=== PATIENT | female | born 1960 | race Caucasian/White ===

== ENCOUNTER 2022-10-27 12:00 | Outpatient (OUT) | payer OTHER, SELFPAY ==
[2022-10-27 11:44] LABS: Microalbum Creatinine Ratio Ur 11.5 mg/g (0.0-29.9); Microalbumin Urine Random <1.3 mg/dL (<=30.0)
[2022-10-27 12:13] LABS: Alanine Aminotransferase 40 U/L (14-59); Albumin Globulin Ratio 1.2; Albumin Level 4.1 g/dL (3.4-5.0); Alkaline Phosphatase 44 U/L (46-116); Anion Gap 8.7; Aspartate Amino Transferase 25 U/L (15-37); BUN Creatinine Ratio 14.7; Bilirubin Total 0.4 mg/dL (0.2-1.0); Calcium 9.1 mg/dL (8.5-10.1); Carbon Dioxide 31.1 mmol/L (21.0-32.0); Chloride 105 mmol/L (98-107); Chol HDL Ratio 2.2; Cholesterol 195 mg/dL (<=200); Estimated GFR (African America >60 (>=60); Estimated GFR (Non-African Ame 55 (>=60); Globulin 3.3 g/dL; HDL Cholesterol 89 mg/dL (40-60); Potassium 3.8 mmol/L (3.5-5.1); Sodium 141 mmol/L (136-145); Thyroid Stimulating Hormone 2.019 uIU/mL (0.358-3.740); Total Protein 7.4 g/dL (6.4-8.2); Triglycerides 49 mg/dL (<=150); VLDL CHOLESTEROL 9.8 mg/dL
[2022-10-27 12:45] LABS: Glucose 39 mg/dL (74-106)
== END 2022-10-27 12:01 | disposition home or self-care (01) ==
LOC: LAB 10-29 08:40
PROVIDERS: PCP Family Medicine
DX: E10.9 Type 1 diabetes mellitus without complications (principal); E06.3 Autoimmune thyroiditis
CPT/HCPCS: 36415; 80053; 80061; 82043; 82570; 84439; 84443

== ENCOUNTER 2023-07-02 13:48 | Outpatient (OUT) | payer OTHER, SELFPAY ==
--- NOTE | 2023-07-02 | XR_ITS ---
The [address] [address] Patient Name: DENISE TRAMMELL MRN: [id number] date: 1960 Sex: F Assigned Patient Location: Current Patient Location: Accession/Order Number: [id number] Exam Date: 07/02/2023 13:50 Report Date: 07/02/2023 15:46 At the request of: KARLA HOWARD Procedure: XR foot LT min 3V PROCEDURE: XR foot LT min 3V COMPARISON: None. HISTORY: RIGHT FOOT PAIN FINDINGS: BONES:No acute fracture or dislocation. Minimal enthesopathic spurring Achilles insertion on the calcaneus SOFT TISSUES:Negative. No visible soft tissue swelling. EFFUSION:None visible. OTHER: Negative. XR/XR foot LT min 3V IMPRESSION: No significant abnormality Electronically authenticated by: CHARU BE Date: 07/02/2023 15:46
== END 2023-07-02 13:49 | disposition home or self-care (01) ==
LOC: EC 13:49
PROVIDERS: PCP Family Medicine; Visit Provider Physician Assistant
DX: M79.672 Pain in left foot (principal)
CPT/HCPCS: 73630

== ENCOUNTER 2023-07-26 07:38 | Outpatient (OUT) | payer OTHER, SELFPAY ==
--- OUTSIDE RECORDS SUMMARY | 2023-07-26 07:44 | XMS_ITS | CCD ---
Author Organization [facility] Care Team Providers Care Hand Ii Thermal Cutter Name Role Phone CHARU CASTELLANOS Unavailable Unavailable CHARU CASTELLANOS Unavailable Unavailable SELF, REFERRED Unavailable Unavailable SELF, REFERRED Unavailable Unavailable REBECCA GONZALEZ Primary Care Physician [facility] [place] Admitting Unavailable MISC, DR BARCLAY Attending Unavailable GONZALEZ, DR REBECCA Hadadd Primary Care Unavailable GONZALEZ, DR REBECCA Haddad Consulting Unavailable HIGHLANDER, ADRIANNA Mcallister Admitting Unavailable JOE, ADRIANNA Mcallister Attending Unavailable GONZALEZ, DR REBECCA Haddad Primary Care Unavailable AMEENA, DR JAYLIN Charles Consulting Unavailable HIGHLANDERADRIANNA Consulting Unavailable MISC, DR BARCLAY Admitting Unavailable MISC, DR BARCLAY Attending Unavailable GONZALEZ, DR REBECCA Haddad Primary Care Unavailable MISC, DR BARCLAY Consulting Unavailable GONZALEZ, DR REBECCA Haddad Consulting Unavailable Rebecca Gonzalez Unavailable Rosa Mcallister Unavailable Unavailable Primary Care Provider Unavailsalvador e Ron, Judit J Admitting Unavailable Ron, Judit J Attending Unavailable Ron, Judit J Referring Unavailable Ron, Judit J Admitting Unavailable Ron, Judit J Attending Unavailable Ron, Judit J Referring Unavailable Ron, Judit J Admitting Unavailable Rno, Judit J Attending Unavailable Rebecca Gonzalez MD Primary Care Provider Allergies Allergy Classification Reported Allergen(s) Allergy Type Date of Onset Reaction(s) Facility (7 sources) Penicillin; Translations: [penicillin] Drug Allergy 07-04-19 21 Eruption of skin (disorder) [facility] (5 sources) Penicillin G Drug Allergy rash [facility] Other (4 sources) Sulfamethoxazole / Trimethoprim Drug Allergy Unknown [facility] Other (4 sources) Penicillin G Benzathine & Proc Drug allergy Unknown [facility] Other (4 sources) patient allergy list reviewed by nurse or physicia Propensity to adverse reactions 11-13-19 Comment:Done [facility] Other (4 sources) Allergies Reconciled Propensity to adverse reactions 02-14-20 21 Unknown [facility] Other (4 sources) Substance with penicillin structure and antibacterial mechanism of action (substance) Drug allergy Unknown [facility] Other (5 sources) Penicillins Propensity to adverse reactions to drug 03-08-20 22 [facility] Medications Current Medications Medication Drug Class(es) Dates Sig (Normalized) Sig (Original) ascorbic acid 250 mg chewable tablet (5 sources) Vitamin C ascorbic acid, vitamin C, (ascorbic acid) 250 mg tablet,chewable Chew and swallow. 0 Active aspirin 81 mg oral tablet (15 sources) Platelet Aggregation Inhibitor, Nonsteroidal Anti-inflammatory Drug Start: 08-16-2010 take 1 tablet by mouth once daily aspirin 81 mg oral tablet 81 mg = 1 tab(s), Oral, Daily, tab(s), Refills(s) 0 Start Date: 08/16/10 Status: Ordered aspirin 81 mg ca psule 1 tablet 0 Active azithromycin 250 mg oral tablet (1 source) Macrolide Antimicrobial Start: 2023 Azithromycin 250 MG as directed Orally 2 tabs po today, then 1 tab daily x 4 more days for Jan, Active Calcium (5 sources) Phosphate Binder, Calcium Start: 08-16-2010 Calcium 600 D Tab Oral, Daily, Refill(s) 0 Start Date: 08/16/10 Status: Ordered calcium carbonate 1500 mg / cholecalciferol 0.01 mg oral tablet (5 sources) Vitamin D calcium carbonate-vitamin D3 (CALCIUM 600 + D,3,) 600 mg(1,500mg) -400 units per tablet 1 tablet 0 Active doxycycline monohydrate 100 mg oral capsule (1 source) Tetracycline-class Drug Start: 03-13-2023 take 1 capsule by mouth every twelve hours Doxycycline Monohydrate 100 MG 1 capsule Orally Twice a day for 10 days Feb, Active ethinyl estradiol 0.0025 mg / norethindrone acetate 0.5 mg oral tablet (5 sources) Estrogen Start: 08-16-2010 take 1 tablet by mouth once daily femhrt 0.5 mg/2.5 mcg oral tablet 1 tab(s), Oral, Daily, tab(s), Refill(s) 0 Start Date: 08/16/10 Status: Ordered fluticasone furoate 0.0275 mg/actuat metered dose nasal spray (5 sources) Corticosteroid Flonase Sensimis t 27.5 MCG/SPRAY 2 sprays (1 spray in each nostril) Nasally Once a day for 30 days Active Flonase Sensimis t 27.5 MCG/SPRAY 2 sprays (1 spray in each nostril) Nasally Once a day for 30 days Active insulin aspart, human 100 unt/ml injectable solution (6 sources) Insulin Analog Start: 08-15-2022 End: 07-09-2023 insulin aspart U-100 (NovoLOG U-100 Insulin aspart) 100 unit/mL injection Indications: Type 1 diabetes mellitus without complication ([facility]) INJECT 60 UNITS DAILY VIA INSULIN PUMP DIRECTED 60 mL 3 07/09/2023 Active Insulin Infusion Pump (5 sources) Insulin Infusion Pump Active Humalog (5 sources) Insulin Analog Start: 08-16-2010 Humalog SubCut aneous, mL, Refills(s) 0 Start Date: 08/16/10 Status: Ordered levothyroxine sodium 0.075 mg oral tablet (10 sources) l-Thyroxine Start: 02-25-2023 levothyroxine (SYNTHROID, LEVOTHROID) 75 MCG tablet TAKE 1 TABLET ONCE DAILY INTHE MORNING ON AN EMPTY STOMACH 90 tablet 3 02/25/2023 Active take 1 tablet by kalee th every twenty-four hours Levothyroxine Sodium 75 MCG 1 tablet onc e a day Active Multiple Vitamins Tab (5 sources) Start: 08-16-2010 take 1 tablet by mouth once daily Multiple Vitamins Tab 1 tab(s), Oral, Daily, tab(s), Refill(s) 0 Start Date: 08/16/10 Status: Ordered Multivitamin preparation (5 sources) Multivitamin Ora lly Active pedi multivit no.12 w-fluoride (MULTIVITAMINS-FLUOR SABRINA-FOLIC A ORAL) (5 sources) pedi multivit no .12 w-fluoride (MULTIVITAMINS-FLUO RIDE-FOLIC A ORAL) See Admin Instructions. 0 Active pravastatin sodium 40 mg oral tablet (16 sources) HMG-CoA Reductase Inhibitor Start: 05-11-2022 End: 04-29-2023 pravastatin (PRAVACHOL) 40 mg tablet TAKE 1 TABLET TWICE A DAY 180 tablet 3 04/29/2023 Active Start: 08-16-2010 take 1 tablet by kalee th once daily at bedtime pravastatin 40 mg oral tablet 40 mg = 1 tab(s), Oral, Once a day (at bedtime), tab(s), Refills(s) 0 Start Date: 08/16/10 Status: Ordered take 1 tablet by kalee th every twenty-four hours Pravastatin Sodium 80 MG 1 tablet Orally Once a day Active sertraline 100 mg oral capsule (10 sources) Serotonin Reuptake Inhibitor Start: 08-16-2010 Zoloft 100 mg oral capsule Daily, Refills(s) 0 Start Date: 08/16/10 Status: Ordered take 1 tablet by kalee th every twenty-four hours Sertraline HCl 50 MG 1 tablet Orally Onc e a day Active Vitamin D (5 sources) Start: 08-16-2010 take 1 mL by mouth o nce daily Vitamin D Oral, Daily, mL, Refills(s) 0 Start Date: 08/16/10 Status: Ordered Problems Active Problems Problem Classification Problem Date Documented Date Episodic/Chronic Acquired foot deformities (4 sources) Acquired deformity of right foot; Translations: [Other acquired deformities of right foot] Episodic Anxiety disorders (5 sources) Anxiety 10-08-2013 Chronic Conditions associated with dizziness or vertigo (4 sources) Benign paroxysmal positional vertigo; Translations: [Benign paroxysmal vertigo, bilateral] Episodic Diabetes mellitus with complications (4 sources) Hyperglycemia due to type 1 diabetes mellitus; Translations: [Type 1 diabetes mellitus with hyperglycemia] Chronic Diabetes mellitus without complication (14 sources) Type 1 diabetes mellitus; Translations: [Type 1 diabetes mellitus without complications] Onset: 06-12-2013 10-09-2013 Chronic Disorders of lipid metabolism (14 sources) Hypercholesterolemia ; Translations: [Familial hypercholesterolemia ] Onset: 06-12-2013 10-08-2013 Chronic Lymphadenitis (2 sources) Enlarged lymph nodes, unspecified Episodic Neoplasms of unspecified nature or uncertain behavior (4 sources) Neoplastic disease of uncertain behavior; Translations: [Neoplasm of unspecified behavior of bone, soft tissue, and skin] Episodic Other connective tissue disease (4 sources) Pain in right foot; Translations: [Pain in right foot] Episodic Other ear and sense organ disorders (2 sources) Sensorineural hearing loss, bilateral; Translations: [Sensorineural hearing loss, bilateral] 07-11-2023 Chronic Other ear and sense organ disorders (2 sources) Otalgia, right ear; Translations: [Otalgia, unspecified] 07-11-2023 Episodic Other ear and sense organ disorders (1 source) Ear sensations - finding; Translations: [Other specified disorders of right ear] 07-11-2023 Episodic Other non-traumatic joint disorders (8 sources) Arthralgia of the ankle and/or foot; Translations: [Pain in joint, ankle and foot] Onset: 10-28-2015 Episodic Other non-traumatic joint disorders (4 sources) Shoulder joint pain; Translations: [Pain in right shoulder] Episodic Other skin disorders (1 source) Neck swelling; Translations: [Localized swelling, mass and lump, neck] 07-11-2023 Episodic Other upper respiratory infections (4 sources) Chronic sinusitis; Translations: [Chronic sinusitis, unspecified] Chronic Residual codes; unclassified (4 sources) Requires influenza virus vaccination; Translations: [Need for prophylactic vaccination and inoculation, Influenza] Episodic Residual codes; unclassified (4 sources) Tobacco user; Translations: [Tobacco use] Episodic Spondylosis; intervertebral disc disorders; other back problems (4 sources) Cervical spondylosis without myelopathy; Translations: [Spondylosis without myelopathy or radiculopathy, cervical region] Chronic Spondylosis; intervertebral disc disorders; other back problems (8 sources) Cervical radiculopathy; Translations: [Radiculopathy, cervical region] Onset: 03-29-2014 Episodic Sprains and strains (4 sources) Strain of muscle(s) and tendon(s) of peroneal muscle group at lower leg level, right leg, subsequent encounter; Translations: [Strain of muscle(s) and tendon(s) of peroneal muscle group at lower leg level, right leg, subsequent encounter] Episodic Thyroid disorders (6 sources) Hypothyroidism, unspecified; Translations: [Carol Ann thyroiditis] Onset: 11-01-2021 Chronic Unclassified (2 sources) Unknown / UNK(Unknown) Onset: 01-12-2016 Past or Other Problems Problem Classification Problem Date Documented Date Episodic/Chronic Bacterial infection; unspecified site (4 sources) Bacterial infectious disease; Translations: [Bacterial infection, unspecified, in conditions classified elsewhere and of unspecified site] Onset: 06-11-2016 Episodic Other connective tissue disease (1 source) Pain in right foot; Translations: [PAIN IN RIGHT FOOT] Onset: 07-26-2021 Episodic Other ear and sense organ disorders (4 sources) Tinnitus; Translations: [Unspecified tinnitus] Onset: 11-12-2017 Episodic Other ear and sense organ disorders (4 sources) Infective otitis externa; Translations: [Other infective otitis externa, right ear] Onset: 04-09-2017 Episodic Other nervous system disorders (4 sources) Paresthesia; Translations: [Paresthesia of skin] Onset: 03-29-2014 Episodic Other non-traumatic joint disorders (4 sources) Pain in right ankle and joints of right foot; Translations: [PAIN IN RIGHT ANKLE] Onset: 07-20-2021 Episodic Other upper respiratory infections (12 sources) Acute pharyngitis; Translations: [Acute pharyngitis, unspecified] Onset: 06-12-2013 Episodic Otitis media and related conditions (7 sources) Unspecified nonsuppurative otitis media, right ear; Translations: [Acute secretory otitis media] Onset: 05-06-2017 Episodic Results Test Name Value Interpretation Reference Range Facility POCT Hemoglobin A1con 2023 ADA Target < 8 Yes [facility] HbA1c (Bld) [Mass fraction] 6.3 g/dL 4 - 7 g/dL [facility] Consent for Treatmenton Consent for Treatment [id number] .00TIFF Normal [facility] MA Mamm Diag w/CAD if perf a nd 3D LTon 04-30-2023 MA Mamm Diag w/CAD if perf and 3D LT Exam Date/Time: 04/30/2023 08:52 EST Reason for Exam: N64.9 Report IMPRESSION: BIRADS 3 PROBABLY BENIGN, SHORT INTERVAL FOLLOW-UP.3 MONTH RECALL. FOLLOW-UP ULTRASOUND OF THE LEFT BREAST IN 3 MONTHS IS RECOMMENDED FOR FURTHER EVALUATION. CLINICAL HISTORY: N64.9. COMPARISON: 04/11/2023. COMMENT: ML and spot compression CC and ML views and tomosynthesis views of the left breast were obtained. The left breast is heterogeneously dense, which may obscure small masses. On these additional views, there are some small areas of partially delineated nodularity scattered in dense breast tissue. There is a grouping of stable benign-appearing calcifications in the posterior medial left breast. No dominant breast mass nor neoplastic calcifications are noted. The left breast is comparable in appearance to prior exams. The examination was reviewed with Computer Aided Detection. An ultrasound was obtained at all clock face positions and in the central/ retroareolar region of the left breast. At 1:00, there is an approximately 5 mm cyst. At 3:00, there is an approximately 3.5 mm cyst. At 6:00, there is a cyst cluster measuring 5 x 3 x 4 mm. Also at 6:00, there is a 4 mm cyst. Posterior to the nipple, there is a focal area that measures 5 x 2 x 3 mm, that is mostly anechoic, but with small area of internal echogenicity. This could represent a complex cyst or a duct with internal debris. Breast Density: Yes Mammography is very important to your health. The current [employer] and National [employer] Network guidelines recommends annual mammography beginning at age 40. This facility utilizes a reminder system to ensure all patients receive reminder notifications at the appropriate time based on the recommendations of this exam. Board Certified Radiologists. Accredited by the ACR and FDA. Report Ordering Provider: Judit Velasquez FINAL REPORT Dictated: 04/30/2023 4:21 pm Brandon Medrano M.D. Signed (Electronic Signature): 04/30/2023 4:21 pm Signed by: Brandon Medarno M.D. Transcribed by: MAHIN Technologist: YISEL Assessment: BI-RADS Category 3-Probably benign - short interval follow-up Recommendation: Follow-up at short interval Normal [facility] Breast Unilateral Lt Comp [email or web address] 04-30-2023 US Breast Unilateral Lt Complete Exam Date/Time: 04/30/2023 09:27 EST Reason for Exam: N64.9 Report PLEASE REFER TO THE MAMMOGRAM REPORT. Ordering Provider: Judit Velasquez FINAL REPORT Dictated: 04/30/2023 4:21 pm Brandon Medrano M.D. Signed (Electronic Signature): 04/30/2023 4:21 pm Signed by: Brandon Medrano M.D. Transcribed by: MAHIN Technologist: CHILO [facility] Physician Orderon 04-24-2023 Physician Order [id number] .00TIFF Normal [facility] MA Mamm Screen w/CAD if perf and 3D Bilon 04-13-2023 MA Mamm Screen w/CAD if perf and 3D Yo Exam Date/Time: 04/11/2023 08:49 EST Reason for Exam: Z12.31 Report IMPRESSION: BIRADS 0 - INCOMPLETE, NEED ADDITIONAL IMAGING EVALUATION Follow-up: RECALL NOW Density: Heterogeneously dense. Vascular calcifications: Absent. EXAM: MA Mamm Screen w/CAD if perf and 3D Yo DATE: 04/11/2023 8:18 AM CLINICAL HISTORY: Z12.31. COMPARISONS: 04/10/2022, 03/17/2021, and 03/16/2019\X09\. TECHNIQUE: Routine full-field digital mammograms and 3D breast tomosynthesis of both breasts were obtained. FINDINGS: Approximately 5 to 6 mm mostly obscured asymmetric density inferior left breast at a middle depth. Focal compression and full-field ML 2D and 3D mammography (and possible ultrasound) of the left breast are suggested. No other significant changes are identified from the prior studies, given differences in technique and positioning. Dense Breast: Yes. CAD analysis was performed and used in the interpretation. Board Certified Radiologists. Accredited by the ACR and FDA. MAMMOGRAPHY IS VERY IMPORTANT TO YOUR HEALTH. THE CURRENT [employer] AND [employer] GUIDELINES RECOMMENDS ANNUAL MAMMOGRAPHY BEGINNING AT AGE 40. THIS FACILITY UTILIZES A REMINDER SYSTEM TO ENSURE ALL PATIENTS RECEIVE REMINDER NOTIFICATIONS AT THE APPROPRIATE TIME BASED ON THE RECOMMENDATIONS OF THIS EXAM. Report Ordering Provider: Judit Velasquez FINAL REPORT Dictated: 04/13/2023 11:47 am Jose Gutierrez MD Signed (Electronic Signature): 04/13/2023 11:47 am Signed by: Jose Gutierrez MD Transcribed by: MAHIN Technologist: [facility] Assessment: BI-RADS Category 0-Incomplete: Need additional imaging evaluation Recommendation: Additional projections Normal [facility] Consent for Treatmenton 12- Consent for Treatment [id number] .00TIFF Normal [facility] PAP [id number] 03-12-2023 Cytology report Cyto stain Doc (Cvx/Vag) Note Invalid Interpretation Code [facility] Comment on above: Result Comment: TEST S RESULT FLAG UNITS REF RANGE LAB Clinician Provided Cytology Information Source.............Endocervix No. of containers..01 ThinPrep Vial DIAGNOSIS: 01 NEGATIVE FOR INTRAEPITHELIAL LESION OR MALIGNANCY. Specimen adequacy: 01 Satisfactory for evaluation. Endocervical and/or squamous metaplastic cells (endocervical component) are present. Performed by: Ismael Callejas, Floor Associate (ASCP) . 01 Note: Note 01 The Pap smear is a screening test designed to aid in the detection of premalignant and malignant conditions of the uterine cervix. It is not a diagnostic procedure and should not be used as the sole means of detecting cervical cancer. Both false-positive and false-negative reports do occur. Test Methodology: Note 01 This liquid based ThinPrep(R) pap test was screened with the use of an image guided system. FLAG LEGEND: L-Low Normal,H-High Normal,LL-Alert Low,HH-Alert High <-Panic Low,>-Panic High,A-Abnormal,AA-Critical Abnormal Performed at: [address] [id number] Liat Dennis MD, Performed By: #### 3 [id number] #### [facility] [address] [place] [address] HPV 16+18+31+33+35+39+4 5+51+52+56+58+59+66 +68 DNA Probe+sig amp Ql (Cvx) Negative Invalid Interpretation Code Negative [facility] Comment on above: Result Comment: This nucleic acid amplification test detects fourteen high-risk HPV types (16,18,31,33,35,39,45,51,52,56,58,59,66,68) without differentiation. Performed at: [address] [id number] MD Sonny Josue Performed at: = [address] [id number] MD Sonny Josue Performed By: #### 3 [id number] #### [facility] [address] [place] [address] Physician Orderon 03-08-2023 Physician Order [id number] .00TIFF Normal [facility] PAP [id number] 03-06-2023 Collection Technique BRUSH-SPATULA Normal [facility] Comment on above: Performed By: #### 3 [id number] #### [facility] [address] [place] [address] Gynecological Body Site ENDOCERVIX Normal [facility] Comment on above: Performed By: #### 3 [id number] #### [facility] [address] [place] [address] Physician Orderon 03-06-2023 Physician Order [id number] .00TIFF Normal [facility] FREE T4on 03-02-2022 Free T4 [Mass/Vol] 0.94 ng/dL Normal 0.76-1.46 [facility] Comment on above: Performed By: #### F T4 #### [facility] [address] [address] [address] Sarah Hickman TSHon 03-02-2022 TSH 0.398 uIU/mL Normal 0.358-3.740 [facility] Comment on above: Performed By: #### T SH #### [facility] [address] [address] [address] Sarah Hickman FREE T4on 10-28-2021 Free T4 [Mass/Vol] 0.66 ng/dL Critically low 0.76-1.46 [facility] Comment on above: Performed By: #### F T4 #### [facility] [address] [place] [address] Dr. Sarah Hickman LIPID PROFILEon 10-28-2021 CHOL-HDL RATIO NORM SEE BELOW Normal [facility] Comment on above: Result Comment: 3.3 - 4.4 LOW RISK 4.4 - 7.1 AVERAGE RISK 7.1 - 11.0 MODERATE RISK >11.0 HIGH RISK Performed By: #### L IPID, CMP, TSH #### [facility] [address] [place] [address] Dr. Sarah Hickman Cholesterol [Mass/Vol] 197 mg/dL Normal <=[address] [facility] Comment on above: Performed By: #### L IPID, CMP, TSH #### [facility] [address] [place] [address] Dr. Saarh Hickman Cholesterol in HDL [Mass/Vol] 78 mg/dL Critically high 40-[address] [facility] Comment on above: Performed By: #### L IPID, CMP, TSH #### [facility] [address] [place] [address] Dr. Sarah Hickman Cholesterol in LDL [Mass/Vol] 108.4 mg/dL Normal [facility] Comment on above: Performed By: #### L IPID, CMP, TSH #### [facility] [address] [place] [address] Dr. Sarah Hickman Cholesterol.total/C holesterol in HDL [Mass ratio] 2.5 {ratio} Normal [facility] Comment on above: Performed By: #### L IPID, CMP, TSH #### [facility] [address] [address] [address] Sarah Hickman HDL NORMAL > or = 60 mg/dl - LO W CARDIOVASCULAR RISK <40 mg/dl - HIGH CARDIOVASCULAR RISK Normal [facility] Comment on above: Performed By: #### L IPID, CMP, TSH #### [facility] [address] [address] [address] Sarah Hickman LDL CALC NORMAL SEE BELOW Normal [facility] Comment on above: Result Comment: <100 mg/dl OPTIMAL 100 - 129 mg/dl NEAR OR ABOVE OPTIMAL 130 - 159 mg/dl BORDERLINE HIGH 160 - 189 mg/dl HIGH >190 mg/dl VERY HIGH Performed By: #### L IPID, CMP, TSH #### [facility] [address] [address] [address] Sarah Hickman Triglyceride [Mass/Vol] 53 mg/dL Normal <=[address] [facility] Comment on above: Performed By: #### L IPID, CMP, TSH #### [facility] [address] [address] [address] Sarah Hickman VLDL CALC 10.6 mg/dL Normal [facility] Comment on above: Performed By: #### L IPID, CMP, TSH #### [facility] [address] [address] [address] Sarah Hickman MICROALBUMIN, RAND URon 07-0 mALB 4.4 mg/L Normal <=30.[address] [facility] Comment on above: Performed By: #### M ALBR #### [facility] [address] [address] [address] Sarah Hickman PROF 14(COMP METB)on 022 Albumin [Mass/Vol] 3.9 g/dL Normal 3.4-5.0 [facility] Comment on above: Performed By: #### L IPID, CMP, TSH #### [facility] [address] [address] [address] Sarah Hickman Albumin/Globulin [Mass ratio] 1.1 {ratio} Normal [facility] Comment on above: Performed By: #### L IPID, CMP, TSH #### [facility] [address] [address] [address] Sarah Hickman ALP [Catalytic activity/Vol] 45 U/L Critically low 46-[address] [facility] Comment on above: Performed By: #### L IPID, CMP, TSH #### [facility] [address] [address] [address] Sarah Hickman ALT [Catalytic activity/Vol] 39 U/L Normal 14-[address] [facility] Comment on above: Performed By: #### L IPID, CMP, TSH #### [facility] [address] [address] [address] Sarah Hickman Anion gap [Moles/Vol] 10.6 mmol/L Normal [facility] Comment on above: Performed By: #### L IPID, CMP, TSH #### [facility] [address] [place] [address] Dr. Sarah Hickman AST [Catalytic activity/Vol] 26 U/L Normal 15-[address] [facility] Comment on above: Performed By: #### L IPID, CMP, TSH #### [facility] [address] [place] [address] Dr. Sarah Hickman Bilirubin [Mass/Vol] 0.5 mg/dL Normal 0.2-1.[address] [facility] Comment on above: Performed By: #### L IPID, CMP, TSH #### [facility] [address] [place] [address] Dr. Sarah Hickman Calcium [Mass/Vol] 8.9 mg/dL Normal 8.5-10.1 [facility] Comment on above: Performed By: #### L IPID, CMP, TSH #### [facility] [address] [place] [address] Dr. Sarah Hickman Chloride [Moles/Vol] 105 mmol/L Normal 98-[address] [facility] Comment on above: Performed By: #### L IPID, CMP, TSH #### [facility] [address] [address] [address] Sarah Hickman CO2 [Moles/Vol] 29.4 mmol/L Normal 21.0-32.0 [facility] Comment on above: Performed By: #### L IPID, CMP, TSH #### [facility] [address] [address] [address] Sarah Hickman Creatinine [Mass/Vol] 0.97 mg/dL Normal 0.55-1.[address] [facility] Comment on above: Performed By: #### L IPID, CMP, TSH #### [facility] [address] [address] [address] Sarah Hickman EGFR-AF PANAMANIAN >60 Normal >=60 [facility] Comment on above: Performed By: #### L IPID, CMP, TSH #### [facility] [address] [address] [address] Sarah Hickman EGFR-NON AF PANAMANIAN 58 mL/min/1.73m2 Critically low >=[address] [facility] Comment on above: Performed By: #### L IPID, CMP, TSH #### [facility] [address] [address] [address] Sarah Hickman Globulin (S) [Mass/Vol] 3.6 g/dL Normal [facility] Comment on above: Performed By: #### L IPID, CMP, TSH #### [facility] [address] [address] [address] Sarah Hickman Glucose [Mass/Vol] 140 mg/dL Critically high 74-106 [facility] Comment on above: Performed By: #### L IPID, CMP, TSH #### [facility] [address] [address] [address] Sarah Hickman Potassium [Moles/Vol] 4.0 mmol/L Normal 3.5-5.[address] [facility] Comment on above: Performed By: #### L IPID, CMP, TSH #### [facility] [address] [address] [address] Sarah Hickman Protein [Mass/Vol] 7.5 g/dL Normal 6.4-8.2 [facility] Comment on above: Performed By: #### L IPID, CMP, TSH #### [facility] [address] [address] [address] Sarah Hickman Sodium [Moles/Vol] 141 mmol/L Normal 136-145 [facility] Comment on above: Performed By: #### L IPID, CMP, TSH #### [facility] [address] [address] [address] Sarah Hickman Urea nitrogen [Mass/Vol] 15.0 mg/dL Normal 7.0-18.[address] [facility] Comment on above: Performed By: #### L IPID, CMP, TSH #### [facility] [address] [place] [address] Dr. Sarah Hickman Urea nitrogen/Creatinine [Mass ratio] 15.5 mg/mg Normal [facility] Comment on above: Performed By: #### L IPID, CMP, TSH #### [facility] [address] [place] [address] Dr. Sarah Hickman TSHon 10-28-2021 TSH 7.247 uIU/mL Critically high 0.358-3.740 [facility] Comment on above: Performed By: #### L IPID, CMP, TSH #### [facility] [address] [place] [address] Dr. Sarah Hickman NEW MICROALBUMINon 0 Creatinine (U) [Mass/Vol] 36.5 mg/dL Normal [facility] Comment on above: Order Comment: THE M ICROALBUMIN IS < 6.0 THEREFORE THE MICROALBUMIN/CREATININE RATIO IS UNDETECTABLE. Performed By: #### 8 00 #### [facility] Unless Otherwise Noted [address] [place] [address] / COLA #4724/TEOFILO # [id number] Microalbumin <6.0 Normal 0.0-30.0 [facility] Comment on above: Order Comment: THE M ICROALBUMIN IS < 6.0 THEREFORE THE MICROALBUMIN/CREATININE RATIO IS UNDETECTABLE. Performed By: #### 8 00 #### [facility] Unless Otherwise Noted [address] [facility] [address] [place] [address] / COLA #4724/CLIA # [id number] Urine A/C Ratio -99.0 mg/g Low 0.0-30.0 [facility] Comment on above: Order Comment: THE M ICROALBUMIN IS < 6.0 THEREFORE THE MICROALBUMIN/CREATININE RATIO IS UNDETECTABLE. Performed By: #### 8 00 #### [facility] Unless Otherwise Noted [address] [facility] [address] [place] [address] / COLA #4724/CLIA # [id number] Vital Signs Date Time Vital Sign Value Performing Clinician Facility 07-11-2023 14:52-0400 Body height 170.2 cm Stacy Brink MD Work Phone: [facility] 07-11-2023 14:52-0400 Body mass index (BMI) [Ratio] 23.27 kg/m2 Stacy Brink MD Work Phone: [facility] 07-11-2023 14:52-0400 Body temperature 97.7 [degF] Stacy Brink MD Work Phone: [facility] 07-11-2023 14:52-0400 Body weight 67.41 kg Stacy Brink MD Work Phone: [facility] 07-09-2023 12:02-0400 Body mass index (BMI) [Ratio] 23.1 kg/m2 Mayuri Salazar MD Work Phone: [facility] 07-09-2023 12:02-0400 Body weight 66.91 kg Mayuri Salazar MD Work Phone: [facility] 07-09-2023 12:02-0400 Diastolic blood pressure 77 mm[Hg] Mayuri Salazar MD Work Phone: [facility] 07-09-2023 12:02-0400 Heart rate 70 /min Mayuri Salazar MD Work Phone: [facility] 07-09-2023 12:02-0400 Systolic blood pressure 129 mm[Hg] Mayuri Salazar MD Work Phone: [facility] 04-09-2023 13:00-0500 Body height 170.18 cm Rebecca Gonzalez Other [facility] Other 04-09-2023 13:00-0500 Body mass index (BMI) [Ratio] 23.18 kg/m2 Rebecca Gonzalez Other [facility] Other 04-09-2023 13:00-0500 Body weight 67.13 kg Rebecca Gonzalez Other [facility] Other 04-09-2023 13:00-0500 Diastolic blood pressure 77 mm[Hg] Rebecca Gonzalez Other [facility] Other 04-09-2023 13:00-0500 Systolic blood pressure 136 mm[Hg] Rebecca Gonzalez Other [facility] Other 03-13-2023 13:00-0500 Body height 170.18 cm Rosa Mcallister Other [facility] Other 03-13-2023 13:00-0500 Body mass index (BMI) [Ratio] 23.05 kg/m2 Rosa Mcallister Other [facility] Other 03-13-2023 13:00-0500 Body temperature 97.4 [degF] Rosa Mcallister Other [facility] Other 03-13-2023 13:00-0500 Body weight 66.77 kg Rosa Ary Other [facility] Other 03-13-2023 13:00-0500 Diastolic blood pressure 72 mm[Hg] Rosa Ary Other [facility] Other 03-13-2023 13:00-0500 SaO2% (BldA) [Mass fraction] 97 % Rosa Ary Other [facility] Other 03-13-2023 13:00-0500 Systolic blood pressure 126 mm[Hg] Rosa Ary Other [facility] Other 2023 11:15-0400 Body height 170.18 cm Rebecca Gonzalez Other [facility] Other 2023 11:15-0400 Body mass index (BMI) [Ratio] 23.02 kg/m2 Rebecca Gonzalez Other [facility] Other 2023 11:15-0400 Body weight 66.68 kg Rebecca Gonzalez Other [facility] Other 2023 11:15-0400 Diastolic blood pressure 72 mm[Hg] Rebecca Gonzalez Other [facility] Other 2023 11:15-0400 Systolic blood pressure 151 mm[Hg] Rebecca Gonzalez Other [facility] Other Encounters Encounter Date Encounter Type Care Provider Facility Start: 07-23-2023 Telephone encounter Stacy Brink MD Work Phone: [facility] Start: 07-11-2023 End: 07-11-2023 Patient encounter procedure Stacy Brink MD Work Phone: [facility] Comment on above: Ear fullness, right (Primary Dx); Otalgia, right; Sensorineural hearing loss (SNHL) of both ears; Neck swelling Start: 07-11-2023 End: 07-11-2023 Clinical Support Criss Blackjeff [place] Work Phone: [facility] Comment on above: Sensorineural hearin g loss (SNHL) of both ears (Primary Dx); Ear pain, right Start: 07-09-2023 End: 07-09-2023 Office outpatient visit 25 minutes Mayuri Salazar MD Work Phone: [facility] Comment on above: Type 1 diabetes armando itus without complication ([facility]) (Primary Dx); Carol Ann's disease; Mixed hyperlipidemia Start: 05-01-2023 End: 05-01-2023 ambulatory Rebecca Gonzalez Other [facility] Other Start: 05-01-2023 Telephone encounter Rebecca Gonzalez [facility] Start: 04-30-2023 End: 05-01-2023 ambulatory Judit Fermin Pagee [place] Start: 04-30-2023 End: 04-30-2023 Patient encounter procedure Judit Fermin Pagee [facility] Start: 04-29-2023 Reinaldo rico MD Work Phone: [facility] Start: 04-26-2023 End: 04-26-2023 ambulatory Rebecca Gonzalez Other [facility] Other Start: 04-26-2023 Telephone encounter Rebecca Gonzalez [facility] Start: 04-11-2023 End: 04-12-2023 ambulatory Judit J Ron [place] Start: 04-11-2023 End: 04-11-2023 Patient encounter procedure Judit Fermin Ron [facility] Start: 04-09-2023 End: 04-09-2023 ambulatory Rebecca Gonzalez Other [facility] Other Start: 04-09-2023 Office outpatient vi sit 15 minutes Rebecca Gonzalez [facility] Start: 03-13-2023 End: 03-13-2023 ambulatory Rosa Mcallister Other [facility] Other Start: 03-13-2023 Office outpatient vi sit 15 minutes Rosa Mcallister [facility] Start: 03-06-2023 End: 03-07-2023 ambulatory Judit Velasquez [place] Start: 03-06-2023 End: 03-06-2023 Lab Drop off Judit J Ron [facility] Start: 2023 End: 2023 ambulatory Rebecca Maggie Other [facility] Other Start: 2023 Office outpatient vi sit 15 minutes Rebecca Maggie [facility] Start: 04-10-2022 End: 04-10-2022 Patient encounter procedure Judit J Ron [facility] Start: 03-02-2022 End: 03-03-[address] DOCTOR AGUDELO Facility:[facility] Start: 03-02-2022 End: 03-02-2022 Lab Drop off Judit Fermin Ron [facility] Start: 10-28-2021 End: 10-29-[address] DOCTOR AGUDELO Facility:[facility] Start: 07-20-2021 End: 04-01-2022 ambulatory ADRIANNA DIAZ Facility:[facility] Start: 01-12-2016 End: 01-13-2016 Ambulatory CHARU CASTELLANOS Facility:[facility] Procedures Date Procedure Procedure Detail Performing Clinician Start: 07-09-2023 Hemoglobin glycosyla pati a1c Mayuri Salazar MD Work Phone: Start: 07-27-2022 Diabetic retinal eye exam Mayuri Salazar MD Work Phone: breast biopsy 1 Judit Ron Comment on above: left bursa sac 2 Judit Ron Comment on above: right knee knee arthroscopy 3 Judit La mpe Comment on above: right Viral screening Rosa Alvarez theodore Other Plan of Treatment Date Care Activity Detail Author Start: 07-17-2024 Tobacco Screening Tobacco Screening [facility] Start: 07-10-2024 Adult BMI Screening Adult BMI Screen ing [facility] Start: 07-10-2024 Tobacco Screening Tobacco Screening [facility] Start: 07-08-2024 Adult BMI Screening Adult BMI Screen ing [facility] Start: 07-08-2024 Diabetic foot examination Diabetic Foot Exam [facility] Start: 07-08-2024 Tobacco Screening Tobacco Screening [facility] Start: 03-04-2024 Adult BMI Screening Adult BMI Screen ing [facility] Start: 03-04-2024 Diabetic foot examination Diabetic Foot Exam [facility] Start: 03-04-2024 Tobacco Screening Tobacco Screening [facility] Start: 12-22-2023 Influenza vaccination Influenza Vacc ine [facility] Start: 11-04-2023 End: 11-04-2023 Patient encounter procedure 11/04/2023 9:30 AM EDT Office Visit [facility] [address] [id number] Magui Warren, H[employer] DES[employer]ERK[employer] [address] [address] [facility] Start: 08-22-2023 End: 08-22-2023 Patient encounter procedure 08/22/2023 2:45 PM EDT Office Visit [facility] [address] [facility] [address] [place] [address] Stacy Brink MD [address] [address] [facility] Start: 07-28-2023 Glaucoma screening Diabetic Op hthalmology Exam [facility] Start: 07-11-2023 End: 07-11-2023 Clinical Support [facility] Start: 07-11-2023 End: 07-10-2024 MR Brain and Internal auditory canal WO and W contrast IV MR brain IAC with and without contrast Imaging Routine Otalgia, right Ear fullness, right Expected: 07/11/2023, Expires: 07/10/2024 [facility] Work Phone: Comment on above: Expected: 07/11/2023 , Expires: 07/10/2024 Start: 07-11-2023 End: 07-10-2024 US Head and neck soft tissue Ultrasound soft tissue head neck Imaging Routine Neck swelling Expected: 07/11/2023, Expires: 07/10/2024 [facility] Comment on above: Expected: 07/11/2023 , Expires: 07/10/2024 Start: 07-09-2023 End: 07-09-2023 Patient encounter procedure 07/09/2023 11:45 AM EDT Office Visit [facility] [address] [place] [phone] Mayuri Salazar MD [address] [place] [address] [facility] Start: 12-21-2022 COVID-19 Vaccine () COVID-19 Vaccine () [facility] Start: 01-27-2010 Administration of varicella zoster vaccine Zoster (Shingles) Vaccine (1 of 2) [facility] Start: 01-27-1981 Screening for malign ant neoplasm of cervix Pap Smear [facility] Start: 01-27-1979 DTaP,Tdap and Td Vaccines (1 - Tdap) DTaP,Tdap and Td Vaccines (1 - Tdap) [facility] Start: 1972 Depression Screening Depression Scre ening [facility] Start: 1960 Urine screening for protein Urine Microalbumin [facility] Immunizations Immunization Date Immunization Notes Care Provider Fa [facility] 01-18-2023 influenza virus vaccine, unspecified formulation Stacy Brink MD Work Phone: [facility] 02-04-2014 tetanus and diphtheria toxoids, adsorbed, preservative free, for adult use (5 Lf of tetanus toxoid and 2 Lf of diphtheria toxoid) Rosa Mcallister Other [facility] Other 02-11-2013 tetanus and diphtheria toxoids, adsorbed, preservative free, for adult use (5 Lf of tetanus toxoid and 2 Lf of diphtheria toxoid) Rosa Mcallister Other [facility] Other Payers Date Payer Category Payer Private Health Insurance [employer] A ETNA POS [id number] 2021-Present [phone] [address] [place] [address] [id number] 1960 Unknown [id number] 1960 Unknown [id number] 1960 Unknown [id number] 1960 Unknown [id number] 1960 Unknown [id number] 1960 Unknown [id number] 1959 Private Health Insurance [id number] Private Health Insurance [id number] Unknown [id number] Social History Date Type Detail Facility Tobacco smoking status [facility] Start: 06-02-2020 End: 03-04-2023 Sex Assigned At Female [facility] Start: 07-04-2022 Tobacco smoking stat [facility] Never smoked tobacco [facility] Start: 07-04-2022 Tobacco use and exposure Smoke less tobacco non-user [facility] Start: 03-04-2023 End: 07-18-2023 Alcohol intake Lifetime non-drinker (finding) [facility] Start: 06-02-2020 End: 03-04-2023 History of Social function [facility] Housing Instability Unknown [facility] Start: 1960 Sex Assigned At Not on file P [facility] Medical Equipment Procedure Code Equipment Code Equipment Origin al Text Equipment Identifier Dates 1 strip by other route as needed for high blood sugar. Checks 7 times/day. Glucometer communicates with her insulin pump. DX: E11.9 [id number] Start: 11-21-2022 Clinical Notes 07-20-2021 to 07-23-2023 Telephone Encounter - Rosa Harden - 07/23/2023 4:33 PM EDTTelephone Encounter - Yamilka Almonte CNA - 07/23/2023 4:33 PM EDTTelephone Encounter - Rosa Harden - 07/23/2023 4:33 PM EDT Note Date & Type Note Facility 07-23-2023 Miscellaneous Notes Formattin g of this note might be different from the original. Kalee with [facility] scheduling dept called. She needs office notes faxed to pre cert the MRI. Please fax to [phone]. Phone number [phone] if any questions. Pt also needs an order for Creatinine because the MRI is ordered with and w/o contrast Faxed office note to [place] [facility] documented in this encounter [facility] 07-23-2023 Telephone encount er Note Kalee with [facility] scheduling dept called. She needs office notes faxed to pre cert the MRI. Please fax to [phone]. Phone number [phone] if any questions. Pt also needs an order for Creatinine because the MRI is ordered with and w/o contrast [facility] 07-23-2023 Telephone encount er Note Faxed office note to [place] [facility] 07-11-2023 History of Presen t illness Narrative Images from the original note were not included. [facility] [address] [facility] [address] [facility] [phone] SUBJECTIVE: Patient ID: Marcia Mario is a 63 y.o. female presents today for Chief Complaint Patient presents with Otitis Media HPI: Marcia Mario is a 63 y.o. female seen at the request of Rebecca Gonzalez MD for evaluation of right otitis media. Patient experiences right otalgia and aural fullness continually. She notes that the right side of her neck also swells for a couple hours but does not have any associated pain. She has intermittent jaw pain. Patient uses Flonase intermittently for allergy symptoms like nasal congestion and sinus pressure. Audiogram performed today. HISTORY: Past Medical History: Diagnosis Date Allergic 1970 Penicillin - Rash Depression Diabetes mellitus ([facility]) 07/1980 Type 1 Disease of thyroid gland Hyperlipidemia Past Surgical History: Procedure Laterality Date BREAST BIOPSY EYE SURGERY KNEE ARTHROSCOPY LASIK Bilateral SHOULDER ARTHROSCOPY Family History Problem Relation Age of Onset Arthritis Mother Heart disease Mother Heart disease Father Social History Socioeconomic History Marital status: Spouse name: Not on file Number of children: Not on file Years of education: Not on file Highest education level: Not on file Occupational History Not on file Tobacco Use Smoking status: Never Smokeless tobacco: Never Vaping Use Vaping Use: Never used Substance and Sexual Activity Alcohol use: Never Drug use: Never Sexual activity: Defer Other Topics Concern Not on file Social History Narrative Not on file Social Determinants of Health Financial Resource Strain: Not on file Food Insecurity: No Food Insecurity (07/09/2023) Hunger Screening Food Insecurity - Worry: Never True Food Insecurity - Inability: Never True Transportation Needs: Not on file Physical Activity: Not on file Stress: Not on file Social Connections: Not on file Interpersonal Safety: Not on file Housing Instability: Not on file Allergies Allergen Reactions Penicillins Rash Current Outpatient Medications Medication Sig Dispense Refill ascorbic acid, vitamin C, (ascorbic acid) 250 mg tablet,chewable Chew and swallow. aspirin 81 mg capsule 1 tablet calcium carbonate-vitamin D3 (CALCIUM 600 + D,3,) 600 mg(1,500mg) -400 units per tablet 1 tablet CONTOUR NEXT TEST STRIPS strip 1 strip by other route as needed for high blood sugar. Checks 7 times/day. Glucometer communicates with her insulin pump. DX: E11.9 700 strip 3 insulin aspart U-100 (NovoLOG U-100 Insulin aspart) 100 unit/mL injection INJECT 60 UNITS DAILY VIA INSULIN PUMP DIRECTED 60 mL 3 levothyroxine (SYNTHROID, LEVOTHROID) 75 MCG tablet TAKE 1 TABLET ONCE DAILY INTHE MORNING ON AN EMPTY STOMACH 90 tablet 3 pedi multivit no.12 w-fluoride (CRBVLFTJRAIGM-EFSDMWAX-XJOAR A ORAL) See Admin Instructions. pravastatin (PRAVACHOL) 40 mg tablet TAKE 1 TABLET TWICE A DAY 180 tablet 3 No current facility-administered medications for this visit. REVIEW OF SYSTEMS: Review of Systems Constitutional: Negative for chills and fever. HENT: Positive for congestion, ear pain, hearing loss, sinus pressure and trouble swallowing. Negative for ear discharge, postnasal drip, rhinorrhea, sinus pain, sore throat and voice change. Eyes: Negative for pain and itching. Respiratory: Negative for cough and wheezing. Cardiovascular: Negative for chest pain and palpitations. Gastrointestinal: Negative for nausea and vomiting. Endocrine: Negative for cold intolerance and heat intolerance. Genitourinary: Negative for difficulty urinating and flank pain. Musculoskeletal: Negative for gait problem. Skin: Negative for color change. Allergic/Immunologic: Negative for environmental allergies and food allergies. Neurological: Negative for dizziness and headaches. Hematological: Does not bruise/bleed easily. Psychiatric/Behavioral: Negative for confusion. Data Reviewed: PHYSICAL EXAMINATION: Temp 36.5 C (97.7 F) Ht 170.2 cm (5' 7 ) Wt 67.4 kg (148 lb 9.6 oz) BMI 23.27 kg/m Constitutional: General Appearance: Healthy, alert, cooperative, and in no distress Ability to Communicate: Normal ability to communicate and Voice normal Head/Face: Inspection of Head/Face: Normocephalic without obvious abnormality, Atraumatic appearance, and Sinuses non-tender Facial Nerve: Facial nerve symmetrical and intact Salivary Glands: Parotid Gland: Normal, Submandibular Gland: Abnormal ptotic, right submandibular gland is larger than left submandibular gland, and Sublingual Gland: Normal Eyes: No gross abnormalities, EOMI, and No Nystagmus Ears: External Ear: Normal bilateral External Auditory Canal: Normal bilateral Tympanic Membranes: Normal bilateral Middle Ear: Normal bilateral Hearing: Normal bilateral Nose: External Nose: Normal Septum: Midline septum Mucosa/Turbinates: Normal inferior turbinate and Abnormal bilateral Mucosal edema very mild pale. Oral Cavity: Normal lips, Normal teeth, Normal gums, Normal floor of mouth, Normal oral mucosa, and Normal anterior tongue Oropharynx: Normal mucosa, Normal soft palate, Normal hard palate, Tonsil hypertrophy right: 1+, Tonsil hypertrophy left: 1+, Normal Vallecula, and mildly elongated uvula. Nasopharynx: Refer to procedure note Hypopharynx: Refer to procedure note Larynx: Refer to procedure note TMJ: No pain, crepitus, or trismus right and left Neck: Neck supple, No adenopathy, Thyroid normal in size without nodules or tenderness, No palpable neck masses, and Carotids normal Respiratory: No stridor, Normal respiratory effort and No use of accessory muscles Cardiovascular: Regular rate and Regular rhythm Neurologic: Patient is alert and oriented x3 with normal affect and grossly normal cranial nerves Procedure Note: Flexible Laryngoscopy Pre-operative Diagnosis: right otalgia Post-operative Diagnosis: same Surgeon: Stacy Brink MD Anesthesia: Oxymetazoline and 4% Lidocaine Endoscopy Type: Flexible Laryngoscopy Procedure Details: The patient was placed in the sitting position. After topical anesthesia and decongestant applied, a flexible laryngoscope was passed. The nasal cavities, nasopharynx, oropharynx, hypopharynx, and larynx (including the epiglottis, base of tongue, false cords, true cords, arytenoids, post-cricoid region, and the pyriform sinuses) were all examined. Vocal cords were examined during respiration and phonation. The structures examined during this procedure were normal unless specifically noted below. The following findings were noted: Findings: Mild dryness along nasal septum on the right. Normal middle turbinate and middle meatus, bilaterally. Minimal dryness on the left. ET orifices are normal, bilaterally. Remainder of nasopharynx is normal. Base of tongue and epiglottis are normal. Remainder of hypopharynx and larynx are normal. Condition: The procedure was successful Complications: None ASSESSMENT/PLAN: Marcia was seen today for otitis media. Diagnoses and all orders for this visit: Ear fullness, right - MR brain IAC with and without contrast; Future Otalgia, right - [facility] [place], [place] - MR brain IAC with and without contrast; Future Sensorineural hearing loss (SNHL) of both ears Neck swelling - Ultrasound soft tissue head neck; Future Today's examination findings were discussed with the patient/patient's parent or guardian. Recommendations for treatment were provided including the following: Audiogram was performed in office today. Findings were reviewed with the patient. Flexible laryngoscopy was performed in office today. Findings were reviewed with the patient. Due to normal physical examination, I recommend patient undergo MRI Brain/IAC to further evaluate the right aural fullness. Regarding right neck swelling, I ordered US neck to further investigate enlargement and swelling of submandibular gland. Follow up after imaging. The patient will contact my office if there are any additional questions or concerns: . Non-emergent messages received through [employer] may take up to 2 business days for a response. Scribe Statement: Scribed for and in the presence of Stacy Brink MD by Soraida Hernandez ([email or web address]). Soraida Hernandez 07/11/2023 3:09 PM Provider Statement: I Stacy Brink MD personally performed the services described in the documentation as described by the above named scribe in my presence. It is both accurate and complete at the time of final signature. Dr. Stacy Brink 07/11/2023 12:31 PM Counseling: The following elements of medical decision making were considered during this visit: Reviewed and summarized previous records. The patient was counseled regarding prognosis, risks and benefits of treatment options, impressions, importance of compliance with treatment and risk factor reductions. The patient verbalized understanding and agreement to the plan. Preparing to see the patient (e.g., review of tests) Obtaining and/or reviewing separately obtained history Performing a medically appropriate examination and/or evaluation Counseling and educating the patient/family/caregiver Documenting clinical information in the electronic or other health record Independently interpreting results (not separately reported) and communicating results to the patient/family/caregiver Electronically signed by Stacy Brink MD Please note that parts of this chart were generated using voice recognition [employer] dictation software. Although every effort was made to ensure the accuracy of this automated canned food reconditioning inspector, some errors in canned food reconditioning inspector may have occurred. documented in this encounter [facility] 07-11-2023 Instructions Soraida Hernandez - 07/11/2023 3:00 PM EDT Today's examination findings were discussed with the patient/patient's parent or guardian. Recommendations for treatment were provided including the following: Audiogram was performed in office today. Findings were reviewed with the patient. Flexible laryngoscopy was performed in office today. Findings were reviewed with the patient. Due to normal physical examination, I recommend patient undergo MRI Brain/IAC to further evaluate the right aural fullness. Regarding right neck swelling, I ordered US neck to further investigate enlargement and swelling of submandibular gland. Follow up after imaging. The patient will contact my office if there are any additional questions or concerns: . Non-emergent messages received through [employer] may take up to 2 business days for a response. documented in this encounter [facility] 07-11-2023 History of Presen t illness Narrative AUDIOLOGIC EVALUATION Reason for visit: CC: Patient reports right ear pain that has gotten worse over the last 6 months. IN the past the right ear pain was intermittent, however, it seems to be worse and more consistent over the last 6 months. She reports a left ear humming sound for many years. The left ear tinnitus is non-bothersome to her. She does not feel the ear pain has impacted her hearing in her right ear. She has no concerns for her hearing and feels she is hearing equally from her right and left ears. She denies fullness, otorrhea, and dizziness. She denies previous ear surgery, family history of hearing loss and history of noise exposure. HISTORY: Concerns with hearing: No Tinnitus: Left ear, long standing, non-bothersome Dizziness: No Noise Exposure: No Aural Fullness: No Otalgia: Right ear Otorrhea: No Other significant history: None RESULTS: Otoscopic Evaluation: Right Ear: Unremarkable Left Ear: Unremarkable Immittance Measures: Right Ear: Type A Left Ear: Type A Pure Tone Audiometry: Right Ear: Normal hearing 250-2000Hz sloping to modearte SNHL Left Ear: Normal hearing 250-2000Hz sloping to moderate SNHL Asymmetry noted: No Reliability: good Speech Audiometry: SRT/BURSAR in good agreement WRS: Right Ear: Excellent (100%) Left Ear: Excellent (100%) RECOMMENDATIONS: Follow up with Malena Talbert, [facility]A [employer] documented in this encounter [facility] 07-09-2023 History of Presen t illness Narrative REASON FOR VISIT: Marcia Mario returns today for follow-up of her diabetes. DIABETES HISTORY: Type of Diabetes: Type 1 Diabetes Mellitus Duration of Diabetes: since 1980 INTERVAL HISTORY: Last visit 03/04/23, HgA1c was 6.2%, today 6.3%. No significant hypoglycemia. Some changes in visual acuity-has eye exam next month. She has plantar fascitis in her left foot, she is doing some stretches. Has decreased her activity some. Weight is stable. No increased thirst/urination. No chest pain, no shortness of breath. Has hypothyroidism taking 75 mcg levothyroxine daily. She denies any symptoms related to her thyroid. Has osteopenia last BMD 06/27/21 in our office demonstrated osteopenia, taking calcium daily DIABETES COMPLICATIONS/SURVEILLANCE: Retinopathy: no Last eye exam: July 2022-Dr. Vazquez, no retinopathy Nephropathy: no Peripheral neuropathy: no History of amputations: no Autonomic neuropathy: no Macrovascular disease: CAD: no PVD: no Stroke: no Hypertension: no Dyslipidemia: yes Tobacco use: no ASA prophylaxis: yes Sleep apnea: no Immunizations current : yes Current Diabetic medications: [employer]tronic 630G, may consider changing products but not interested at this time, tried Enlite sensor and felt it inaccurate, she is not interested in sensor at this time Prior Diabetic medications: various insulins Diet: carb counting Insulin pump settings: per download Blood glucose summary: Per pump download shows average glucose is 141+/-55, 15% above target, 0% low. She is checking her blood sugars on average 7 times per day, avg fasting 101, pre lunch 121, pre supper 160, bedtime 118 Hypoglycemia: Awareness: good Frequency: infrequent Glucagon available: no Medic alert ID: no Past Medical History: Diagnosis Date Depression Disease of thyroid gland Hyperlipidemia Past Surgical History: Procedure Laterality Date KNEE ARTHROSCOPY LASIK Bilateral SHOULDER ARTHROSCOPY Current Outpatient Medications: ascorbic acid, vitamin C, (ascorbic acid) 250 mg tablet,chewable, Chew and swallow., Disp: , Rfl: aspirin 81 mg capsule, 1 tablet, Disp: , Rfl: calcium carbonate-vitamin D3 (CALCIUM 600 + D,3,) 600 mg(1,500mg) -400 units per tablet, 1 tablet, Disp: , Rfl: CONTOUR NEXT TEST STRIPS strip, 1 strip by other route as needed for high blood sugar. Checks 7 times/day. Glucometer communicates with her insulin pump. DX: E11.9, Disp: 700 strip, Rfl: 3 levothyroxine (SYNTHROID, LEVOTHROID) 75 MCG tablet, TAKE 1 TABLET ONCE DAILY INTHE MORNING ON AN EMPTY STOMACH, Disp: 90 tablet, Rfl: 3 pedi multivit no.12 w-fluoride (SUIMOGXFOYSGU-ILESIJEL-PHPTM A ORAL), See Admin Instructions., Disp: , Rfl: pravastatin (PRAVACHOL) 40 mg tablet, TAKE 1 TABLET TWICE A DAY, Disp: 180 tablet, Rfl: 3 insulin aspart U-100 (NovoLOG U-100 Insulin aspart) 100 unit/mL injection, INJECT 60 UNITS DAILY VIA INSULIN PUMP DIRECTED, Disp: 60 mL, Rfl: 3 Allergies, social history and family history were reviewed and updated in [facility]. REVIEW OF SYSTEMS: 12 systems were reviewed and were negative except for what has been mentioned above PHYSICAL EXAM: Wt Readings from Last 3 Encounters: 07/09/23 66.9 kg (147 lb 8 oz) 03/04/23 66.4 kg (146 lb 4.8 oz) 11/12/22 65.8 kg (145 lb) Body mass index is 23.1 kg/m . Vitals: 07/09/23 1202 BP: 129/77 Pulse: 70 Weight: 66.9 kg (147 lb 8 oz) General appearance: Well appearing female in no apparent distress. HEENT: EOMI, oropharynx clear, mucous membranes moist. Neck: No carotid bruits, thyroid not palpable. No palpable cervical lymph nodes. Heart: RRR, no murmurs, rubs or gallops. Lungs: Clear to auscultation. Extremities: Distal pulses 2+. No lower extremity edema. No foot deformities. Skin: No skin lesions. No nail lesions. No lipohypertrophy at insulin injection sites. Neuro: A & O x 3. Sensation is intact bilaterally to 10 gram monofilament testing. Psych: Mood and affect are appropriate. Diabetic foot exam: Visual exam was normal without lesions. Left: Pulses Dorsalis Pedis: present Vibratory sensation normal Filament test present Right: Pulses Dorsalis Pedis: present Vibratory sensation normal Filament test present LABS: CBC: No results found for: WBC , RBCCOUNT , HGB , HCT , MCV , MCH , MCHC , RDW , PLT , MPV CMP: Lab Results Component Value Date GLU 115 (A) 07/04/2022 LIPID: Reviewed labs from October 2022, lipids, thyroid at goal, PHYLLIS normal, in media ASSESSMENT: Marcia Mario has well controlled Type 1 Diabetes Mellitus without complications. Blood sugars are in good controlled, no changes to her pump settings today. Plan:1. Type 1 diabetes mellitus without complication ([facility]) - POCT Hemoglobin A1c - insulin aspart U-100 (NovoLOG U-100 Insulin aspart) 100 unit/mL injection; INJECT 60 UNITS DAILY VIA INSULIN PUMP DIRECTED Dispense: 60 mL; Refill: 3 2. Carol Ann's disease 3. Mixed hyperlipidemia Return to clinic: 3-4 months documented in this encounter [facility] 04-09-2023 Evaluation note Encounter Date Diagnosis Assessment Notes Mar, Right otitis media with effusion (ICD-10 - H65.91) Continue flonase. Will reach out to [facility] - Dr. Brink or Dr. Doll for an appt. Mar, Enlarged lymph node (ICD-10 - R59.9) Present decreased in size, per Marcia. States same area increases and resolves in size through the years. [facility] Other 11-22-2023 Evaluation note* Encounter Date Diagnosis Assessment Notes Treatment Notes Treatment Clinical Notes Feb, Right otitis media with effusion (ICD-10 - H65.91) Take ATB as directed with food. Complete full course of ATB, even if asymptomatic. OTC decongestants, throat lozenges/sprays, antipyretics prn. Push rest/fluids. Reinforced good hand hygiene for infection control. Notify office should symptoms not improve or persist. Immediate eval in ER if warning s/s. ALso noted that will refer to ENT due to continued pain and duration of symptoms without relief from treatment. Pt agrees with plan of care and verbalizes understanding of teaching points and instructions. Feb, Enlarged lymph node (ICD-10 - R59.9) Lymph nodes help our bodies fight germs and infections. Many things can cause lymph nodes to swell, including infections. In most cases, swollen lymph nodes are not serious. Increase fluid intake and monitor for other signs of infection including increased swelling, pain, redness, red streaking or a fever. It may take a few weeks for the swelling to go down. If the swelling is not resolved follow up with PCP is recommended. [facility] Other 11-15-2023 Evaluation + Plan note Diagnostic Tests Pending * PAP [id number]/06/23 [facility]10-09-2023 Evaluation note* Encounter Date Diagnosis Assessment Notes Treatment Notes Treatment Clinical Notes Jan, Right otitis media with effusion (ICD-10 - H65.91) Take ATB as directed with food. Complete full course of ATB, even if asymptomatic. OTC decongestants, throat lozenges/sprays, antipyretics prn. Push rest/fluids. Reinforced good hand hygiene for infection control. Notify office should symptoms not improve or persist. Immediate eval in ER if warning s/s. Pt agrees with plan of care and verbalizes understanding of teaching points and instructions. [facility] Other [id number] Evaluation + Plan note Diagnostic Tests Pending * PAP [id number]/02/22 [facility]03-31-2022 NotePROCEDURE: XR ANKLE RT MIN 3 VIEWS, XR FOOT RT MIN 3 VIEWS HISTORY: Pain of right ankle joint ; chronic right heel pain COMPARISON: XR foot right 02/01/2021 FINDINGS: BONES:No fracture, acute abnormality, or significant arthropathy. SOFT TISSUES:No visible soft tissue swelling. EFFUSION:None visible. OTHER: Negative. IMPRESSION: 1. Normal examination of the right ankle and foot. Electronically authenticated by: JAYLIN LINDQUIST Date: 2021-07-20 16:18[facility]03-31-2022 NotePROCEDURE: XR ANKLE RT MIN 3 VIEWS, XR FOOT RT MIN 3 VIEWS HISTORY: Pain of right ankle joint ; chronic right heel pain COMPARISON: XR foot right 02/01/2021 FINDINGS: BONES:No fracture, acute abnormality, or significant arthropathy. SOFT TISSUES:No visible soft tissue swelling. EFFUSION:None visible. OTHER: Negative. IMPRESSION: 1. Normal examination of the right ankle and foot. Electronically authenticated by: JAYLIN LINDQUSIT Date: 2021-07-20 16:18[facility]No InformationNortCon[facility] Other Evaluation note* Diagnosis Type 1 diabetes mellitus without complication ([facility] Primary Type I (juvenile type) diabetes mellitus without mention of complication, not stated as uncontrolled Carol Ann's disease Chronic lymphocytic thyroiditis Mixed hyperlipidemia [facility] Diagnosis Sensorineural hearing loss (SNHL) of both ears- Primary Ear pain, right [facility]* Diagnosis Ear fullness, right- Primary Otalgia, right Sensorineural hearing loss (SNHL) of both ears Neck swelling Swelling, mass, or lump in head and neck [facility] Narrative - Reported* Type Description Date Medical History Type 1 diabetes armando itus with other circulatory complications Medical History Hyperlipidemia Surgical History arthroscopic knee surgery 2001 Surgical History shoulder release 2014 Hospitalization History see above surgical histo ry Hospitalization History diabeties [facility] Other Hospital course Narrative No data available for this section [facility] No data available for this section [facility] HospitalInstructionsNot on filedocumented in this encounter [facility]ructionsNot on filedocumented in this [facility] filedocumented in this encounter [facility] SystemProgress note No data available for this section [facility] Summary Purpose Family History No Family History Records FoundNo Family History Records FoundNo Family History Records Found No data available for this section No data available for this section No data available for this section No Family History Records Found Advance Directives No Advanced Directives Records FoundNo Advanced Directives Records FoundNo Advanced Directives Records FoundNo Advanced Directives Records Found Reason for Referral Specialty Diagnoses / Procedures Referred By Contac t Referred To Contact Radiology Diagnoses Otalgia, right Ear fullness, right Procedures MR brain IAC with and without contrast Stacy Brink MD [address] [place] [address] Referral ID Status Reason Start Date Expiration Date V isits Requested Visits Authorized [id number] Pending Review 07/11/2023 07/10/[address] Brink or [address] Zavala er w [facility] - 3 months of R middle ear effusion Diagnosis 1 Right otitis media w ith effusion (H65.91) Referral Organization [facility] too Referring Provider First Name Rebecca Referring Provider Last Name Maggie Referring Provider Specialty Family Medi cine Referred Organization [facility] Referred Address [address] ,[place] Referred Provider Specialty Ear, Nose an d Throat Referral Priority Routine Reason *FU 03/22 evaluate Diagnosis 1 Right otitis media w ith effusion (H65.91) Referral Organization [facility] too Referring Provider First Name Rosa Referring Provider Last Name Ary Referring Provider Specialty Nurse Pract itionecassy Referred Organization [facility] Referred Provider Ekta Cash Referred Address ,[place],[address] Referred Provider Specialty Ear, Nose an d Throat Referral Priority Routine General Notes Delma Clark 05:53:09 PM >received today, notes locked, ins attached, referral faxed Additional Source Comments INFORMATION SOURCE (unrecogn ized section and content) DATE CREATED AUTHOR 10/16/2017 [facility] DATE CREATED AUTHOR AUTHOR'S ORGANIZ ATION 03/03/2020 [facility] DATE CREATED AUTHOR AUTHOR'S ORGANIZ ATION 03/07/2022 [facility] DATE CREATED AUTHOR AUTHOR'S ORGANIZ ATION 05/01/2023 [facility] Patient Care team informatio n (unrecognized section and content) Hand Ii Thermal Cutter Relationship Specialty Start Date End Date Rebecca Gonzalez MD [address] [place] [id number] PCP - General 07/10/23 Hand Ii Thermal Cutter Relationship Specialty [place] [address] [place] [id number] PCP - General 07/10/23 Hand Ii Thermal Cutter Relationship Specialty [place] [address] [place] [id number] PCP - General 07/10/23 REASON FOR VISIT (unrecogniz ed section and content) Reason Comments Med Refill Reason Comments Diabetes Mellitus Reason Comments Ear Problem Reason Comments Otitis Media Specialty Diagnoses / Procedures Referred By Judy t Referred To Contact Otolaryngology Diagnoses Right otitis media with effusion Rebecca Gonzalez MD [address] [place] [address] [facility] [address] [facility] [place] [address] Referral ID Status Reason Start Date Expiration Date Visits Requested Visits Authorized [id number] Pending Review Specialty Services Required 05/06/2023 05/05/2024 1 FOR RECORDS PERTAINING TO PATIENTS WHO ARE OR HAVE BEEN ENROLLED IN A CHEMICAL DEPENDENCY/SUBSTANCEABUSE PROGRAM, SOME INFORMATION MAY BE OMITTED. This clinical summary was aggregated from multiple sources. Caution should be exercised in using it in the provision of clinical care. This summary normalizes information from multiple sources, and as a consequence, information in this document may materially change the coding, format and clinical context of patient data. In addition, data may be omitted in some cases. CLINICAL DECISIONS SHOULD BE BASED ON THE PRIMARY CLINICAL RECORDS. [facility] [employer] provides no warranty or guarantee of the accuracy or completeness of information in this document.
[2023-07-26 09:08] LABS: Estimated GFR (African America >60 (>=60); Estimated GFR (Non-African Ame 57 (>=60)
== END 2023-07-26 07:39 | disposition home or self-care (01) ==
PROVIDERS: PCP Family Medicine
DX: H92.01 Otalgia, right ear (principal); H93.8X1 Other specified disorders of right ear
CPT/HCPCS: 36415; 82565

== ENCOUNTER 2023-07-26 07:51 | Outpatient (OUT) | payer OTHER, SELFPAY ==
--- OUTSIDE RECORDS SUMMARY | 2023-07-26 07:54 | XMS_ITS | CCD ---
Author Organization [facility] Care Team Providers Care Scientific Editor Name Role Phone CHARU CASTELLANOS Unavailable Unavailable CHARU CASTELLANOS Unavailable Unavailable SELF, REFERRED Unavailable Unavailable SELF, REFERRED Unavailable Unavailable REBECCA GONZALEZ Primary Care Physician [facility], DR BARCLAY Admitting Unavailable MISC, DR BARCLAY Attending Unavailable GONZALEZ, DR REBECCA Haddad Primary Care Unavailable GONZALEZ, DR REBECCA Haddad [...] GONZALEZ, DR REBECCA Haddad Consulting Unavailable Rebecca Gonazlez Unavailable Rosa Mcallister Unavailable Unavailable Primary Care Provider Unavailsalvador e Ron, Judit J Admitting Unavailable Ron, Judit J Attending Unavailable Ron, Judit J Referring Unavailable Ron, Judit J Admitting Unavailable Ron, Judit J Attending Unavailable Ron, Judit J Referring Unavailable Ron, Judit J Admitting Unavailable Ron, Judit J Attending Unavailable Rebecca Gonzalez MD Primary Care Provider [phone] Allergies Allergy Classification Reported Allergen(s) Allergy Type Date of Onset Reaction(s) Facility (7 sources) Penicillin; Translations: [penicillin] Drug Allergy 07-04-19 21 Eruption of skin (disorder) [facility] (5 sources) Penicillin G Drug Allergy rash [facility] Other (4 sources) Sulfamethoxazole / Trimethoprim Drug Allergy Unknown [facility] Other (4 sources) Penicillin G Benzathine & Proc Drug allergy Unknown [facility] Other (4 sources) patient allergy list reviewed by nurse or physicia Propensity to adverse reactions 11-13-19 Comment:Done [facility] Other (4 sources) Allergies Reconciled Propensity to adverse reactions 02-14-20 21 Unknown [facility] Other (4 sources) Substance with penicillin structure and antibacterial mechanism of action (substance) Drug allergy Unknown [facility] Other (5 sources) Penicillins Propensity to adverse reactions to drug 03-08-20 22 [facility] Medications Current Medications Medication Drug Class(es) Dates [...] Indications: Type 1 diabetes mellitus without complication ([facility]) INJECT 60 UNITS DAILY VIA INSULIN PUMP [...] A1con 2023 ADA Target < 8 Yes [facility] HbA1c (Bld) [Mass fraction] 6.3 g/dL 4 - 7 g/dL [facility] Consent for Treatmenton Consent for Treatment [id number] .00TIFF Normal [facility] [place] Mamm Diag w/CAD if perf a [...] very important to your health. The current [employer] and National Comprehensive Cancer [...] Brandon Medrano M.D. Transcribed by: MAHIN Technologist: YISEL Assessment: BI-RADS Category 3-Probably benign - short interval follow-up Recommendation: Follow-up at short interval Normal [facility] Breast Unilateral Lt Comp [email or web address] 04-30-2023 US Breast Unilateral Lt Complete Exam Date/Time: 04/30/2023 09:27 EST Reason for Exam: [id number] Report PLEASE REFER TO THE MAMMOGRAM REPORT. Ordering Provider: Judit Velasquez FINAL REPORT Dictated: 04/30/2023 4:21 pm Brandon Medrano M.D. Signed (Electronic Signature): 04/30/2023 4:21 pm Signed by: Brandon Medrano M.D. Transcribed by: MAHIN Technologist: CHILO Irene [facility] Physician Orderon 04-24-2023 Physician Order [id number] .00TIFF Normal [facility] [place] Mamm Screen w/CAD if perf and [...] VERY IMPORTANT TO YOUR HEALTH. THE CURRENT [place] [employer] [...] Jose Gutierrez MD Transcribed by: MAHIN Technologist: [facility] Assessment: BI-RADS Category 0-Incomplete: Need additional imaging evaluation Recommendation: Additional projections Normal [facility] Consent for Treatmenton 12- Consent for Treatment [id number] .00TIFF Normal [facility] PAP [id number] 03-12-2023 Cytology report Cyto stain Doc (Cvx/Vag) Note Invalid Interpretation Code [facility] Comment on above: Result Comment: TEST S RESULT FLAG UNITS REF RANGE LAB Clinician Provided Cytology Information Source.............Endocervix No. of containers..01 ThinPrep Vial DIAGNOSIS: 01 NEGATIVE FOR INTRAEPITHELIAL LESION OR MALIGNANCY. Specimen adequacy: 01 Satisfactory for evaluation. Endocervical and/or squamous metaplastic cells (endocervical component) are present. Performed by: Ismael Callejas, Cartridge Gauger (ASCP) . 01 Note: Note 01 The [...] <-Panic Low,>-Panic High,A-Abnormal,AA-Critical Abnormal Performed at: [address] [id number] Liat Dennis MD, Performed By: #### 3 [id number] #### [facility] [address] [place] [address] HPV 16+18+31+33+35+39+4 5+51+52+56+58+59+66 +68 DNA Probe+sig amp Ql (Cvx) Negative Invalid Interpretation Code Negative [facility] Comment on above: Result Comment: This nucleic acid amplification test detects fourteen high-risk HPV types (16,18,31,33,35,39,45,51,52,56,58,59,66,68) without differentiation. Performed at: [address] [id number] MD Sonny Josue Performed at: = [address] [id number] MD Sonny Josue Performed By: #### 3 [id number] #### [facility] [address] [place] [address] Physician Orderon 03-08-2023 Physician Order [id number] .00TIFF Normal [facility] PAP [id number] 03-06-2023 Collection Technique BRUSH-SPATULA Normal [facility] Comment on above: Performed By: #### 3 [id number] #### [facility] [address] [place] [address] Gynecological Body Site ENDOCERVIX Normal [facility] Comment on above: Performed By: #### 3 [id number] #### [facility] [address] [place] [address] Physician Orderon 03-06-2023 Physician Order [id number] .00TIFF Normal [facility] FREE T4on 03-02-2022 Free T4 [Mass/Vol] 0.94 ng/dL Normal 0.76-1.46 [facility] Comment on above: Performed By: #### F T4 #### [facility] [address] [address] [address] Sarah Hickman TSHon 03-02-2022 TSH 0.398 uIU/mL Normal 0.358-3.740 [facility] Comment on above: Performed By: #### T SH #### [facility] [address] [address] [address] Sarah Hickman FREE T4on 10-28-2021 Free T4 [Mass/Vol] 0.66 ng/dL Critically low 0.76-1.46 [facility] Comment on above: Performed By: #### F T4 #### [facility] [address] [place] [address] Dr. Sarah Hickman LIPID PROFILEon 10-28-2021 CHOL-HDL RATIO NORM SEE BELOW Normal [facility] Comment on above: Result Comment: 3.3 - 4.4 LOW RISK 4.4 - 7.1 AVERAGE RISK 7.1 - 11.0 MODERATE RISK >11.0 HIGH RISK Performed By: #### L IPID, CMP, TSH #### [facility] [address] [place] [address] Dr. Sarah Hickman Cholesterol [Mass/Vol] 197 mg/dL Normal <=200 [facility] Comment on above: Performed By: #### L IPID, CMP, TSH #### [facility] [address] [place] [address] Dr. Sarah Hickman Cholesterol in HDL [Mass/Vol] 78 mg/dL Critically high 40-60 [facility] Comment on above: Performed By: #### L IPID, CMP, TSH #### [facility] [address] [place] [address] Dr. Sarah Hickman Cholesterol in LDL [Mass/Vol] 108.4 mg/dL Normal [facility] Comment on above: Performed By: #### L IPID, CMP, TSH #### [facility] [address] [place] [address] Dr. Sarah Hickman Cholesterol.total/C holesterol in HDL [Mass ratio] 2.5 {ratio} Normal [facility] Comment on above: Performed By: #### L IPID, CMP, TSH #### [facility] [address] [address] [address] Sarah Hickman HDL NORMAL > or = 60 mg/dl - LO W CARDIOVASCULAR RISK <40 mg/dl - HIGH CARDIOVASCULAR RISK Normal [facility] Comment on above: Performed By: #### L IPID, CMP, TSH #### [facility] [address] [address] [address] Sarah Hickman LDL CALC NORMAL SEE BELOW Normal [facility] Comment on above: Result Comment: <100 mg/dl OPTIMAL 100 - 129 mg/dl NEAR OR ABOVE OPTIMAL 130 - 159 mg/dl BORDERLINE HIGH 160 - 189 mg/dl HIGH >190 mg/dl VERY HIGH Performed By: #### L IPID, CMP, TSH #### [facility] [address] [address] [address] Sarah Hickman Triglyceride [Mass/Vol] 53 mg/dL Normal <=150 [facility] Comment on above: Performed By: #### L IPID, CMP, TSH #### [facility] [address] [address] [address] Sarah Hickman VLDL CALC 10.6 mg/dL Normal [facility] Comment on above: Performed By: #### L IPID, CMP, TSH #### [facility] [address] [address] [address] Sarah Hickman MICROALBUMIN, RAND URon 07-0 mALB 4.4 mg/L Normal <=30.0 [facility] Comment on above: Performed By: #### M ALBR #### [facility] [address] [address] [address] aSrah Hickman PROF 14(COMP METB)on 022 Albumin [Mass/Vol] 3.9 g/dL Normal 3.4-5.0 [facility] Comment on above: Performed By: #### L IPID, CMP, TSH #### [facility] [address] [address] [address] Sarah Hickman Albumin/Globulin [Mass ratio] 1.1 {ratio} Normal [facility] Comment on above: Performed By: #### L IPID, CMP, TSH #### [facility] [address] [address] [address] Sarah Hickman ALP [Catalytic activity/Vol] 45 U/L Critically low 46-116 [facility] Comment on above: Performed By: #### L IPID, CMP, TSH #### [facility] [address] [address] [address] Sarah Hickman ALT [Catalytic activity/Vol] 39 U/L Normal 14-59 [facility] Comment on above: Performed By: #### L IPID, CMP, TSH #### [facility] [address] [address] [address] Sarah Hickman Anion gap [Moles/Vol] 10.6 mmol/L Normal [facility] Comment on above: Performed By: #### L IPID, CMP, TSH #### [facility] [address] [place] [address] Dr. Sarah Hickman AST [Catalytic activity/Vol] 26 U/L Normal 15-37 [facility] Comment on above: Performed By: #### L IPID, CMP, TSH #### [facility] [address] [place] [address] Dr. Sarah Hickman Bilirubin [Mass/Vol] 0.5 mg/dL Normal 0.2-1.0 [facility] Comment on above: Performed By: #### L IPID, CMP, TSH #### [facility] [address] [place] [address] Dr. Sarah Hickman Calcium [Mass/Vol] 8.9 mg/dL Normal 8.5-10.1 [facility] Comment on above: Performed By: #### L IPID, CMP, TSH #### [facility] [address] [place] [address] Dr. Sarah Hickman Chloride [Moles/Vol] 105 mmol/L Normal 98-107 [facility] Comment on above: Performed By: #### L IPID, CMP, TSH #### [facility] [address] [address] [address] Sarah Hickman CO2 [Moles/Vol] 29.4 mmol/L Normal 21.0-32.0 [facility] Comment on above: Performed By: #### L IPID, CMP, TSH #### [facility] [address] [address] [address] Sarah Hickman Creatinine [Mass/Vol] 0.97 mg/dL Normal 0.55-1.02 [facility] Comment on above: Performed By: #### L IPID, CMP, TSH #### [facility] [address] [address] [address] Sarah Hickman EGFR-AF JAP[place]ESE >60 Normal >=60 [facility] Comment on above: Performed By: #### L IPID, CMP, TSH #### [facility] [address] [address] [address] Sarah Hickman EGFR-NON AF [place]AP[place]ESE 58 mL/min/1.73m2 Critically low >=60 [facility] Comment on above: Performed By: #### L IPID, CMP, TSH #### [facility] [address] [address] [address] Sarah Hickman Globulin (S) [Mass/Vol] 3.6 g/dL Normal [facility] Comment on above: Performed By: #### L IPID, CMP, TSH #### [facility] [address] [address] [address] Sarah Hickman Glucose [Mass/Vol] 140 mg/dL Critically high 74-106 T [facility] Comment on above: Performed By: #### L IPID, CMP, TSH #### [facility] [address] [address] [address] Sarah Hickman Potassium [Moles/Vol] 4.0 mmol/L Normal 3.5-5.1 [facility] Comment on above: Performed By: #### L IPID, CMP, TSH #### [facility] [address] [address] [address] Sarah Hickman Protein [Mass/Vol] 7.5 g/dL Normal 6.4-8.2 [facility] Comment on above: Performed By: #### L IPID, CMP, TSH #### [facility] [address] [address] [address] Sarah Hickman Sodium [Moles/Vol] 141 mmol/L Normal 136-145 [facility] Comment on above: Performed By: #### L IPID, CMP, TSH #### [facility] [address] [address] [address] Sarah Hickman Urea nitrogen [Mass/Vol] 15.0 mg/dL Normal 7.0-18.0 [facility] Comment on above: Performed By: #### L IPID, CMP, TSH #### [facility] [address] [place] [address] Dr. Sarah Hickman Urea nitrogen/Creatinine [Mass ratio] 15.5 mg/mg Normal [facility] Comment on above: Performed By: #### L IPID, CMP, TSH #### [facility] [address] [place] [address] Dr. Sarah Hickman TSHon 10-28-2021 TSH 7.247 uIU/mL Critically high 0.358-3.740 [facility] Comment on above: Performed By: #### L IPID, CMP, TSH #### [facility] [address] [place] [address] Dr. Sarah Hickman NEW MICROALBUMINon 0 Creatinine (U) [Mass/Vol] 36.5 mg/dL Normal [facility] Comment on above: Order Comment: THE M ICROALBUMIN IS < 6.0 THEREFORE THE MICROALBUMIN/CREATININE RATIO IS UNDETECTABLE. Performed By: #### 8 00 #### [facility] Unless Otherwise Noted [address] [place] [address] / COLA #4724/TEOFILO # [id number] Microalbumin <6.0 Normal 0.0-30.0 [facility] Comment on above: Order Comment: THE M ICROALBUMIN IS < 6.0 THEREFORE THE MICROALBUMIN/CREATININE RATIO IS UNDETECTABLE. Performed By: #### 8 00 #### [facility] Unless Otherwise Noted [address] [facility] [address] [place] [address] / COLA #4724/CLIA # [id number] Urine A/C Ratio -99.0 mg/g Low 0.0-30.0 [facility] Comment on above: Order Comment: THE M ICROALBUMIN IS < 6.0 THEREFORE THE MICROALBUMIN/CREATININE RATIO IS UNDETECTABLE. Performed By: #### 8 00 #### [facility] Unless Otherwise Noted [address] [facility] [address] [place] [address] / COLA #4724/CLIA # [id number] Vital Signs Date Time Vital Sign Value Performing Clinician Facility 07-11-2023 14:52-0400 Body height 170.2 cm Stacy Brink MD Work Phone: [facility] 07-11-2023 14:52-0400 Body mass index (BMI) [Ratio] 23.27 kg/m2 Stacy Brink MD Work Phone: [facility] 07-11-2023 14:52-0400 Body temperature 97.7 [degF] Stacy Brink MD Work Phone: [facility] 07-11-2023 14:52-0400 Body weight 67.41 kg Stacy Brink MD Work Phone: [facility] 07-09-2023 12:02-0400 Body mass index (BMI) [Ratio] 23.1 kg/m2 Mayuri Salazar MD Work Phone: [facility] 07-09-2023 12:02-0400 Body weight 66.91 kg Mayuri Salazar MD Work Phone: [facility] 07-09-2023 12:02-0400 Diastolic blood pressure 77 mm[Hg] Mayuri Salazar MD Work Phone: [facility] 07-09-2023 12:02-0400 Heart rate 70 /min Mayuri Salazar MD Work Phone: [facility] 07-09-2023 12:02-0400 Systolic blood pressure 129 mm[Hg] Mayuri Salazar MD Work Phone: [facility] 04-09-2023 13:00-0500 Body height 170.18 cm Rebecca Gonzalez Other [facility] Other 04-09-2023 13:00-0500 Body mass index (BMI) [Ratio] 23.18 kg/m2 Rebecca Gonzalez Other [facility] Other 04-09-2023 13:00-0500 Body weight 67.13 kg Rebecca Gonzalez Other [facility] Other 04-09-2023 13:00-0500 Diastolic blood pressure 77 mm[Hg] Rebecca Gonzalez Other [facility] Other 04-09-2023 13:00-0500 Systolic blood pressure 136 mm[Hg] Rebecca Gonzalez Other [facility] Other 03-13-2023 13:00-0500 Body height 170.18 cm Rosa Mcallister Other [facility] Other 03-13-2023 13:00-0500 Body mass index (BMI) [Ratio] 23.05 kg/m2 Rosa Mcallister Other [facility] Other 03-13-2023 13:00-0500 Body temperature 97.4 [degF] Rosa Mcallister Other [facility] Other 03-13-2023 13:00-0500 Body weight 66.77 kg Rosa Ary Other [facility] Other 03-13-2023 13:00-0500 Diastolic blood pressure 72 mm[Hg] Rosa Ary Other [facility] Other 03-13-2023 13:00-0500 SaO2% (BldA) [Mass fraction] 97 % Rosa Ary Other [facility] Other 03-13-2023 13:00-0500 Systolic blood pressure 126 mm[Hg] Rosa Ary Other [facility] Other 2023 11:15-0400 Body height 170.18 cm Rebecca Gonzalez Other [facility] Other 2023 11:15-0400 Body mass index (BMI) [Ratio] 23.02 kg/m2 Rebecca Gonzalez Other [facility] Other 2023 11:15-0400 Body weight 66.68 kg Rebecca Gonzalez Other [facility] Other 2023 11:15-0400 Diastolic blood pressure 72 mm[Hg] Rebecca Gonzalez Other [facility] Other 2023 11:15-0400 Systolic blood pressure 151 mm[Hg] Rebecca Gonzalez Other [facility] Other Encounters Encounter Date Encounter Type Care Provider Facility Start: 07-23-2023 Telephone encounter Stacy Brink MD Work Phone: [facility] Start: 07-11-2023 End: 07-11-2023 Patient encounter procedure Stacy Brink MD Work Phone: [facility] Comment on above: Ear fullness, right (Primary Dx); Otalgia, right; Sensorineural hearing loss (SNHL) of both ears; Neck swelling Start: 07-11-2023 End: 07-11-2023 Clinical Support Criss Blackjeff [place] Work Phone: [facility] Comment on above: Sensorineural hearin g loss (SNHL) of both ears (Primary Dx); Ear pain, right Start: 07-09-2023 End: 07-09-2023 Office outpatient visit 25 minutes Mayuri Salazar MD Work Phone: [facility] Comment on above: Type 1 diabetes armando itus without complication ([facility]) (Primary Dx); Carol Ann's disease; Mixed hyperlipidemia Start: 05-01-2023 End: 05-01-2023 ambulatory Rebecca Gonzalez Other [facility] Other Start: 05-01-2023 Telephone encounter Rebecca Gonzalez [facility] Start: 04-30-2023 End: 05-01-2023 ambulatory Judit Fermin Pagee Facility:[facility] Start: 04-30-2023 End: 04-30-2023 Patient encounter procedure Judit Fermin Pagee [facility] Start: 04-29-2023 Reinaldo rico MD Work Phone: [facility] Start: 04-26-2023 End: 04-26-2023 ambulatory Rebecca Gonzalez Other [facility] Other Start: 04-26-2023 Telephone encounter Rebecca Gonzalez [facility] Start: 04-11-2023 End: 04-12-2023 ambulatory Judit J Ron Facility:[facility] Start: 04-11-2023 End: 04-11-2023 Patient encounter procedure Judit Fermin Ron [facility] Start: 04-09-2023 End: 04-09-2023 ambulatory Rebecca Gonzalez Other [facility] Other Start: 04-09-2023 Office outpatient vi sit 15 minutes Rebecca Gonzalez [facility] Start: 03-13-2023 End: 03-13-2023 ambulatory Rosa Mcallister Other [facility] Other Start: 03-13-2023 Office outpatient vi sit 15 minutes Rosa Mcallister [facility] Start: 03-06-2023 End: 03-07-2023 ambulatory Judit Velasquez Facility:[facility] Start: 03-06-2023 End: 03-06-2023 Lab Drop off Judit J Ron [facility] Start: 2023 End: 2023 ambulatory Rebecca Maggie Other [facility] Other Start: 2023 Office outpatient vi sit 15 minutes Rebecca Maggie [facility] Start: 04-10-2022 End: 04-10-2022 Patient encounter procedure Judit J Ron [facility] Start: 03-02-2022 End: 03-03-[address] DOCTOR AGUDELO Facility:[facility] Start: 03-02-2022 End: 03-02-2022 Lab Drop off Judit Fermin Ron [facility] Start: 10-28-2021 End: 10-29-[address] DOCTOR AGUDELO Facility:[facility] Start: 07-20-2021 End: 04-01-2022 ambulatory ADRIANNA DIAZ Facility:[facility] Start: 01-12-2016 End: 01-13-2016 Ambulatory CHARU CASTELLANOS Facility:[facility] Procedures Date Procedure Procedure Detail Performing [...] Author Start: 07-17-2024 Tobacco Screening Tobacco Screening [facility] Start: 07-10-2024 Adult BMI Screening Adult BMI Screen ing [facility] Start: 07-10-2024 Tobacco Screening Tobacco Screening [facility] Start: 07-08-2024 Adult BMI Screening Adult BMI Screen ing [facility] Start: 07-08-2024 Diabetic foot examination Diabetic Foot Exam [facility] Start: 07-08-2024 Tobacco Screening Tobacco Screening [facility] Start: 03-04-2024 Adult BMI Screening Adult BMI Screen ing [facility] Start: 03-04-2024 Diabetic foot examination Diabetic Foot Exam [facility] Start: 03-04-2024 Tobacco Screening Tobacco Screening [facility] Start: 12-22-2023 Influenza vaccination Influenza Vacc ine [facility] Start: 11-04-2023 End: 11-04-2023 Patient encounter procedure 11/04/2023 9:30 AM EDT Office Visit [facility] [address] [phone] Magui Warren, SIGNAL MANAGER-MEDICAL AND HEALTH SERVICES MANAGER [address] [address] [facility] Start: 08-22-2023 End: 08-22-2023 Patient encounter procedure 08/22/2023 2:45 PM EDT Office Visit [facility] [address] [place] [address] Stacy Brink MD [address] [address] [facility] Start: 07-28-2023 Glaucoma screening Diabetic Op hthalmology Exam [facility] Start: 07-11-2023 End: 07-11-2023 Clinical Support [...] Routine Neck swelling Expected: 07/11/2023, Expires: 07/10/2024 [facility] Comment on above: Expected: 07/11/2023 , Expires: 07/10/2024 Start: 07-09-2023 End: 07-09-2023 Patient encounter procedure 07/09/2023 11:45 AM EDT Office Visit [facility] [address] [place] [phone] Mayuri Salazar MD [address] [place] [address] [facility] Start: 12-21-2022 COVID-19 Vaccine () COVID-19 Vaccine () [facility] Start: 01-27-2010 Administration of varicella zoster vaccine Zoster (Shingles) Vaccine (1 of 2) [facility] Start: 01-27-1981 Screening for malign ant neoplasm of cervix Pap Smear [facility] Start: 01-27-1979 DTaP,Tdap and Td Vaccines (1 - Tdap) DTaP,Tdap and Td Vaccines (1 - Tdap) [facility] Start: 1972 Depression Screening Depression Scre ening [facility] Start: 1960 Urine screening for protein Urine Microalbumin [facility] Immunizations Immunization Date Immunization Notes Care Provider Fa [facility] 01-18-2023 influenza virus vaccine, unspecified formulation Stacy Brink MD Work Phone: [facility] [facility] 02[facility]2014 tetanus and diphtheria toxoids, adsorbed, preservative free, for adult use (5 Lf of tetanus toxoid and 2 Lf of diphtheria toxoid) Rosa Mcallister Other [employer] Other 02-11-2013 tetanus and diphtheria toxoids, adsorbed, preservative free, for adult use (5 Lf of tetanus toxoid and 2 Lf of diphtheria toxoid) Rosa Mcallister Other [employer] Other Payers Date Payer Category Payer Private Health Insurance [employer]ET[employer] A ETNA POS [id number] 2021-Present [phone] [address] [place] [address] [id number] 1960 Unknown [id number] 1960 Unknown [id number] 593 1960 Unknown [id number]. 593 1960 Unknown [id number]. 727 1960 Unknown [id number] [id number]. 727 1960 Unknown [id number]. 727 1959 Private Health Insurance [id number] Private Health Insurance [id number] Unknown [id number] Social History Date Type Detail Facility Tobacco smoking status [facility] Start: 06-02-2020 End: 03-04-2023 Sex Assigned At Female [facility] Start: 07-04-2022 Tobacco smoking stat [facility] Never smoked tobacco [facility] Start: 07-04-2022 Tobacco use and exposure Smoke less tobacco non-user [facility] Start: 03-04-2023 End: 07-18-2023 Alcohol intake Lifetime non-drinker (finding) [facility] Start: 06-02-2020 End: 03-04-2023 History of Social function [facility] Housing Instability Unknown [facility] Start: 1960 Sex Assigned At Not on file [facility] Medical Equipment Procedure Code Equipment Code Equipment Origin al Text Equipment Identifier Dates 1 strip by other route as needed for high blood sugar. Checks 7 times/day. Glucometer communicates with her insulin pump. DX: E11.9 [id number] Start: 11-21-2022 Clinical Notes 07-20-2021 to 07-23-2023 Telephone Encounter - Rosa Harden - 07/23/2023 4:33 PM EDTTelephone Encounter - Yamilka Almonte CNA - 07/23/2023 4:33 PM EDTTelephone Encounter - Rosa Harden - 07/23/2023 4:33 PM EDT Note Date & Type Note Facility 07-23-2023 Miscellaneous Notes Formattin g of this note might be different from the original. Kalee with [facility] scheduling dept called. She needs office notes faxed to pre cert the MRI. Please fax to [phone]. Phone number [phone] if any questions. Pt also needs an order for Creatinine because the MRI is ordered with and w/o contrast Faxed office note to [facility] documented in this encounter [facility] 07-23-2023 Telephone encount er Note Kalee with [facility] scheduling dept called. She needs office notes faxed to pre cert the MRI. Please fax to [phone]. Phone number [phone] if any questions. Pt also needs an order for Creatinine because the MRI is ordered with and w/o contrast [facility] 07-23-2023 Telephone encount er Note Faxed office note to [facility] 07-11-2023 History of Presen t illness Narrative Images from the original note were not included. [facility] [address] [facility] [address] SUBJECTIVE: Patient ID: Marcia Mario is a [...] 1970 Penicillin - Rash Depression Diabetes mellitus ([facility]) 07/1980 Type 1 Disease of thyroid gland [...] 90 tablet 3 pedi multivit no.12 w-fluoride (TMJAJBHADNCHL-GPYUPLXP-GMGYH A ORAL) See Admin Instructions. pravastatin (PRAVACHOL) [...] [facility] [place], [place] - MR brain IAC with and [...] or concerns: . Non-emergent messages received through [employer] (P) may take up to 2 business days [...] this chart were generated using voice recognition [employer] dictation software. Although every effort was made to ensure the accuracy of this automated research and development tester, some errors in research and development tester may have occurred. documented in this encounter [employer] 07-11-2023 Instructions Soraida Hernandez - 07/11/2023 3:00 [...] or concerns: . Non-emergent messages received through [employer] (P) may take up to 2 business days for a response. 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 Type 1 diabetes mellitus without complication ([facility]) - POCT Hemoglobin A1c - insulin aspart U-100 (NovoLOG U-100 Insulin aspart) 100 unit/mL injection; INJECT 60 UNITS DAILY VIA INSULIN PUMP DIRECTED Dispense: 60 mL; Refill: 3 2. Carol Ann's disease 3. Mixed hyperlipidemia Return to clinic: 3-4 months documented in this encounter [facility] 04-09-2023 Evaluation note Encounter Date Diagnosis Assessment Notes Mar, Right otitis media with effusion (ICD-10 - H65.91) Continue flonase. Will reach out to [facility] - Dr. Brink or Dr. Doll for an appt. Mar, Enlarged lymph node (ICD-10 - R59.9) Present decreased in size, per Marcia. States same area increases and resolves in size through the years. [employer] Other 11-22-2023 Evaluation note* Encounter Date Diagnosis [...] resolved follow up with PCP is recommended. [facility] [employer] Other 11-15-2023 Evaluation + Plan note Diagnostic Tests Pending * PAP [id number]/06/23 [facility]10-09-2023 Evaluation note* Encounter Date Diagnosis Assessment Notes [...] verbalizes understanding of teaching points and instructions. [facility] [employer] Other [id number] Evaluation + Plan note Diagnostic Tests Pending * PAP [id number]/02/22 [facility]03-31-2022 NotePROCEDURE: XR ANKLE RT MIN 3 VIEWS, [...] Electronically authenticated by: JAYLIN LINDQUIST Date: 2021-07-20 16:18[facility]03-31-2022 NotePROCEDURE: XR ANKLE RT MIN 3 [...] Electronically authenticated by: JAYLIN LINDQUIST Date: 2021-07-20 16:18[facility] InformationNortC[facility] [employer] Other Evaluation note* Diagnosis Type 1 diabetes mellitus without complication ([facility] Primary Type I (juvenile type) diabetes mellitus without mention of complication, not stated as uncontrolled Carol Ann's disease Chronic lymphocytic thyroiditis Mixed hyperlipidemia documented in this encounter [facility] System[facility] note* Diagnosis Sensorineural hearing loss (SNHL) of both ears- Primary Ear pain, right documented in this encounter [facility] System[facility] note* Diagnosis Ear fullness, right- Primary Otalgia, right Sensorineural hearing loss (SNHL) of both ears Neck swelling Swelling, mass, or lump in head and neck documented in this encounter [facility] SystemHistory general Narrative - Reported* Type Description Date Medical History Type 1 diabetes armando itus with other circulatory complications Medical History Hyperlipidemia Surgical History arthroscopic knee surgery 2001 Surgical History shoulder release 2014 Hospitalization History see above surgical histo ry Hospitalization History diabeties [facility] [employer] Other Hospital course Narrative No data available for this section [facility] No data available for this section [facility]ructions[facility] on filedocumented in this encounter [facility] System[facility]ructionsNot on filedocumented in this encounter [facility]ructionsNot on filedocumented in this encounter [facility] SystemProgress note No data available for this section [facility] Summary Purpose Family History No Family History [...] and without contrast Stacy Brink MD [address] [place] [address] Referral ID Status Reason Start Date Expiration Date V isits Requested Visits Authorized [id number] Pending Review 07/11/2023 07/10/[address] Brink or [address] Zavala er w [facility] - 3 months of R middle ear effusion Diagnosis 1 Right otitis media w ith effusion (H65.91) Referral Organization [facility] too Referring Provider First Name Rebecca Referring Provider Last Name Maggie Referring Provider Specialty Family Medi cine Referred Organization [facility] Referred Address [address] ,[place], [place] Referred Provider Specialty Ear, Nose an d Throat Referral Priority Routine Reason *FU 03/22 evaluate Diagnosis 1 Right otitis media w ith effusion (H65.91) Referral Organization [facility] [email or web address] [facility] too Referring Provider First Name Rosa Referring Provider Last Name Ary Referring Provider Specialty Nurse Pract [facility] Referred Organization [facility] Referred Provider Ekta Cash Referred Address ,[place],[address] Referred Provider Specialty Ear, Nose an d Throat Referral Priority Routine General Notes Delma Clark 05:53:09 PM >received today, notes locked, ins attached, referral faxed Additional Source Comments INFORMATION SOURCE (unrecogn ized section and content) DATE CREATED AUTHOR 10/16/2017 [facility] DATE CREATED AUTHOR AUTHOR'S ORGANIZ ATION 03/03/2020 [facility] DATE CREATED AUTHOR AUTHOR'S ORGANIZ ATION 03/07/2022 [facility] DATE CREATED AUTHOR AUTHOR'S ORGANIZ ATION 05/01/2023 [facility] Patient Care team informatio n (unrecognized section and content) Scientific Editor Relationship Specialty Start Date End Date Rebecca Gonzalez MD [address] [place] [id number] PCP - General 07/10/23 Scientific Editor Relationship Specialty [place] [address] [place] [id number] PCP - General 07/10/23 Scientific Editor Relationship Specialty [place] [address] [place] [id number] PCP - General 07/10/23 REASON FOR VISIT (unrecogniz ed section and content) Reason Comments Med Refill Reason Comments Diabetes Mellitus Reason Comments Ear Problem Reason Comments Otitis Media Specialty Diagnoses / Procedures Referred By Judy t Referred To Contact Otolaryngology Diagnoses Right otitis media with effusion Rebecca Gonzalez MD [address] [place] [address] [facility] [address] [facility] [place] [address] Referral ID Status Reason Start Date Expiration Date Visits Requested Visits Authorized [id number] Pending Review Specialty Services Required 05/06/2023 05/05/2024 [...] BE BASED ON THE PRIMARY CLINICAL RECORDS. [facility] [employer] provides no warranty or guarantee of the accuracy or completeness of information in this document.
--- NOTE | 2023-07-26 08:04 | MR_ITS ---
[address] [address] Patient Name: DENISE TRAMMELL MRN: [id number] date: 1960 Sex: F Assigned Patient Location: MRI Current Patient Location: [facility] Accession/Order Number: [id number] Exam Date: 07/26/2023 08:10 Report Date: 07/26/2023 12:48 At the request of: NON-STAFF PHYSICIAN Procedure: MR head/brain wo/w con MR head/brain wo/w con HISTORY: Otalgia, right H92.01 COMPARISON: None. TECHNIQUE: Multi-planar, multi-sequence brain MRI was performed without IV contrast. FINDINGS: Brain volume: Normal. Sagittal midline structures: Normal. Ventricles: Normal. Acute ischemic changes: None. Hemorrhage: None. Masses/edema: None. Layne-white: Negative. White matter: Small to moderate number of nonspecific subcortical and particular T2/flair hyperintensities.. Vessels: Normal. Extra-axial: None. Calvarium/scalp: Negative. Skull base: Negative. Visualized sinuses/orbits: Negative. Visualized upper neck: Negative. The right external auditory canal and periauricular area appear normal MR/MR head/brain wo/w con IMPRESSION: 1. Small to moderate number of nonspecific T2/FLAIR hyperintensities, likely related to microangiopathy. 2. Normal-appearing right middle ear cavity, mastoid and external ear Electronically authenticated by: TERA CALHOUN Date: 07/26/2023 12:48
== END 2023-07-26 07:52 | disposition home or self-care (01) ==
LOC: MRI 07:51
PROVIDERS: PCP Family Medicine
DX: R22.1 Localized swelling, mass and lump, neck (principal); H92.01 Otalgia, right ear; H93.8X1 Other specified disorders of right ear
CPT/HCPCS: 36415; 70553; 76536; 82565; A9575

== ENCOUNTER 2023-07-26 07:54 | Outpatient (OUT) | payer OTHER, SELFPAY ==
--- OUTSIDE RECORDS SUMMARY | 2023-07-26 07:59 | XMS_ITS | CCD ---
Author Organization [facility] Care Team Providers Care Vp Business Development Name Role Phone CHARU CASTELLANOS Unavailable Unavailable CHARU CASTELLANOS Unavailable Unavailable SELF, REFERRED Unavailable Unavailable SELF, REFERRED Unavailable Unavailable REBECCA GONZALEZ Primary Care Physician [facility], DR BARCLAY Admitting Unavailable MISC, DR BARCLAY [...] Unavailable Rebecca Gonzalez Unavailable Rosa Mcallister Unavailable [phone] Unavailable Primary Care Provider Unavailsalvador e Ron, [...] Allergy 07-04-19 21 Eruption of skin (disorder) [facility] (5 sources) Penicillin G Drug Allergy rash [facility] (4 sources) Sulfamethoxazole / Trimethoprim Drug Allergy Unknown [facility] Other (4 sources) Penicillin G Benzathine & Proc Drug allergy Unknown [facility] Other (4 sources) patient allergy list reviewed by nurse or physicia Propensity to adverse reactions 11-13-19 Comment:Done [facility] Other (4 sources) Allergies Reconciled Propensity to adverse reactions 02-14-20 21 Unknown [facility] Other (4 sources) Substance with penicillin structure and antibacterial mechanism of action (substance) Drug allergy Unknown [facility] Other (5 sources) Penicillins Propensity to adverse reactions to drug 03-08-20 22 [facility] Medications Current Medications Medication Drug Class(es) Dates [...] Indications: Type 1 diabetes mellitus without complication ([facility]) INJECT 60 UNITS DAILY VIA INSULIN PUMP [...] A1con 2023 ADA Target < 8 Yes [facility] HbA1c (Bld) [Mass fraction] 6.3 g/dL 4 - 7 g/dL [facility] Consent for Treatmenton Consent for Treatment [id number] .00TIFF Normal [facility] [place] Mamm Diag w/CAD if perf a [...] very important to your health. The current [employer] and National Comprehensive Cancer [...] follow-up Recommendation: Follow-up at short interval Normal [facility] Breast Unilateral Lt Comp [email or web address] 04-30-2023 US Breast Unilateral Lt Complete Exam Date/Time: 04/30/2023 09:27 EST Reason for Exam: N64.9 Report PLEASE REFER TO THE MAMMOGRAM REPORT. Ordering Provider: Judit Velasquez FINAL REPORT Dictated: 04/30/2023 4:21 pm Brandon Medrano M.D. Signed (Electronic Signature): 04/30/2023 4:21 pm Signed by: Brandon Medrano M.D. Transcribed by: MAHIN Technologist: CHILO Irene [facility] Physician Orderon 04-24-2023 Physician Order [id number] .00TIFF Normal [facility] [place] Mamm Screen w/CAD if perf and [...] VERY IMPORTANT TO YOUR HEALTH. THE CURRENT [place] [employer] [...] Jose Gutierrez MD Transcribed by: MAHIN Technologist: [facility] Assessment: BI-RADS Category 0-Incomplete: Need additional imaging evaluation Recommendation: Additional projections Normal [facility] Consent for Treatmenton 12- Consent for Treatment [id number] .00TIFF Normal [facility] PAP [id number] 03-12-2023 Cytology report Cyto stain Doc (Cvx/Vag) Note Invalid Interpretation Code [facility] Comment on above: Result Comment: TEST S RESULT FLAG UNITS REF RANGE LAB Clinician Provided Cytology Information Source.............Endocervix No. of containers..01 ThinPrep Vial DIAGNOSIS: 01 NEGATIVE FOR INTRAEPITHELIAL LESION OR MALIGNANCY. Specimen adequacy: 01 Satisfactory for evaluation. Endocervical and/or squamous metaplastic cells (endocervical component) are present. Performed by: Ismael Callejas, Floor Layer Tile (ASCP) . 01 Note: Note 01 The [...] Low,>-Panic High,A-Abnormal,AA-Critical Abnormal Performed at: [address] [phone] Liat Dennis MD, Performed By: #### 3 [id number] #### [facility] [address] [place] [address] HPV 16+18+31+33+35+39+4 5+51+52+56+58+59+66 +68 DNA Probe+sig amp Ql (Cvx) Negative Invalid Interpretation Code Negative [facility] Comment on above: Result Comment: This nucleic acid amplification test detects fourteen high-risk HPV types (16,18,31,33,35,39,45,51,52,56,58,59,66,68) without differentiation. Performed at: [address] [id number] MD Sonny Josue Performed at: = [address] [id number] MD Sonny Josue Performed By: #### 3 [id number] #### [facility] [address] [place] [address] Physician Orderon 03-08-2023 Physician Order [id number] .00TIFF Normal [facility] PAP [id number] 03-06-2023 Collection Technique BRUSH-SPATULA Normal [facility] Comment on above: Performed By: #### 3 [id number] #### [facility] [address] [place] [address] Gynecological Body Site ENDOCERVIX Normal [facility] Comment on above: Performed By: #### 3 [id number] #### [facility] [address] [place] [address] Physician Orderon 03-06-2023 Physician Order [id number] .00TIFF Normal [facility] FREE T4on 03-02-2022 Free T4 [Mass/Vol] 0.94 ng/dL Normal 0.76-1.46 [facility] Comment on above: Performed By: #### F T4 #### [facility] [address] [address] [address] Sarah Hickman TSHon 03-02-2022 TSH 0.398 uIU/mL Normal 0.358-3.740 [facility] Comment on above: Performed By: #### T SH #### [facility] [address] [address] [address] Sarah Hickman FREE T4on 10-28-2021 Free T4 [Mass/Vol] 0.66 ng/dL Critically low 0.76-1.46 [facility] Comment on above: Performed By: #### F T4 #### [facility] [address] [place] [address] Dr. Sarah Hickman LIPID PROFILEon 10-28-2021 CHOL-HDL RATIO NORM SEE BELOW Normal [facility] Comment on above: Result Comment: 3.3 - 4.4 LOW RISK 4.4 - 7.1 AVERAGE RISK 7.1 - 11.0 MODERATE RISK >11.0 HIGH RISK Performed By: #### L IPID, CMP, TSH #### [facility] [address] [place] [address] Dr. Sarah Hickman Cholesterol [Mass/Vol] 197 mg/dL Normal <=200 [facility] Comment on above: Performed By: #### L IPID, CMP, TSH #### [facility] [address] [place] [address] Dr. Sarah Hickman Cholesterol in HDL [Mass/Vol] 78 mg/dL Critically high 40-60 [facility] Comment on above: Performed By: #### L IPID, CMP, TSH #### [facility] [address] [place] [address] Dr. Sarah Hickman Cholesterol in LDL [Mass/Vol] 108.4 mg/dL Normal [facility] Comment on above: Performed By: #### L IPID, CMP, TSH #### [facility] [address] [place] [address] Dr. Sarah Hickman Cholesterol.total/C holesterol in HDL [Mass ratio] 2.5 {ratio} Normal [facility] Comment on above: Performed By: #### L IPID, CMP, TSH #### [facility] [address] [address] [address] Sarah Hickman HDL NORMAL > or = 60 mg/dl - LO W CARDIOVASCULAR RISK <40 mg/dl - HIGH CARDIOVASCULAR RISK Normal [facility] Comment on above: Performed By: #### L IPID, CMP, TSH #### [facility] [address] [address] [address] Sarah Hickman LDL CALC NORMAL SEE BELOW Normal [facility] Comment on above: Result Comment: <100 mg/dl OPTIMAL 100 - 129 mg/dl NEAR OR ABOVE OPTIMAL 130 - 159 mg/dl BORDERLINE HIGH 160 - 189 mg/dl HIGH >190 mg/dl VERY HIGH Performed By: #### L IPID, CMP, TSH #### [facility] [address] [address] [address] Sarah Hickman Triglyceride [Mass/Vol] 53 mg/dL Normal <=150 [facility] Comment on above: Performed By: #### L IPID, CMP, TSH #### [facility] [address] [address] [address] Sarah Hickman VLDL CALC 10.6 mg/dL Normal [facility] Comment on above: Performed By: #### L IPID, CMP, TSH #### [facility] [address] [address] [address] Sarah Hickman MICROALBUMIN, RAND URon 07-0 mALB 4.4 mg/L Normal <=30.0 [facility] Comment on above: Performed By: #### M ALBR #### [facility] [address] [address] [address] Sarah Hickman PROF 14(COMP METB)on 022 Albumin [Mass/Vol] 3.9 g/dL Normal 3.4-5.0 [facility] Comment on above: Performed By: #### L IPID, CMP, TSH #### [facility] [address] [address] [address] Sarah Hickman Albumin/Globulin [Mass ratio] 1.1 {ratio} Normal [facility] Comment on above: Performed By: #### L IPID, CMP, TSH #### [facility] [address] [address] [address] Sarah Hickman ALP [Catalytic activity/Vol] 45 U/L Critically low 46-116 [facility] Comment on above: Performed By: #### L IPID, CMP, TSH #### [facility] [address] [address] [address] Sarah Hickman ALT [Catalytic activity/Vol] 39 U/L Normal 14-59 [facility] Comment on above: Performed By: #### L IPID, CMP, TSH #### [facility] [address] [address] [address] Sarah Hickman Anion gap [Moles/Vol] 10.6 mmol/L Normal [facility] Comment on above: Performed By: #### L IPID, CMP, TSH #### [facility] [address] [place] [address] Dr. Sarah Hickman AST [Catalytic activity/Vol] 26 U/L Normal 15-37 [facility] Comment on above: Performed By: #### L IPID, CMP, TSH #### [facility] [address] [place] [address] Dr. Sarah Hickman Bilirubin [Mass/Vol] 0.5 mg/dL Normal 0.2-1.0 [facility] Comment on above: Performed By: #### L IPID, CMP, TSH #### [facility] [address] [place] [address] Dr. Sarah Hickman Calcium [Mass/Vol] 8.9 mg/dL Normal 8.5-10.1 [facility] Comment on above: Performed By: #### L IPID, CMP, TSH #### [facility] [address] [place] [address] Dr. Sarah Hickman Chloride [Moles/Vol] 105 mmol/L Normal 98-107 [facility] Comment on above: Performed By: #### L IPID, CMP, TSH #### [facility] [address] [address] [address] Sarah Hickman CO2 [Moles/Vol] 29.4 mmol/L Normal 21.0-32.0 [facility] Comment on above: Performed By: #### L IPID, CMP, TSH #### [facility] [address] [address] [address] Sarah Hickman Creatinine [Mass/Vol] 0.97 mg/dL Normal 0.55-1.02 [facility] Comment on above: Performed By: #### L IPID, CMP, TSH #### [facility] [address] [address] [address] Sarah Hickman EGFR-AF [place] >60 Normal >=60 [facility] Comment on above: Performed By: #### L IPID, CMP, TSH #### [facility] [address] [address] [address] Sarah Hickman EGFR-NON AF [place] 58 mL/min/1.73m2 Critically low >=60 [facility] Comment on above: Performed By: #### L IPID, CMP, TSH #### [facility] [address] [address] [address] Sarah Hickman Globulin (S) [Mass/Vol] 3.6 g/dL Normal [facility] Comment on above: Performed By: #### L IPID, CMP, TSH #### [facility] [address] [address] [address] Sarah Hickman Glucose [Mass/Vol] 140 mg/dL Critically high 74-106 [facility] Comment on above: Performed By: #### L IPID, CMP, TSH #### [facility] [address] [address] [address] Sarah Hickman Potassium [Moles/Vol] 4.0 mmol/L Normal 3.5-5.1 [facility] Comment on above: Performed By: #### L IPID, CMP, TSH #### [facility] [address] [address] [address] Sarah Hickman Protein [Mass/Vol] 7.5 g/dL Normal 6.4-8.2 [facility] Comment on above: Performed By: #### L IPID, CMP, TSH #### [facility] [address] [address] [address] Sarah Hickman Sodium [Moles/Vol] 141 mmol/L Normal 136-145 [facility] Comment on above: Performed By: #### L IPID, CMP, TSH #### [facility] [address] [address] [address] Sarah Hickman Urea nitrogen [Mass/Vol] 15.0 mg/dL Normal 7.0-18.0 [facility] Comment on above: Performed By: #### L IPID, CMP, TSH #### [facility] [address] [place] [address] Dr. Sarah Hickman Urea nitrogen/Creatinine [Mass ratio] 15.5 mg/mg Normal [facility] Comment on above: Performed By: #### L IPID, CMP, TSH #### [facility] [address] [place] [address] Dr. Sarah Hickman TSHon 10-28-2021 TSH 7.247 uIU/mL Critically high 0.358-3.740 [facility] Comment on above: Performed By: #### L IPID, CMP, TSH #### [facility] [address] [place] [address] Dr. Sarah Hickman NEW MICROALBUMINon 0 Creatinine (U) [Mass/Vol] 36.5 mg/dL Normal [facility] Comment on above: Order Comment: THE M ICROALBUMIN IS < 6.0 THEREFORE THE MICROALBUMIN/CREATININE RATIO IS UNDETECTABLE. Performed By: #### 8 00 #### [facility] Unless Otherwise Noted [address] [place] [address] / COLA #[id number]/TEOFILO # [id number] Microalbumin <6.0 Normal 0.0-30.0 [facility] Comment on above: Order Comment: THE M ICROALBUMIN IS < 6.0 THEREFORE THE MICROALBUMIN/CREATININE RATIO IS UNDETECTABLE. Performed By: #### 8 00 #### [facility] Unless Otherwise Noted [address] [facility] [address] [place] [address] / COLA #4724/CLIA # [id number] Urine A/C Ratio -99.0 mg/g Low 0.0-30.0 [facility] Comment on above: Order Comment: THE M ICROALBUMIN IS < 6.0 THEREFORE THE MICROALBUMIN/CREATININE RATIO IS UNDETECTABLE. Performed By: #### 8 00 #### [facility] Unless Otherwise Noted [address] [facility] [address] [place] [address] / COLA #4724/CLIA # [id number] Vital Signs Date Time Vital Sign Value Performing Clinician Facility 07-11-2023 14:52-0400 Body height 170.2 cm Stacy Brink MD Work Phone: [facility] 07-11-2023 14:52-0400 Body mass index (BMI) [Ratio] 23.27 kg/m2 Stacy Brink MD Work Phone: [facility] 07-11-2023 14:52-0400 Body temperature 97.7 [degF] Stacy Brink MD Work Phone: [facility] 07-11-2023 14:52-0400 Body weight 67.41 kg Stacy Brink MD Work Phone: [facility] 07-09-2023 12:02-0400 Body mass index (BMI) [Ratio] 23.1 kg/m2 Mayuri Salazar MD Work Phone: [facility] 07-09-2023 12:02-0400 Body weight 66.91 kg Mayuri Salazar MD Work Phone: [facility] 07-09-2023 12:02-0400 Diastolic blood pressure 77 mm[Hg] Mayuri Salazar MD Work Phone: [facility] 07-09-2023 12:02-0400 Heart rate 70 /min Mayuri Salazar MD Work Phone: [facility] 07-09-2023 12:02-0400 Systolic blood pressure 129 mm[Hg] Mayuri Salazar MD Work Phone: [facility] 04-09-2023 13:00-0500 Body height 170.18 cm Rebecca Gonzalez Other [facility] Other 04-09-2023 13:00-0500 Body mass index (BMI) [Ratio] 23.18 kg/m2 Rebecca Gonzalez Other [facility] Other 04-09-2023 13:00-0500 Body weight 67.13 kg Rebecca Gonzalez Other [facility] Other 04-09-2023 13:00-0500 Diastolic blood pressure 77 mm[Hg] Rebecca Gonzalez Other [facility] Other 04-09-2023 13:00-0500 Systolic blood pressure 136 mm[Hg] Rebecca Gonzalez Other [facility] Other 03-13-2023 13:00-0500 Body height 170.18 cm Rosa Mcallister Other [facility] Other 03-13-2023 13:00-0500 Body mass index (BMI) [Ratio] 23.05 kg/m2 Rosa Mcallister Other [facility] Other 03-13-2023 13:00-0500 Body temperature 97.4 [degF] Rosa Mcallister Other [facility] Other 03-13-2023 13:00-0500 Body weight 66.77 kg Rosa Ary Other [facility] Other 03-13-2023 13:00-0500 Diastolic blood pressure 72 mm[Hg] Rosa Ary Other [facility] Other 03-13-2023 13:00-0500 SaO2% (BldA) [Mass fraction] 97 % Rosa Ary Other [facility] Other 03-13-2023 13:00-0500 Systolic blood pressure 126 mm[Hg] Rosa Ary Other [facility] Other 2023 11:15-0400 Body height 170.18 cm Rebecca Gonzalez Other [facility] Other 2023 11:15-0400 Body mass index (BMI) [Ratio] 23.02 kg/m2 Rebecca Gonzalez Other [facility] Other 2023 11:15-0400 Body weight 66.68 kg Rebecca Gonzalez Other [facility] Other 2023 11:15-0400 Diastolic blood pressure 72 mm[Hg] Rebecca Gonzalez Other [facility] Other 2023 11:15-0400 Systolic blood pressure 151 mm[Hg] Rebecca Gonzalez Other [facility] Other Encounters Encounter Date Encounter Type Care Provider Facility Start: 07-23-2023 Telephone encounter Stacy Brink MD Work Phone: [facility] Start: 07-11-2023 End: 07-11-2023 Patient encounter procedure Stacy Brink MD Work Phone: [facility] Comment on above: Ear fullness, right (Primary Dx); Otalgia, right; Sensorineural hearing loss (SNHL) of both ears; Neck swelling Start: 07-11-2023 End: 07-11-2023 Clinical Support Criss Blackjeff [place] Work Phone: [facility] Comment on above: Sensorineural hearin g loss (SNHL) of both ears (Primary Dx); Ear pain, right Start: 07-09-2023 End: 07-09-2023 Office outpatient visit 25 minutes Mayuri Salazar MD Work Phone: [facility] Comment on above: Type 1 diabetes armando itus without complication ([facility]) (Primary Dx); Carol Ann's disease; Mixed hyperlipidemia Start: 05-01-2023 End: 05-01-2023 ambulatory Rebecca Gonzalez Other [facility] Other Start: 05-01-2023 Telephone encounter Rebecca Gonzalez [facility] Start: 04-30-2023 End: 05-01-2023 ambulatory Judit Fermin Pagee Facility:[facility] Start: 04-30-2023 End: 04-30-2023 Patient encounter procedure Judit Fermin Pagee [facility] Start: 04-29-2023 Reinaldo rico MD Work Phone: [facility] Start: 04-26-2023 End: 04-26-2023 ambulatory Rebecca Gonzalez Other [facility] Other Start: 04-26-2023 Telephone encounter Rebecca Gonzalez [facility] Start: 04-11-2023 End: 04-12-2023 ambulatory Judit J Ron Facility:[facility] Start: 04-11-2023 End: 04-11-2023 Patient encounter procedure Judit Fermin Ron [facility] Start: 04-09-2023 End: 04-09-2023 ambulatory Rebecca Gonzalez Other [facility] Other Start: 04-09-2023 Office outpatient vi sit 15 minutes Rebecca Gonzalez [facility] Start: 03-13-2023 End: 03-13-2023 ambulatory Rosa Mcallister Other [facility] Other Start: 03-13-2023 Office outpatient vi sit 15 minutes Rosa Mcallister [facility] Start: 03-06-2023 End: 03-07-2023 ambulatory Judit Velasquez Facility:[facility] Start: 03-06-2023 End: 03-06-2023 Lab Drop off Judit J Ron [facility] Start: 2023 End: 2023 ambulatory Rebecca Maggie Other [facility] Other Start: 2023 Office outpatient vi sit 15 minutes Rebecca Maggie [facility] Start: 04-10-2022 End: 04-10-2022 Patient encounter procedure Judit J Ron [facility] Start: 03-02-2022 End: 03-03-[address] DOCTOR AGUDELO Facility:[facility] Start: 03-02-2022 End: 03-02-2022 Lab Drop off Judit Fermin Ron [facility] Start: 10-28-2021 End: 10-29-[address] DOCTOR AGUDELO Facility:[facility] Start: 07-20-2021 End: 04-01-2022 ambulatory ADRIANNA DIAZ Facility:[facility] Start: 01-12-2016 End: 01-13-2016 Ambulatory CHARU CASTELLANOS Facility:[facility] Procedures Date Procedure Procedure Detail Performing Clinician [...] Author Start: 07-17-2024 Tobacco Screening Tobacco Screening [facility] Start: 07-10-2024 Adult BMI Screening Adult BMI Screen ing [facility] Start: 07-10-2024 Tobacco Screening Tobacco Screening [facility] Start: 07-08-2024 Adult BMI Screening Adult BMI Screen ing [facility] Start: 07-08-2024 Diabetic foot examination Diabetic Foot Exam [facility] Start: 07-08-2024 Tobacco Screening Tobacco Screening [facility] Start: 03-04-2024 Adult BMI Screening Adult BMI Screen ing [facility] Start: 03-04-2024 Diabetic foot examination Diabetic Foot Exam [facility] Start: 03-04-2024 Tobacco Screening Tobacco Screening [facility] Start: 12-22-2023 Influenza vaccination Influenza Vacc ine [facility] Start: 11-04-2023 End: 11-04-2023 Patient encounter procedure 11/04/2023 9:30 AM EDT Office Visit [facility] [address] [id number] Magui Warren, ASSET ADMINISTRATOR-CAR DUMPER OPERATOR HELPER [address] [address] [facility] Start: 08-22-2023 End: 08-22-2023 Patient encounter procedure 08/22/2023 2:45 PM EDT Office Visit [facility] [address] [place] [address] Stacy Brink MD [address] [address] [facility] Start: 07-28-2023 Glaucoma screening Diabetic Op hthalmology Exam [facility] Start: 07-11-2023 End: 07-11-2023 Clinical Support [facility] [...] Routine Neck swelling Expected: 07/11/2023, Expires: 07/10/2024 [facility] Comment on above: Expected: 07/11/2023 , Expires: 07/10/2024 Start: 07-09-2023 End: 07-09-2023 Patient encounter procedure 07/09/2023 11:45 AM EDT Office Visit [facility] [address] [place] [phone] Mayuri Salazar MD [address] [place] [address] [facility] Start: 12-21-2022 COVID-19 Vaccine () COVID-19 Vaccine () [facility] Start: 01-27-2010 Administration of varicella zoster vaccine Zoster (Shingles) Vaccine (1 of 2) [facility] Start: 01-27-1981 Screening for malign ant neoplasm of cervix Pap Smear [facility] Start: 01-27-1979 DTaP,Tdap and Td Vaccines (1 - Tdap) DTaP,Tdap and Td Vaccines (1 - Tdap) [facility] Start: 1972 Depression Screening Depression Scre ening [facility] Start: 1960 Urine screening for protein Urine Microalbumin [facility] Immunizations Immunization Date Immunization Notes Care Provider [facility] 01-18-2023 influenza virus vaccine, unspecified formulation Stacy Brink MD Work Phone: [facility] 02-04-2014 tetanus and diphtheria toxoids, adsorbed, preservative free, for adult use (5 Lf of tetanus toxoid and 2 Lf of diphtheria toxoid) Rosa Mcallister Other [facility] Other 02-11-2013 tetanus and diphtheria toxoids, adsorbed, preservative free, for adult use (5 Lf of tetanus toxoid and 2 Lf of diphtheria toxoid) Rosa Mcallister Other [facility] Other Payers Date Payer Category Payer Private Health Insurance [employer] A ETNA POS [id number] 2021-Present [phone] [address] [place] [address] [id number] 1960 Unknown [id number] 1960 Unknown [id number] 1960 Unknown [id number] 1960 Unknown [id number] 1960 Unknown [id number] 1960 Unknown [id number] 1959 Private Health Insurance [id number] Private Health Insurance [id number] Unknown [id number] Social History Date Type Detail Facility Tobacco smoking status [facility] Start: 06-02-2020 End: 03-04-2023 Sex Assigned At Female [facility] Start: 07-04-2022 Tobacco smoking stat [facility] Never smoked tobacco [facility] Start: 07-04-2022 Tobacco use and exposure Smoke less tobacco non-user [facility] Start: 03-04-2023 End: 07-18-2023 Alcohol intake Lifetime non-drinker (finding) [facility] Start: 06-02-2020 End: 03-04-2023 History of Social function [facility] Housing Instability Unknown [facility] Start: 1960 Sex Assigned At Not on file [facility] Medical Equipment Procedure Code Equipment Code Equipment Origin al Text Equipment Identifier Dates 1 strip by other route as needed for high blood sugar. Checks 7 times/day. Glucometer communicates with her insulin pump. DX: E11.9 [id number] Start: 11-21-2022 Clinical Notes 07-20-2021 to 07-23-2023 Telephone Encounter - Rosa Harden - 07/23/2023 4:33 PM EDTTelephone Encounter - Yamilka Almonte CNA - 07/23/2023 4:33 PM EDTTelephone Encounter - Rosa Harden - 07/23/2023 4:33 PM EDT Note Date & Type Note Facility 07-23-2023 Miscellaneous Notes Formattin g of this note might be different from the original. Kalee with [facility] scheduling dept called. She needs office notes faxed to pre cert the MRI. Please fax to [phone]. Phone number [phone] if any questions. Pt also needs an order for Creatinine because the MRI is ordered with and w/o contrast Faxed office note to [facility] documented in this encounter [facility] 07-23-2023 Telephone encount er Note Kalee with [facility] scheduling dept called. She needs office notes faxed to pre cert the MRI. Please fax to [phone]. Phone number [phone] if any questions. Pt also needs an order for Creatinine because the MRI is ordered with and w/o contrast [facility] 07-23-2023 Telephone encount er Note Faxed office note to [facility] 07-11-2023 History of Presen t illness Narrative Images from the original note were not included. [facility] [address] [place] [address] [facility] [facility] [id number] SUBJECTIVE: Patient ID: Marcia Mario is a [...] 1970 Penicillin - Rash Depression Diabetes mellitus ([facility]) 07/1980 Type 1 Disease of thyroid gland [...] 90 tablet 3 pedi multivit no.12 w-fluoride (EZULZHHPRPXFE-[id number]-YZYLS A ORAL) See Admin Instructions. pravastatin (PRAVACHOL) [...] [facility] - [place], [place] - MR brain IAC with and [...] or concerns: . Non-emergent messages received through [employer] may take up to 2 business days [...] this chart were generated using voice recognition M*CAPNIA dictation software. Although every effort was made to ensure the accuracy of this automated marketing database coordinator, some errors in marketing database coordinator may have occurred. documented in this encounter [employer] 07-11-2023 Instructions Soraida Hernandez - 07/11/2023 3:00 [...] or concerns: . Non-emergent messages received through [employer] may take up to 2 business days for a response. documented in this encounter [facility] 07-11-2023 History of Presen t illness Narrative [...] Asymmetry noted: No Reliability: good Speech Audiometry: SRT/CEMETERY WARDEN in good agreement WRS: Right Ear: Excellent (100%) Left Ear: Excellent (100%) RECOMMENDATIONS: Follow up with Malena Talbert, [facility] Content Engineer documented in this encounter [facility] 07-09-2023 History of Presen t illness Narrative [...] Immunizations current : yes Current Diabetic medications: [employer] 630G, may consider changing products but not [...] tablet, Rfl: 3 pedi multivit no.12 w-fluoride (JABNJBQIKWNMJ-CVFGVFKA-FGQWU A ORAL), See Admin Instructions., Disp: , [...] Plan:1. Type 1 diabetes mellitus without complication ([facility]) - POCT Hemoglobin A1c - insulin aspart U-100 (NovoLOG U-100 Insulin aspart) 100 unit/mL injection; INJECT 60 UNITS DAILY VIA INSULIN PUMP DIRECTED Dispense: 60 mL; Refill: 3 2. Carol Ann's disease 3. Mixed hyperlipidemia Return to clinic: 3-4 months documented in this encounter [employer] 04-09-2023 Evaluation note Encounter Date Diagnosis Assessment Notes Mar, Right otitis media with effusion (ICD-10 - H65.91) Continue flonase. Will reach out to [employer] - Dr. Brink or Dr. Doll for an appt. Mar, Enlarged lymph node (ICD-10 - R59.9) Present decreased in size, per Marcia. States same area increases and resolves in size through the years. [employer] Other 11-22-2023 Evaluation note* Encounter Date Diagnosis [...] resolved follow up with PCP is recommended. [facility] [employer] Other 11-15-2023 Evaluation + Plan note Diagnostic Tests Pending * PAP [id number]/06/23 [facility]10-09-2023 Evaluation note* Encounter Date Diagnosis Assessment [...] verbalizes understanding of teaching points and instructions. [facility] [employer] Other [phone] Evaluation + Plan note Diagnostic Tests Pending * PAP [id number]/02/22 [facility]03-31-2022 NotePROCEDURE: XR ANKLE RT MIN 3 [...] Electronically authenticated by: JAYLIN LINDQUIST Date: 2021-07-20 16:18[facility]03-31-2022 NotePROCEDURE: XR ANKLE RT MIN 3 VIEWS, [...] authenticated by: JAYLIN LINDQUIST Date: 2021-07-20 16:18[facility] noteNo InformationNortSt. [facility] [employer] Other Evaluation note* Diagnosis Type 1 diabetes mellitus without complication ([facility])- Primary Type I (juvenile type) diabetes mellitus without mention of complication, not stated as uncontrolled Carol Ann's disease Chronic lymphocytic thyroiditis Mixed hyperlipidemia [facility] Diagnosis Sensorineural hearing loss (SNHL) of both ears- Primary Ear pain, right [facility] Diagnosis Ear fullness, right- Primary Otalgia, right Sensorineural hearing loss (SNHL) of both ears Neck swelling Swelling, mass, or lump in head and neck documented [facility] this [facility] Narrative - Reported* Type Description Date Medical History Type 1 diabetes armando itus with other circulatory complications Medical History Hyperlipidemia Surgical History arthroscopic knee surgery 2001 Surgical History shoulder release 2014 Hospitalization History see above surgical histo ry Hospitalization History diabeties [facility] [employer] Other Hospital course Narrative No data available for this section [facility] No data available for this section [facility]ructionsNot on filedocumented in this encounter [facility] System[facility]ructionsNot on filedocumented in this encounter [facility]ructionsNot on filedocumented in this encounter [facility] No data available for this section [facility] Summary Purpose Family History No Family [...] and without contrast Stacy Brink MD [address] [place] [address] Referral ID Status Reason Start Date Expiration Date V isits Requested Visits Authorized [id number] Pending Review 07/11/2023 07/10/[address] Brink or [address] Zavala er w [facility] - 3 months of R middle ear effusion Diagnosis 1 Right otitis media w ith effusion (H65.91) Referral Organization [facility] too Referring Provider First Name Rebecca Referring Provider Last Name Maggie Referring Provider Specialty Family Medi cine Referred Organization [facility] Referred Address [address] ,[place], [place],[address] Referred Provider Specialty Ear, Nose an d Throat Referral Priority Routine Reason *FU 03/22 evaluate Diagnosis 1 Right otitis media w ith effusion (H65.91) Referral Organization [facility] [employer] [facility] too Referring Provider First Name Rosa Referring Provider Last Name Ary Referring Provider Specialty Nurse Pract [facility] Referred Organization [facility] Referred Provider Ekta Cash Referred Address ,[place],[address] Referred Provider Specialty Ear, Nose an d Throat Referral Priority Routine General Notes Delma Clark 05:53:09 PM >received today, notes locked, ins attached, referral faxed Additional Source Comments INFORMATION SOURCE (unrecogn ized section and content) DATE CREATED AUTHOR 10/16/2017 [facility] DATE CREATED AUTHOR AUTHOR'S ORGANIZ ATION 03/03/2020 [facility] DATE CREATED AUTHOR AUTHOR'S ORGANIZ ATION 03/07/2022 [facility] DATE CREATED AUTHOR AUTHOR'S ORGANIZ ATION 05/01/2023 [facility] Patient Care team informatio n (unrecognized section and content) [employer] Relationship Specialty Start Date End Date Rebecca Gonzalez MD [address] [place] [id number] PCP - General 07/10/23 [employer] Relationship Specialty [place] [address] [place] [address] PCP - General 07/10/23 [employer] Relationship Specialty [place] [address] [place] [address] PCP - General 07/10/23 REASON FOR VISIT (unrecogniz ed section and content) Reason Comments Med Refill Reason Comments Diabetes Mellitus Reason Comments Ear Problem Reason Comments Otitis Media Specialty Diagnoses / Procedures Referred By Judy t Referred To Contact Otolaryngology Diagnoses Right otitis media with effusion Rebecca Gonzalez MD [address] [place] [address] [facility] [employer] [address] [facility] [place] [address] Referral ID Status Reason Start Date Expiration Date Visits Requested Visits Authorized [id number] Pending Review Specialty Services Required 05/06/2023 05/05/2024 [...] BE BASED ON THE PRIMARY CLINICAL RECORDS. [facility] [employer] provides no warranty or guarantee of the accuracy or completeness of information in this document.
--- NOTE | 2023-07-26 08:01 | US_ITS ---
The [address] [address] Patient Name: DENISE TRAMMELL MRN: [id number] date: 1960 Sex: F Assigned Patient Location: [facility] Current Patient Location: Accession/Order Number: [id number] Exam Date: 07/26/2023 10:04 Report Date: 07/27/2023 05:25 At the request of: NON-STAFF PHYSICIAN Procedure: US soft tissue head and neck EXAM: US soft tissue head and neck HISTORY: neck swelling R22.1 ; right neck reoccurring lump over past several months COMPARISON: None. TECHNIQUE: Percutaneous ultrasound evaluation FINDINGS: Adjacent to the right submandibular gland is a 2.6 x 1.6 x 0.7 cm hypoechoic lymph node with small fatty hilum and mild internal blood flow. US/US soft tissue head and neck IMPRESSION: 1. Slightly prominent lymph node felt to correspond to patient's palpable lump. While not overtly suspicious, clinical follow-up is recommended and repeat imaging if symptoms persist. Electronically authenticated by: JAYLIN LINDQUIST Date: 07/27/2023 05:25
== END 2023-07-26 07:55 | disposition home or self-care (01) ==
LOC: RAD 07:56
PROVIDERS: PCP Family Medicine
DX: R22.1 Localized swelling, mass and lump, neck (principal)
CPT/HCPCS: 76536

== ENCOUNTER 2023-08-17 08:26 | Outpatient (OUT) | payer OTHER, SELFPAY ==
--- NOTE | 2023-08-17 | CT_ITS ---
The [address] [address] Patient Name: DENISE TRAMMELL MRN: [id number] date: 1960 Sex: F Assigned Patient Location: CT Current Patient Location: CT Accession/Order Number: [id number] Exam Date: 08/17/2023 08:30 Report Date: 08/17/2023 14:26 At the request of: NON-STAFF PHYSICIAN Procedure: CT soft tissue neck w con CT soft tissue neck w con, 08/17/2023 8:30 AM EDT INDICATION: Neck mass R22.1 COMPARISON: Prior ultrasound dated 07/26/2023 TECHNIQUE: CT imaging of the neck were acquired with contrast. Supplemental 2D reformatted images were generated and reviewed as needed. Dose reduction techniques were achieved by using automated exposure control and/or adjustment of mA and/or kV according to patient size and/or use of iterative reconstruction technique. FINDINGS: No abnormality of the base of skull is noted. The nasopharynx, oropharynx, hypopharynx and oral cavity are unremarkable. The parotids, submandibular glands are unremarkable. The larynx is unremarkable. No abnormality of paraglottic fat is noted. There is no lymph node enlargement by size criteria. No retropharyngeal lymph node is noted. Mildly prominent right level 2A lymph node. The thyroid gland is homogeneous. The visualized portions of lungs are unremarkable. There is no suspicious osteolytic or osteoblastic lesion. There are multilevel degenerative changes of cervical spine. CT/CT soft tissue neck w con IMPRESSION: No suspicious lymphadenopathy or mass in the current study. Electronically authenticated by: MORAIMA COOMBS Date: 08/17/2023 14:26
--- OUTSIDE RECORDS SUMMARY | 2023-08-17 08:28 | XMS_ITS | CCD ---
Author Organization [facility] Care Team Providers Care Environmental Compliance Engineer Name Role Phone CHARU CASTELLANOS Unavailable Unavailable CHARU CASTELLANOS Unavailable Unavailable SELF, REFERRED Unavailable Unavailable SELF, REFERRED Unavailable Unavailable REBECCA GONZALEZ Primary Care Physician MIS, DR BARCLAY Admitting Unavailable MISC, DR BARCLAY Attending Unavailable LISA, DR REBECCA Haddad Primary Care Unavailable LISA, DR REBECCA Haddad Consulting Unavailable ADRIANNA DIAZ Admitting Unavailable DARIANNA DIAZ Attending Unavailable LISA, DR REBECCA Haddad Primary Care Unavailable ZIEBEDWIN, DR JAYLIN Charles Consulting Unavailable ADRIANNA DIAZ Consulting Unavailable MISC, DR BARCLAY Admitting Unavailable MISC, DR BARCLAY Attending Unavailable LISA, DR REBECCA Haddad Primary Care Unavailable MISC, DR BARCLAY Consulting Unavailable LISA, DR REBECCA Haddad Consulting Unavailable Rebecca Gonzalez Unavailable Rosa Mcallister Unavailable [phone] Unavailable Primary Care Provider UnavailRebecca Han MD Primary Care Provider Ron, Judit J Attending Unavailable Ron, Judit J Admitting Unavailable Ron, Judit J Referring Unavailable Ron, Judit J Attending Unavailable Ron, Judit J Admitting Unavailable Ron, Judit J Referring Unavailable Ron, Judit J Admitting Unavailable Ron, Judit J Attending Unavailable Ron, Judit J Attending Unavailable Ron, Judit J Admitting Unavailable Ron, Judit J Referring Unavailable Allergies Allergy Classification Reported Allergen(s) Allergy Type Date of Onset Reaction(s) Facility (8 sources) Penicillin; Translations: [penicillin] Drug Allergy 03-14-20 21 Eruption of skin (disorder) [facility] (5 sources) Penicillin G Drug Allergy rash [facility] (4 sources) Sulfamethoxazole / Trimethoprim Drug Allergy Unknown [facility] (4 sources) Penicillin G Benzathine & Proc Drug allergy Unknown [facility] (4 sources) patient allergy list reviewed by nurse or physicia Propensity to adverse reactions 11-13-19 18 Comment:Done [facility] Other (4 sources) Allergies Reconciled Propensity to adverse reactions 02-14-20 Unknown [facility] (4 sources) Substance with penicillin structure and antibacterial mechanism of action (substance) Drug allergy Unknown [facility] (7 sources) Penicillins Propensity to adverse reactions to drug 03-08-20 [facility] Medications Current Medications Medication Drug Class(es) Dates Sig (Normalized) Sig (Original) ascorbic acid 250 mg chewable tablet (7 sources) Vitamin C ascorbic acid, vitamin C, (ascorbic acid) 250 mg tablet,chewable Chew and swallow. 0 Active aspirin 81 mg oral tablet (18 sources) Platelet Aggregation Inhibitor, Nonsteroidal Anti-inflammatory Drug [...] 4 more days for Jan, Active Calcium (6 sources) Phosphate Binder, Calcium Start: 08-16-2010 Calcium 600 D Tab Oral, Daily, Refill(s) 0 Start Date: 08/16/10 Status: Ordered calcium carbonate 1500 mg / cholecalciferol 0.01 mg oral tablet (7 sources) Vitamin D calcium carbonate-vitamin D3 (CALCIUM [...] / norethindrone acetate 0.5 mg oral tablet (6 sources) Estrogen Start: 08-16-2010 take 1 tablet [...] insulin aspart, human 100 unt/ml injectable solution (9 sources) Insulin Analog Start: 07-29-2023 insulin aspart U-100 (NovoLOG U-100 Insulin aspart) 100 unit/mL injection Indications: Type 1 diabetes mellitus without complication ([facility]) INJECT 60 UNITS DAILY VIA INSULIN PUMP DIRECTED 60 mL 3 07/29/2023 Active Start: 08-15-2022 End: 07-29-2023 insulin aspart U-100 (NovoLO G U-100 Insulin aspart) 100 unit/mL injection Indications: Type 1 diabetes mellitus without complication ([facility]) INJECT 60 UNITS DAILY VIA INSULIN PUMP DIRECTED 60 mL 3 07/09/2023 07/29/2023 Discontinued Insulin Infusion Pump (5 sources) Insulin Infusion Pump Active Humalog (6 sources) Insulin Analog Start: 08-16-2010 Humalog SubCutaneous, mL, Refills(s) 0 Start Date: 08/16/10 Status: Ordered levothyroxine sodium 0.075 mg oral tablet (12 sources) l-Thyroxine Start: 02-25-2023 levothyroxine (SYNTHROID, LEVOTHROID) 75 MCG tablet TAKE 1 TABLET ONCE DAILY INTHE MORNING ON AN EMPTY STOMACH 90 tablet 3 02/25/2023 Active take 1 tablet by kalee th every twenty-four hours Levothyroxine Sodium 75 MCG 1 tablet onc e a day Active Multiple Vitamins Tab (6 sources) Start: 08-16-2010 take 1 tablet by mouth once daily Multiple Vitamins Tab 1 tab(s), Oral, Daily, tab(s), Refill(s) 0 Start Date: 08/16/10 Status: Ordered Multivitamin preparation (5 sources) Multivitamin Ora lly Active pedi multivit no.12 w-fluoride (MULTIVITAMINS-FLUOR SABRINA-FOLIC A ORAL) (7 sources) pedi multivit no .12 w-fluoride (MULTIVITAMINS-FLUO RIDE-FOLIC A ORAL) See Admin Instructions. 0 Active pravastatin sodium 40 mg oral tablet (19 sources) HMG-CoA Reductase Inhibitor Start: 05-11-2022 End: [...] day Active sertraline 100 mg oral capsule (11 sources) Serotonin Reuptake Inhibitor Start: 08-16-2010 Zoloft 100 mg oral capsule Daily, Refills(s) 0 Start Date: 08/16/10 Status: Ordered take 1 tablet by kalee th every twenty-four hours Sertraline HCl 50 MG 1 tablet Orally Onc e a day Active Vitamin D (6 sources) Start: 08-16-2010 take 1 mL by mouth o nce daily Vitamin D Oral, Daily, mL, Refills(s) 0 Start Date: 08/16/10 Status: Ordered Problems Active Problems Problem Classification Problem Date Documented Date Episodic/Chronic Acquired foot deformities (4 sources) Acquired deformity of right foot; Translations: [Other acquired deformities of right foot] Episodic Anxiety disorders (6 sources) Anxiety 10-08-2013 Chronic Conditions associated with dizziness or vertigo (4 sources) Benign paroxysmal positional vertigo; Translations: [Benign paroxysmal vertigo, bilateral] Episodic Diabetes mellitus with complications (4 sources) Hyperglycemia due to type 1 diabetes mellitus; Translations: [Type 1 diabetes mellitus with hyperglycemia] Chronic Diabetes mellitus without complication (16 sources) Type 1 diabetes mellitus; Translations: [Type 1 diabetes mellitus without complications] Onset: 06-12-2013 10-09-2013 Chronic Disorders of lipid metabolism (15 sources) Hypercholesterolemia ; Translations: [Familial hypercholesterolemia ] [...] ear and sense organ disorders (2 sources) Ear sensations - finding; Translations: [Other specified [...] Test Name Value Interpretation Reference Range Facility Physician Orderon 08-02-2023 Physician Order [id number] .00TIFF [facility] Consent for Treatmenton 07-21 Consent for Treatment [id number] .00TIFF [facility] US Breast Unilateral Lt Comp leteon 08-01-2023 US Breast Unilateral Lt Complete Exam Date/Time: 08/01/2023 09:21 EDT Reason for Exam: N64.9 Report IMPRESSION: BI-RADS 3: PROBABLY BENIGN. LEFT BREAST ULTRASOUND EXAM IN APPROXIMATELY 6 MONTHS IS SUGGESTED. CLINICAL HISTORY: N64.9. COMPARISON: 04/30/2023. COMMENT: An ultrasound was obtained at all clock face positions and in the central/ retroareolar region of the left breast. At 1:00 there is a cyst cluster, 5 mm diameter. At 3:00, there is a 3 mm cyst. At 6:00, there are cysts/cyst clusters that measure 4 mm, 4 mm, and 5 mm. Posterior to the nipple, there is a 5 mm cyst cluster. The ultrasound of the left breast is otherwise unremarkable. No solid breast mass is noted. Ordering Provider: Judit Velasquez FINAL REPORT Dictated: 08/01/2023 4:22 pm Brandon Medrano M.D. Signed (Electronic Signature): 08/01/2023 4:22 pm Signed by: Brandon Medrano M.D. Transcribed by: MAHIN Technologist: [facility] POCT Hemoglobin A1con 2023 ADA Target < 8 Yes [facility] HbA1c (Bld) [Mass fraction] 6.3 g/dL 4 - 7 g/dL [facility] Physician Orderon 05-03-2023 Physician Order [id number]. 00TIFF [facility] Consent for Treatmenton Consent for Treatment [id number] .00TIFF [facility] MA Mamm Diag w/CAD if [...] very important to your health. The current [employer] and [employer] [...] follow-up Recommendation: Follow-up at short interval Normal [facility] US Breast Unilateral Lt Comp suhaseolimpia 04-30-2023 US Breast Unilateral Lt Complete Exam Date/Time: 04/30/2023 09:27 EST Reason for Exam: N64.9 Report PLEASE REFER TO THE MAMMOGRAM REPORT. Ordering Provider: Judit Velasquez FINAL REPORT Dictated: 04/30/2023 4:21 pm Brandon Medrano M.D. Signed (Electronic Signature): 04/30/2023 4:21 pm Signed by: Brandon Medrano M.D. Transcribed by: MAHIN Technologist: CHILO [facility] Physician Orderon 04-24-2023 Physician Order [id number] .00TIFF [facility] MA Mamm Screen w/CAD if [...] VERY IMPORTANT TO YOUR HEALTH. THE CURRENT [employer] [...] Jose Gutierrez MD Transcribed by: MAHIN Technologist: YISEL Assessment: BI-RADS Category 0-Incomplete: Need additional imaging evaluation Recommendation: Additional projections Normal [facility] Consent for Treatmenton 03-23 Consent for Treatment [id number] .00TIFF Normal [facility] PAP [id number] 03-12-2023 Cytology report Cyto stain Doc (Cvx/Vag) Note Invalid Interpretation Code [facility] Comment on above: Result Comment: TEST S RESULT FLAG UNITS REF RANGE LAB Clinician Provided Cytology Information Source.............Endocervix No. of containers..01 ThinPrep Vial DIAGNOSIS: 01 NEGATIVE FOR INTRAEPITHELIAL LESION OR MALIGNANCY. Specimen adequacy: 01 Satisfactory for evaluation. Endocervical and/or squamous metaplastic cells (endocervical component) are present. Performed by: Ismael Callejas, Frame Nailer ([facility]) . 01 Note: Note 01 The Pap [...] <-Panic Low,>-Panic High,A-Abnormal,AA-Critical Abnormal Performed at: [address] [id number] Liat Dennis MD, Performed By: #### 3 [id number] ####[address] [place] [address] HPV 16+18+31+33+35+39+4 5+51+52+56+58+59+66 +68 DNA Probe+sig amp Ql (Cvx) Negative Invalid Interpretation Code Negative [facility] Comment on above: Result Comment: This nucleic acid amplification test detects fourteen high-risk HPV types (16,18,31,33,35,39,45,51,52,56,58,59,66,68) without differentiation. Performed at: [facility] [id number] MD Sonny Josue Performed at: =G [facility] [id number] MD Sonny Josue Performed By: #### 3 [id number] ####[address] [place] [address] Physician Orderon 03-08-2023 Physician Order [id number] .00TIFF Normal [facility] PAP [id number] 03-06-2023 Collection Technique BRUSH-SPATULA Normal [facility] Comment on above: Performed By: #### 3 [id number] ####[address] [place] [address] Gynecological Body Site ENDOCERVIX Normal [facility] Comment on above: Performed By: #### 3 [id number] ####[address] [place] [address] Physician Orderon 03-06-2023 Physician Order [id number] .00TIFF Normal [facility] FREE T4on 03-02-2022 Free T4 [Mass/Vol] 0.94 ng/dL Normal 0.76-1.46 [facility] Comment on above: Performed By: #### F T4 #### [facility] [address] [place] [address] Dr. Sarah Hickman TSHon 03-02-2022 TSH 0.398 uIU/mL Normal 0.358-3.740 [facility] Comment on above: Performed By: #### T SH #### [facility] [address] [place] [address] Dr. Sarah Hickman FREE T4on 10-28-2021 Free T4 [Mass/Vol] 0.66 ng/dL Critically low 0.76-1.46 [facility] Comment on above: Performed By: #### F T4 #### [facility] [address] [place] [address] Dr. Sarah Hickman LIPID PROFILEon 10-28-2021 CHOL-HDL RATIO NORM SEE BELOW Normal [facility] Comment on above: Result Comment: 3.3 - 4.4 LOW RISK 4.4 - 7.1 AVERAGE RISK 7.1 - 11.0 MODERATE RISK >11.0 HIGH RISK Performed By: #### L IPID, CMP, TSH #### [facility] [address] [place] [address] Dr. Sarah Hickman Cholesterol [Mass/Vol] 197 mg/dL Normal <=200 [facility] Comment on above: Performed By: #### L IPID, CMP, TSH #### [facility] [address] [place] [address] Dr. Sarah Hickman Cholesterol in HDL [Mass/Vol] 78 mg/dL Critically high 40-60 [facility] Comment on above: Performed By: #### L IPID, CMP, TSH #### [facility] [address] [place] [address] Dr. Sarah Hickman Cholesterol in LDL [Mass/Vol] 108.4 mg/dL Normal [facility] Comment on above: Performed By: #### L IPID, CMP, TSH #### [facility] [address] [address] [address] Sarah Hickman Cholesterol.total/C holesterol in HDL [Mass ratio] 2.5 {ratio} Normal [facility] Comment on above: Performed By: #### L IPID, CMP, TSH #### [facility] [address] [address] [address] Sarah Hickman HDL NORMAL > or = 60 mg/dl - LO W CARDIOVASCULAR RISK <40 mg/dl - HIGH CARDIOVASCULAR RISK Normal [facility] Comment on above: Performed By: #### L IPID, CMP, TSH #### [facility] [address] [address] [address] Sarah Hickman LDL CALC NORMAL SEE BELOW Normal [facility] Comment on above: Result Comment: <100 mg/dl OPTIMAL 100 - 129 mg/dl NEAR OR ABOVE OPTIMAL 130 - 159 mg/dl BORDERLINE HIGH 160 - 189 mg/dl HIGH >190 mg/dl VERY HIGH Performed By: #### L IPID, CMP, TSH #### [facility] [address] [place] [address] Dr. Sarah Hickman Triglyceride [Mass/Vol] 53 mg/dL Normal <=150 [facility] Comment on above: Performed By: #### L IPID, CMP, TSH #### [facility] [address] [address] [address] Sarah Hickman VLDL CALC 10.6 mg/dL Normal [facility] Comment on above: Performed By: #### L IPID, CMP, TSH #### [facility] [address] [address] [address] Sarah Hickman MICROALBUMIN, RAND URon 07-0 mALB 4.4 mg/L Normal <=30.0 [facility] Comment on above: Performed By: #### M ALBR #### [facility] [address] [place] [address] Dr. Sarah Hickman PROF 14(COMP METB)on 022 Albumin [Mass/Vol] 3.9 g/dL Normal 3.4-5.0 [facility] Comment on above: Performed By: #### L IPID, CMP, TSH #### [facility] [address] [address] [address] Sarah Hickman Albumin/Globulin [Mass ratio] 1.1 {ratio} Normal [facility] Comment on above: Performed By: #### L IPID, CMP, TSH #### [facility] [address] [address] [address] Sarah Hickman ALP [Catalytic activity/Vol] 45 U/L Critically low 46-116 [facility] Comment on above: Performed By: #### L IPID, CMP, TSH #### [facility] [address] [address] [address] Sarah Hickman ALT [Catalytic activity/Vol] 39 U/L Normal 14-59 [facility] Comment on above: Performed By: #### L IPID, CMP, TSH #### [facility] [address] [address] [address] Sarah Hickman Anion gap [Moles/Vol] 10.6 mmol/L Normal [facility] Comment on above: Performed By: #### L IPID, CMP, TSH #### [facility] [address] [address] [address] Sarah Hickman AST [Catalytic activity/Vol] 26 U/L Normal 15-37 [facility] Comment on above: Performed By: #### L IPID, CMP, TSH #### [facility] [address] [address] [address] Sarah Hickman Bilirubin [Mass/Vol] 0.5 mg/dL Normal 0.2-1.0 [facility] Comment on above: Performed By: #### L IPID, CMP, TSH #### [facility] [address] [address] [address] Sarah Hickman Calcium [Mass/Vol] 8.9 mg/dL Normal 8.5-10.1 [facility] Comment on above: Performed By: #### L IPID, CMP, TSH #### [facility] [address] [address] [address] Sarah Hickman Chloride [Moles/Vol] 105 mmol/L Normal 98-107 [facility] Comment on above: Performed By: #### L IPID, CMP, TSH #### [facility] [address] [place] [address] Dr. Sarah Hickman CO2 [Moles/Vol] 29.4 mmol/L Normal 21.0-32.0 [facility] Comment on above: Performed By: #### L IPID, CMP, TSH #### [facility] [address] [place] [address] Dr. Sarah Hickman Creatinine [Mass/Vol] 0.97 mg/dL Normal 0.55-1.02 [facility] Comment on above: Performed By: #### L IPID, CMP, TSH #### [facility] [address] [place] [address] Dr. Sarah Hickman EGFR-AF GHANAIAN >60 Normal >=60 [facility] Comment on above: Performed By: #### L IPID, CMP, TSH #### [facility] [address] [place] [address] Dr. Sarah Hickman EGFR-NON AF GHANAIAN 58 mL/min/1.73m2 Critically low >=60 [facility] Comment on above: Performed By: #### L IPID, CMP, TSH #### [facility] [address] [place] [address] Dr. Sarah Hickman Globulin (S) [Mass/Vol] 3.6 g/dL Normal [facility] Comment on above: Performed By: #### L IPID, CMP, TSH #### [facility] [address] [place] [address] Dr. Sarah Hickman Glucose [Mass/Vol] 140 mg/dL Critically high 74-[address] [facility] Comment on above: Performed By: #### L IPID, CMP, TSH #### [facility] [address] [place] [address] Dr. Sarah Hickman Potassium [Moles/Vol] 4.0 mmol/L Normal 3.5-5.1 [facility] Comment on above: Performed By: #### L IPID, CMP, TSH #### [facility] [address] [address] [address] Sarah Hickman Protein [Mass/Vol] 7.5 g/dL Normal 6.4-8.2 [facility] Comment on above: Performed By: #### L IPID, CMP, TSH #### [facility] [address] [place] [address] Dr. Sarah Hickman Sodium [Moles/Vol] 141 mmol/L Normal 136-145 [facility] Comment on above: Performed By: #### L IPID, CMP, TSH #### [facility] [address] [place] [address] Dr. Sarah Hickman Urea nitrogen [Mass/Vol] 15.0 mg/dL Normal 7.0-18.0 [facility] Comment on above: Performed By: #### L IPID, CMP, TSH #### [facility] [address] [place] [address] Dr. Sarah Hickman Urea nitrogen/Creatinine [Mass ratio] 15.5 mg/mg Normal [facility] Comment on above: Performed By: #### L IPID, CMP, TSH #### [facility] [address] [place] [address] Dr. Sarah Hickman TSHon 10-28-2021 TSH 7.247 uIU/mL Critically high 0.358-3.740 [facility] Comment on above: Performed By: #### L IPID, CMP, TSH #### [facility] [address] [place] [address] Dr. Sarah Hickman NEW MICROALBUMINon 0 Creatinine (U) [Mass/Vol] 36.5 mg/dL Normal [facility] Comment on above: Order Comment: THE M ICROALBUMIN IS < 6.0 THEREFORE THE MICROALBUMIN/CREATININE RATIO IS UNDETECTABLE. Performed By: #### 8 00 #### [facility] Unless Otherwise Noted [address] [place] [address] / [facility] #[id number]/TEOFILO # [id number] Microalbumin <6.0 Normal 0.0-30.0 [facility] Comment on above: Order Comment: THE M ICROALBUMIN IS < 6.0 THEREFORE THE MICROALBUMIN/CREATININE RATIO IS UNDETECTABLE. Performed By: #### 8 00 #### [facility] Unless Otherwise Noted [address] [place], [place] [id number] / [facility] #4724/CLIA # [id number] Urine A/C Ratio -99.0 mg/g Low 0.0-30.0 [facility] Comment on above: Order Comment: THE M ICROALBUMIN IS < 6.0 THEREFORE THE MICROALBUMIN/CREATININE RATIO IS UNDETECTABLE. Performed By: #### 8 00 #### [facility] and [facility] Unless Otherwise Noted [address] [place] [address] / [facility]4724/CLIA # [id number] Vital Signs Date Time Vital Sign Value Performing Clinician Facility 07-11-2023 14:52-0400 Body height 170.2 cm Stacy Brink MD Work Phone: [facility] 07-11-2023 14:52-0400 Body mass index (BMI) [Ratio] 23.27 kg/m2 Stacy Brink MD Work Phone: [facility] 07-11-2023 14:52-0400 Body temperature 97.7 [degF] Stacy Brink MD Work Phone: [facility] 07-11-2023 14:52-0400 Body weight 67.41 kg Stacy Brink MD Work Phone: [facility] 07-09-2023 12:02-0400 Body mass index (BMI) [Ratio] 23.1 kg/m2 Mayuri Salazar MD Work Phone: [facility] 07-09-2023 12:02-0400 Body weight 66.91 kg Mayuri Salazar MD Work Phone: [facility] 07-09-2023 12:02-0400 Diastolic blood pressure 77 mm[Hg] [email or web address] 07-09-2023 12:02-0400 Heart rate 70 /min [email or web address] 07-09-2023 12:02-0400 Systolic blood pressure 129 mm[Hg] May[email or web address] 04-09-2023 13:00-0500 Body height 170.18 cm Rebecca Gonzalez Other [facility] Other 04-09-2023 13:00-0500 Body mass index (BMI) [Ratio] 23.18 kg/m2 Rebecca Gonzalez Other [facility] Other 04-09-2023 13:00-0500 Body weight 67.13 kg Rebecca Gonzalez Other [facility] Other 04-09-2023 13:00-0500 Diastolic blood pressure 77 mm[Hg] Rebecca Gonzalez Other [facility] Other 04-09-2023 13:00-0500 Systolic blood pressure 136 mm[Hg] Rebecca Gonzalez Other [facility] Other 03-13-2023 13:00-0500 Body height 170.18 cm Rosa Mcallister Other [facility] Other 03-13-2023 13:00-0500 Body mass index (BMI) [Ratio] 23.05 kg/m2 Rosa Mcallister Other [facility] Other 03-13-2023 13:00-0500 Body temperature 97.4 [degF] Rosa Mcallister Other [facility] Other 03-13-2023 13:00-0500 Body weight 66.77 kg Rosa Ary Other [facility] Other 03-13-2023 13:00-0500 Diastolic blood pressure 72 mm[Hg] Rosa Mcallister Other [facility] Other 03-13-2023 13:00-0500 SaO2% (BldA) [Mass fraction] 97 % Rosa Ary Other [facility] Other 03-13-2023 13:00-0500 Systolic blood pressure 126 mm[Hg] Rosa Ary Other [facility] Other 2023 11:15-0400 Body height 170.18 cm Rebecca Gonzalez Other [facility] Other 2023 11:15-0400 Body mass index (BMI) [Ratio] 23.02 kg/m2 Rebecca Gonzalez Other [facility] Other 2023 11:15-0400 Body weight 66.68 kg Rebecca Gonzalez Other [facility] Other 2023 11:15-0400 Diastolic blood pressure 72 mm[Hg] Rebecca Gonzalez Other [facility] Other 2023 11:15-0400 Systolic blood pressure 151 mm[Hg] Rebecca Gonzalez Other [facility] Other Encounters Encounter Date Encounter Type Care Provider Facility Start: 08-01-2023 End: 08-02-2023 ambulatory Judit Pagee Facility:[facility] Start: 08-01-2023 End: 08-01-2023 Patient encounter procedure Judit Velasquez [facility] Start: 07-28-2023 Reinaldo rico MD Work Phone: [facility] [place] [facility] Comment on above: Type 1 diabetes armando itus without complication ([facility]) Start: 07-26-2023 Orders Only Ainsley medina 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 Work Phone: [facility] Comment on above: Ear fullness, right (Primary Dx) Start: 07-23-2023 Telephone encounter Stacy Brink MD Work Phone: [facility] Start: 07-11-2023 End: 07-11-2023 Patient encounter procedure Stacy Brink MD Work Phone: [facility] Comment on above: Ear fullness, right (Primary Dx); Otalgia, right; Sensorineural hearing loss (SNHL) of both ears; Neck swelling Start: 07-11-2023 End: 07-11-2023 Clinical Support Criss ORLANDO [facility] Comment on above: Sensorineural hearin g loss (SNHL) of both ears (Primary Dx); Ear pain, right Start: 07-09-2023 End: 07-09-2023 Office outpatient visit 25 minutes Mayuri Salazar MD Work Phone: [facility] Comment on above: Type 1 diabetes armando itus without complication ([facility]) (Primary Dx); Carol Ann's disease; Mixed hyperlipidemia Start: 05-01-2023 End: 05-01-2023 ambulatory Rebecca Gonzalez Other [facility] Other Start: 05-01-2023 Telephone encounter Rebecca Gonzalez [facility] Start: 04-30-2023 End: 05-01-2023 ambulatory Judit J Ron Facility:[facility] Start: 04-30-2023 End: 04-30-2023 Patient encounter procedure Judit J Ron [facility] Start: 04-29-2023 Reinaldo rico MD Work Phone: [facility] Start: 04-26-2023 End: 04-26-2023 ambulatory Rebecca Gonzalez Other [facility] Other Start: 04-26-2023 Telephone encounter Rebecca Gonzalez [facility] Start: 04-11-2023 End: 04-12-2023 ambulatory Judit J Ron Facility:[facility] Start: 04-11-2023 End: 04-11-2023 Patient encounter procedure Judit Fermin Ron [facility] Start: 04-09-2023 End: 04-09-2023 ambulatory Rebecca Gonzalez Other [facility] Other Start: 04-09-2023 Office outpatient vi sit 15 minutes Rebecca Gonzalez [facility] Start: 03-13-2023 End: 03-13-2023 ambulatory Rosa Mcallister Other [facility] Other Start: 03-13-2023 Office outpatient vi sit 15 minutes Rosa Mcallister [facility] Start: 03-06-2023 End: 03-07-2023 ambulatory Judit J Ron Facility:[facility] Start: 03-06-2023 End: 03-06-2023 Lab Drop off Judit J Ron [facility] Start: 2023 End: 2023 ambulatory Rebecca Gonzalez Other [facility] Other Start: 2023 Office outpatient vi sit 15 minutes Rebecca Gonzalez [facility] Start: 04-10-2022 End: 04-10-2022 Patient encounter procedure Judit Velasquez [facility] Start: 03-02-2022 End: 03-03-[address] DOCTOR AGUDELO Facility:[facility] Start: 03-02-2022 End: 03-02-2022 Lab Drop off Judit Velasquez [facility] Start: 10-28-2021 End: 10-29-[address] DOCTOR AGUDELO Facility:[facility] Start: 07-20-2021 End: 07-21-2021 ambulatory ADRIANNA DIAZ Facility:[facility] Start: 01-12-2016 End: 01-13-2016 Ambulatory CHARU CASTELLANOS Facility:[facility] Procedures Date Procedure Procedure Detail Performing Clinician Start: 07-09-2023 Hemoglobin glycosyla pati a1c Mayuri Salazar MD Work Phone: Start: 07-27-2022 Diabetic retinal eye exam Mayuri Salazar MD Work Phone: breast biopsy 1 Judit Ron Comment on above: left bursa sac 2 Judit Ron Comment on above: right knee knee arthroscopy 3 Judit La mpe Comment on above: right Viral screening Rosa theodore Other Plan of Treatment Date Care Activity Detail Author Start: 07-17-2024 Tobacco Screening Tobacco Screening [facility] Start: 07-10-2024 Adult BMI Screening Adult BMI Screen ing [facility] Start: 07-10-2024 Tobacco Screening Tobacco Screening [facility] Start: 07-08-2024 Adult BMI Screening Adult BMI Screen ing [facility] Start: 07-08-2024 Diabetic foot examination Diabetic Foot Exam [facility] Start: 07-08-2024 Tobacco Screening Tobacco Screening [facility] Start: 03-04-2024 Adult BMI Screening Adult BMI Screen ing [facility] Start: 03-04-2024 Diabetic foot examination Diabetic Foot Exam [facility] Start: 03-04-2024 Tobacco Screening Tobacco Screening [facility] Start: 12-22-2023 Influenza vaccination Influenza Vacc ine [facility] Start: 11-04-2023 End: 11-04-2023 Patient encounter procedure 11/04/2023 9:30 AM EDT Office Visit [facility] [address] [phone] Magui Warren, 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-HYDRAULIC 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 BLASTING [address] [address] [facility] Start: 08-22-2023 End: 08-22-2023 Patient encounter procedure 08/22/2023 2:45 PM EDT Office Visit [facility] [address] [facility] [address] [place] [address] Stacy Brink MD [address] [address] [facility] Start: 07-28-2023 Glaucoma screening Diabetic Op hthalmology Exam [facility] Start: 07-11-2023 End: 07-11-2023 Clinical Support [facility] [...] Routine Neck swelling Expected: 07/11/2023, Expires: 07/10/2024 [facility] Comment on above: Expected: 07/11/2023 , Expires: 07/10/2024 Start: 07-09-2023 End: 07-09-2023 Patient encounter procedure 07/09/2023 11:45 AM EDT [facility] [address] [place] [address] [place] [phone] Mayuri Salazar MD [address] [facility] [address] [place] [address] [facility] Start: 12-21-2022 COVID-19 Vaccine ( season) COVID-19 Vaccine ( season) [facility] Start: 01-27-2010 Administration of varicella zoster vaccine Zoster (Shingles) Vaccine (1 of 2) [facility] Start: 01-27-1981 Screening for malign ant neoplasm of cervix Pap Smear [facility] Start: 01-27-1979 DTaP,Tdap and Td Vaccines (1 - Tdap) DTaP,Tdap and Td Vaccines (1 - Tdap) [facility] Start: 1972 Depression Screening Depression Scre ening [facility] Start: 1960 Urine screening for protein Urine Microalbumin [facility] End: 07-25-2024 Creatinine includes GFR, serum Creatinine includes GFR, serum Lab Routine Ear fullness, right 1 Occurrences starting 07/26/2023 until 07/25/2024 [facility] Work Phone: Comment on above: 1 Occurrences starti ng 07/26/2023 until 07/25/2024 Immunizations Immunization Date Immunization Notes Care Provider Fa cility 01-18-2023 influenza virus vaccine, unspecified formulation Stacy Brink MD Work Phone: [facility] 02-04-2014 tetanus and diphtheria toxoids, adsorbed, preservative free, for adult use (5 Lf of tetanus toxoid and 2 Lf of diphtheria toxoid) Rosa Ary Other [facility] Other 02-11-2013 tetanus and diphtheria toxoids, adsorbed, preservative free, for adult use (5 Lf of tetanus toxoid and 2 Lf of diphtheria toxoid) Rosa Ary Other [facility] Other Payers Date Payer Category Payer Private Health Insurance [employer] POS [id number] 2021-Present [phone] [address] [place] [address] [id number] 1960 Unknown [id number] 1960 Unknown [id number] 1960 Unknown [id number] 1960 Unknown [id number] 727 1960 Unknown [id number] 727 1960 Unknown [id number] 727 1960 Unknown [id number] 727 1959 Private Health Insurance [id number] Private Health Insurance [id number] Unknown [id number] Social History Date Type Detail Facility Tobacco smoking status [facility] Start: 06-02-2020 End: 03-04-2023 Sex Assigned At Female Alek Hawley [facility] Start: 07-04-2022 Tobacco smoking stat us PRIS Never smoked tobacco [facility] Start: 07-04-2022 Tobacco use and exposure Smoke less tobacco non-user [facility] Start: 03-04-2023 End: 07-18-2023 Alcohol intake Lifetime non-drinker (finding) [facility] Start: 06-02-2020 End: 03-04-2023 History of Social function [facility] Housing Instability Unknown [facility] Start: 1960 Sex Assigned At Not on file P [facility] Medical Equipment Procedure Code Equipment Code Equipment Origin al Text Equipment Identifier Dates 1 strip by other route as needed for high blood sugar. Checks 7 times/day. Glucometer communicates with her insulin pump. DX: E11.9 [id number] Start: 11-21-2022 Clinical Notes 07-20-2021 to 07-26-2023 MECCA Weller - 07/26/2023 8:54 AM EDTTelephone Encounter - Rosa Harden - 07/23/2023 4:33 PM EDTTelephone Encounter - Yamilka Almonte CNA - 07/23/2023 4:33 PM EDTPatient Instructions Note Date & Type Note Facility 07-26-2023 History of Presen t illness Narrative Labs ordered. MECCA Weller 07/26/23 0855 documented in this encounter [facility] 07-23-2023 Miscellaneous Notes Formattin g of this note might be different from the original. Kalee with [facility] scheduling dept called. She needs office notes faxed to pre cert the MRI. Please fax to [phone]. Phone number [phone] if any questions. Pt also needs an order for Creatinine because the MRI is ordered with and w/o contrast Faxed office note to [facility] documented in this encounter [facility] 07-23-2023 Telephone encount er Note Kalee with [facility] scheduling dept called. She needs office notes faxed to pre cert the MRI. Please fax to [phone]. Phone number [phone] if any questions. Pt also needs an order for Creatinine because the MRI is ordered with and w/o contrast [facility] 07-23-2023 Telephone encount er Note Faxed office note to [facility] 07-11-2023 History of Presen t illness Narrative Images from the original note were not included. [facility] [address] [facility] [address] [place] [facility] [phone] SUBJECTIVE: Patient ID: Marcia Trammell is a 63 y.o. female presents today for Chief Complaint Patient presents with Otitis Media HPI: Marcia Trammell is a 63 y.o. female seen at [...] Diabetes mellitus ([facility]) 07/1980 Type 1 Disease of thyroid [...] 90 tablet 3 pedi multivit no.12 w-fluoride ([id number] A ORAL) See Admin Instructions. pravastatin (PRAVACHOL) [...] [facility] - [place], [place] - MR brain IAC with and [...] or concerns: . Non-emergent messages received through [employer] may take up to 2 business days for a response. Scribe Statement: Scribed for and in the presence of Stacy Brink MD by Soraida Hernandez (scribe). Soraida Hernandez 07/11/2023 3:09 PM Provider Statement: [...] this chart were generated using voice recognition [employer] dictation software. Although every effort was made to ensure the accuracy of this automated manager lan, some errors in manager lan may have occurred. documented in this encounter [facility] 07-11-2023 Instructions Soraida Hernandez - 07/11/2023 3:00 [...] or concerns: . Non-emergent messages received through [employer] may take up to 2 business days for a response. 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 [...] Immunizations current : yes Current Diabetic medications: Medtronic 630G, may consider changing products but not [...] tablet, Rfl: 3 pedi multivit no.12 w-fluoride ([id number] A ORAL), See Admin Instructions., Disp: , [...] goal, PHYLLIS normal, in media ASSESSMENT: Marcia Trammell has well controlled Type 1 Diabetes Mellitus without complications. Blood sugars are in good controlled, no changes to her pump settings today. Plan:1. Type 1 diabetes mellitus without complication ([facility]) - POCT Hemoglobin A1c - insulin aspart U-100 (NovoLOG U-100 Insulin aspart) 100 unit/mL injection; INJECT 60 UNITS DAILY VIA INSULIN PUMP DIRECTED Dispense: 60 mL; Refill: 3 2. Carol Ann's disease 3. Mixed hyperlipidemia Return to clinic: 3-4 months documented in this encounter [facility] 04-09-2023 Evaluation note Encounter Date Diagnosis Assessment Notes Mar, Right otitis media with effusion (ICD-10 - H65.91) Continue flonase. Will reach out to [facility] - Dr. Brink or Dr. Doll for an appt. Mar, Enlarged lymph node (ICD-10 - R59.9) Present decreased in size, per Marcia. States same area increases and resolves in size through the years. [facility] Other 11-22-2023 Evaluation note* Encounter Date Diagnosis [...] resolved follow up with PCP is recommended. [facility] Other 11-15-2023 Evaluation + Plan note Diagnostic Tests Pending * PAP [id number] 03/06/23 [facility]10-09-2023 Evaluation note* Encounter Date Diagnosis Assessment [...] verbalizes understanding of teaching points and instructions. [facility] Other [id number] Evaluation + Plan note Diagnostic Tests Pending * PAP [id number]/02/22 [facility]03-31-2022 NotePROCEDURE: XR ANKLE RT MIN 3 [...] Electronically authenticated by: JAYLIN LINDQUIST Date: 2021-07-20 16:18[facility]03-31-2022 NotePROCEDURE: XR ANKLE RT MIN 3 [...] Electronically authenticated by: JAYLIN LINDQUIST Date: 2021-07-20 16:18[facility] noteNo InformationNortSelect [facility] Other Evaluation note* Diagnosis Type 1 diabetes mellitus without complication ([facility] Primary Type I (juvenile type) diabetes mellitus without mention of complication, not stated as uncontrolled Carol Ann's disease Chronic lymphocytic thyroiditis Mixed hyperlipidemia [facility] Diagnosis Sensorineural hearing loss (SNHL) of both ears- Primary Ear pain, right [facility]* Diagnosis Ear fullness, right- Primary Otalgia, right Sensorineural hearing loss (SNHL) of both ears Neck swelling Swelling, mass, or lump in head and neck documented [facility]* Diagnosis Ear fullness, right- Primary [facility]* Diagnosis Type 1 diabetes mellitus without complication ([facility]) Type I (juvenile type) diabetes mellitus without mention of complication, not stated as uncontrolled [facility] Narrative - Reported* Type Description Date Medical History Type 1 diabetes armando itus with other circulatory complications Medical History Hyperlipidemia Surgical History arthroscopic knee surgery 2001 Surgical History shoulder release 2014 Hospitalization History see above surgical histo ry Hospitalization History diabeties [facility] Other Hospital course Narrative No data available for this section [facility] No data available for this section [facility]ructionsNot on filedocumented in this encounter [facility] SystemInstructionsNot on filedocumented in this encounter [facility] filedocumented in this encounter [facility] No data available for this section [facility] Summary Purpose Family History No Family [...] and without contrast Stacy Brink MD [address] [address] Referral ID Status Reason Start Date Expiration Date V isits Requested Visits Authorized [id number] Pending Review 07/11/2023 07/10/[address] Brink or [address] Zavala er w [facility] - 3 months of R middle ear effusion Diagnosis 1 Right otitis media w ith effusion (H65.91) Referral Organization [facility] too Referring Provider First Name Rebecca Referring Provider Last Name Lisa Referring Provider Specialty Family Medi cine Referred Organization [facility] Referred Address [address],[address] Referred Provider Specialty Ear, Nose an d Throat Referral Priority Routine Reason *FU 03/22 evaluate Diagnosis 1 Right otitis media w ith effusion (H65.91) Referral Organization [facility] [employer] [facility] too Referring Provider First Name Rosa Referring Provider Last Name Ary Referring Provider Specialty Nurse Pract itioner Referred Organization [facility] Referred Provider Ekta Cash Referred Address ,[place], [place],[address] Referred Provider Specialty Ear, Nose an d Throat Referral Priority Routine General Notes Delma Clark 05:53:09 PM >received today, notes locked, ins attached, referral faxed Additional Source Comments INFORMATION SOURCE (unrecogn ized section and content) DATE CREATED AUTHOR 10/16/2017 [facility] DATE CREATED AUTHOR AUTHOR'S ORGANIZ ATION 03/03/[facility] DATE CREATED AUTHOR AUTHOR'S ORGANIZ ATION 03/07/2022 [facility] DATE CREATED AUTHOR AUTHOR'S ORGANIZ ATION 08/03/2023 [facility] Patient Care team informatio n (unrecognized section and content) Environmental Compliance Engineer Relationship Specialty [place] [address] [place], [place] [phone] PCP - General 07/10/23 Environmental Compliance Engineer Relationship Specialty [place] [address] [place] [id number] PCP - General 07/10/23 Environmental Compliance Engineer Relationship Specialty Start Date End Date Rebecca Gonzalez MD [address] [place] [address] PCP - General 07/10/23 Environmental Compliance Engineer Relationship Specialty Start Date End Date Rebecca Gonzalez MD [address] [place] [address] PCP - General 07/10/23 Environmental Compliance Engineer Relationship Specialty Start Date End Date Rebecca Gonzalez MD [address] [place] [address] PCP - General 07/10/23 REASON FOR VISIT (unrecogniz ed section and content) Reason Comments Med Refill Reason Comments Diabetes Mellitus Reason Comments Ear Problem Reason Comments Otitis Media Specialty Diagnoses / Procedures Referred By Contperla t Referred To Contact Otolaryngology Diagnoses Right otitis media with effusion Rebecca Gonzalez MD [address] [place] [id number] [facility] [address] [place] [address], [address] [place] [id number] Referral ID Status Reason Start Date Expiration Date Visits Requested Visits Authorized [id number] Pending Review Specialty Services Required 05/06/2023 05/05/2024 1 1 FOR RECORDS PERTAINING TO PATIENTS WHO [...] BE BASED ON THE PRIMARY CLINICAL RECORDS. [facility] [employer] [facility]. provides no warranty or guarantee of the accuracy or completeness of information in this document.
== END 2023-08-17 08:27 | disposition home or self-care (01) ==
LOC: CT 08:26
PROVIDERS: PCP Family Medicine
DX: R22.1 Localized swelling, mass and lump, neck (principal)
CPT/HCPCS: 70491; Q9967

== ENCOUNTER 2024-03-16 15:02 | Outpatient (OUT) | payer OTHER, SELFPAY ==
--- OUTSIDE RECORDS SUMMARY | 2024-03-16 15:12 | XMS_ITS | CCD ---
Author Organization [facility] CliniSyvt Care Team Providers Care Lounge Car Attendant Name Role Phone CHAUR CASTELLANOS Unavailable Unavailable CHARU CASTELLANOS Unavailable Unavailable SELF, REFERRED Unavailable Unavailable SELF, REFERRED Unavailable Unavailable ANTONIO GONZALEZ Primary Care Physician MIS, DR BARCLAY Admitting Unavailable MISC, DR BARCLAY Attending Unavailable LISA, DR ANTONIO Haddad Primary Care Unavailable GONZALEZ, DR ANTONIO Haddad Consulting Unavailable RAVENANDERADRIANNA Admitting Unavailable JOE, ADRIANNA Mcallister Attending Unavailable GONZALEZ, DR ANTONIO Haddad Primary Care Unavailable ZIEBER, DR JAYLIN Charles Consulting Unavailable ADRIANNA DIAZ Consulting Unavailable MISC, DR BARCLAY Admitting Unavailable MISC, DR BARCLAY Attending Unavailable GONZALEZ, DR ANTONIO Haddad Primary Care Unavailable MISC, DR BARCLAY Consulting Unavailable GONZALEZ, DR ANTONIO Haddad Consulting Unavailable Antonio Gonzalze Unavailable Rosa Mcallister Unavailable Unavailable Primary Care Provider UnavailAntonio Han MD Primary Care Provider [phone] Ron, Judit J Admitting Unavailable Ron, Judit J Attending Unavailable Ron, Judit J Referring Unavailable Ron, Judit J Referring Unavailable Ron, Judit J Admitting Unavailable Ron, Judit J Attending Unavailable Ron, Judit J Referring Unavailable Ron, Judit J Admitting Unavailable Ron, Judit J Attending Unavailable ZSARNAY, ROGELIO A Admitting Unavailable ZSARNAY, ROGELIO A Attending Unavailable ZSARNAY, ROGELIO A Referring Unavailable Ron, Judit J Admitting Unavailable Ron, Judit J Attending Unavailable Ron, Judit J Admitting Unavailable Ron, Judit J Attending Unavailable Ron, Judit J Referring Unavailable Allergies Allergy Classification Reported Allergen(s) Allergy Type Date of Onset Reaction(s) Facility (10 sources) Penicillin; Translations: [penicillin] Drug Allergy 07-04-19 21 Eruption of skin (disorder) [facility] (7 sources) Penicillin G Drug Allergy 04-09-20 [facility] (4 sources) Sulfamethoxazole / Trimethoprim Drug Allergy Unknown [facility] (4 sources) Penicillin G Benzathine & Proc Drug allergy Unknown [facility] Other (4 sources) patient allergy list reviewed by nurse or physicia Propensity to adverse reactions 11-13-19 Comment:Done [facility] Other (4 sources) Allergies Reconciled Propensity to adverse reactions 02-14-20 Unknown [facility] Other (4 sources) Substance with penicillin structure and antibacterial mechanism of action (substance) Drug allergy Unknown [facility] Other (17 sources) Penicillins Propensity to adverse reactions to drug 03-08-20 [facility] orderTalk [facility] (2 sources) Sulfamethoxazole Drug Allergy 02-11-20 [facility] Medications Current Medications Medication Drug Class(es) Dates Sig (Normalized) Sig (Original) acetaminophen 325 mg oral tablet (5 sources) Start: 02-11-2024 Acetaminophen 325 mg tablet Active 325 MG PO as needed February 10, 2024 11:00pm Start: 02-07-2024 End: 02-17-2024 take 2 tablets by mouth every six hours as needed for pain acetaminophen (TYLENOL) 325 mg tablet Take 2 tablets (650 mg total) by mouth every 6 (six) hours as needed for pain for up to 10 days. 30 tablet 02/07/2024 02/17/2024 Active ascorbic acid 250 mg chewable tablet (17 sources) Vitamin C ascorbic acid, v itamin C, (ascorbic acid) 250 mg tablet,chewable Chew 1 tablet and swallow in the morning. Active aspirin 81 mg oral tablet (20 sources) Platelet Aggregation Inhibitor, Nonsteroidal Anti-inflammatory Drug Start: 1 take 1 tablet by mouth once daily aspirin 81 mg oral tablet 81 mg = 1 tab(s), Oral, Daily, tab(s), Refills(s) 0 Start Date: 08/16/10 Status: Ordered aspirin 81 mg ca psule 1 tablet Active aspirin 81 mg ca psule 1 tablet 0 Active azithromycin 250 mg oral tablet (2 sources) Macrolide Antimicrobial Start: 03-03-2024 Azithromycin 250 mg tablet Active 0 PO daily 09 24March 03, 2024 12:00am Take 2 on day 1 and then take 1 for the next 4 days (days 2-5) Start: 2023 Azithromycin 2 50 MG as directed Orally 2 tabs po today, then 1 tab daily x 4 more days for Jan, Active Calcium (8 sources) Phosphate Binder, Calcium Start: 08-16-2010 Calcium 600 D Tab Oral, Daily, Refill(s) 0 Start Date: 08/16/10 Status: Ordered calcium carbonate 1500 mg / cholecalciferol 0.01 mg oral tablet (17 sources) Vitamin D take 2 tablets by mouth once in the morning calcium carbonate-vitami n D3 (CALCIUM 600 + D,3,) 600 mg(1,500mg) -400 units per tablet Take 2 tablets by mouth in the morning. Active calcium carbonat e-vitamin D3 (CALCIUM 600 + D,3,) 600 mg(1,500mg) -400 units per tablet 1 tablet Active doxycycline monohydrate 100 mg oral capsule (1 source) Tetracycline-class Drug Start: 03-13-2023 take 1 capsule by mouth every twelve hours Doxycycline Monohydrate 100 MG 1 capsule Orally Twice a day for 10 days Feb, Active ethinyl estradiol 0.0025 mg / norethindrone acetate 0.5 mg oral tablet (8 sources) Estrogen Start: 08-16-2010 take 1 tablet by mouth once daily femhrt 0.5 mg/2.5 mcg oral tablet 1 tab(s), Oral, Daily, tab(s), Refill(s) 0 Start Date: 08/16/10 Status: Ordered fluticasone propionate 0.05 mg/actuat metered dose nasal spray (7 sources) Corticosteroid Start: 02-11-2024 take 1 spray(s) nasal route twice daily Fluticasone Propionate (Flonase Allergy Relief) 50 mcg/actuation spray,suspension Active 1 SPRAY INTRANASAL Twice daily February 10, 2024 11:00pm administer into each nostril Flonase Sensimis t 27.5 MCG/SPRAY 2 sprays (1 spray in each nostril) Nasally Once a day for 30 days Active Flonase Sensimis t 27.5 MCG/SPRAY 2 sprays (1 spray in each nostril) Nasally Once a day for 30 days Active ibuprofen 600 mg oral tablet (6 sources) Nonsteroidal Anti-inflammatory Drug Start: 02-07-2024 take 1 tablet by mouth every six hours as needed for pain ibuprofen (MOTRIN) 600 mg tablet Take 1 tablet (600 mg total) by mouth every 6 (six) hours as needed for pain. 30 tablet 02/07/2024 Active insulin aspart, human 100 unt/ml injectable solution (20 sources) Insulin Analog Start: 02-11-2024 Insulin Aspart U-100 (Novolog U-100 Insulin Aspart) 100 unit/mL solution Active SUBCUT February 10, 2024 11:00pm Start: 08-15-2022 End: 07-29-2023 insulin aspart U-100 (NovoLO G U-100 Insulin aspart) 100 unit/mL injection Indications: Type 1 diabetes mellitus without complication ([facility]) INJECT 60 UNITS DAILY VIA INSULIN PUMP DIRECTED 60 mL 3 07/29/2023 Active Insulin Infusion Pump (5 sources) Insulin Infusion Pump Active Humalog (8 sources) Insulin Analog Start: 08-16-2010 Humalog SubCutaneous, mL, Refills(s) 0 Start Date: 08/16/10 Status: Ordered levothyroxine sodium 0.075 mg oral tablet (20 sources) l-Thyroxine Start: 02-25-2023 End: 02-20-2024 levothyroxine (SYNTHROID, LEVOTHROID) 75 MCG tablet TAKE 1 TABLET ONCE DAILY INTHE MORNING ON AN EMPTY STOMACH 90 tablet 3 02/20/2024 Active take 1 tablet by kalee th every twenty-four hours Levothyroxine Sodium 75 MCG 1 tablet onc e a day Active meclizine hydrochloride 25 mg oral tablet (2 sources) Antiemetic Start: 02-11-2024 take 1 tablet by mouth three times daily as needed for dizziness Meclizine 25 mg tablet Active 25 MG PO Three times daily as needed for dizziness 18 02February 10, 2024 11:00pm Multiple Vitamins Tab (8 sources) Start: 08-16-2010 take 1 tablet by mouth once daily Multiple Vitamins Tab 1 tab(s), Oral, Daily, tab(s), Refill(s) 0 Start Date: 08/16/10 Status: Ordered Multivitamin preparation (5 sources) Multivitamin Ora lly Active pedi multivit no.12 w-fluoride (MULTIVITAMINS-FLUORI DE-FOLIC A ORAL) (17 sources) pedi multivit no .12 w-fluoride (MULTIVITAMINS-FLUO RIDE-FOLIC A ORAL) See Admin Instructions. Active pedi multivit no .12 w-fluoride (HAQNAAZYFWJNI-WMNTRFNU-CBAXQ A ORAL) See Admin Instructions. 0 Active pravastatin sodium 40 mg oral tablet (20 sources) HMG-CoA Reductase Inhibitor Start: 02-11-2024 take 1 tablet by mouth once daily Pravastatin 40 mg tablet Active 40 MG PO Daily February 10, 2024 11:00pm Start: 05-11-2022 End: 04-29-2023 pravastatin (PRAVACHOL) 40 m g tablet TAKE 1 TABLET TWICE A DAY [...] tablet Orally Once a day Active sertraline 50 mg oral tablet (20 sources) Serotonin Reuptake Inhibitor Start: 02-11-2024 take 1 tablet by mouth once daily Sertraline 50 mg tablet Active 50 MG PO Daily February 10, 2024 11:00pm Start: 08-16-2010 Zoloft 100 mg oral capsule Daily, Refills(s) 0 Start Date: 08/16/10 Status: Ordered Vitamin D (8 sources) Start: 08-16-2010 take 1 mL by mouth o nce daily Vitamin D Oral, Daily, mL, Refills(s) 0 Start Date: 08/16/10 Status: Ordered Problems Active Problems Problem Classification Problem Date Documented Date Episodic/Chronic Acquired foot deformities (4 sources) Acquired deformity of right foot; Translations: [Other acquired deformities of right foot] Episodic Anxiety disorders (8 sources) Anxiety 10-08-2013 Chronic Chronic obstructive pulmonary disease and bronchiectasis (2 sources) Bronchitis; Translations: [Bronchitis, not specified as acute or chronic] 03-03-2024 Episodic Conditions associated with dizziness or vertigo (8 sources) Benign paroxysmal positional vertigo; Translations: [Benign paroxysmal vertigo, bilateral] 02-11-2024 Episodic Diabetes mellitus with complications (4 sources) Hyperglycemia due to type 1 diabetes mellitus; Translations: [Type 1 diabetes mellitus with hyperglycemia] Chronic Diabetes mellitus without complication (20 sources) Type 1 diabetes mellitus; Translations: [Type 1 diabetes mellitus without complications] Onset: 07-21-1980 10-09-2013 Chronic Disorders of lipid metabolism (20 sources) Hypercholesterolemia; Translations: [Familial hypercholesterolemia] Onset: 06-12-2013 10-08-2013 Chronic Lymphadenitis (12 sources) Enlarged lymph nodes, unspecified; Translations: [Cervical lymphadenopathy] Onset: 12-27-2023 Episodic Neoplasms of unspecified nature or uncertain [...] Episodic Other ear and sense organ disorders (3 sources) Ear sensations - finding; Translations: [Other specified disorders of right ear] 07-11-2023 Episodic Other non-traumatic joint disorders (8 sources) Arthralgia of the ankle and/or foot; Translations: [Pain in joint, ankle and foot] Onset: 10-28-2015 Episodic Other non-traumatic joint disorders (4 sources) Shoulder joint pain; Translations: [Pain in right shoulder] Episodic Other skin disorders (11 sources) Neck swelling; Translations: [Localized swelling, mass and lump, neck] Onset: 12-27-2023 07-11-2023 Episodic Other skin disorders (11 sources) Mass of neck; Translations: [Localized swelling, mass and lump, neck] Onset: 12-27-2023 12-27-2023 Episodic Other upper respiratory infections (4 sources) Chronic sinusitis; Translations: [Chronic sinusitis, unspecified] Chronic Otitis media and related conditions (11 sources) Unspecified nonsuppurative otitis media, right ear; Translations: [Acute secretory otitis media] Onset: 05-06-2017 Episodic Residual codes; unclassified (4 sources) Requires influenza [...] right leg, subsequent encounter] Episodic Thyroid disorders (15 sources) Hypothyroidism, unspecified; Translations: [[place] Ann thyroiditis] Onset: 11-01-2021 Chronic Unclassified (2 sources) Unknown / UNK(Unknown) Onset: 01-12-2016 Past or Other Problems Problem Classification Problem Date Documented Da te Episodic/Chronic Bacterial infection; unspecified site (4 sources) [...] Translations: [Acute pharyngitis, unspecified] Onset: 06-12-2013 Episodic Results Test Name Value Interpretation Reference Range Facility Influenza virus B Ag [Presen ce] in Upper respiratory specimen by Rapid immunoassayon 03-03-2024 FLUBV Ag IA.rapid Ql (Nph) Influenza virus B Ag [Presence] in Upper respiratory specimen by Rapid immunoassay [facility] No Panel Informationon 03-03 Influenza Type A (Rapid) Negative [facility] POC SARS CoV-[address] [facility] ECG 12 leadon 01-31-2024 TRACEMASTERVUE [facility] Basic Metabolic Panelon 01-20 Anion gap [Moles/Vol] 4 mmol/L Low 5 - 15 mmol/L [facility] Calcium [Mass/Vol] 9.5 mg/dL 8.5 - 10. 5 mg/dL [facility] Chloride [Moles/Vol] 102 mmol/L 98 - 109 mmol/L [facility] CO2 [Moles/Vol] 32 mmol/L 22 - 32 mmol/L [facility] Creatinine [Mass/Vol] 0.90 mg/dL 0.40 - 1.00 mg/dL [facility] Comment on above: METHOD TRACEABLE TO [facility] STANDARD eGFR (CKD-EPI)non-race dependent 71 - PINF [facility] Comment on above: Reported eGFR is based on the CKD-EPI 2020 equation that does not use a race coefficient. Glucose [Mass/Vol] 119 mg/dL High 65 - 99 mg/dL [facility] Interpretation and review of laboratory results Abnormal [facility] Potassium [Moles/Vol] 4.2 mmol/L 3.5 - 5.0 mmol/L [facility] Sodium [Moles/Vol] 138 mmol/L 134 - 146 mmol/L [facility] Urea nitrogen [Mass/Vol] 19 mg/dL 5 - 27 mg/dL [facility] Hemoglobin A1con 01-30-2024 Average glucose Estimated from glycated hemoglobin (Bld) [Mass/Vol] 137 mg/dL [facility] HbA1c (Bld) [Mass fraction] 6.4 % High 4.4 - 5.6 % [facility] Comment on above: NOTE ADA Guidelines Result HgbA1c Normal : less than 5.7 % Prediabetes : 5.7 % to 6.4 % Diabetes : > 6.4 % Use with caution in patients with abnormal hemoglobin variants as the half-life of red blood cells and in vivo glycation rates are affected. Interpretation and review of laboratory results Abnormal [facility] Hemoglobin and hematocrit, [facility] 01-30-2024 Hematocrit (Bld) [Volume fraction] 43.9 % 35 - 47 % [facility] Hemoglobin (Bld) [Mass/Vol] 14.7 g/dL 11.7 - 15.5 g/dL [facility] BD Bone Density DEXAon 01-26 BD Bone Density DEXA Exam Date/Time: 01/23/2024 09:36 EDT Reason for Exam: M85.80 Report IMPRESSION: OSTEOPENIA. The 10 year probability (FRAX) of a major osteoporotic fracture based on the femoral neck bone marrow density is: 8.3%, and hip fracture 0.9%. The NOF/ISD guideline recommend FRAX for postmenopausal patients (not on treatment) if the lowest T-score for Spine(L1-L4), Femur Neck or Femur Total indicates low bone density (T score -1.0 to -2.5, osteopenia). EXAM: BD Bone Density DEXA CLINICAL HISTORY: M85.80. COMPARISON: None available. COMMENTS: The lumbar spine and both hips were scanned. The mean bone mineral density from L1 to L4 is 1.281 g/cm2 and this value is 0.8 standard of deviation above the standard reference value for a young adult. Bone mineral density of the left femoral neck is 0.871 g/cm2 and this value is -1.2 standard of deviation below the standard reference value. Bone mineral density of the right femoral neck is 0.834 g/cm2 and this value is -1.5 standard of deviation below the standard reference value. The lowest value(s) meet WHO criteria for osteopenia. RECOMMENDATIONS: 1. All patients should optimize her calcium and vitamin D intake. 2. Consider FDA-approved medical therapies in postmenopausal women and minimal age 50 years and older, based on the following: - hip or vertebral (clinical or morphometric) fracture. - T-score less than or equal to -2.5 at the femoral neck or spine after the appropriate evaluation to exclude secondary causes. - Low bone density (T score between -1.0 and -2.5 at the femoral neck or spine) and a 10 year probability of hip fracture greater than or equal to 3% or a 10-year probability of a major osteoporosis-related fracture greater than or equal to 20% based on FRAX calculation. - Clinician judgment and/or patient preferences may indicate treatment for people with 10 year fracture probability above or below these levels. Report - Further guidance on treatment can be found at the National Osteoporosis Foundation's website: bonesource.org 3. Patients with diagnosis of osteoporosis or high risk for fracture should have regular bone mineral density tests. For patients eligible for Medicare, routine testing is allowed once every 2 years. Testing frequency can be increased to 1 year for patient's history of rapidly progressing disease, those who are receiving or discontinuing medical therapy to restore bone mass or have additional risk factors. Ordering Provider: , FINAL REPORT Dictated: 01/27/2024 2:44 pm Willy Curtis MD. Signed (Electronic Signature): 01/27/2024 2:44 pm Signed by: Willy Curtis MD Transcribed by: MAHIN Technologist: ARY Gaston [facility] US Breast Unilateral Lt Coretta boone 01-23-2024 US Breast Unilateral Lt Complete Exam Date/Time: 01/21/2024 08:34 EDT Reason for Exam: N64.9 Report IMPRESSION: BIRADS 2 BENIGN FINDINGS, NORMAL INTERVAL FOLLOW-UP EXAM: US Breast Unilateral Lt Complete DATE: 01/21/2024 8:05 AM CLINICAL HISTORY: N64.9. COMPARISON: 08/01/2023 and 04/30/2023. TECHNIQUE: Ultrasound was performed at all clock face positions and in the central/retroareolar region of the left breast. FINDINGS: Small cysts and cyst clusters have not significantly changed from 08/01/2023; as previously described in detail. There are no other significant changes identified elsewhere within the left breast. Ordering Provider: Judit Velasquez FINAL REPORT Dictated: 01/23/2024 12:59 pm Jose Gutierrez MD Signed (Electronic Signature): 01/23/2024 12:59 pm Signed by: Jose Gutierrez MD Transcribed by: MAHIN Technologist: CHILO Assessment: BI-RADS Category 2-Benign finding Recommendation: Normal interval follow-up Normal [facility] Physician Orderon 08-02-2023 Physician Order [id number] #1.00TIFF Normal [facility] Consent for Treatmenton 07-21 Consent for Treatment [id number] #1.00TIFF Normal [facility] US Breast Unilateral Lt Comp leteon 08-01-2023 [...] breast mass is noted. Ordering Provider: Judit Velasuqez FINAL REPORT Dictated: 08/01/2023 4:22 pm Brandon Medrano M.D. Signed (Electronic Signature): 08/01/2023 4:22 pm Signed by: Brandon Medrano M.D. Transcribed by: MAHIN Technologist: CHILO [facility] POCT Hemoglobin A1con 2023 ADA Target < 8 Yes [facility] HbA1c (Bld) [Mass fraction] 6.3 g/dL 4 - 7 g/dL [facility] Physician Orderon 05-03-2023 Physician Order [id number]# 1.00TIFF Normal [facility] Consent for Treatmenton Consent for Treatment [id number] #1.00TIFF Normal [facility] MA Mamm Diag w/CAD if perf [...] very important to your health. The current [employer] and National Comprehensive Cancer [...] interval follow-up Recommendation: Follow-up at short interval [facility] US Breast Unilateral Lt Comp leteon 04-30-2023 US Breast Unilateral Lt Complete Exam Date/Time: 04/30/2023 09:27 EST Reason for Exam: N64.9 Report PLEASE REFER TO THE MAMMOGRAM REPORT. Ordering Provider: Judit Velasquez FINAL REPORT Dictated: 04/30/2023 4:21 pm Brandon Medrano M.D. Signed (Electronic Signature): 04/30/2023 4:21 pm Signed by: Brandon Medrano M.D. Transcribed by: MAHIN Technologist: [facility] Physician Orderon 04-24-2023 Physician Order [id number] #1.00TIFF [facility] MA Mamm Screen w/CAD if perf [...] VERY IMPORTANT TO YOUR HEALTH. THE CURRENT [employer] [...] Jose Gutierrez MD Transcribed by: MAHIN Technologist: [facility] Assessment: BI-RADS Category 0-Incomplete: Need additional imaging evaluation Recommendation: Additional projections Normal [facility] Consent for Treatmenton 03-23 Consent for Treatment [id number] #1.00TIFF Normal [facility] PAP [id number] 03-12-2023 Cytology report Cyto stain Doc (Cvx/Vag) Note Invalid Interpretation Code [facility] Comment on above: Result Comment: TEST S RESULT FLAG UNITS REF RANGE LAB Clinician Provided Cytology Information Source.............Endocervix No. of containers..01 ThinPrep Vial DIAGNOSIS: 01 NEGATIVE FOR INTRAEPITHELIAL LESION OR MALIGNANCY. Specimen adequacy: 01 Satisfactory for evaluation. Endocervical and/or squamous metaplastic cells (endocervical component) are present. Performed by: Ismael Callejas Vehicle Dismantler ([facility] . 01 Note: Note 01 The Pap [...] <-Panic Low,>-Panic High,A-Abnormal,AA-Critical Abnormal Performed at: [address] [id number] Liat Dennis MD, Performed By: #### 3 [id number] ####[address] [place] [address] HPV 16+18+31+33+35+39+ 45+51+52+56+58+59+ 66+68 DNA Probe+sig amp Ql (Cvx) Negative Invalid Interpretation Code Negative [facility] Comment on above: Result Comment: This nucleic acid amplification test detects fourteen high-risk HPV types (16,18,31,33,35,39,45,51,52,56,58,59,66,68) without differentiation. Performed at: [address] [id number] MD Sonny Josue Performed at: =[address] [id number] MD Sonny Josue Performed By: #### 3 [id number] ####[address] [place] [address] Physician Orderon 03-08-2023 Physician Order [id number] #1.00TIFF Normal [facility] PAP [id number] 03-06-2023 Collection Technique BRUSH-SPATULA Normal [facility] Comment on above: Performed By: #### 3 [id number] ####[facility] [address] [place] [address] Gynecological Body Site ENDOCERVIX Normal [facility] Comment on above: Performed By: #### 3 [id number] ####[facility] [address] [place] [address] Physician Orderon 03-06-2023 Physician Order [id number] #1.00TIFF Normal [facility] FREE T4on 03-02-2022 Free T4 [Mass/Vol] 0.94 ng/dL Normal 0.76-1.46 [facility] Comment on above: Performed By: #### F T4 #### [facility] [address] [place] [address] Dr. Sarah Hickman TSHon 03-02-2022 TSH 0.398 uIU/mL Normal 0.358-3.740 [facility] Comment on above: Performed By: #### T SH #### [facility] [address] [place] [address] Dr. Sarah Hickman FREE T4on 10-28-2021 Free T4 [Mass/Vol] 0.66 ng/dL Critically low 0.76-1.46 [facility] Comment on above: Performed By: #### F T4 #### [facility] [address] [place] [address] Dr. Sarah Hickman LIPID PROFILEon 10-28-2021 CHOL-HDL RATIO NORM SEE BELOW Normal [facility] Comment on above: Result Comment: 3.3 - 4.4 LOW RISK 4.4 - 7.1 AVERAGE RISK 7.1 - 11.0 MODERATE RISK >11.0 HIGH RISK Performed By: #### L IPID, CMP, TSH #### [facility] [address] [place] [address] Dr. Sarah Hickman Cholesterol [Mass/Vol] 197 mg/dL Normal <=200 [facility] Comment on above: Performed By: #### L IPID, CMP, TSH #### [facility] [address] [address] [address] Sarah Hickman Cholesterol in HDL [Mass/Vol] 78 mg/dL Critically high 40-60 [facility] Comment on above: Performed By: #### L IPID, CMP, TSH #### [facility] [address] [address] [address] Sarah Hickman Cholesterol in LDL [Mass/Vol] 108.4 mg/dL Normal [facility] Comment on above: Performed By: #### L IPID, CMP, TSH #### [facility] [address] [address] [address] Sarah Hickman Cholesterol.total/ Cholesterol in HDL [Mass ratio] 2.5 {ratio} Normal [facility] Comment on above: Performed By: #### L IPID, CMP, TSH #### [facility] [address] [address] [address] Sarah [place]man HDL NORMAL > or = 60 mg/dl - LOW CARDIOVASCULAR RISK <40 mg/dl - HIGH CARDIOVASCULAR RISK Normal [facility] Comment on above: Performed By: #### L IPID, CMP, TSH #### [facility] [address] [address] [address] Sarah Hickman LDL CALC NORMAL SEE BELOW Normal [facility] Comment on above: Result Comment: <100 mg/dl OPTIMAL 100 - 129 mg/dl NEAR OR ABOVE OPTIMAL 130 - 159 mg/dl BORDERLINE HIGH 160 - 189 mg/dl HIGH >190 mg/dl VERY HIGH Performed By: #### L IPID, CMP, TSH #### [facility] [address] [address] [address] Sarah Hickman Triglyceride [Mass/Vol] 53 mg/dL Normal <=150 [facility] Comment on above: Performed By: #### L IPID, CMP, TSH #### [facility] [address] [address] [address] Sarah Hickman VLDL CALC 10.6 mg/dL Normal [facility] Comment on above: Performed By: #### L IPID, CMP, TSH #### [facility] [address] [address] [address] Sarah Hickman MICROALBUMIN, RAND URon 07-0 mALB 4.4 mg/L Normal <=30.0 [facility] Comment on above: Performed By: #### M ALBR #### [facility] [address] [address] [address] Sarah Hickman PROF 14(COMP METB)on 022 Albumin [Mass/Vol] 3.9 g/dL Normal 3.4-5.0 [facility] Comment on above: Performed By: #### L IPID, CMP, TSH #### [facility] [address] [address] [address] Sarah Hickman Albumin/Globulin [Mass ratio] 1.1 {ratio} Normal [facility] Comment on above: Performed By: #### L IPID, CMP, TSH #### [facility] [address] [address] [address] Sarah Hickman ALP [Catalytic activity/Vol] 45 U/L Critically low 46-116 [facility] Comment on above: Performed By: #### L IPID, CMP, TSH #### [facility] [address] [address] [address] Sarah Hickman ALT [Catalytic activity/Vol] 39 U/L Normal 14-59 [facility] Comment on above: Performed By: #### L IPID, CMP, TSH #### [facility] [address] [address] [address] Sarah Hickman Anion gap [Moles/Vol] 10.6 mmol/L Normal [facility] Comment on above: Performed By: #### L IPID, CMP, TSH #### [facility] [address] [address] [address] Sarah Hickman AST [Catalytic activity/Vol] 26 U/L Normal 15-37 [facility] Comment on above: Performed By: #### L IPID, CMP, TSH #### [facility] [address] [address] [address] Sarah Hickman Bilirubin [Mass/Vol] 0.5 mg/dL Normal 0.2-1.0 [facility] Comment on above: Performed By: #### L IPID, CMP, TSH #### [facility] [address] [place] [address] Dr. Sarah Hickman Calcium [Mass/Vol] 8.9 mg/dL Normal 8.5-10.1 [facility] Comment on above: Performed By: #### L IPID, CMP, TSH #### [facility] [address] [place] [address] Dr. Sarah Hickman Chloride [Moles/Vol] 105 mmol/L Normal 98-107 [facility] Comment on above: Performed By: #### L IPID, CMP, TSH #### [facility] [address] [place] [address] Dr. Sarah Hickman CO2 [Moles/Vol] 29.4 mmol/L Normal 21.0-32.0 [facility] Comment on above: Performed By: #### L IPID, CMP, TSH #### [facility] [address] [place] [address] Dr. Sarah Hickman Creatinine [Mass/Vol] 0.97 mg/dL Normal 0.55-1.02 [facility] Comment on above: Performed By: #### L IPID, CMP, TSH #### [facility] [address] [place] [address] Dr. Sarah Hickman EGFR-AF SAMOAN >60 Normal >=60 [facility] Comment on above: Performed By: #### L IPID, CMP, TSH #### [facility] [address] [place] [address] Dr. Sarah Hickman EGFR-NON AF SAMOAN 58 mL/min/1.73m2 Critically low >=60 [facility] Comment on above: Performed By: #### L IPID, CMP, TSH #### [facility] [address] [place] [address] Dr. Sarah Hickman Globulin (S) [Mass/Vol] 3.6 g/dL Normal [facility] Comment on above: Performed By: #### L IPID, CMP, TSH #### [facility] [address] [place], [place] [id number] Dr. Sarah Hickman Glucose [Mass/Vol] 140 mg/dL Critically high 74-[address] [facility] Comment on above: Performed By: #### L IPID, CMP, TSH #### [facility] [address] [place] [address] Dr. Sarah Hickman Potassium [Moles/Vol] 4.0 mmol/L Normal 3.5-5.1 [facility] Comment on above: Performed By: #### L IPID, CMP, TSH #### [facility] [address] [place] [address] Dr. Sarah Hickman Protein [Mass/Vol] 7.5 g/dL Normal 6.4-8.2 [facility] Comment on above: Performed By: #### L IPID, CMP, TSH #### [facility] [address] [place] [address] Dr. Sarah Hickman Sodium [Moles/Vol] 141 mmol/L Normal 136-145 [facility] Comment on above: Performed By: #### L IPID, CMP, TSH #### [facility] [address] [place] [address] Dr. Sarah Hickman Urea nitrogen [Mass/Vol] 15.0 mg/dL Normal 7.0-18.0 [facility] Comment on above: Performed By: #### L IPID, CMP, TSH #### [facility] [address] [place] [address] Dr. Sarah Hickman Urea nitrogen/Creatinin e [Mass ratio] 15.5 mg/mg Normal [facility] Comment on above: Performed By: #### L IPID, CMP, TSH #### [facility] [address] [place] [address] Dr. Sarah Hickman TSHon 10-28-2021 TSH 7.247 uIU/mL Critically high 0.358-3.740 [facility] Comment on above: Performed By: #### L IPID, CMP, TSH #### [facility] [address] [place] [address] Dr. Sarah Hickman NEW MICROALBUMINon 0 Creatinine (U) [Mass/Vol] 36.5 mg/dL Normal [facility] Comment on above: Order Comment: THE M ICROALBUMIN IS < 6.0 THEREFORE THE MICROALBUMIN/CREATININE RATIO IS UNDETECTABLE. Performed By: #### 8 00 #### [facility] Unless Otherwise Noted [address] [address] / COL[facility] #4724/CLIA # [id number] Microalbumin <6.0 Normal 0.0-30.0 [facility]ocrine [facility] Comment on above: Order Comment: THE M ICROALBUMIN IS < 6.0 THEREFORE THE MICROALBUMIN/CREATININE RATIO IS UNDETECTABLE. Performed By: #### 8 00 #### [facility] Unless Otherwise Noted [address] [address] / [facility] #4724/CLIA # [id number] Urine A/C Ratio -99.0 mg/g Low 0.0-30.0 [facility] Comment on above: Order Comment: THE M ICROALBUMIN IS < 6.0 THEREFORE THE MICROALBUMIN/CREATININE RATIO IS UNDETECTABLE. Performed By: #### 8 00 #### [facility] Unless Otherwise Noted [address] [place] [address] / [facility] #4724/CLIA # [id number] Vital Signs Date Time Vital Sign Value Performing Clinician Facility 03-03-2024 09:330500 Body height 170.18 cm [facility] 03-03-2024 09:[id number] Body mass index (BMI) [Ratio] 22.7 kg/m2 [facility] 03-03-2024 09:33-0500 Body temperature 98.4 [degF] [facility] 03-03-2024 09:[id number] Body weight 65.94 kg [facility] 03-03-2024 09:33-0500 Diastolic blood pressure 76 mm[Hg] [facility] 03-03-2024 09:33-0500 Heart rate 86 /min [facility] 03-03-2024 09:33-0500 SaO2% (BldA) [Mass fraction] 94 % [facility] 03-03-2024 09:33-0500 Systolic blood pressure 128 mm[Hg] [facility] 02-17-2024 13:05-0400 Body height 170.2 cm Tunii Work Phone: [facility] 02-17-2024 13:05-0400 Body mass index (BMI) [Ratio] 22.71 kg/m2 [facility] Work Phone: [facility] 02-17-2024 13:05-0400 Body weight 65.77 kg [facility] 02-11-2024 11:45-0400 Body height 170.18 cm [facility] 02-11-2024 11:45-0400 Body mass index (BMI) [Ratio] 23 kg/m2 [facility] 02-11-2024 11:45-0400 Body temperature 98.2 [degF] [facility] 02-11-2024 11:45-0400 Body weight 66.67 kg [facility] 02-11-2024 11:45-0400 Diastolic blood pressure 78 mm[Hg] [facility] 02-11-2024 11:45-0400 Heart rate 72 /min [facility] 02-11-2024 11:45-0400 SaO2% (BldA) [Mass fraction] 97 % [facility] 02-11-2024 11:45-0400 Systolic blood pressure 142 mm[Hg] [facility] 01-30-2024 13:11-0400 Diastolic blood pressure 69 mm[Hg] [facility] 01-30-2024 13:11-0400 Systolic blood pressure 126 mm[Hg] [facility] 01-30-2024 12:46-0400 Body temperature 98.01 [degF] [facility] 01-30-2024 12:46-0400 Heart rate 69 /min [facility] 01-30-2024 12:46-0400 Respiratory rate 18 /min [facility] 01-30-2024 12:46-0400 SaO2% (BldA) [Mass fraction] 94 % [facility] 01-30-2024 12:39-0400 Body height 170.2 cm [facility] 01-30-2024 12:39-0400 Body mass index (BMI) [Ratio] 23.07 kg/m2 [facility] 01-30-2024 12:39-0400 Body weight 66.8 kg [facility] 07-11-2023 14:52-0400 Body height 170.2 cm Stacy Brink MD Work Phone: [facility] 07-11-2023 14:52-0400 Body mass index (BMI) [Ratio] 23.27 kg/m2 Stacy Brink MD Work Phone: [facility] 07-11-2023 14:52-0400 Body temperature 97.7 [degF] Stacy Brink MD Work Phone: [facility] 07-11-2023 14:52-0400 Body weight 67.41 kg Stacy Brink MD Work Phone: [facility] 07-09-2023 12:02-0400 Body mass index (BMI) [Ratio] 23.1 kg/m2 Mayuri Salazar MD Work Phone: [facility] 07-09-2023 12:02-0400 Body weight 66.91 kg Mayuri Salazar MD Work Phone: [facility] 07-09-2023 12:02-0400 Diastolic blood pressure 77 mm[Hg] Mayuri Salazar MD Work Phone: [facility] 07-09-2023 12:02-0400 Heart rate 70 /min Mayuri Salazar MD [facility] 07-09-2023 12:02-0400 Systolic blood pressure 129 mm[Hg] Mayuri Salazar MD [facility] 04-09-2023 13:00-0500 Body height 170.18 cm Antonio Gonzalez Other [facility] Other 04-09-2023 13:00-0500 Body mass index (BMI) [Ratio] 23.18 kg/m2 Antonio Gonzalez Other [facility] Other 04-09-2023 13:00-0500 Body weight 67.13 kg Antonio Gonzalez Other [facility] Other 04-09-2023 13:00-0500 Diastolic blood pressure 77 mm[Hg] Antonio Gonzalez Other [facility] Other 04-09-2023 13:00-0500 Systolic blood pressure 136 mm[Hg] Antonio Gonzalez Other [facility] Other 03-13-2023 13:00-0500 Body height 170.18 cm Rosa Mcallister Other [facility] Other 03-13-2023 13:00-0500 Body mass index (BMI) [Ratio] 23.05 kg/m2 Rosa Mcallister Other [facility] Other 03-13-2023 13:00-0500 Body temperature 97.4 [degF] Rosa Mcallister Other [facility] Other 03-13-2023 13:00-0500 Body weight 66.77 kg Rosa Mcallister Other [facility] Other 03-13-2023 13:00-0500 Diastolic blood pressure 72 mm[Hg] Rosa Ary Other [facility] Other 03-13-2023 13:00-0500 SaO2% (BldA) [Mass fraction] 97 % Rosa Mcallister Other [facility] Other 03-13-2023 13:00-0500 Systolic blood pressure 126 mm[Hg] Rosa Ary Other [facility] Other 2023 11:15-0400 Body height 170.18 cm Antonio Gonzalez Other [facility] Other 2023 11:15-0400 Body mass index (BMI) [Ratio] 23.02 kg/m2 Antonio Gonzalez Other [facility] Other 2023 11:15-0400 Body weight 66.68 kg Antonio Gonzalez Other [facility] Other 2023 11:15-0400 Diastolic blood pressure 72 mm[Hg] Antonio Gonzalez Other [facility] Other 2023 11:15-0400 Systolic blood pressure 151 mm[Hg] Antonio Gonzalez Other [facility] Other Encounters Encounter Date Encounter Type Care Provider Facility Start: 03-10-2024 End: 03-10-2024 Reinaldo Rebolledo [employer]-HEAT TREATING FURNACE TENDER Work Phone: [facility] Comment on above: Type 1 diabetes armando itus without complication ([facility]) Start: 03-03-2024 End: 03-03-2024 ambulatory [facility] Work Phone: Start: 03-03-2024 End: 03-03-2024 Patient encounter procedure [facility] Work Phone: Start: 02-28-2024 End: 02-28-2024 Refill Krista Byrd LPN [facility] Start: 02-20-2024 End: 02-20-2024 Refill Mayuri Salazar MD Work Phone: [facility] Start: 02-17-2024 End: 02-17-2024 Patient encounter procedure Ainsley Gilmore [employer]-HEAT TREATING FURNACE TENDER Work Phone: [facility] Comment on above: Neck mass (Primary D x); Ear fullness, right Start: 02-14-2024 End: 02-14-2024 Telephone encounter Rogelio Rebolledo [employer]-HEAT TREATING FURNACE TENDER Work Phone: [facility] Start: 02-11-2024 End: 02-11-2024 ambulatory [facility] Work Phone: Start: 02-11-2024 End: 02-11-2024 Patient encounter procedure [facility] Work Phone: Start: 02-10-2024 Non-patient / Non-visit [facility] Work Phone: Start: 02-10-2024 Non-patient / Non-visit [facility] Work Phone: Start: 02-10-2024 Non-patient / Non-visit [facility] Work Phone: Start: 02-04-2024 End: 02-04-2024 Refill Mayuri Salazar MD Work Phone: [facility] Comment on above: Type 1 diabetes armando itus without complication ([facility]) (Primary Dx) Start: 01-31-2024 End: 01-31-2024 Telephone encounter Mayuri Salazar MD Work Phone: [facility] Start: 01-30-2024 End: 01-30-2024 Patient encounter procedure [facility] Comment on above: Preop testing (Prima ry Dx); Type 1 diabetes mellitus without complication ([facility]) Start: 01-30-2024 End: 01-30-2024 Patient encounter status [facility] Start: 01-29-2024 End: 01-29-2024 Telephone encounter Zen Hatfield [facility] Start: 01-23-2024 End: 01-23-2024 ambulatory ROGELIO REBOLLEDO Facility:[facility] Start: 01-21-2024 End: 01-21-2024 ambulatory Judit J Ron Facility:[facility] Start: 01-21-2024 End: 01-23-2024 Patient encounter procedure Judit J Ron [facility] Start: 08-01-2023 End: 08-01-2023 ambulatory Judit J Ron Facility:[facility] Start: 08-01-2023 End: 08-01-2023 Patient encounter procedure Judit J Ron [facility] Start: 07-28-2023 Refill Mayuri rico MD Work Phone: [facility] Comment on above: Type 1 diabetes armando itus without complication ([facility]) Start: 07-26-2023 Orders Only Ainsley medina [employer]-HEAT TREATING FURNACE TENDER Work Phone: [facility] Comment on above: Ear fullness, right (Primary Dx) Start: 07-23-2023 Telephone encounter Stacy Brink MD Work Phone: [facility] Start: 07-11-2023 End: 07-11-2023 Patient encounter procedure Stacy Brink MD Work Phone: [facility] Comment on above: Ear fullness, right (Primary Dx); Otalgia, right; Sensorineural hearing loss (SNHL) of both ears; Neck swelling Start: 07-11-2023 End: 07-11-2023 Clinical Support Criss Francisco OR[place]O Work Phone: [facility] Comment on above: Sensorineural hearin g loss (SNHL) of both ears (Primary Dx); Ear pain, right Start: 07-09-2023 End: 07-09-2023 Office outpatient visit 25 minutes Mayuri Salazar MD Work Phone: [facility] Comment on above: Type 1 diabetes armando itus without complication ([facility]) (Primary Dx); Carol Ann's disease; Mixed hyperlipidemia Start: 05-01-2023 End: 05-01-2023 ambulatory Antonio Gonzalez Other [facility] Other Start: 05-01-2023 Telephone encounter Antonio Gonzalez [facility] Start: 04-30-2023 End: 04-30-2023 ambulatory Judit Velasquez Facility:[facility] Start: 04-30-2023 End: 04-30-2023 Patient encounter procedure Judit Velasquez [facility] Start: 04-29-2023 Reinaldo rico MD Work Phone: [facility] Start: 04-26-2023 End: 04-26-2023 ambulatory Antonio Gonzalez Other [facility] Other Start: 04-26-2023 Telephone encounter Antonio Gonzalez [facility] Start: 04-11-2023 End: 04-11-2023 ambulatory Judit J Ron Facility:[facility] Start: 04-11-2023 End: 04-11-2023 Patient encounter procedure Judit J Ron [facility] Start: 04-09-2023 End: 04-09-2023 ambulatory Antonio Gonzalez Other [facility] Other Start: 04-09-2023 Office outpatient vi sit 15 minutes Antonio Gonzalez [facility] Start: 03-13-2023 End: 03-13-2023 ambulatory Rosa Mcallister Other [facility] [employer] Other Start: 03-13-2023 Office outpatient vi sit 15 minutes Rosa Mcallister [facility] Start: 03-06-2023 End: 03-06-2023 ambulatory Judit J Ron Facility:[facility] Start: 03-06-2023 End: 03-06-2023 Lab Drop off Judit J Ron [facility] Start: 2023 End: 2023 ambulatory Antonio Lisa Other [facility] Other Start: 2023 Office outpatient vi sit 15 minutes Atnonio Gonzalez [facility] Start: 04-10-2022 End: 04-10-2022 Patient encounter procedure Judit J Ron [facility] Start: 03-02-2022 End: 03-03-[address] DOCTOR AGUDELO Facility: Start: 03-02-2022 End: 03-02-2022 Lab Drop off Judit J Ron [facility] Start: 10-28-2021 End: 10-29-[address] DOCTOR AGUDELO Facility:[facility] Start: 07-20-2021 End: 07-21-2021 ambulatory ADRIANNA DIAZ Facility:[facility] Start: 01-12-2016 End: 01-13-2016 Ambulatory CHARU CASTELLANOS Facility:[facility] Procedures Date Procedure Procedure Detail Performing Clinician Start: 01-30-2024 Basic metabolic pane l calcium total Jose Matos MD Work Phone: Start: 01-30-2024 Ecg routine ecg w/le ast 12 lds trcg only w/o i&r Jose Maots MD Work Phone: Start: 07-09-2023 Hemoglobin glycosyla pati a1c Mayuri [...] Treatment Date Care Activity Detail Author Start: 02-16-2025 Adult BMI Screening Adult BMI Screen ing [facility] Start: 02-16-2025 Tobacco Screening Tobacco Screening [facility] Start: 02-06-2025 Adult BMI Screening Adult BMI Screen ing [facility] Start: 02-06-2025 Tobacco Screening Tobacco Screening [facility] Start: 01-29-2025 Adult BMI Screening Adult BMI Screen ing [facility] Start: 01-29-2025 Tobacco Screening Tobacco Screening [facility] Start: 12-30-2024 Tobacco Screening Tobacco Screening [facility] Start: 12-25-2024 Adult BMI Screening Adult BMI Screen ing [facility] Start: 11-03-2024 Diabetic foot examination Diabetic Foot Exam [facility] Start: 07-17-2024 Tobacco Screening Tobacco Screening [facility] Start: 07-10-2024 Adult BMI Screening Adult BMI Screen ing [facility] Start: 07-10-2024 Tobacco Screening Tobacco Screening [facility] Start: 07-08-2024 Adult BMI Screening Adult BMI Screen ing [facility] Start: 07-08-2024 Diabetic foot examination Diabetic Foot Exam [facility] Start: 07-08-2024 Tobacco Screening Tobacco Screening [facility] Start: 05-21-2024 End: 05-21-2024 Patient encounter procedure 05/21/2024 10:45 AM EST Office Visit [facility] [address] [place] [address] Stacy Brink MD [address] [facility] [address] [place] [address] [facility] Start: 03-26-2024 End: 03-26-2024 Patient encounter procedure 03/26/2024 2:45 PM EST Office Visit [facility] [address] [place] [address] Mayuri Salazar MD [address] [place] [address] [facility] Start: 03-04-2024 Adult BMI Screening Adult BMI Screen ing [facility] Start: 03-04-2024 Diabetic foot examination Diabetic Foot Exam [facility] Start: 03-04-2024 Tobacco Screening Tobacco Screening [facility] Start: 02-18-2024 End: 02-18-2024 Patient encounter procedure 02/18/2024 2:15 PM EDT Office Visit [facility] [address] [place] [id number] Dimitry Boyle PA-C [address] [place] [address] [facility] Start: 02-17-2024 End: 02-17-2024 Patient encounter procedure 02/17/2024 1:15 PM EDT Office Visit [facility] [address] [place] [id number] Ainsley Gilmore APRN-HEAT TREATING FURNACE TENDER [address] [facility] [place] [address] [facility] Start: 02-07-2024 End: 02-07-2024 Admission to same day surgery center 02/07/2024 10:45 AM EDT - 02/07/2024 12:45 PM EDT Surgery [facility] [address] [place] [id number] Stacy Brink MD [address] [facility] [address] [place] [address] EXCISION LYMPH NODE HEAD NECK [47875 (CPT )] [facility] Comment on above: EXCISION LYMPH NODE HEAD NECK [13721 (CPT )] Start: 02-07-2024 End: 02-07-2024 Bx/exc lymph node open superficial EXCISION LYMPH NODE HEAD NECK Neck swelling Lymphadenopathy, cervical Neck mass 02/07/2024 10:45 AM EDT [facility] Start: 02-07-2024 Subsequent hospital visit by physician 02/07/2024 10:45 AM EDT Hospital Encounter [facility] [address] [place] [phone] Stacy Brink MD [address] [facility] [address] [place] [address] [facility] Start: 02-07-2024 End: 02-07-2024 Admission to same day surgery center 02/07/2024 9:15 AM EDT - 02/07/2024 11:15 AM EDT Surgery [facility] [address] [place] [address] [place] [address] [place] [address] [place] [id number] EXCISION LYMPH NODE HEAD NECK [44249 (CPT )] [facility] Comment on above: EXCISION LYMPH NODE HEAD NECK [77144 (CPT )] Start: 02-07-2024 End: 02-07-2024 Bx/exc lymph node open superficial EXCISION LYMPH NODE HEAD NECK Neck swelling Lymphadenopathy, cervical Neck mass 02/07/2024 9:15 AM EDT [facility] Start: 02-07-2024 Subsequent hospital visit by physician 02/07/2024 9:15 AM EDT Hospital Encounter [facility] [address] [place] [address] Stacy Brink MD [address] [place] [address] [facility] [facility] Start: 02-05-2024 DTaP,Tdap and Td Vaccines (3 - Td or Tdap) DTaP,Tdap and Td Vaccines (3 - Td or Tdap) [facility] Start: 01-30-2024 End: 01-30-2024 Patient encounter procedure 01/30/2024 12:15 PM EDT Procedure visit [facility] On [address] [phone] [facility] Start: 12-22-2023 COVID-19 Vaccine ( season) COVID-19 Vaccine ( season) [facility] Start: 12-22-2023 Influenza vaccination Influenza Vacc ine [facility] Start: 11-04-2023 End: 11-04-2023 Patient encounter procedure 11/04/2023 9:30 AM EDT Office Visit [facility] [address] [phone] Rogelio Rebolledo, [employer]ISH [employer]ER-HEAT TREATING FURNACE TENDER [address] [address] [facility] Start: 08-22-2023 End: 08-22-2023 Patient encounter procedure 08/22/2023 2:45 PM EDT Office Visit [facility] [address] [facility] [address] [place] [address] Stacy Brink MD [address] [place] [id number] [facility] Start: 07-28-2023 Glaucoma screening Diabetic Op hthalmology Exam [facility] Start: 07-11-2023 End: 07-11-2023 Clinical Support [facility] Start: 07-11-2023 End: 07-10-2024 MR Brain and Internal auditory canal WO and W contrast IV MR brain IAC with and without contrast Imaging Routine Otalgia, right Ear fullness, right Expected: 07/11/2023, Expires: 07/10/2024 [facility] Phone: Comment on above: Expected: 07/11/2023 , Expires: 07/10/2024 Start: 07-11-2023 End: 07-10-2024 US Head and neck soft tissue Ultrasound soft tissue head neck Imaging Routine Neck swelling Expected: 07/11/2023, Expires: 07/10/2024 [facility] Comment on above: Expected: 07/11/2023 , Expires: 07/10/2024 Start: 07-09-2023 End: 07-09-2023 Patient encounter procedure 07/09/2023 11:45 AM EDT Office Visit [facility] [address] [phone] Mayuri Salazar MD [address] [place] [place] [phone] [facility] Start: 12-21-2022 COVID-19 Vaccine ( season) COVID-19 Vaccine ( season) [facility] Start: 01-27-2010 Administration of varicella zoster vaccine Zoster (Shingles) Vaccine (1 of 2) [facility] Start: 01-27-1981 Screening for malign ant neoplasm of cervix Pap Smear [facility] Start: 01-27-1979 DTaP,Tdap and Td Vaccines (1 - Tdap) DTaP,Tdap and Td Vaccines (1 - Tdap) [facility] Start: 1972 Depression Screening Depression Scre ening [facility] Start: 1960 Statin Use: Diabetic Statin Use: Valorie betic [facility] Start: 1960 Urine screening for protein Urine Microalbumin [facility] End: 07-25-2024 Creatinine includes GFR, serum Creatinine includes GFR, serum Lab Routine Ear fullness, right 1 Occurrences starting 07/26/2023 until 07/25/2024 [facility] Work Phone: Comment on above: 1 Occurrences starti ng 07/26/2023 until 07/25/2024 Immunizations Immunization Date Immunization Notes Care Provider Fa [facility] 01-18-2023 influenza virus vaccine, unspecified formulation Stacy Brink MD Work Phone: [facility] 02-04-2014 tetanus and diphther ia toxoids, adsorbed, preservative free, for adult use (5 Lf of tetanus toxoid and 2 Lf of diphtheria toxoid) Rosa Mcallister Other [facility] 02-11-2013 tetanus and diphther ia toxoids, adsorbed, preservative free, for adult use (5 Lf of tetanus toxoid and 2 Lf of diphtheria toxoid) Rosa Mcallister Other [facility] Payers Date Payer Category Payer Commercial Managed C are - POS [employer] [id number] 2021 Private Health Insurance [employer]ET[employer] Christianne ETNA POS [id number] 2021-Present [phone] [id number] [place] [id number] [id number] 1960 Unknown [id number] 1960 Unknown [id number] 1960 Unknown [id number] 1960 Unknown [id number] 1960 Unknown [id number] 1960 Unknown [id number] 1960 Unknown [id number] 1960 Unknown [id number] 1960 Unknown [id number] 1959 Private Health Insurance [id number] Private Health Insurance [id number] Private Health Insurance [employer] [id number] Unknown [id number] Social History Date Type Detail Facility Tobacco smoking status [facility] Start: 06-02-2020 End: 03-04-2023 Sex Assigned At Female [facility] Start: 07-04-2022 End: 03-03-2024 Tobacco smoking status [facility] Never smoked tobacco [facility] Start: 07-04-2022 Tobacco use and exposure Smoke less tobacco non-user [facility] Start: 03-04-2023 End: 02-17-2024 Alcohol intake Lifetime non-drinker (finding) [facility] Start: 06-02-2020 End: 03-04-2023 History of Social function [facility] Housing Instability Unknown [facility] Start: 1960 Sex Assigned At Not on file P [facility] Start: 1960 Sex Assigned At Female [facility] Start: 09-21-2019 End: 03-03-2024 Sex Female (finding) [facility] Medical Equipment Procedure Code Equipment Code Equipment Origin al Text Equipment Identifier Dates 1 strip by other route as needed for high blood sugar. Checks 7 times/day. Glucometer communicates with her insulin pump. DX: E11.9 [id number] Start: 11-21-2022 Checks 7 times/d ay. Glucometer communicates with her insulin pump. DX: E11.9 [id number] Start: 11-04-2023 End: 01-30-2024 Check glucose 7 times daily-compatible strips for Medtronic 780G pump [id number] Start: 02-04-2024 End: 02-14-2024 Check glucose 7 times daily-compatible strips for Medtronic 780G pump [id number] Start: 02-14-2024 End: 03-10-2024 Check glucose 7 times daily-compatible strips for Medtronic 780G pump [id number] Start: 03-10-2024 Clinical Notes 07-20-2021 to 03-10-2024 Telephone Encounter - Zita Billings - 03/10/2024 4:29 PM ESTTelephone Encounter - Zita Billings - 03/10/2024 4:29 PM ESTTelephone Encounter - Krista Byrd LPN - 02/28/2024 3:22 PM EST Note Date & Type Note Facility 03-10-2024 Miscellaneous Notes Ok to sign and resend with updated qty documented in this encounter [facility] 03-10-2024 Telephone encounter Note Ok to sign and resend with updated qty [facility] 02-28-2024 Miscellaneous Notes error documented in this encounter [facility] 02-28-2024 Telephone encounter Note error [facility] 02-17-2024 History of Presen t illness Narrative Images from the original note were not included. [facility] [address] [place] [facility] [phone] SUBJECTIVE: Patient ID (1960): Marcia Mario is a 64 y.o. female presents today for Chief Complaint Patient presents with Post-op Right neck lymph nose excision HPI: Marcia is seen postoperatively from excision of right neck mass on 02/07/[address] Brink. Marcia states she has been doing well since surgery. She has complaints of intermittent right ear fullness and has noted her incisional line feels more hard. She states pain is roughly 2 to 3/10 and well-controlled with Tylenol or Motrin. She denies shortness of breath or difficulty breathing. She denies dysphagia. Pathology is pending. She denies any other ENT concerns. She is here for evaluation. HISTORY: Past Medical History: Diagnosis Date Dental disorder chipped lower left molar Depression Diabetes mellitus type 1 ([facility]) 07/1980 Hyperlipidemia Hypothyroid Neck swelling 01/2024 enlarged lymph node on right Visual impairment Glasses Past Surgical History: Procedure Laterality Date BREAST BIOPSY Bilateral CAPSULAR RELEASE SHOULDER Left EXCISION OF RIGHT NECK MASS Right 02/07/2024 Performed by Stacy Brink MD at [facility] KNEE ARTHROSCOPY Right LASIK Bilateral TOOTH EXTRACTION 12/19/2023 Family History Problem Relation Age of Onset Arthritis Mother Heart disease Mother Heart disease Father Anesthesia problems Neg Hx Social History Socioeconomic History Marital status: Spouse name: Not on file Number of children: Not on file Years of education: Not on file Highest education level: Not on file Occupational History Not on file Tobacco Use Smoking status: Never Smokeless tobacco: Never Vaping Use Vaping status: Never Used Substance and Sexual Activity Alcohol use: Never Drug use: Never Sexual activity: Defer Other Topics Concern Not on file Social History Narrative Not on file Social Drivers of Health Financial Resource Strain: Not on file Food Insecurity: No Food Insecurity (01/30/2024) Hunger Screening Food Insecurity - Worry: Never True Food Insecurity - Inability: Never True Transportation Needs: Not on file Physical Activity: Not on file Stress: Not on file Social Connections: Not on file Interpersonal Safety: Not on file Housing Instability: Not on file Allergies Allergen Reactions Penicillins Rash Current Outpatient Medications Medication Sig Dispense Refill acetaminophen (TYLENOL) 325 mg tablet Take 2 tablets (650 mg total) by mouth every 6 (six) hours as needed for pain for up to 10 days. 30 tablet 0 ascorbic acid, vitamin C, (ascorbic acid) 250 mg tablet,chewable Chew 1 tablet and swallow in the morning. aspirin 81 mg capsule Take 1 tablet by mouth Daily at 0630 Indications: treatment to prevent a heart attack. blood sugar diagnostic (ACCU-CHEK GUIDE TEST STRIPS) strip Check glucose 7 times daily-compatible strips for [employer] 780G pump 700 strip 3 calcium carbonate-vitamin D3 (CALCIUM 600 + D,3,) 600 mg(1,500mg) -400 units per tablet Take 2 tablets by mouth in the morning. ibuprofen (MOTRIN) 600 mg tablet Take 1 tablet (600 mg total) by mouth every 6 (six) hours as needed for pain. 30 tablet 0 insulin aspart U-100 (NovoLOG U-100 Insulin aspart) 100 unit/mL injection INJECT 60 UNITS DAILY VIA INSULIN PUMP DIRECTED 60 mL 3 levothyroxine (SYNTHROID, LEVOTHROID) 75 MCG tablet TAKE 1 TABLET ONCE DAILY INTHE MORNING ON AN EMPTY STOMACH 90 tablet 3 pedi multivit no.12 w-fluoride ([id number]-JEGEP A ORAL) See Admin Instructions. pravastatin (PRAVACHOL) 40 mg tablet TAKE 1 TABLET TWICE A DAY (Patient taking differently: Take 2 tablets (80 mg total) by mouth in the morning.) 180 tablet 3 sertraline (ZOLOFT) 50 mg tablet Take 1 tablet (50 mg total) by mouth in the morning. No current facility-administered medications for this visit. REVIEW OF SYSTEMS: Review of Systems Constitutional: Negative for chills and fever. HENT: Negative for congestion, ear discharge, ear pain (Right) and sore throat. Eyes: Negative for redness. Respiratory: Negative for shortness of breath. Cardiovascular: Negative for chest pain. Gastrointestinal: Negative for nausea and vomiting. Skin: Negative for rash. Neurological: Negative for dizziness and headaches. Psychiatric/Behavioral: Negative for confusion. Data Reviewed: PHYSICAL EXAMINATION: Ht 170.2 cm (5' 7 ) Wt 65.8 kg (145 lb) BMI 22.71 kg/m Constitutional: Healthy, alert, cooperative, and in no distress and normal ablility to communicate . Voice normal quality. Head/Face: Normocephalic, without obvious abnormality, salivary glands normal, atraumatic, sinuses nontender, and facial nerve intact Eyes: No gross abnormalities., EOMI, no nystagmus, and no lid ptosis Ear: RIGHT: hearing normal, external ear normal, canal normal, and TM normal without fluid or infection LEFT: hearing normal and external ear normal Nose: External nose appears normal Neck: right neck incision clean, dry and intact. Steri strips were removed without difficulty. Incision well approximated. Mild amount of induration noted above incisional line. See photo below. Heart: Regular rate Respiration: No stridor, Normal respiratory effort. Neurologic: Grossly normal Alert Affect normal ASSESSMENT/PLAN: Marcia was seen today for post-op. Diagnoses and all orders for this visit: Neck mass Comments: s/p excision of right neck mass on 02/07/[address] Brink Ear fullness, right Plan: Incision healing well on exam. Mild amount of induration noted above incisional line. Two to three weeks post op, you can begin gentle scar massage 3 or 4 times per day to help loosen scar bands. Use sunscreen over the next 6-12 months while in the sunlight. Scar while it is healing has a higher chance of forming keloids. Mederm[employer] makes a product with sunscreen that seems to work well. Pathology pending. We will call with results. Follow up with Dr. Brink in 3 months. Call sooner as needed. Counseling: The following elements of medical decision making were considered during this visit: Independently reviewed of images or pathology results and Reviewed and summarized previous records. The patient was counseled regarding prognosis, risks and benefits of treatment options, impressions, importance of compliance with treatment and risk factor reductions. The patient verbalized understanding and agreement to the plan. Please note that parts of this chart were generated using voice recognition [employer] dictation software. Although every effort was made to ensure the accuracy of this automated display fabrication supervisor, some errors in display fabrication supervisor may have occurred. MECCA Miller 02/17/24 1326 documented in this encounter [facility] 02-14-2024 Miscellaneous Notes Needs renewal on test strips, sent today back to [facility] documented in this encounter [facility] 02-14-2024 Telephone encounter Note Needs renewal on test strips, sent today back to [facility] 02-14-2024 Miscellaneous Notes Called pt with dexascan reports, mailed copy to pt documented in this encounter [facility] 02-14-2024 Telephone encounter Note Called pt with dexascan reports, mailed copy to pt [facility] Work Phone: 02-11-2024 Evaluation note Diagnosis Onset Date Resolution Dizziness acute February 11, 2024 11:38am Eustachian tube dysfunction acute February 10 11:38am Bronchitis acute March 03, 2024 9:30am [facility] Work Phone: [phone] Miscellaneous Notes* Telephone Encounter - Zita Billings - 02/04/2024 11:22 AM EDT Ok to sign and send [facility] Telephone encounter Note* Telephone Encounter - Zita Billings - 02/04/2024 11:22 AM EDT Ok to sign and send [facility]10-11-2024 Miscellaneous Notes* Telephone Encounter - Kimo Salcedo - 01/31/2024 12:07 PM EDT LM that they received surgical clearance for patient but could not read what was written regarding pump. It says temp basal of something. Asking clarification. Looking at it, it might say temp basal of 70%, Is this correct * Telephone Encounter - Mayuri Salazar MD - 01/31/2024 12:07 PM EDT Yes, use 70% temporary basal. Thanks * Telephone Encounter - Kimo Salcedo - 01/31/2024 12:07 PM EDT Detailed message left to inform their office [facility] Telephone encounter Note* Telephone Encounter - Kimo Salcedo - 01/31/2024 12:07 PM EDT LM that they received surgical clearance for patient but could not read what was written regarding pump. It says temp basal of something. Asking clarification. Looking at it, it might say temp basal of 70%, Is this correct [facility]10-11-2024 Telephone encounter Note* Telephone Encounter - Mayuri Salazar MD - 01/31/2024 12:07 PM EDT Yes, use 70% temporary basal. 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 PRE-ADMISSION TESTING HISTORY AND PHYSICAL EXAM DATE: 01/31/24 PCP: ANTONIO GONZALEZ MD CHIEF COMPLAINT: neck swelling HISTORY OF PRESENT ILLNESS: Marcia Mario, a 64 y.o. White or female, presents to [facility] for a pre- surgical H&P. Thepatient has been diagnosed with right neck swelling. She states it has been present for years. She states it changes sizes. She denies associated pain and dysphagia. She states her right ear aches when the area of her neck swells up. CT on 08/17/23 showed: Anesthesia problems: pt denies. Latex allergy: pt denies. Bleeding/ clotting disorders: pt denies. Recent hospitalizations: pt denies. PAST MEDICAL HISTORY: Past Medical History: Diagnosis Date Dental disorder chipped lower left molar Depression Diabetes mellitus type 1 ([facility]) 07/1980 Hyperlipidemia Hypothyroid Neck swelling 01/2024 enlarged lymph node on right Visual impairment Glasses PAST SURGICAL HISTORY: Past Surgical History: Procedure Laterality Date BREAST BIOPSY Bilateral CAPSULAR RELEASE SHOULDER Left KNEE ARTHROSCOPY Right LASIK Bilateral TOOTH EXTRACTION 12/19/2023 FAMILY HISTORY: Family History Problem Relation Age of Onset Anesthesia problems Neg Hx SOCIAL HISTORY: The patient reports no history of alcohol use. She reports that she has never smoked. She has never used smokeless tobacco. She reports no history of drug use. ALLERGIES: Allergies Allergen Reactions Penicillins Rash MEDICATIONS: Current Outpatient Medications: ascorbic acid, vitamin C, (ascorbic acid) 250 mg tablet,chewable, Chew 1 tablet and swallow in the morning., Disp: , Rfl: aspirin 81 mg capsule, Take 1 tablet by mouth Daily at 0630 Indications: treatment to prevent a heart attack., Disp: , Rfl: calcium carbonate-vitamin D3 (CALCIUM 600 + D,3,) 600 mg(1,500mg) -400 units per tablet, Take 2 tablets by mouth in the morning., Disp: , Rfl: insulin aspart U-100 (NovoLOG U-100 Insulin aspart) 100 unit/mL injection, INJECT 60 UNITS DAILY VIA INSULIN PUMP DIRECTED, Disp: 60 mL, Rfl: 3 levothyroxine (SYNTHROID, LEVOTHROID) 75 MCG tablet, TAKE 1 TABLET ONCE DAILY INTHE MORNING ON AN EMPTY STOMACH, Disp: 90 tablet, Rfl: 3 pedi multivit no.12 w-fluoride ([id number]-VYGSO A ORAL), See Admin Instructions., Disp: , Rfl: pravastatin (PRAVACHOL) 40 mg tablet, TAKE 1 TABLET TWICE A DAY (Patient taking differently: Take 2tablets (80 mg total) by mouth in the morning.), Disp: 180 tablet, Rfl: 3 sertraline (ZOLOFT) 50 mg tablet, Take 1 tablet (50 mg total) by mouth in the morning., Disp: , Rfl: REVIEW OF SYSTEMS: Review of Systems Constitutional: Negative for fever. HENT: Positive for dental problem (chipped molar - left lower). Negative for ear pain, rhinorrhea and sore throat. Eyes: Negative for redness. Respiratory: Negative for cough and shortness of breath. Cardiovascular: Negative for chest pain and leg swelling. Gastrointestinal: Negative for nausea, vomiting and diarrhea. Genitourinary: Negative for dysuria and hematuria. Skin: Negative for rash and wound. Neurological: Negative for seizures and syncope. Psychiatric/Behavioral: The patient is not nervous/anxious. VITAL SIGNS: BP 126/69 Pulse 69 Temp 36.7 C (98 F) (Temporal) Resp 18 Ht 170.2 cm (5' 7 ) Wt 66.8 kg (147 lb 4.3 oz) SpO2 94% BMI 23.07 kg/m PHYSICAL EXAM: Physical Exam Constitutional: General: She is not in acute distress. Appearance: She is not toxic-appearing or diaphoretic. HENT: Head: Atraumatic. Left Ear: Tympanic membrane is not erythematous. Ears: Comments: Cerumen blocking view of right TM Nose: No rhinorrhea. Mouth/Throat: Mouth: Mucous membranes are moist. Pharynx: No posterior oropharyngeal erythema. Tonsils: 2+ on the right. 2+ on the left. Eyes: Conjunctiva/sclera: Conjunctivae normal. Pupils: Pupils are equal, round, and reactive to light. Cardiovascular: Rate and Rhythm: Normal rate and regular rhythm. Heart sounds: No murmur heard. Pulmonary: Effort: Pulmonary effort is normal. No respiratory distress. Breath sounds: No wheezing, rhonchi or rales. Abdominal: General: Bowel sounds are normal. Tenderness: There is no guarding. Skin: General: Skin is warm and dry. Neurological: Mental Status: She is alert and oriented to person, place, and time. Psychiatric: Mood and Affect: Mood normal. Behavior: Behavior normal. Behavior is cooperative. RECENT LABS: Lab Results Component Value Date HGB 14.7 01/30/2024 HCT 43.9 01/30/2024 SODIUM 138 01/30/2024 K 4.2 01/30/2024 CL 102 01/30/2024 CO2 32 01/30/2024 CALCIUM 9.5 01/30/2024 GLU 119 (H) 01/30/2024 HGBA1C 6.4 (H) 01/30/2024 CREATININE 0.90 01/30/2024 BUN 19 01/30/2024 EGFR 71 01/30/2024 ASSESSMENT / DIAGNOSIS: Linked DX: Neck swelling [R22.1] PLAN: Marcia Mario is scheduled for Case Date: 02/07/2024 Linked Surgeon: Casey Brink MD Linked Procedure: Excision Lymph Node Head Neck - Right. MECCA Loera 01/30/24 1319 MECCA Loera 01/31/24 1416 [facility]-10[facility] History and physical note* MECCA Loera - 01/30/2024 12:15 PM EDT Images from the original note were not included. PRE-ADMISSION TESTING HISTORY AND PHYSICAL EXAM DATE: 01/31/24 PCP: ANTONIO GONZALEZ MD CHIEF COMPLAINT: neck swelling HISTORY OF PRESENT ILLNESS: Marcia Mario, a 64 y.o. White or female, presents to [facility] for a pre- surgical H&P. Thepatient has been diagnosed with right neck swelling. She states it has been present for years. She states it changes sizes. She denies associated pain and dysphagia. She states her right ear aches when the area of her neck swells up. CT on 08/17/23 showed: Anesthesia problems: pt denies. Latex allergy: pt denies. Bleeding/ clotting disorders: pt denies. Recent hospitalizations: pt denies. PAST MEDICAL HISTORY: Past Medical History: Diagnosis Date Dental disorder chipped lower left molar Depression Diabetes mellitus type 1 ([facility]) 07/1980 Hyperlipidemia Hypothyroid Neck swelling 01/2024 enlarged lymph node on right Visual impairment Glasses PAST SURGICAL HISTORY: Past Surgical History: Procedure Laterality Date BREAST BIOPSY Bilateral CAPSULAR RELEASE SHOULDER Left KNEE ARTHROSCOPY Right LASIK Bilateral TOOTH EXTRACTION 12/19/2023 FAMILY HISTORY: Family History Problem Relation Age of Onset Anesthesia problems Neg Hx SOCIAL HISTORY: The patient reports no history of alcohol use. She reports that she has never smoked. She has never used smokeless tobacco. She reports no history of drug use. ALLERGIES: Allergies Allergen Reactions Penicillins Rash MEDICATIONS: Current Outpatient Medications: ascorbic acid, vitamin C, (ascorbic acid) 250 mg tablet,chewable, Chew 1 tablet and swallow in the morning., Disp: , Rfl: aspirin 81 mg capsule, Take 1 tablet by mouth Daily at 0630 Indications: treatment to prevent a heart attack., Disp: , Rfl: calcium carbonate-vitamin D3 (CALCIUM 600 + D,3,) 600 mg(1,500mg) -400 units per tablet, Take 2 tablets by mouth in the morning., Disp: , Rfl: insulin aspart U-100 (NovoLOG U-100 Insulin aspart) 100 unit/mL injection, INJECT 60 UNITS DAILY VIA INSULIN PUMP DIRECTED, Disp: 60 mL, Rfl: 3 levothyroxine (SYNTHROID, LEVOTHROID) 75 MCG tablet, TAKE 1 TABLET ONCE DAILY INTHE MORNING ON AN EMPTY STOMACH, Disp: 90 tablet, Rfl: 3 pedi multivit no.12 w-fluoride ([id number]-[id number]-QNFUY A ORAL), See Admin Instructions., Disp: , Rfl: pravastatin (PRAVACHOL) 40 mg tablet, TAKE 1 TABLET TWICE A DAY (Patient taking differently: Take 2tablets (80 mg total) by mouth in the morning.), Disp: 180 tablet, Rfl: 3 sertraline (ZOLOFT) 50 mg tablet, Take 1 tablet (50 mg total) by mouth in the morning., Disp: , Rfl: REVIEW OF SYSTEMS: Review of Systems Constitutional: Negative for fever. HENT: Positive for dental problem (chipped molar - left lower). Negative for ear pain, rhinorrhea and sore throat. Eyes: Negative for redness. Respiratory: Negative for cough and shortness of breath. Cardiovascular: Negative for chest pain and leg swelling. Gastrointestinal: Negative for nausea, vomiting and diarrhea. Genitourinary: Negative for dysuria and hematuria. Skin: Negative for rash and wound. Neurological: Negative for seizures and syncope. Psychiatric/Behavioral: The patient is not nervous/anxious. VITAL SIGNS: BP 126/69 Pulse 69 Temp 36.7 C (98 F) (Temporal) Resp 18 Ht 170.2 cm (5' 7 ) Wt 66.8 kg (147 lb 4.3 oz) SpO2 94% BMI 23.07 kg/m PHYSICAL EXAM: Physical Exam Constitutional: General: She is not in acute distress. Appearance: She is not toxic-appearing or diaphoretic. HENT: Head: Atraumatic. Left Ear: Tympanic membrane is not erythematous. Ears: Comments: Cerumen blocking view of right TM Nose: No rhinorrhea. Mouth/Throat: Mouth: Mucous membranes are moist. Pharynx: No posterior oropharyngeal erythema. Tonsils: 2+ on the right. 2+ on the left. Eyes: Conjunctiva/sclera: Conjunctivae normal. Pupils: Pupils are equal, round, and reactive to light. Cardiovascular: Rate and Rhythm: Normal rate and regular rhythm. Heart sounds: No murmur heard. Pulmonary: Effort: Pulmonary effort is normal. No respiratory distress. Breath sounds: No wheezing, rhonchi or rales. Abdominal: General: Bowel sounds are normal. Tenderness: There is no guarding. Skin: General: Skin is warm and dry. Neurological: Mental Status: She is alert and oriented to person, place, and time. Psychiatric: Mood and Affect: Mood normal. Behavior: Behavior normal. Behavior is cooperative. RECENT LABS: Lab Results Component Value Date HGB 14.7 01/30/2024 HCT 43.9 01/30/2024 SODIUM 138 01/30/2024 K 4.2 01/30/2024 CL 102 01/30/2024 CO2 32 01/30/2024 CALCIUM 9.5 01/30/2024 GLU 119 (H) 01/30/2024 HGBA1C 6.4 (H) 01/30/2024 CREATININE 0.90 01/30/2024 BUN 19 01/30/2024 EGFR 71 01/30/2024 ASSESSMENT / DIAGNOSIS: Linked DX: Neck swelling [R22.1] PLAN: Marcia Mario is scheduled for Case Date: 02/07/2024 Linked Surgeon: Casey Brink MD Linked Procedure: Excision Lymph Node Head Neck - Right. MECCA Loera 01/30/24 1319 MECCA Loera 01/31/24 1416 documented in this encounterMay[facility] Hospital[facility]any[facility]10-[facility] Instructions* Patient Instructions* Rossy Pool RN - 01/30/2024 12:15 PM EDT Your surgery/procedure is scheduled at [facility] on 02-07-2024. Arrival Time: You will be contacted with an arrival time. [facility] Address: [address] [place] [address], [address] Park in the Emergency Center Parking lot. Report to the hotel front desk agent in the Emergency/Surgery Registration lobby of the hospital. Notify your SURGEON if you develop any illness such as a cold, cough, fever, sore throat, vomiting or are hospitalized between now and your surgery. Please call Pre-Admission Clinic at [phone] if you have any questions prior to surgery. For questions the morning of surgery, call the Pre-op Department at [phone]. Medication Instructions (Do not stop your medications without consulting the prescribing physician). Take the following medications the morning of surgery with a sip of water: Levothyroxine, Pravastatin and Zoloft Diabetic or Weight loss medications: Per Dr. Darby's office Take inhalers as prescribed the morning of surgery. Due to the risk associated with these medications. If these medications are not held per instruction below, your surgery is at an increased risk for cancellation SGLT2 Medications- Hold 3 days prior to surgery: Jardiance, Empagliflozin, Farxiga, Dapagliflozin, Invokana, Canagliflozin GLP-1 Medications (Injection or Pill)- If taken daily hold day of surgery. If taken weekly, hold 1 week prior to surgery: Adlyxin, Byetta, Bydureon, Ozempic, Rybelsus,Trulicity, Victoza, Wegovy, Lixisenatide, Exenatide, Semaglutide, Dulaglutide, Liraglutide GIP/GLP-1(Injection or Pill)- If taken daily hold day of surgery. If taken weekly, hold 1 week prior to surgery: Mounjaro . Blood thinners: Please contact your prescribing physician regarding a stop/hold date for these medications. Medications such as Coumadin, Heparin, Aspirin, Plavix, Eliquis, Pradaxa Diabetics: If you take insulin, contact your prescribing doctor for instructions on how to manage this the night before and the morning of surgery. Non-steriodal Anti-Inflammatory Drugs (NSAIDS)- Hold 3 days prior to surgery unless otherwise directed by your surgeon. Vitamins/Herbal Products: You may continue to take your prescribed vitamins such as potassium, iron, vitamin B, vitamin C, or multivitamin unless specifically instructed by your surgeon to hold. STOPtaking all herbal products/teas one week prior to your surgery. Marijuana: Stop marijuana 72 hours prior to surgery, stop CBD oil 48 hours prior to surgery. If you have been given bowel prep instructions by your surgeon, please call the surgeon's office with any questions about these instructions. What do I do the day of Surgery? Age 2 through adult - Stop all solids by midnight, You may have clear liquids up to 2 hours before surgery, unless otherwise instructed by your surgeon Clear liquids are: water, sports drinks such as Gatorade or G2, or apple juice. You may NOT have: tube feedings, dairy products, alcoholic beverages, orange juice, or any liquids with solids or pulp in it If applicable, shower again with CHG soap the morning of your surgery. If you received a green plastic bracelet, bring it with you the day of surgery and your nurse will put it on you. What do I need to do to prepare for surgery? If you will be going home the same day as your surgery, arrange for an adult over [address] Riding in a bus or taxi by yourself is not permitted. You should not smoke or drink alcohol 24 hours before your surgery. Smoking increases the risk of breathing problems after surgery. Alcohol thins the blood and may cause bleeding problems during surgery If you have been assigned TOM Education by your surgeon's office, please complete this education prior to your surgery. For questions regarding TOM education, reach out to your surgeons office. If you have been given a prescription for occupational, physical or speech therapy, please set up these appointments before your procedure. If you would like to schedule therapy at a [facility] facility, please call [phone] ([phone]). Do not use lotions, creams, powders, perfume, make up, cologne or after-shaves day of surgery. Remove ALL jewelry including wedding rings, body piercings, hair extensions that contain metal, nail argentine, make-up, and contact lens. You may brush your teeth the morning of surgery, but do not swallow the water. Wear your dentures and partial plates to the hospital (no adhesive). Shower the night the before. If applicable, use the CHG (chlorhexidine gluconate) soap or wipes. Please be advised, [facility] has transitioned to a cashless payment system. What should I bring to the hospital? If you received a green plastic bracelet, bring it with you the day of surgery and your nurse will put it on you. Eyeglass or contact lens case If you will be spending the night, please bring personal care items and leave them in the car untilyou are taken to your room after surgery. Leave ALL valuables at home. If any of these instructions conflict with those you recieved from the surgeon, please seek clarification from your surgeon's office. DEEP BREATHING EXERCISES This exercise helps promote good air exchange and helps to prevent pneumonia after surgery. Breathe in slowly and deeply through the nose. Hold your breath for a few seconds and then exhale slowly through the mouth. Repeat this three times and then cough. Coughing helps to clear your lungs. If you have had a surgery with an incision into your abdomen or chest, press gently against your incision with a pillow or a folded blanket when you cough. Please be aware - it may not be jenkins to cough following some types of surgeries involving the eyes,ears, sinuses and throat. Always follow your doctor's instructions. LEG EXERCISES These exercises help promote good circulation and help to prevent blood clots after surgery. Point your toes to the ceiling and then point them to the wall. Do this slowly about 15-20 times. You may also move your feet in circles. Do the exercise that is most comfortable for you. If you have had surgery involving your shoulder or arm, we recommend you move your fingers. PRACTICING We ask that you begin practicing these exercises before your surgery. After surgery try to do both exercises at least every 2 hours during the day and early evening. SURGICAL SITE INFECTION AND PREVENTION What is a Surgical Site Infection? Infection can happen to the area of the body where surgery is done. This is called a surgical site infection (SSI). A SSI does not happen very often. Can SSIs be treated? Antibiotics are used to treat SSI. Some patients may need another surgery to treat the infection. The doctor will discuss treatment options with you. What are some of the things that hospitals are doing to prevent SSIs? Soap and water or alcohol hand rub are used before and after caring for each patient.Special soap is used to clean surgery workers hands and arms just before the surgery. Masks, gowns, gloves and hair covers are worn during the surgery to keep the area clean. Hair in the surgery area may be removed with clippers (not razors). A special soap that kills germs is used to clean the skin at the surgery site. Antibiotics may be given before the surgery starts. What can you do to prevent SSIs? Before surgery: You may be asked to shower or bathe with a special soap that kills germs the night before and the day of surgery. Use the soap as you were told. If you smoke, stop or cut down. Ask your doctor about ways to quit. Do not shave near where you will have surgery. Shaving can irritate the skin and make it easier to get and infection. After surgery: Be sure that the doctors and nurses clean their hands before and after touching you. Be sure your family and friends clean their hands before and after visiting you. Do not be afraid to remind them. * Care for your wound at home as told by your doctor or nurse * Call your doctor right away if you have fever, redness, increased pain, or drainage at the surgery site. Further questions? Contact the doctor, nurse or the Infection Prevention and Control department if you have any questions. PATIENT RIGHTS AND RESPONSIBILITIES As a patient at [facility], you have the right to: Receive medical care and be informed of who is taking care of you Be treated with dignity and respect Have a family member/dermatology sales representative of choice and your physician notified of your admission Receive information and actively participate in decisions about your care and treatment Refuse care, treatment and services Decide who may provide your support and speak for you Access congregational and spiritual services Participate in ethical issues and questions about your care Receive private and confidential care Have appropriate assessment and management of your pain Know guest visitation restrictions or limitations Have an advance directive Access protective services Consent or refuse to participate in research studies or production or recordings, films or other images Have resolution of your complaints Receive information of hospital charges and payment methods Patient/patient dermatology sales representative responsibilities are to: Provide information about health status to facilitate care, treatment and services Follow the treatment, plan, keep appointments and speak up when you do not understand the plan Respect the rights of other patients and healthcare personnel Follow organizational rules and regulations that support quality care and a safe environment Fulfill financial obligations as promptly as possible documented in this encounterK[facility]10-09-[facility]24 Miscellaneous Notes* Telephone Encounter - Zen Hatfield - 01/29/2024 9:39 AM EDT PATIENT NOTIFIED WITH SURGERY TIME OF 10:45 . TOLD TO ARRIVE 2 HOURS PRIOR. documented in this encounterKettering [facility]10-09-2024 Telephone encounter Note* Telephone Encounter - Zen Hatfield - 01/29/2024 9:39 AM EDT PATIENT NOTIFIED WITH SURGERY TIME OF 10:45 . TOLD TO ARRIVE 2 HOURS PRIOR. [facility]04-05-2024 History of Present illness Narrative* MECCA Miller - 07/26/2023 8:54 AM EDT Labs ordered. MECCA Miller 07/26/23 0855 documented in this [facility]04-02-2024 Miscellaneous Notes* Telephone Encounter - Rosa Harden - 07/23/2023 4:33 PM EDT Kalee with [facility] scheduling dept called. She needs office notes faxed to pre cert the MRI. Please fax to [phone]. Phone number [phone] if any questions. Pt also needs an order forCreatinine because the MRI is ordered with and w/o contrast * Telephone Encounter - Yamilka Almonte CNA - 07/23/2023 4:33 PM EDT Faxed office note to [facility] documented in this encounterKet[facility]04-02-2024 Telephone encounter Note* Telephone Encounter - Rosa Harden - 07/23/2023 4:33 PM EDT Kalee with [facility] scheduling dept called. She needs office notes faxed to pre cert the MRI. Please fax to [phone]. Phone number [phone] if any questions. Pt also needs an order forCreatinine because the MRI is ordered with and w/o contrast [facility]04-02-2024 Telephone encounter Note* Telephone Encounter - Yamilka Almonte CNA - 07/23/2023 4:33 PM EDT Faxed office note to [facility]03-21-2024 History of Present illness Narrative* Stacy Brink MD - 07/11/2023 3:00 PM EDT Images from the original note were not included. [facility] [address] [place] [address] [place] [id number] SUBJECTIVE: Patient ID: Marcia Mario is a 63 y.o. female presents today for Chief Complaint Patient presents with Otitis Media HPI: Marcia Mario is a 63 y.o. female seen at the request of Antonio Gonzalez MD for evaluation of right otitis media. Patient experiences right otalgia and aural fullness continually. She notes thatthe right side of her neck also swells for a couple hours but does not have any associated pain. She has intermittent jaw pain. Patient uses Flonase intermittently for allergy symptoms like nasal congestion and sinus pressure. Audiogram performed today. HISTORY: Past Medical History: Diagnosis Date Allergic 1970 Penicillin - Rash Depression Diabetes mellitus ([facility]) 07/1980 Type 1 Disease [...] 100 unit/mL injection INJECT 60 UNITS DAILY VIAINSULIN PUMP DIRECTED 60 mL 3 levothyroxine (SYNTHROID, LEVOTHROID) 75 MCG tablet TAKE 1 TABLET ONCE DAILY INTHE MORNING ON AN EMPTY STOMACH 90 tablet 3 pedi multivit no.12 w-fluoride ([id number]-VCDML A ORAL) See Admin Instructions. pravastatin (PRAVACHOL) [...] Normal floor of mouth, Normal oral mucosa, andNormal anterior tongue Oropharynx: Normal mucosa, Normal soft palate, Normal hard palate, Tonsil hypertrophy right: 1+, Tonsil hypertrophy left: 1+, Normal Vallecula, and mildly elongated uvula. Nasopharynx: Refer to procedure note Hypopharynx: Refer to procedure note Larynx: Refer to procedure note TMJ: No pain, crepitus, or trismus right and left Neck: Neck supple, No adenopathy, Thyroid normal in size without nodules or tenderness, No palpableneck masses, and Carotids normal Respiratory: No stridor, [...] [facility] [place], [place] - MR brain IAC with and [...] neck to further investigate enlargement and swelling ofsubmandibular gland. Follow up after imaging. The patient will contact my office if there are any additional questions or concerns: . Non-emergent messages received through [employer] may take up to 2 business days for a response. Scribe Statement: Scribed for and in the presence of Stacy Brink MD by Soraida Hernandez ([email or web address]). Soraida Hernandez 07/11/2023 3:09 PM Provider Statement: [...] compliance with treatment and risk factor reductions. Thepatient verbalized understanding and agreement to the plan. [...] this chart were generated using voice recognition [employer] dictation software. Although every effort was made to ensure the accuracy of this automated display fabrication supervisor, some errors in display fabrication supervisor may have occurred. documented in this encounterKettering [facility]03-21-2024 Instructions* Patient Instructions* Soraida Hernandez - 07/11/2023 3:00 PM EDT [...] neck to further investigate enlargement and swelling ofsubmandibular gland. Follow up after imaging. The patient will contact my office if there are any additional questions or concerns: . Non-emergent messages received through [employer] may take up to 2 business days for a response. documented in this encounterKettering [facility]03-21-2024 History of Present illness Narrative* JOHANNY Hobbs - 07/11/2023 2:00 PM EDT AUDIOLOGIC EVALUATION Reason for visit: CC: Patient reports right ear pain that has gotten worse over the last 6 months. IN the past the right ear pain was intermittent, however, it seems to be worse and more consistent over the last 6 months. She reports a left ear humming sound for many years. The left ear tinnitus is non-bothersome toher. She does not feel the ear pain has impacted her hearing in her right ear. She has no concerns for her hearing and feels she is hearing equally from her right and left ears. She denies fullness, otorrhea, and dizziness. She denies previous ear surgery, family history of hearing loss and historyof noise exposure. HISTORY: Concerns with hearing: No [...] Asymmetry noted: No Reliability: good Speech Audiometry: SRT/CORPORATE EVENT PLANNER in good agreement WRS: Right Ear: Excellent (100%) Left Ear: Excellent (100%) RECOMMENDATIONS: Follow up with Malena Talbert, [facility] Rod Bending Machine Operator documented in this encounterKettering Health [facility]03-19-2024 History of Present illness Narrative* Mayuri Salazar MD - 07/09/2023 11:45 AM EDT REASON FOR VISIT: Marcia Mario returns today [...] tablet, Rfl: 3 pedi multivit no.12 w-fluoride (MLQHUIMWGGPGF-ZRQYYUTO-OLDOU A ORAL), See Admin Instructions., Disp: , [...] Plan:1. Type 1 diabetes mellitus without complication ([facility]) - POCT Hemoglobin A1c - insulin aspart U-100 (NovoLOG U-100 Insulin aspart) 100 unit/mL injection; INJECT 60 UNITS DAILY VIA INSULIN PUMP DIRECTED Dispense: 60 mL; Refill: 3 2. Carol Ann's disease 3. Mixed hyperlipidemia Return to clinic: 3-4 months documented in this encounterAdams County HospitalCaptalis [facility] [id number] Evaluation note* Encounter Date Diagnosis Assessment Notes Treatment Notes Treatment Clinical Notes Mar, Right otitis media with effusion (ICD-10 - H65.91) Continue flonase. [facility]ink or Dr. Doll for an appt. Mar, Enlarged lymph node (ICD-10 - R59.9) Present decreased in size, per Marcia. States same area increases and resolves in size through the years. [facility] Other 11-22-2023 Evaluation note* Encounter Date Diagnosis [...] resolved follow up with PCP is recommended. [facility] Other 11-15-2023 Evaluation + Plan note Diagnostic Tests Pending * PAP [id number]/06/23 [facility]10-09-2023 Evaluation note* Encounter Date Diagnosis Assessment Notes [...] verbalizes understanding of teaching points and instructions. [facility] Other 11-11-2022 Evaluation + Plan note Diagnostic Tests Pending * PAP [id number]/02/22 [facility]03-31-2022 NotePROCEDURE: XR ANKLE RT MIN 3 VIEWS, [...] Electronically authenticated by: JAYLIN LINDQUIST Date: 2021-07-20 16:18[facility]03-31-2022 NotePROCEDURE: XR ANKLE RT MIN 3 [...] Electronically authenticated by: JAYLIN LINDQUIST Date: 2021-07-20 16:18[facility] + Plan note Future Appointments Appointment Date:01/23/2024 09:30:00 AM Scheduled Provider: Location:FT.BD Appointment Type:BD Bone Density (FT) Future Scheduled Tests Radiology* BD Bone Density DEXA 01/23/24 [facility] Evaluation noteNo [employer] Other Evaluation note* Diagnosis Type 1 diabetes mellitus without complication (CMS-HCC)- Primary Type I (juvenile type) diabetes mellitus without mention of complication, not stated as uncontrolled Carol Ann's disease Chronic lymphocytic thyroiditis Mixed hyperlipidemia [facility] Diagnosis Sensorineural hearing loss (SNHL) of both ears- Primary Ear pain, right [facility]* Diagnosis Ear fullness, right- Primary Otalgia, right Sensorineural hearing loss (SNHL) of both ears Neck swelling Swelling, mass, or lump in head and neck [facility]* Diagnosis Ear fullness, right- Primary [facility] [place] [facility]* Diagnosis Type 1 diabetes mellitus without complication (CMS-HCC) Type I (juvenile type) diabetes mellitus without mention of complication, not stated as uncontrolled [facility] [place] [facility]* Diagnosis Neck swelling Swelling, mass, or lump in head and neck Lymphadenopathy, cervical Neck mass Swelling, mass, or lump in head and neck Preop testing- Primary Unspecified pre-operative examination Type 1 diabetes mellitus without complication (CMS-HCC) Type I (juvenile type) diabetes mellitus without mention of complication, not stated as uncontrolled Neck swelling Swelling, mass, or lump in head and neck Lymphadenopathy, cervical Neck mass Swelling, mass, or lump in head and neck [facility]* Diagnosis Neck swelling Swelling, mass, or lump in head and neck Lymphadenopathy, cervical Neck mass Swelling, mass, or lump in head and neck Type 1 diabetes mellitus without complication (CMS-HCC)- Primary Type I (juvenile type) diabetes mellitus without mention of complication, not stated as uncontrolled Neck swelling Swelling, mass, or lump in head and neck Lymphadenopathy, cervical Neck mass Swelling, mass, or lump in head and neck [facility]* Diagnosis Onset Date Resolution Status Dizziness acute Eustachian tube dysfunction [facility] Work Phone: Evaluation note* Diagnosis Type 1 diabetes mellitus without complication (CMS-HCC) Type I (juvenile type) diabetes mellitus without mention of complication, not stated as uncontrolled [facility]* Diagnosis Neck mass- Primary Swelling, mass, or lump in head and neck Ear fullness, right [facility]* Diagnosis Type 1 diabetes mellitus without complication (CMS-HCC) Type I (juvenile type) diabetes mellitus without mention of complication, not stated as uncontrolled documented [facility] - Reported* Type Description Date Medical History Type 1 diabetes armando itus with other circulatory complications Medical History Hyperlipidemia Surgical History arthroscopic knee surgery 2001 Surgical History shoulder release 2014 Hospitalization History see above surgical histo ry Hospitalization History diabeties [facility] Other Hospital course Narrative No data available for this section [facility] No data available for this section [facility] filedocumented in this encounter [facility] filed[facility] filedocumented in this [facility] filedocumented in this encounter [facility] filedocumented in this encounter [facility] filedocumented in this encounter [facility] filedocumented in this encounter [facility] filedocumented in this encounter [facility] filedocumented in this encounter [facility] No data available for this section [facility] Summary Purpose Family History Relationship Condition Age at Onset Recorded Date/T rita father Unknown mother Heart disease Unknown Diabetes mellitus Unknown Advance Directives Advance Directive Response Recorded Date/ Time Advance Directives No February 11, 2024 11:35am Advance Directive Response Recorded Date/ Time Advance Directives No February 11, 2024 10:35am Reason for Referral Specialty Diagnoses / Procedures Referred By Contac t Referred To Contact Diagnoses Preop testing Procedures ECG 12 lead Jose Matos MD [address] [facility] [place] [address] Referral ID Status Reason Start Date Expiration Date V isits Requested Visits Authorized [id number] Pending Review 01/30/2024 01/29/2025 1 1 Specialty Diagnoses / Procedures Referred By Contac t Referred To Contact Radiology Diagnoses Otalgia, right Ear fullness, right Procedures MR brain IAC with and without contrast Stacy Brink MD [address] [facility] [address] [place] [address] Referral ID Status Reason Start Date Expiration Date V isits Requested Visits Authorized [id number] Pending Review 07/11/2023 07/10/[address] Brink or Dr[address] Zavala er w [facility] - 3 months of R middle ear effusion Diagnosis 1 Right otitis media w ith effusion (H65.91) Referral Organization [facility] too Referring Provider First Name Antonio Referring Provider Last Name Lisa Referring Provider Specialty Family [facility] Referred Organization [facility] Referred Address [address] [facility], [place],[address] Referred Provider Specialty Ear, Nose an d Throat Referral Priority Routine Reason *FU 03/22 evaluate Diagnosis 1 Right otitis media w ith effusion (H65.91) Referral Organization [facility] too Referring Provider First Name Rosa Referring Provider Last Name Ary Referring Provider Specialty Nurse Pract itioner Referred Organization [facility] Referred Provider Ekta Cash Referred Address ,[place], [place],[address] Referred Provider Specialty Ear, Nose an d Throat Referral Priority Routine General Notes Delma Clark 05:53:09 PM >received today, notes locked, ins attached, referral faxed Chief Complaint and Reason for Visit Chief Complaint Amb Documentation Amb Documentation Amb Documentation Dizziness, ear pain/fullness Reason for Visit Dizziness Eustachian tube dysfunction Chief Complaint Admit Date Amb Documentation February 10, 2024 1 1:46am Amb Documentation February 10, 2024 1 :11pm Amb Documentation February 10, 2024 2 :51pm Dizziness, ear pain/fullness January 11:38am chest congestion, bodyaches February 9:30am Reason for Visit Admit Date Dizziness February 11, 2024 1 1:38am Eustachian tube dysfunction January 11:38am Bronchitis March 03, 2024 9:30am Additional Source Comments INFORMATION SOURCE (unrecogn ized section and content) DATE CREATED AUTHOR 10/16/2017 [facility] DATE CREATED AUTHOR AUTHOR'S ORGANIZ ATION 03/03/2020 [facility] DATE CREATED AUTHOR AUTHOR'S ORGANIZ ATION 03/07/2022 [facility] DATE CREATED AUTHOR AUTHOR'S ORGANIZ ATION 02/01/2024 [facility] Patient Care team informatio n (unrecognized section and content) Lounge Car Attendant Relationship Specialty [place] [address] [place] [address] [id number] PCP - General 07/10/23 Lounge Car Attendant Relationship Specialty [place] [address] [place] [address] [id number] PCP - General 07/10/23 Lounge Car Attendant Relationship Specialty [place] [address] [place] [address] [id number] PCP - General 07/10/23 Lounge Car Attendant Relationship Specialty Start Date End Date Antonio Gonzalez MD [address] [place] [address] PCP - General 07/10/23 Lounge Car Attendant Relationship Specialty Start Date End Date Antonio Gonzalez MD [address] [place] [address] PCP - General 07/10/23 Lounge Car Attendant Relationship Specialty Start Date End Date Antonio Gonzalez MD [address] [place] [address] PCP - General 07/10/23 Lounge Car Attendant Relationship Specialty Start Date End Date Antonio Gonzalez MD [address] [place] [address] PCP - General 07/10/23 Lounge Car Attendant Relationship Specialty Start Date End Date Antonio Gonzalez MD [address] [place] [address] PCP - General 07/10/23 Lounge Car Attendant Relationship Specialty [place] [address] [place] [id number] PCP - General 07/10/23 Team Status: Active Member Role Status Dates Antonio Gonzalez MD Primary Care Provider Active Team Status: Active Member Role Status Dates Antonio Gonzalez MD Primary Care Provider Active Start: February 10, 2024 Rylie Garcia CMA Attending Provider Active Start: February 10, 2024 Team Status: Inactive Member Role Status Dates Antonio Gonzalez MD Primary Care Provider Active Start: February 11, 2024 End: February 11, 2024 Rosa Mcallister APRN REMOTE SENSING ENGINEER-C Attending Provider Active Start: February 11, 2024 End: February 11, 2024 Lounge Car Attendant Relationship Specialty Start Date End Date Antonio Gonzalez MD [address] [place] [address] PCP - General 07/10/23 Lounge Car Attendant Relationship Specialty Start Date End Date Antonio Gonzalez MD [address] [place] [address] PCP - General 07/10/23 Lounge Car Attendant Relationship Specialty Start Date End Date Antonio Gonzalez MD [address] [place] [address] PCP - General 07/10/23 Team Status: Inactive Member Role Status Dates Antonio Gonzalez MD Primary Care Provider Active Start: March 03, 2024 End: March 03, 2024 Rosa Mcallister APRN REMOTE SENSING ENGINEER-C Attending Provider Active Start: February End: March 03, 2024 REASON FOR VISIT (unrecogniz ed section and content) Reason Comments Med Refill Reason Comments Diabetes Mellitus Reason Comments Ear Problem Reason Comments Otitis Media Specialty Diagnoses / Procedures Referred By Contperla t Referred To Contact Otolaryngology Diagnoses Right otitis media with effusion Antonio Gonzalez MD [address] [place] [address] [facility] [address] [place] [address], [address] [phone] Referral ID Status Reason Start Date Expiration Date Visits Requested Visits Authorized [id number] Pending Review Specialty Services Required 05/06/2023 05/05/2024 1 1 Reason Onset Date Comments Med Refill 02/04/2024 Reason Comments Post-op Right neck lymph nos e excision Reason Onset Date Comments Med Refill 02/28/2024 Reason Onset Date Comments Med Refill 03/10/2024 Goals (unrecognized section and content) Goals may be documented in a n alternate section FOR RECORDS PERTAINING TO PATIENTS WHO ARE [...] BE BASED ON THE PRIMARY CLINICAL RECORDS. [facility] [employer] [facility]. provides no warranty or guarantee of the accuracy or completeness of information in this document.
[2024-03-16 15:42] LABS: Free T4 0.77 ng/dL (0.76-1.46)
[2024-03-16 15:45] LABS: Alanine Aminotransferase 56 U/L (14-59); Albumin Globulin Ratio 1.1; Albumin Level 3.9 g/dL (3.4-5.0); Alkaline Phosphatase 77 U/L (46-116); Anion Gap 12.6; Aspartate Amino Transferase 31 U/L (15-37); BUN Creatinine Ratio 16.2; Bilirubin Total 0.5 mg/dL (0.2-1.0); Calcium 9.4 mg/dL (8.5-10.1); Carbon Dioxide 29.3 mmol/L (21.0-32.0); Chloride 103 mmol/L (98-107); Chol HDL Ratio 2.4; Cholesterol 204 mg/dL (<=200); Estimated GFR (African America >60 (>=60 mL/min/1.73m^2); Estimated GFR (Non-African Ame 56 (>=60 mL/min/1.73m^2); Globulin 3.6 g/dL; Glucose 88 mg/dL (74-106); HDL Cholesterol 85 mg/dL (40-60); Potassium 3.9 mmol/L (3.5-5.1); Sodium 141 mmol/L (136-145); Thyroid Stimulating Hormone 2.557 uIU/mL (0.358-3.740); Total Protein 7.5 g/dL (6.4-8.2); Triglycerides 42 mg/dL (<=150); VLDL CHOLESTEROL 8.4 mg/dL
[2024-03-17 07:59] LABS: Creatinine Urine Random 20.75 mg/dL (20.00-300.00)
[2024-03-17 08:01] LABS: Microalbumin Urine Random <1.3 mg/dL (<=30.0)
== END 2024-03-16 15:03 | disposition home or self-care (01) ==
LOC: LAB 15:02
PROVIDERS: PCP Family Medicine; Visit Provider Internal Medicine
DX: E03.8 Other specified hypothyroidism (principal); E10.9 Type 1 diabetes mellitus without complications; E06.3 Autoimmune thyroiditis
CPT/HCPCS: 36415; 80053; 80061; 82043; 82570; 84439; 84443

== ENCOUNTER 2024-07-09 07:47 | Outpatient (OUT) | payer BC, SELFPAY ==
--- OUTSIDE RECORDS SUMMARY | 2024-07-09 08:02 | XMS_ITS | CCD ---
Author Organization [facility] Care Team Providers Care Histology Teacher Name Role Phone CHARU CASTELLANOS Unavailable Unavailable CHARU CASTELLANOS Unavailable Unavailable SELF, REFERRED Unavailable Unavailable SELF, REFERRED Unavailable Unavailable ANTONIO GONZALEZ Primary Care Physician [phone] [facility], DR BARCLAY Admitting Unavailable MISC, DR BARCLAY Attending Unavailable LISA, DR ANTONIO Haddad Primary Care Unavailable GONZALEZ, DR ANTONIO Haddad Consulting Unavailable ADRIANNA DIAZ Admitting Unavailable JOE, ADRIANNA Mcallister Attending Unavailable GONZALEZ, DR ANTONIO Haddad Primary Care Unavailable ZIEBER, DR JAYLIN Charles Consulting Unavailable ADRIANNA DIAZ Consulting Unavailable MISC, DR BARCLAY Admitting Unavailable MISC, DR BARCLAY Attending Unavailable GONZALEZ, DR ANTONIO Haddad Primary Care Unavailable MISC, DR BARCLAY Consulting Unavailable GONZALEZ, DR ANTONIO Haddad Consulting Unavailable Antonio Gonzalez Unavailable Rosa Mcallister Unavailable [phone] Antonio Gonzalez MD Primary Care Provider Ron, Judit J Admitting Unavailable Ron, Judit J Attending Unavailable Ron, Judit J Referring Unavailable Ron, Judit J Admitting Unavailable Ron, Judit J Attending Unavailable Ron, Judit J Referring Unavailable ZSARNAY, ROGELIO A Admitting Unavailable ZSARNAY, ROGELIO A Attending Unavailable ZSARNAY, ROGELIO A Referring Unavailable Ron, Judit J Admitting Unavailable Ron, Judit J Attending Unavailable Ron, Judit J Referring Unavailable Unavailable Primary Care Provider Unavailabl e Allergies Allergy Classification Reported Allergen(s) Allergy Type Date of Onset Reaction(s) Facility (11 sources) Penicillin; Translations: [penicillin] Drug Allergy 07-04-19 21 Eruption of skin (disorder) [facility] (7 sources) Penicillin G Drug Allergy 04-09-20 23 [facility] (4 sources) Sulfamethoxazole / Trimethoprim Drug Allergy Unknown [facility] Other (4 sources) Penicillin G Benzathine & Proc Drug allergy Unknown [facility] Other (4 sources) patient allergy list reviewed by nurse or physicia Propensity to adverse reactions 11-13-19 Comment:Done [facility] Other (4 sources) Allergies Reconciled Propensity to adverse reactions 02-14-20 Unknown [facility] Other (4 sources) Substance with penicillin structure and antibacterial mechanism of action (substance) Drug allergy Unknown [facility] Other (2 sources) Sulfamethoxazole Drug Allergy 02-11-20 [facility] (20 sources) Penicillins Propensity to adverse reactions to drug 03-08-20 [facility] Medications Current Medications Medication Drug Class(es) [...] Active ascorbic acid 250 mg chewable tablet (20 sources) Vitamin C ascorbic acid, v itamin [...] 250 mg tablet Active 0 PO daily 6 5 November 12th, 2024 12:00am Take 2 on day 1 and then take 1 for the next 4 days (days 2-5) Start: 2023 Azithromycin 2 50 MG as directed Orally 2 tabs po today, then 1 tab daily x 4 more days for Jan, Active Calcium (9 sources) Phosphate Binder, Calcium Start: 08-16-2010 Calcium 600 D Tab Oral, Daily, Refill(s) 0 Start Date: 08/16/10 Status: Ordered calcium carbonate 1500 mg / cholecalciferol 0.01 mg oral tablet (20 sources) Vitamin D take 2 tablets by [...] / norethindrone acetate 0.5 mg oral tablet (9 sources) Estrogen Start: 08-16-2010 take 1 tablet [...] days Active ibuprofen 600 mg oral tablet (14 sources) Nonsteroidal Anti-inflammatory Drug Start: 02-07-2024 take [...] Indications: Type 1 diabetes mellitus without complication ([facility]) INJECT 60 UNITS DAILY VIA INSULIN PUMP DIRECTED 60 mL 3 07/29/2023 Active Insulin Infusion Pump (5 sources) Insulin Infusion Pump Active Humalog (9 sources) Insulin Analog Start: 1 Humalog SubCutaneous, mL, Refills(s) 0 Start Date: 08/16/10 Status: Ordered levothyroxine sodium 0.075 mg oral tablet (20 sources) l-Thyroxine Start: 3 End: 5 take 1 tablet by mouth in the morning levothyroxine (SYNTHROID, LEVOTHROID) 75 MCG tablet Take 1 tablet (75 mcg total) by mouth in the morning. 90 tablet 3 05/18/2024 Active take 1 tablet by kalee th every twenty-four hours Levothyroxine Sodium 75 MCG 1 tablet onc e a day Active meclizine hydrochloride 25 mg oral tablet (2 sources) Antiemetic Start: 02-11-2024 take 1 tablet by mouth three times daily as needed for dizziness Meclizine 25 mg tablet Active 25 MG PO Three times daily as needed for dizziness 30 February 10, 2024 11:00pm Multiple Vitamins Tab (9 sources) Start: 08-16-2010 take 1 tablet by mouth once daily Multiple Vitamins Tab 1 tab(s), Oral, Daily, tab(s), Refill(s) 0 Start Date: 08/16/10 Status: Ordered Multivitamin preparation (5 sources) Multivitamin Ora lly Active pedi multivit no.12 w-fluoride (MULTIVITAMINS-FLUORI DE-FOLIC A ORAL) (20 sources) pedi multivit no .12 w-fluoride (MULTIVITAMINS-FLUO RIDE-FOLIC A ORAL) See Admin Instructions. Active pedi multivit no .12 w-fluoride (CZBZZSCMVUTPI-VKRPWLJC-TFQBG A ORAL) See Admin Instructions. 0 Active pravastatin sodium 80 mg oral tablet (20 sources) HMG-CoA Reductase Inhibitor Start: 06-09-2024 take 1 tablet by mouth in the morning pravastatin (PRAVACHOL) 80 mg tablet Take 1 tablet (80 mg total) by mouth in the morning. STOP 40 mg script. 90 tablet 3 06/09/2024 Active Start: 04-16-2024 End: 05-18-2024 take 2 tablets by mouth in the morning pravastatin (PRAVACHOL) 40 mg tablet Take 2 tablets (80 mg total) by mouth in the morning. 180 tablet 3 05/18/2024 Active Start: 05-11-2022 End: 04-16-2024 pravastatin (PRAVACHOL) 40 m g tablet TAKE 1 TABLET TWICE A DAY 180 tablet 3 04/29/2023 Active Start: 08-16-2010 take 1 tablet by kalee th once daily Pravastatin 40 mg tablet Active 40 MG PO Daily February 10, 2024 11:00pm take 1 tablet by kalee th every [...] Start Date: 08/16/10 Status: Ordered Vitamin D (9 sources) Start: 08-16-2010 take 1 mL by mouth o nce daily Vitamin D Oral, Daily, mL, Refills(s) 0 Start Date: 08/16/10 Status: Ordered Problems Active Problems Problem Classification Problem Date Documented Date Episodic/Chronic Acquired foot deformities (4 sources) Acquired deformity of right foot; Translations: [Other acquired deformities of right foot] Episodic Acute and chronic tonsillitis (2 sources) Hypertrophy of tonsils; Translations: [Hypertrophy of tonsils] 05-21-2024 Chronic Anxiety disorders (9 sources) Anxiety 10-08-2013 Chronic Chronic obstructive pulmonary [...] Translations: [Familial hypercholesterolemia] Onset: 06-12-2013 10-08-2013 Chronic Neoplasms of unspecified nature or uncertain behavior (4 sources) Neoplastic disease of uncertain behavior; Translations: [Neoplasm of unspecified behavior of bone, soft tissue, and skin] Episodic Other connective tissue disease (4 sources) Pain in right foot; Translations: [Pain in right foot] Episodic Other ear and sense organ disorders (3 sources) Sensorineural hearing loss, bilateral; Translations: [Sensorineural hearing loss, bilateral] 08-22-2023 Chronic Other ear and sense organ disorders (5 sources) Ear sensations - finding; Translations: [Other specified disorders of right ear] 05-21-2024 Episodic Other non-traumatic joint disorders (8 sources) Arthralgia of the ankle and/or foot; Translations: [Pain in joint, ankle and foot] Onset: 10-28-2015 Episodic Other non-traumatic joint disorders (4 sources) Shoulder joint pain; Translations: [Pain in right shoulder] Episodic Other upper respiratory disease (1 source) Nasal mucosa dry; Translations: [Other specified disorders of nose and nasal sinuses] 05-21-2024 Episodic Other upper respiratory infections (4 sources) [...] right leg, subsequent encounter] Episodic Thyroid disorders (20 sources) Hypothyroidism, unspecified; Translations: [Hypothyroidism] Onset: 11-01-2021 Chronic Unclassified (2 sources) Unknown / UNK(Unknown) Onset: 01-12-2016 Past or Other Problems Problem Classification Problem Date Documented Da te Episodic/Chronic Bacterial infection; unspecified site (4 sources) Bacterial infectious disease; Translations: [Bacterial infection, unspecified, in conditions classified elsewhere and of unspecified site] Onset: 06-11-2016 Episodic Lymphadenitis (20 sources) Enlarged lymph nodes, unspecified; Translations: [Cervical lymphadenopathy] Onset: 12-27-2023 Episodic Other bone disease and musculoskeletal deformities (1 source) Osteopenia; Translations: [Other specified disorders of bone density and structure, unspecified site] 11-04-2023 Episodic Other connective tissue disease (1 source) Pain in right foot; Translations: [PAIN IN RIGHT FOOT] Onset: 07-26-2021 Episodic Other ear and sense organ disorders (4 sources) Tinnitus; Translations: [Unspecified tinnitus] Onset: 11-12-2017 Episodic Other ear and sense organ disorders (4 sources) Infective otitis externa; Translations: [Other infective otitis externa, right ear] Onset: 04-09-2017 Episodic Other ear and sense organ disorders (3 sources) Otalgia, right ear; Translations: [Otalgia, unspecified] 08-22-2023 Episodic Other nervous system disorders (4 sources) Paresthesia; Translations: [Paresthesia of skin] Onset: 03-29-2014 Episodic Other non-traumatic joint disorders (4 sources) Pain in right ankle and joints of right foot; Translations: [PAIN IN RIGHT ANKLE] Onset: 07-20-2021 Episodic Other skin disorders (20 sources) Neck swelling; Translations: [Localized swelling, mass and lump, neck] Onset: 12-27-2023 12-27-2023 Episodic Other skin disorders (20 sources) Mass of neck; Translations: [Localized swelling, mass and lump, neck] Onset: 12-27-2023 01-31-2024 Episodic Other upper respiratory infections (12 sources) Acute pharyngitis; Translations: [Acute pharyngitis, unspecified] Onset: 06-12-2013 Episodic Results Test Name Value Interpretation Reference Range Facility [facility] Mamm Screen w/CAD if perf and 3D Bilon 04-20-2024 [place] Mamm Screen w/CAD if perf and 3D Yo Exam Date/Time: 04/17/2024 14:48 EST Reason for Exam: Z12.31 Report IMPRESSION: BIRADS 2 BENIGN FINDINGS, NORMAL INTERVAL FOLLOW-UP.12 MONTH RECALL. CLINICAL HISTORY: Z12.31. COMPARISON: 04/11/2023 and 04/30/2023. COMMENT: Routine views and tomosynthesis views of both breasts were obtained. The breasts are heterogeneously dense, which may obscure small masses. There is a grouping of benign-appearing calcifications in the left breast. There are limited vascular calcifications in the right breast. No dominant breast mass nor neoplastic calcifications are noted. There has been no significant change when compared to the prior exam. The examination was reviewed with Computer Aided Detection. Breast Density: Yes Mammography is very important to your health. The current [employer] and National [employer] guidelines recommends annual mammography beginning at age 40. This facility utilizes a reminder system to ensure all patients receive reminder notifications at the appropriate time based on the recommendations of this exam. Board Certified Radiologists. Accredited by the ACR and FDA. Ordering Provider: Judit Velasquez FINAL REPORT Dictated: 04/20/2024 4:44 pm Brandon Medrano M.D. Signed (Electronic Signature): 04/20/2024 4:44 pm Signed by: Brandon Medrano M.D. Transcribed by: MAHIN Technologist: [facility] Assessment: BI-RADS Category 2-Benign finding Recommendation: Normal interval follow-up Normal [facility] POCT Hemoglobin A1con 2023 HbA1c (Bld) [Mass fraction] 6.3 % 4 - 7 % [facility] Influenza virus B Ag [Presen ce] in Upper respiratory specimen by Rapid immunoassayon 03-03-2024 FLUBV Ag IA.rapid Ql (Nph) Influenza virus B Ag [Presence] in Upper respiratory specimen by Rapid immunoassay [facility] No Panel Informationon 03-03 Influenza Type A (Rapid) Negative [facility] POC SARS CoV-2 Antigen Negative [facility] ECG 12 leadon 01-31-2024 TRACEMASTERVUE [facility] Basic Metabolic Panelon 01-20 Anion gap [Moles/Vol] 4 mmol/L Low 5 - 15 mmol/L [facility] Calcium [Mass/Vol] 9.5 mg/dL 8.5 - 10. 5 mg/dL [facility] Chloride [Moles/Vol] 102 mmol/L 98 - 109 mmol/L [facility] CO2 [Moles/Vol] 32 mmol/L 22 - 32 mmol/L [facility] Creatinine [Mass/Vol] 0.90 mg/dL 0.40 - 1.00 mg/dL [facility] Comment on above: METHOD TRACEABLE TO [facility] STANDARD eGFR (CKD-EPI)non-race dependent 71 - PINF [facility] Comment on above: Reported eGFR is based on the CKD-EPI 2020 equation that does not use a race coefficient. Glucose [Mass/Vol] 119 mg/dL High 65 - 99 mg/dL [facility] Interpretation and review of laboratory results Abnormal [facility] Potassium [Moles/Vol] 4.2 mmol/L 3.5 - 5.0 mmol/L [facility] Sodium [Moles/Vol] 138 mmol/L 134 - 146 mmol/L [facility] Urea nitrogen [Mass/Vol] 19 mg/dL 5 - 27 mg/dL [facility] Hemoglobin A1con 01-30-2024 Average glucose Estimated from glycated hemoglobin (Bld) [Mass/Vol] 137 mg/dL [facility] HbA1c (Bld) [Mass fraction] 6.4 % High 4.4 - 5.6 % [facility] Comment on above: NOTE ADA Guidelines Result HgbA1c Normal : less than 5.7 % Prediabetes : 5.7 % to 6.4 % Diabetes : > 6.4 % Use with caution in patients with abnormal hemoglobin variants as the half-life of red blood cells and in vivo glycation rates are affected. Interpretation and review of laboratory results Abnormal [facility] Hemoglobin and hematocrit, b [facility] 01-30-2024 Hematocrit (Bld) [Volume fraction] 43.9 % 35 - 47 % [facility] Hemoglobin (Bld) [Mass/Vol] 14.7 g/dL 11.7 - 15.5 g/dL [facility] BD Bone Density DEXAon 01-26 BD [...] or a 10-year probability of a major osteoporosis-relate d fracture greater than or equal to 20% [...] MD Transcribed by: MAHIN Technologist: ARY Gaston [facility] US Breast Unilateral Lt Coretta shook 01-23-2024 US Breast Unilateral Lt Complete Exam Date/Time: 01/21/2024 08:34 EDT Reason for Exam: N64.9 Report IMPRESSION: BIRADS 2 BENIGN FINDINGS, NORMAL INTERVAL FOLLOW-UP EXAM: US Breast Unilateral Lt Complete DATE: 01/21/2024 8:05 AM CLINICAL HISTORY: N64.9. COMPARISON: 08/01/2023 and 04/30/2023. TECHNIQUE: Ultrasound was performed at all clock face positions and in the central/retroareola r region of the left breast. FINDINGS: Small [...] 2-Benign finding Recommendation: Normal interval follow-up Normal [facility] POCT Hemoglobin A1con 2023 HbA1c (Bld) [Mass fraction] 6.0 g/dL 4 - 7 g/dL [facility] Neck W contrast IVOrdered By: Yamilka Almonte on 09-05-2023 Radiology Study observation (narrative) [facility] CT Neck W contrast IVOrdered By: Yamilka Almonte on 08-17-2023 [facility] Physician Orderon 08-02-2023 Physician Order [id number] 1F#1.00TIFF Normal [facility] Consent for Treatmenton 07-21 Consent for Treatment [id number] 23#1.00TIFF Normal [facility] US Breast Unilateral Lt Comp leteon [...] M.D. Transcribed by: MAHIN Technologist: CHILO Irene [facility] POCT Hemoglobin A1con 2023 ADA Target < 8 Yes [facility] HbA1c (Bld) [Mass fraction] 6.3 g/dL 4 - 7 g/dL [facility] FREE T4on 03-02-2022 Free T4 [Mass/Vol] 0.94 ng/dL Normal 0.76-1.46 [facility] Comment on above: Performed By: #### F T4 #### [facility] [address] [place] [address] Dr. Sarah Hickman TSHon 03-02-2022 TSH 0.398 uIU/mL Normal 0.358-3.740 [facility] Comment on above: Performed By: #### T SH #### [facility] [address] [place] [address] Dr. Sarah Hickman FREE T4on 10-28-2021 Free T4 [Mass/Vol] 0.66 ng/dL Critically low 0.76-1.46 [facility] Comment on above: Performed By: #### F T4 #### [facility] [address] [place] [address] Dr. Sarah Hickman LIPID PROFILEon 10-28-2021 CHOL-HDL RATIO NORM SEE BELOW Normal [facility] Comment on above: Result Comment: 3.3 - 4.4 LOW RISK 4.4 - 7.1 AVERAGE RISK 7.1 - 11.0 MODERATE RISK >11.0 HIGH RISK Performed By: #### L IPID, CMP, TSH #### [facility] [address] [place] [address] Dr. Sarah Hickman Cholesterol [Mass/Vol] 197 mg/dL Normal <=200 [facility] Comment on above: Performed By: #### L IPID, CMP, TSH #### [facility] [address] [place] [address] Dr. Sarah Hickman Cholesterol in HDL [Mass/Vol] 78 mg/dL Critically high 40-60 [facility] Comment on above: Performed By: #### L IPID, CMP, TSH #### [facility] [address] [address] [address] Sarah Hickman Cholesterol in LDL [Mass/Vol] 108.4 mg/dL Normal [facility] Comment on above: Performed By: #### L IPID, CMP, TSH #### [facility] [address] [address] [address] Sarah Hickman Cholesterol.total/C holesterol in HDL [Mass ratio] 2.5 {ratio} Normal [facility] Comment on above: Performed By: #### L IPID, CMP, TSH #### [facility] [address] [address] [address] Sarah Hickman HDL NORMAL > or = 60 mg/dl - LOW CARDIOVASCULAR RISK <40 mg/dl - HIGH CARDIOVASCULAR RISK Normal [facility] Comment on above: Performed By: #### L IPID, CMP, TSH #### [facility] [address] [address] [address] Sarah Hickman LDL CALC NORMAL SEE BELOW Normal [facility] Comment on above: Result Comment: <100 mg/dl OPTIMAL 100 - 129 mg/dl NEAR OR ABOVE OPTIMAL 130 - 159 mg/dl BORDERLINE HIGH 160 - 189 mg/dl HIGH >190 mg/dl VERY HIGH Performed By: #### L IPID, CMP, TSH #### [facility] [address] [address] [address] Sarah Hickman Triglyceride [Mass/Vol] 53 mg/dL Normal <=150 [facility] Comment on above: Performed By: #### L IPID, CMP, TSH #### [facility] [address] [address] [address] Sarah Hickman VLDL CALC 10.6 mg/dL Normal [facility] Comment on above: Performed By: #### L IPID, CMP, TSH #### [facility] [address] [address] [address] Sarah Hickman MICROALBUMIN, RAND URon 07-0 mALB 4.4 mg/L Normal <=30.0 [facility] Comment on above: Performed By: #### M ALBR #### [facility] [address] [address] [address] Sarah Hickman PROF 14(COMP METB)on 022 Albumin [Mass/Vol] 3.9 g/dL Normal 3.4-5.0 [facility] Comment on above: Performed By: #### L IPID, CMP, TSH #### [facility] [address] [address] [address] Sarah Hickman Albumin/Globulin [Mass ratio] 1.1 {ratio} Normal [facility] Comment on above: Performed By: #### L IPID, CMP, TSH #### [facility] [address] [place] [address] Dr. Sarah Hickman ALP [Catalytic activity/Vol] 45 U/L Critically low 46-116 [facility] Comment on above: Performed By: #### L IPID, CMP, TSH #### [facility] [address] [address] [address] Sarah Hickman ALT [Catalytic activity/Vol] 39 U/L Normal 14-59 [facility] Comment on above: Performed By: #### L IPID, CMP, TSH #### [facility] [address] [place] [address] Dr. Sarah Hickman Anion gap [Moles/Vol] 10.6 mmol/L Normal [facility] Comment on above: Performed By: #### L IPID, CMP, TSH #### [facility] [address] [address] [address] Sarah Hickman AST [Catalytic activity/Vol] 26 U/L Normal 15-37 [facility] Comment on above: Performed By: #### L IPID, CMP, TSH #### [facility] [address] [place] [address] Dr. Sarah Hickman Bilirubin [Mass/Vol] 0.5 mg/dL Normal 0.2-1.0 [facility] Comment on above: Performed By: #### L IPID, CMP, TSH #### [facility] [address] [place] [address] Dr. Sarah Hickman Calcium [Mass/Vol] 8.9 mg/dL Normal 8.5-10.1 [facility] Comment on above: Performed By: #### L IPID, CMP, TSH #### [facility] [address] [address] [address] Sarah Hickman Chloride [Moles/Vol] 105 mmol/L Normal 98-107 [facility] Comment on above: Performed By: #### L IPID, CMP, TSH #### [facility] [address] [address] [address] Sarah Hickman CO2 [Moles/Vol] 29.4 mmol/L Normal 21.0-32.0 [facility] Comment on above: Performed By: #### L IPID, CMP, TSH #### [facility] [address] [address] [address] Sarah Hickman Creatinine [Mass/Vol] 0.97 mg/dL Normal 0.55-1.02 [facility] Comment on above: Performed By: #### L IPID, CMP, TSH #### [facility] [address] [address] [address] Sarah Hickman EGFR-AF KOSOVAN >60 Normal >=60 [facility] Comment on above: Performed By: #### L IPID, CMP, TSH #### [facility] [address] [place] [address] Dr. Sarah Hickman EGFR-NON AF KOSOVAN 58 mL/min/1.73m2 Critically low >=60 [facility] Comment on above: Performed By: #### L IPID, CMP, TSH #### [facility] [address] [address] [address] Sarah Hickman Globulin (S) [Mass/Vol] 3.6 g/dL Normal [facility] Comment on above: Performed By: #### L IPID, CMP, TSH #### [facility] [address] [address] [address] Sarah Hickman Glucose [Mass/Vol] 140 mg/dL Critically high 74-106 [facility] Comment on above: Performed By: #### L IPID, CMP, TSH #### [facility] [address] [place] [address] Dr. Sarah Hickman Potassium [Moles/Vol] 4.0 mmol/L Normal 3.5-5.1 [facility] Comment on above: Performed By: #### L IPID, CMP, TSH #### [facility] [address] [place] [address] Dr. Sarah Hickman Protein [Mass/Vol] 7.5 g/dL Normal 6.4-8.2 [facility] Comment on above: Performed By: #### L IPID, CMP, TSH #### [facility] [address] [place] [address] Dr. Sarah Hickman Sodium [Moles/Vol] 141 mmol/L Normal 136-145 [facility] Comment on above: Performed By: #### L IPID, CMP, TSH #### [facility] [address] [place] [address] Dr. Sarah Hickman Urea nitrogen [Mass/Vol] 15.0 mg/dL Normal 7.0-18.0 [facility] Comment on above: Performed By: #### L IPID, CMP, TSH #### [facility] [address] [place] [address] Dr. Sarah Hickman Urea nitrogen/Creatinine [Mass ratio] 15.5 mg/mg Normal [facility] Comment on above: Performed By: #### L IPID, CMP, TSH #### [facility] [address] [place] [address] Dr. Sarah Hickman TSHon 10-28-2021 TSH 7.247 uIU/mL Critically high 0.358-3.740 [facility] Comment on above: Performed By: #### L IPID, CMP, TSH #### [facility] [address] [place] [address] Dr. Sarah Hickman NEW MICROALBUMINon 0 Creatinine (U) [Mass/Vol] 36.5 mg/dL [facility] Comment on above: Order Comment: THE M ICROALBUMIN IS < 6.0 THEREFORE THE MICROALBUMIN/CREATININE RATIO IS UNDETECTABLE. Performed By: #### 8 00 #### [facility] [place] Unless Otherwise Noted [address] [facility] [address] [place] [address] / COLA #[id number]/CLIA # [id number] Microalbumin <6.0 Normal 0.0-30.0 Endocrine [facility] Comment on above: Order Comment: THE M ICROALBUMIN IS < 6.0 THEREFORE THE MICROALBUMIN/CREATININE RATIO IS UNDETECTABLE. Performed By: #### 8 00 #### [facility] Unless Otherwise Noted [address] [address] / COLA #[id number]/CLIA # [id number] Urine A/C Ratio -99.0 mg/g Low 0.0-30.0 [facility] Comment on above: Order Comment: THE M ICROALBUMIN IS < 6.0 THEREFORE THE MICROALBUMIN/CREATININE RATIO IS UNDETECTABLE. Performed By: #### 8 00 #### [facility] [place] Unless Otherwise Noted [address] [place] [id number] / COLA #[id number]/CLIA # [id number] Vital Signs Date Time Vital Sign Value Performing Clinician Facility 05-21-2024 10:58-0500 Body height 170.2 cm Stacy Brink MD Work Phone: [facility] 05-21-2024 10:58-0500 Body mass index (BMI) [Ratio] 23.21 kg/m2 Stacy Brink MD Work Phone: [facility] 05-21-2024 10:58-0500 Body temperature 97.3 [degF] Stacy Brink MD Work Phone: [facility] 05-21-2024 10:58-0500 Body weight 67.22 kg Stacy Brink MD Work Phone: [facility] 03-26-2024 14:47-0500 Body mass index (BMI) [Ratio] 22.85 kg/m2 Mayuri Salazar MD Work Phone: [facility] 03-26-2024 14:47-0500 Body weight 66.18 kg Mayuri Salazar MD Work Phone: [facility] 03-26-2024 14:47-0500 Diastolic blood pressure 68 mm[Hg] Mayuri Salazar MD Work Phone: [facility] 03-26-2024 14:47-0500 Heart rate 77 /min Mayuri Salazar MD Work Phone: [facility] 03-26-2024 14:47-0500 Systolic blood pressure 130 mm[Hg] Mayuri Salazar MD Work Phone: [facility] 03-03-2024 09:33-0500 Body height 170.18 cm [facility] 03-03-2024 09:33-0500 Body mass index (BMI) [Ratio] 22.7 kg/m2 [facility] 03-03-2024 09:33-0500 Body temperature 98.4 [degF] [facility] 03-03-2024 09:33-0500 Body weight 65.94 kg [facility] 03-03-2024 09:33-0500 Diastolic blood pressure 76 mm[Hg] [facility] 03-03-2024 09:33-0500 Heart rate 86 /min [facility] 03-03-2024 09:33-0500 SaO2% (BldA) [Mass fraction] 94 % [facility] 03-03-2024 09:33-0500 Systolic blood pressure 128 mm[Hg] [facility] 02-17-2024 13:05-0400 Body height 170.2 cm Ainsley Gilmore APRN-BUSINESS SYSTEMS ANALYST Work Phone: [facility] 02-17-2024 13:05-0400 Body mass index (BMI) [Ratio] 22.71 kg/m2 Ainsley Gilmore APRN-BUSINESS SYSTEMS ANALYST Work Phone: [facility] 02-17-2024 13:05-0400 Body weight 65.77 kg Ainsley Gilmore SAFETY ENGINEER PRESSURE VESSELS-BUSINESS SYSTEMS ANALYST Work Phone: [facility] 02-11-2024 11:45-0400 Body height 170.18 cm [facility] 02-11-2024 11:45-0400 Body mass index (BMI) [Ratio] 23 kg/m2 [facility] 02-11-2024 11:45-0400 Body temperature 98.2 [degF] [facility] 02-11-2024 11:45-0400 Body weight 66.67 kg [facility] 02-11-2024 11:45-0400 Diastolic blood pressure 78 mm[Hg] [facility] 02-11-2024 11:45-0400 Heart rate 72 /min [facility] 02-11-2024 11:45-0400 SaO2% (BldA) [Mass fraction] 97 % [facility] 02-11-2024 11:45-0400 Systolic blood pressure 142 mm[Hg] [facility] 01-30-2024 13:11-0400 Diastolic blood pressure 69 mm[Hg] [facility] 01-30-2024 13:11-0400 Systolic blood pressure 126 mm[Hg] [facility] 01-30-2024 12:46-0400 Body temperature 98.01 [degF] [facility] 01-30-2024 12:46-0400 Heart rate 69 /min [facility] 01-30-2024 12:46-0400 Respiratory rate 18 /min [facility] 01-30-2024 12:46-0400 SaO2% (BldA) [Mass fraction] 94 % [facility] 01-30-2024 12:39-0400 Body height 170.2 cm [facility] 01-30-2024 12:39-0400 Body mass index (BMI) [Ratio] 23.07 kg/m2 [facility] 01-30-2024 12:39-0400 Body weight 66.8 kg [facility] 12-26-2023 11:45-0400 Body height 170.2 cm Stacy Brink MD Work Phone: [facility] 12-26-2023 11:45-0400 Body mass index (BMI) [Ratio] 23.18 kg/m2 Stacy Brink MD Work Phone: [facility] 12-26-2023 11:45-0400 Body temperature 98.2 [degF] Stacy Brink MD Work Phone: [facility] 12-26-2023 11:45-0400 Body weight 67.13 kg Stacy Brink MD Work Phone: [facility] 11-04-2023 09:32-0400 Body mass index (BMI) [Ratio] 23.16 kg/m2 Rogelio Brunnernay SAFETY ENGINEER PRESSURE VESSELS-BUSINESS SYSTEMS ANALYST Work Phone: [facility] 11-04-2023 09:32-0400 Body weight 67.09 kg Rogelio Joyarnay SAFETY ENGINEER PRESSURE VESSELS-BUSINESS SYSTEMS ANALYST Work Phone: [facility] 11-04-2023 09:32-0400 Diastolic blood pressure 77 mm[Hg] Rogelio Brunnernay SAFETY ENGINEER PRESSURE VESSELS-BUSINESS SYSTEMS ANALYST Work Phone: [facility] 11-04-2023 09:32-0400 Heart rate 71 /min Rogelio Joyarnay SAFETY ENGINEER PRESSURE VESSELS-BUSINESS SYSTEMS ANALYST Work Phone: [facility] 11-04-2023 09:32-0400 Systolic blood pressure 133 mm[Hg] Rogelio Brunnernay SAFETY ENGINEER PRESSURE VESSELS-BUSINESS SYSTEMS ANALYST Work Phone: [facility] 08-22-2023 14:56-0400 Body height 170.2 cm Stacy Brink MD Work Phone: [facility] 08-22-2023 14:56-0400 Body mass index (BMI) [Ratio] 23.34 kg/m2 Stacy Brink MD Work Phone: [facility] 08-22-2023 14:56-0400 Body temperature 97.7 [degF] Stacy Brink MD Work Phone: [facility] 08-22-2023 14:56-0400 Body weight 67.59 kg Stacy Brink MD Work Phone: [facility] 07-11-2023 14:52-0400 Body height 170.2 cm Stacy Brink MD Work Phone: [facility] 07-11-2023 14:52-0400 Body mass index (BMI) [Ratio] 23.27 kg/m2 Stacy Brink MD Work Phone: [facility] 07-11-2023 14:52-0400 Body temperature 97.7 [degF] Stacy Brink MD Work Phone: [facility] 07-11-2023 14:52-0400 Body weight 67.41 kg Stacy Brink MD Work Phone: [facility] 07-09-2023 12:02-0400 Body mass index (BMI) [Ratio] 23.1 kg/m2 Mayuri Salazar MD Work Phone: [facility] 07-09-2023 12:02-0400 Body weight 66.91 kg Mayuri Salazar MD Work Phone: [facility] 07-09-2023 12:02-0400 Diastolic blood pressure 77 mm[Hg] Mayuri Salazar MD Work Phone: [facility] 07-09-2023 12:02-0400 Heart rate 70 /min Mayuri Salazar MD Work Phone: [facility] 07-09-2023 12:02-0400 Systolic blood pressure 129 mm[Hg] Mayuri Salazar MD Work Phone: [facility] 04-09-2023 13:00-0500 Body height 170.18 cm Antonio Gonzalez Other [employer] Other 04-09-2023 13:00-0500 Body mass index (BMI) [Ratio] 23.18 kg/m2 Antonio Gonzalez Other [employer] Other 04-09-2023 13:00-0500 Body weight 67.13 kg Antonio Gonzalez Other [employer] Other 04-09-2023 13:00-0500 Diastolic blood pressure 77 mm[Hg] Antonio Gonzalez Other [employer] Other 04-09-2023 13:00-0500 Systolic blood pressure 136 mm[Hg] Antonio Gonzalez Other [employer] Other 03-13-2023 13:00-0500 Body height 170.18 cm Rosa Mcallister Other [employer] Other 03-13-2023 13:00-0500 Body mass index (BMI) [Ratio] 23.05 kg/m2 Rosa Mcallister Other [facility] Other 03-13-2023 13:00-0500 Body temperature 97.4 [degF] Rosa Mcallister Other [facility] Other 03-13-2023 13:00-0500 Body weight 66.77 kg Rosa Mcallister Other [employer] Other 03-13-2023 13:00-0500 Diastolic blood pressure 72 mm[Hg] Rosa Mcallister Other [facility] Other 03-13-2023 13:00-0500 SaO2% (BldA) [Mass fraction] 97 % Rosa Mcallister Other [facility] Other 03-13-2023 13:00-0500 Systolic blood pressure 126 mm[Hg] Rosa Mcallister Other [employer] Other 2023 11:15-0400 Body height 170.18 cm Antonio Gonzalez Other [employer] Other 2023 11:15-0400 Body mass index (BMI) [Ratio] 23.02 kg/m2 Antonio Gonzalez Other [facility] Other 2023 11:15-0400 Body weight 66.68 kg Antonio Gonzalez Other [employer] Other 2023 11:15-0400 Diastolic blood pressure 72 mm[Hg] Antonio Gonzalez Other [employer] Other 2023 11:15-0400 Systolic blood pressure 151 mm[Hg] Antonio Gonzalez Other [employer] Other Encounters Encounter Date Encounter Type Care Provider Facility Start: 06-09-2024 End: 06-09-2024 Reinaldo Salazar MD Work Phone: [facility] Department of [facility] Start: 06-08-2024 End: 06-09-2024 Telephone encounter Krista Byrd LPN [facility] Start: 05-21-2024 End: 05-21-2024 Office outpatient visit 10 minutes Stacy Brink MD Work Phone: [facility] Comment on above: Neck mass (Primary D x); Ear fullness, right; Tonsillar hypertrophy; Nasal dryness Start: 05-18-2024 End: 05-18-2024 Refandres Salazar MD Work Phone: [facility] Start: 04-17-2024 End: 04-17-2024 ambulatory Judit Pagee Facility:[facility] Start: 04-17-2024 End: 04-17-2024 Patient encounter procedure Judit Velasquez [facility] Start: 04-16-2024 End: 04-16-2024 Refandres Salazar MD Work Phone: [facility] Start: 03-27-2024 End: 03-27-2024 Refandres Salazar MD Work Phone: [facility] Comment on above: Type 1 diabetes armando itus without complication ([facility]) Start: 03-26-2024 End: 03-26-2024 Office outpatient visit 25 minutes Mayuri Salazar MD Work Phone: [facility] Comment on above: Type 1 diabetes armando itus without complication ([facility]) (Primary Dx); Mixed hyperlipidemia Start: 03-23-2024 End: 03-23-2024 Refandres Salazar MD Work Phone: [facility] Comment on above: Type 1 diabetes armando itus without complication ([facility]) Start: 03-10-2024 End: 03-10-2024 Refill Rogelio WING Work Phone: [facility] Comment on above: Type 1 diabetes armando itus without complication ([facility]) Start: 03-03-2024 End: 03-03-2024 ambulatory [facility] Work Phone: Start: 03-03-2024 End: 03-03-2024 Patient encounter procedure [facility] Work Phone: Start: 02-28-2024 End: 02-28-2024 Refill Krista Byrd LPN [facility] Start: 02-20-2024 End: 02-20-2024 Refill Mayuri Salazar MD Work Phone: [facility] Start: 02-17-2024 End: 02-17-2024 Patient encounter procedure Ainsley Gilmore SAFETY ENGINEER PRESSURE VESSELS-BUSINESS SYSTEMS ANALYST Work Phone: [facility] Comment on above: Neck mass (Primary D x); Ear fullness, right Start: 02-14-2024 End: 02-14-2024 Telephone encounter Rogelio Rebolledo SAFETY ENGINEER PRESSURE VESSELS-BUSINESS SYSTEMS ANALYST Work Phone: [facility] Start: 02-11-2024 End: 02-11-2024 ambulatory [facility] Work Phone: Start: 02-11-2024 End: 02-11-2024 Patient encounter procedure Formerly [facility] Work Phone: Start: 02-10-2024 Non-patient / Non-visit [facility] Work Phone: Start: 02-10-2024 Non-patient / Non-visit [facility] Work Phone: Start: 02-10-2024 Non-patient / Non-visit [facility] Work Phone: Start: 02-04-2024 End: 02-04-2024 Refill Mayuri Salazar MD Work Phone: [facility] Comment on above: Type 1 diabetes armando itus without complication ([facility]) (Primary Dx) Start: 01-31-2024 End: 01-31-2024 Telephone encounter Mayuri Salazar MD Work Phone: [facility] Start: 01-30-2024 End: 01-30-2024 Patient encounter procedure [facility] Comment on above: Preop testing (Prima ry Dx); Type 1 diabetes mellitus without complication (CMS-HCC) Start: 01-30-2024 End: 01-30-2024 Patient encounter status [facility] Start: 01-29-2024 End: 01-29-2024 Telephone encounter Zenhelen Bates [facility] Start: 01-23-2024 End: 01-23-2024 ambulatory ROGELIO REBOLLEDO Facility:[facility] Start: 01-21-2024 End: 01-21-2024 ambulatory Judit Velasquez Facility:[facility] Start: 01-21-2024 End: 01-23-2024 Patient encounter procedure Juditmin Velasquez [facility] Start: 12-26-2023 End: 12-26-2023 Patient encounter procedure Stacy Brink MD Work Phone: [facility] Comment on above: Lymphadenopathy, cer vical (Primary Dx) Start: 11-07-2023 End: 11-07-2023 Telephone encounter [facility] Start: 11-04-2023 End: 11-04-2023 Telephone encounter Rogelio Rebolledo SAFETY ENGINEER PRESSURE VESSELS-BUSINESS SYSTEMS ANALYST Work Phone: [facility] Start: 11-04-2023 End: 11-04-2023 Office outpatient visit 25 minutes Rogelio Rebolledo SAFETY ENGINEER PRESSURE VESSELS-BUSINESS SYSTEMS ANALYST Work Phone: [facility] Comment on above: Type 1 diabetes armando itus without complication ([facility]) (Primary Dx); Osteopenia, unspecified location; 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; Carol Ann's disease Start: 10-09-2023 End: 10-10-2023 Telephone encounter Stacy Brink MD Work Phone: [facility] Comment on above: referral question Start: 09-05-2023 End: 09-05-2023 Orders Only Stacy Brink MD Work Phone: [facility] Start: 08-22-2023 End: 08-22-2023 Patient encounter procedure Stacy Brink MD Work Phone: [facility] Comment on above: Neck swelling (Prima ry Dx); Ear fullness, right; Otalgia, right; Sensorineural hearing loss (SNHL) of both ears; Tonsillith; Lymphadenopathy, cervical Start: 08-12-2023 End: 08-12-2023 Telephone encounter Stacy Brink MD Work Phone: [facility] - [facility] Comment on above: Order for CT scan ne eds faxed Start: 08-09-2023 End: 08-09-2023 Orders Only Stacy Brink MD Work Phone: [facility] Comment on above: Neck mass (Primary D x) Start: 08-01-2023 End: 08-01-2023 ambulatory Judit Velasquez Facility:[facility] Start: 08-01-2023 End: 08-01-2023 Patient encounter procedure Judit Velasquez [facility] Start: 07-28-2023 Reinaldo rico MD Work Phone: [facility] [place] [facility] Comment on above: Type 1 diabetes armando itus without complication ([facility]) Start: 07-26-2023 Orders Only Ainsley medina APRN-BUSINESS SYSTEMS ANALYST Work Phone: [facility] Comment on above: Ear fullness, right (Primary Dx) Need order for creat inine lab work Start: 07-23-2023 Telephone encounter Stacy Brink MD Work Phone: [facility] Start: 07-11-2023 End: 07-11-2023 Patient encounter procedure Stacy Brink MD Work Phone: [facility] Comment on above: Ear fullness, right (Primary Dx); Otalgia, right; Sensorineural hearing loss (SNHL) of both ears; Neck swelling Start: 07-11-2023 End: 07-11-2023 Clinical Support Criss Francisco ORLANDO Work Phone: [facility] Comment on above: Sensorineural hearin g loss (SNHL) of both ears (Primary Dx); Ear pain, right Start: 07-09-2023 End: 07-09-2023 Office outpatient visit 25 minutes Mayuri Salazar MD Work Phone: [facility] Comment on above: Type 1 diabetes armando itus without complication ([facility]) (Primary Dx); Carol Ann's disease; Mixed hyperlipidemia Start: 05-01-2023 End: 05-01-2023 ambulatory Antonio Gonzalez Other [employer] Other Start: 05-01-2023 Telephone encounter Antonio Gonzalez [facility] Start: 04-30-2023 End: 04-30-2023 Patient encounter procedure Judit Velasquez [facility] Start: 04-29-2023 Reinaldo rico MD Work Phone: [facility] Start: 04-26-2023 End: 04-26-2023 ambulatory Antonio Gonzalez Other [employer] [facility] [employer] Other Start: 04-26-2023 Telephone encounter Antonio Gonzalez [facility] Start: 04-11-2023 End: 04-11-2023 Patient encounter procedure Judit Velasquez [facility] Start: 04-09-2023 End: 04-09-2023 ambulatory Antonio Gonzalez Other [employer] Other Start: 04-09-2023 Office outpatient vi sit 15 minutes Antonio Gonzalez [facility] Start: 03-13-2023 End: 03-13-2023 ambulatory Rosa Ary Other [employer] Other Start: 03-13-2023 Office outpatient vi sit 15 minutes Rosa Alvarezjessicacassy [facility] Start: 03-06-2023 End: 03-06-2023 Lab Drop off Judit Fermin Orn [facility] Start: 2023 End: 2023 ambulatory Antonio Lisa Other [employer] Other Start: 2023 Office outpatient vi sit 15 minutes Antonio Gonzalez [facility] Start: 04-10-2022 End: 04-10-2022 Patient encounter procedure Judit Fermin Pagee [facility] Start: 03-02-2022 End: 03-03-[address] DOCTOR AGUDELO Facility:[facility] Start: 03-02-2022 End: 03-02-2022 Lab Drop off Judit J Ron [facility] Start: 10-28-2021 End: 10-29-[address] DOCTOR AGUDELO Facility:[facility] Start: 07-20-2021 End: 07-21-2021 ambulatory ADRIANNA DIAZ Facility:[facility] Start: 01-12-2016 End: 01-13-2016 Ambulatory CHARU CASTELLANOS Facility:[facility] Procedures Date Procedure Procedure Detail Performing Clinician Start: 03-26-2024 Hemoglobin glycosyla pati a1c Mayuri Salazar MD Work Phone: Start: 01-30-2024 Basic metabolic pane l calcium total Jose Matos MD Work Phone: Start: 01-30-2024 Ecg routine ecg w/le ast 12 lds trcg only w/o i&r Jose Matos MD Work Phone: Start: 11-04-2023 Hemoglobin glycosyla pati a1c Rogelio Terango SAFETY ENGINEER PRESSURE VESSELS-BUSINESS SYSTEMS ANALYST Work Phone: Start: 08-17-2023 Ct soft tissue neck w/contrast material Scanning Provider External Start: 07-09-2023 Hemoglobin glycosyla pati a1c Mayuri [...] Treatment Date Care Activity Detail Author Start: 05-28-2025 Tobacco Screening Tobacco Screening [facility] Start: 05-21-2025 Adult BMI Screening Adult BMI Screen ing [facility] Start: 05-21-2025 Tobacco Screening Tobacco Screening [facility] Start: 03-26-2025 Adult BMI Screening Adult BMI Screen ing [facility] Start: 03-26-2025 Diabetic foot examination Diabetic Foot Exam [facility] Start: 03-26-2025 Tobacco Screening Tobacco Screening [facility] Start: 02-16-2025 Adult BMI Screening Adult BMI Screen ing [facility] Start: 02-16-2025 Tobacco Screening Tobacco Screening [facility] Start: 02-06-2025 Adult BMI Screening Adult BMI Screen ing [facility] Start: 02-06-2025 Tobacco Screening Tobacco Screening [facility] Start: 01-29-2025 Adult BMI Screening Adult BMI Screen ing [facility] Start: 01-29-2025 Tobacco Screening Tobacco Screening [facility] Start: 12-30-2024 Tobacco Screening Tobacco Screening [facility] Start: 12-25-2024 Adult BMI Screening Adult BMI Screen ing [facility] Start: 11-03-2024 Adult BMI Screening Adult BMI Screen ing [facility] Start: 11-03-2024 Diabetic foot examination Diabetic Foot Exam [facility] Start: 11-03-2024 Tobacco Screening Tobacco Screening [facility] Start: 08-29-2024 Tobacco Screening Tobacco Screening [facility] Start: 08-21-2024 Adult BMI Screening Adult BMI Screen ing [facility] Start: 07-27-2024 End: 07-27-2024 Patient encounter procedure [facility] Department of [facility] Start: 07-17-2024 Tobacco Screening Tobacco Screening [facility] Start: 07-10-2024 Adult BMI Screening Adult BMI Screen ing [facility] Start: 07-10-2024 Tobacco Screening Tobacco Screening [facility] Start: 07-08-2024 Adult BMI Screening Adult BMI Screen ing [facility] Start: 07-08-2024 Diabetic foot examination Diabetic Foot Exam [facility] Start: 07-08-2024 Tobacco Screening Tobacco Screening [facility] Start: 05-21-2024 End: 05-21-2024 Patient encounter procedure 05/21/2024 10:45 AM EST Office Visit [facility] [address] [facility] [address] [place] [address] Stacy Brink MD [address] [facility] [address] [place] [address] [facility] Start: 03-26-2024 End: 03-26-2024 Patient encounter procedure 03/26/2024 2:45 PM EST Office Visit [facility] [address] [facility] [address] [place] [phone] Mayuri Salazar MD [address] [facility] [address] [place] [address] [facility] Start: 03-25-2024 End: 03-25-2024 Patient encounter procedure 03/25/2024 1:15 PM EST Office Visit [facility] [address] [facility] [address] [place] [phone] Mirna Perry [address] [facility] [address] [place] [address] [facility] Start: 03-16-2024 End: 03-16-2024 Admission to same day surgery center 03/16/2024 11:45 AM EST - 03/16/2024 1:45 PM EST Surgery [facility] [address] [place] [phone] Stacy Brink MD [address] [address] EXCISION LYMPH NODE HEAD NECK [62977 (CPT )] [facility] Comment on above: EXCISION LYMPH NODE HEAD NECK [41651 (CPT )] Start: 03-16-2024 End: 03-16-2024 Bx/exc lymph node open superficial EXCISION LYMPH NODE HEAD NECK Neck swelling Lymphadenopathy, cervical Neck mass 03/16/2024 11:45 AM EST [facility] Start: 03-16-2024 Subsequent hospital visit by physician 03/16/2024 11:45 AM EST Hospital Encounter [facility] [address] [place] [address] Stacy Brink MD [address] [facility] [address] [place] [address] [facility] Start: 03-04-2024 Adult BMI Screening Adult BMI Screen ing [facility] Start: 03-04-2024 Diabetic foot examination Diabetic Foot Exam [facility] Start: 03-04-2024 Tobacco Screening Tobacco Screening [facility] Start: 03-02-2024 End: 03-02-2024 Patient encounter procedure 03/02/2024 1:30 PM EST Procedure visit [facility] [address] [place] [phone] [facility] Start: 02-18-2024 End: 02-18-2024 Patient encounter procedure 02/18/2024 2:15 PM EDT Office Visit [facility] [address] [place] [address], [address] [place] [address] Dimitry Boyle, PA-C [address] [place] [address] [address] [place] [address] [facility] Start: 02-17-2024 End: 02-17-2024 Patient encounter procedure 02/17/2024 1:15 PM EDT [facility] [address] [place] [address] Ainsley Gilmore APRN-BUSINESS SYSTEMS ANALYST [address] [facility] [place] [address] [facility] Start: 02-07-2024 End: 02-07-2024 Admission to same day surgery center 02/07/2024 10:45 AM EDT - 02/07/2024 12:45 PM EDT Surgery [facility] - Surgery [address] [place] [address] Stacy Brink MD [address] [facility] [address] [place] [address] EXCISION LYMPH NODE HEAD NECK [73211 (CPT )] [facility] Comment on above: EXCISION LYMPH NODE HEAD NECK [75849 (CPT )] Start: 02-07-2024 End: 02-07-2024 Bx/exc lymph node open superficial EXCISION LYMPH NODE HEAD NECK Neck swelling Lymphadenopathy, cervical Neck mass 02/07/2024 10:45 AM EDT [facility] Start: 02-07-2024 Subsequent hospital visit by physician 02/07/2024 10:45 AM EDT Hospital Encounter [facility] [address] [place] [address] [place] [address] [place] [address] [phone] [facility] Start: 02-07-2024 End: 02-07-2024 Admission to same day surgery center 02/07/2024 9:15 AM EDT - 02/07/2024 11:15 AM EDT Surgery [facility] [address] [place] [address] [place] [address] [place] [address] [phone] EXCISION LYMPH NODE HEAD NECK [04601 (CPT )] [facility] Comment on above: EXCISION LYMPH NODE HEAD NECK [04134 (CPT )] Start: 02-07-2024 End: 02-07-2024 Bx/exc lymph node open superficial EXCISION LYMPH NODE HEAD NECK Neck swelling Lymphadenopathy, cervical Neck mass 02/07/2024 9:15 AM EDT [facility] Start: 02-07-2024 Subsequent hospital visit by physician 02/07/2024 9:15 AM EDT Hospital Encounter [facility] [address] [place] [address] [place] [address] [place], [place] [address], [place] [address] [facility] - Surgery Start: 02-05-2024 DTaP,Tdap and Td Vaccines (3 - Td or Tdap) DTaP,Tdap and Td Vaccines (3 - Td or Tdap) [facility] Start: 01-30-2024 End: 01-30-2024 Patient encounter procedure 01/30/2024 12:15 PM EDT Procedure visit [facility] On [address] [address] [facility] Start: 12-22-2023 COVID-19 Vaccine ( season) COVID-19 Vaccine () [facility] Start: 12-22-2023 Influenza vaccination Influenza Vacc ine [facility] Start: 11-04-2023 End: 11-03-2024 AMB Dexa bone density, 1+ sites, axial skeleton, including vertebral fracture assessment AMB Dexa bone density, 1+ sites, axial skeleton, including vertebral fracture assessment Imaging Routine Osteopenia, unspecified location Expected: 11/04/2023, Expires: 11/03/2024 [facility] Work Phone: Comment on above: Expected: 11/04/2023 , Expires: 11/03/2024 Start: 11-04-2023 End: 11-04-2023 Patient encounter procedure 11/04/2023 9:30 AM EDT Office Visit [facility] [address] [phone] Rogelio Rebolledo, SAFETY ENGINEER PRESSURE VESSELS-BUSINESS SYSTEMS ANALYST [address] [address] [facility] Start: 08-22-2023 End: 08-22-2023 Patient encounter procedure 08/22/2023 2:45 PM EDT Office Visit [facility] [address] [place] [phone] Stacy Brink MD [address] [facility] [address] [place] [address] [facility] Start: 08-09-2023 End: 08-08-2024 CT Neck W contrast IV CT neck soft tissue with contrast Imaging Routine Neck mass Expected: 08/09/2023, Expires: 08/08/2024 [facility] Work Phone: Comment on above: Expected: 08/09/2023 , Expires: 08/08/2024 Start: 07-28-2023 Glaucoma screening Diabetic Op hthalmology Exam [facility] Start: 07-11-2023 End: 07-11-2023 Clinical Support [facility] [...] Routine Neck swelling Expected: 07/11/2023, Expires: 07/10/2024 [facility] Comment on above: Expected: 07/11/2023 , Expires: 07/10/2024 Start: 07-09-2023 End: 07-09-2023 Patient encounter procedure 07/09/2023 11:45 AM EDT Office Visit [facility] [address] [place] [phone] Mayuri Salazar MD [address] [place] [address] [facility] Start: 12-21-2022 COVID-19 Vaccine ( season) COVID-19 Vaccine ( season) [facility] Start: 01-27-2010 Administration of varicella zoster vaccine Zoster (Shingles) Vaccine (1 of 2) [facility] Start: 01-27-1981 Screening for malign ant neoplasm of cervix Pap Smear [facility] Start: 01-27-1979 DTaP,Tdap and Td Vaccines (1 - Tdap) DTaP,Tdap and Td Vaccines (1 - Tdap) [facility] Start: 1972 Depression Screening Depression Scre ening [facility] Start: 1960 Statin Use: Diabetic Statin Use: Valorie betic [facility] Start: 1960 Urine screening for protein Urine Microalbumin [facility] End: 03-26-2025 Basic metabolic 2000 panel - Serum or Plasma Basic Metabolic Panel Lab Routine Type 1 diabetes mellitus without complication ([facility]) 1 Occurrences starting 03/26/2024 until 03/26/2025 [facility] Comment on above: 1 Occurrences starti ng 03/26/2024 until 03/26/2025 End: 11-03-2024 Comprehensive metabolic 2000 panel - Serum or Plasma Comprehensive metabolic panel Lab Routine Type 1 diabetes mellitus without complication ([facility]) 1 Occurrences starting 11/04/2023 until 11/03/2024 [facility] Comment on above: 1 Occurrences starti ng 11/04/2023 until 11/03/2024 End: 07-25-2024 Creatinine includes GFR, serum Creatinine includes GFR, serum Lab Routine Ear fullness, right 1 Occurrences starting 07/26/2023 until 07/25/2024 [facility] Work Phone: Comment on above: 1 Occurrences starti ng 07/26/2023 until 07/25/2024 End: 11-03-2024 Lipid 1996 panel - Serum or Plasma Lipid profile Lab Routine Type 1 diabetes mellitus without complication ([facility]) 1 Occurrences starting 11/04/2023 until 11/03/2024 [facility] Comment on above: 1 Occurrences starti ng 11/04/2023 until 11/03/2024 End: 03-26-2025 Lipid 1996 panel - Serum or Plasma Lipid profile Lab Routine Mixed hyperlipidemia 1 Occurrences starting 03/26/2024 until 03/26/[address] 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 Comment on above: 1 Occurrences starti ng 11/04/2023 until 11/03/2024 Immunizations Immunization Date Immunization Notes Care Provider [facility] 01-18-2023 influenza virus vaccine, unspecified formulation Stacy Brink MD Work Phone: [facility] [employer] [facility] 02-04-2014 tetanus and diphther ia toxoids, adsorbed, preservative free, for adult use (5 Lf of tetanus toxoid and 2 Lf of diphtheria toxoid) Rosa Mcallister Other [facility] 02-11-2013 tetanus and diphther ia toxoids, adsorbed, preservative free, for adult use (5 Lf of tetanus toxoid and 2 Lf of diphtheria toxoid) Rosa Mcallister Other [facility] Payers Date Payer Category Payer Reza guerrier Managed Care - O ANTHEM [id number] 2021 Commercial Managed C are - POS [employer] [id number] 2021 Private Health Insurance AETNA A ETNA POS [id number] 2021-Present [phone] [address] [place] [address] [id number] 1960 Unknown [id number] 1960 Unknown [id number] 1960 Unknown [id number] 1960 Unknown [id number] 1960 Unknown [id number] 1960 Unknown [id number] 1960 Unknown [id number] 1959 Private Health Insurance [id number] Private Health Insurance [id number] Private Health Insurance [employer] [id number] Unknown [id number] Social History Date Type Detail Facility Tobacco smoking status [facility] Start: 06-02-2020 End: 03-26-2024 Sex Assigned At Female [facility] Start: 07-04-2022 End: 04-09-2023 Tobacco smoking status MTIS Never smoked tobacco (finding) [facility] Start: 1960 Sex Assigned At Female [facility] Start: 09-21-2019 End: 03-03-2024 Sex Female (finding) [facility] Start: 07-04-2022 Tobacco use and exposure Smokeless tobacco non-user [facility] Start: 03-26-2024 End: 05-28-2024 Alcoholic beverage intake Lifetime non-drinker (finding) [facility] Start: 06-02-2020 End: 03-26-2024 History of Social function [facility] Childcare Unknown [facility] Start: 1960 Sex assigned at Not on file [facility] Medical Equipment Procedure Code Equipment Code Equipment Origin al Text Equipment Identifier Dates Check glucose 7 times daily-compatible strips for Medtronic 780G pump. For 90 day supply [id number] Start: 03-27-2024 1 strip by other route as needed for high blood sugar. Checks 7 times/day. Glucometer communicates with her insulin pump. DX: E11.9 [id number] Start: 11-21-2022 End: 07-15-2024 Checks 7 times/d ay. Glucometer communicates with her insulin pump. DX: E11.9 [id number] Start: 11-04-2023 End: 01-30-2024 Check glucose 7 times daily-compatible strips for Medtronic 780G pump [id number] Start: 02-04-2024 End: 02-14-2024 Check glucose 7 times daily-compatible strips for Medtronic 780G pump [id number] Start: 02-14-2024 End: 03-10-2024 Check glucose 7 times daily-compatible strips for Medtronic 780G pump [id number] Start: 03-10-2024 End: 03-23-2024 Check glucose 7 times daily-compatible strips for Medtronic 780G pump [id number] Start: 03-23-2024 End: 03-26-2024 Check glucose 7 times daily-compatible strips for Medtronic 780G pump [id number] Start: 03-26-2024 End: 03-27-2024 Clinical Notes 07-20-2021 to 06-09-2024 Telephone Encounter - Zita Billings - 06/09/2024 1:12 PM ESTTelephone Encounter - Zita Billings - 06/09/2024 1:12 PM ESTTelephone Encounter - Krista Byrd LPN - 06/08/2024 10:23 AM EST Note Date & Type Note [facility] 06-09-2024 Miscellaneous Notes PLEASE SIGN AND SEND documented in this encounter [facility] 06-09-2024 Telephone encounter Note PLEASE SIGN AND SEND [facility] 06-08-2024 Miscellaneous Notes Pravastatin isnt covered for 2 pills daily Okay to send prescription for pravastatin 80 mg daily New script pended documented in this encounter [facility] 06-08-2024 Telephone encounter Note Pravastatin isnt covered for 2 pills daily [facility] 06-08-2024 Telephone encounter Note Okay to send prescription for pravastatin 80 mg daily [facility] 06-08-2024 Telephone encounter Note New script pended [facility] 05-21-2024 History of Presen t illness Narrative [facility] [place] [phone] SUBJECTIVE: Patient ID: Marcia Mario is a 64 y.o. female presents today for Chief Complaint Patient presents with Follow-up HPI: Marcia Mario is a 64 y.o. female seen to follow-up right neck mass. This was excised on 02/07/2024. Patient was last seen in office on 02/17/2024 for a PO appointment with MECCA Weller. She has not had any recent pain, itchiness, or other symptoms of the incision site. She occasionally massages this area to try to reduce scarring and tightness. Her right ear continues to be painful and feel full. Her jaw occasionally cracks. HISTORY: Past Medical History: Diagnosis Date Dental disorder chipped lower left molar Depression Diabetes mellitus type 1 (CMS-HCC) 07/1980 Hyperlipidemia Hypothyroid Neck swelling 01/2024 enlarged lymph node on right Visual impairment Glasses Past Surgical History: Procedure Laterality Date BREAST BIOPSY Bilateral CAPSULAR RELEASE SHOULDER Left EXCISION OF RIGHT NECK MASS Right 02/07/2024 Performed by Stacy Brink MD at [facility] KNEE ARTHROSCOPY Right LASIK Bilateral TOOTH EXTRACTION [...] on file Food Insecurity: No Food Insecurity (03/26/2024) Hunger Screening Food Insecurity - Worry: Never True Food Insecurity - Inability: Never True Transportation Needs: Not on file Physical Activity: Not on file Stress: Not on file Social Connections: Not on file Interpersonal Safety: Not on file Housing Instability: Not on file Allergies Allergen Reactions Penicillins Rash Current Outpatient Medications Medication Sig Dispense Refill ACCU-CHEK GUIDE TEST STRIPS strip Check glucose 7 times daily-compatible strips for [employer] 780G pump. For 90 day supply 700 strip 3 ascorbic acid, vitamin C, (ascorbic acid) 250 mg tablet,chewable Chew 1 tablet and swallow in the morning. aspirin 81 mg capsule Take 1 tablet by mouth Daily at 0630 Indications: treatment to prevent a heart attack. calcium carbonate-vitamin D3 (CALCIUM 600 + D,3,) [...] 3 levothyroxine (SYNTHROID, LEVOTHROID) 75 MCG tablet Take 1 tablet (75 mcg total) by mouth in the morning. 90 tablet 3 pedi multivit no.12 w-fluoride ([id number] A ORAL) See Admin Instructions. pravastatin (PRAVACHOL) 40 mg tablet Take 2 tablets (80 mg total) by mouth in the morning. 180 tablet 3 sertraline (ZOLOFT) 50 mg tablet Take 1 tablet (50 mg total) by mouth in the morning. No current facility-administered medications for this visit. REVIEW OF SYSTEMS: Review of Systems Constitutional: Negative for chills and fever. HENT: Negative for congestion, postnasal drip, sinus pressure, sinus pain and trouble swallowing. Eyes: Negative for redness. Respiratory: Negative for cough and shortness of breath. Cardiovascular: Negative for chest pain and palpitations. Gastrointestinal: Negative for nausea and vomiting. Musculoskeletal: Negative for gait problem. Skin: Negative for color change. Allergic/Immunologic: Negative for environmental allergies. Neurological: Negative for dizziness, light-headedness and headaches. Hematological: Does not bruise/bleed easily. Psychiatric/Behavioral: Negative for confusion. Data Reviewed: PHYSICAL EXAMINATION: Temp 36.3 C (97.3 F) Ht 170.2 cm (5' 7.01 ) Wt 67.2 kg (148 lb 3.2 oz) BMI 23.21 kg/m Constitutional: General Appearance: Healthy, alert, cooperative, and in no distress Ability to Communicate: Normal ability to communicate and Voice normal Head/Face: Inspection of Head/Face: Normocephalic without obvious abnormality, Atraumatic appearance, and Sinuses non-tender Facial Nerve: Facial nerve symmetrical and intact Salivary Glands: Parotid Gland: Normal, Submandibular Gland: Normal, and Sublingual Gland: Normal Eyes: No gross abnormalities, EOMI, and No Nystagmus Ears: External Ear: Normal bilateral External Auditory Canal: Normal bilateral Tympanic Membranes: Normal bilateral Middle Ear: Normal bilateral Hearing: Normal bilateral Nose: External Nose: Normal Septum: Midline septum Mucosa/Turbinates: Normal inferior turbinate and Abnormal bilateral Mucosal dryness mild Oral Cavity: Normal lips, Normal teeth, Normal gums, Normal floor of mouth, Normal oral mucosa, and Normal anterior tongue Oropharynx: Normal mucosa, Normal soft palate, Normal hard palate, Normal uvula, Tonsil hypertrophy right: 1+, Tonsil hypertrophy left: 1+, and Normal Vallecula TMJ: No pain, crepitus, or trismus right and left Neck: Neck supple, No adenopathy, Thyroid normal in size without nodules or tenderness, No palpable neck masses, Carotids normal, and Well-healing right neck incision Respiratory: No stridor, Normal respiratory effort and No use of accessory muscles Cardiovascular: Regular rate and Regular rhythm Neurologic: Patient is alert and oriented x3 with normal affect and grossly normal cranial nerves ASSESSMENT/PLAN: Marcia was seen today for follow-up. Diagnoses and all orders for this visit: Neck mass Ear fullness, right Tonsillar hypertrophy Nasal dryness Today's examination findings were discussed with the patient/patient's parent or guardian. Recommendations for treatment were provided including the following: - I advised massaging the incision/scar of right neck from the right lymph node excision daily to try to reduce the scarring/tightness. - There are no abnormal right ear findings in office today to explain the right ear fullness. 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 - Follow up as needed. I advised calling the office if symptoms change or worsen. The patient will contact my office if there are any additional questions or concerns: . Non-emergent messages received through [employer] may take up to 2 business days for a response. Scribe Statement: Scribed for and in the presence of Stacy Brink MD by Liat Valentin (scribe). Liat Valentin 05/21/2024 11:36 AM. Provider Statement: I Stacy Brink MD personally performed the services described in the documentation as described by the above named scribe in my presence. It is both accurate and complete at the time of final signature. Dr. Stacy Brink 05/21/2024 12:59 PM Electronically signed by Stacy Brink MD Please note that parts of this chart were generated using voice recognition [employer] Mimi dictation software. Although every effort was made to ensure the accuracy of this automated seat cover cutter, some errors in seat cover cutter may have occurred. Liat Valentin CNA 05/21/24 1143 Liat Valentin CNA 05/21/24 1144 Liat Valentin CNA 05/21/24 [id number] documented in this encounter [facility] 05-21-2024 Instructions Liat Valentin CNA - 05/21/2024 10:45 AM EST Today's examination findings were discussed with the patient/patient's parent or guardian. Recommendations for treatment were provided including the following: - I advised massaging the incision/scar of right neck from the right lymph node excision daily to try to reduce the scarring/tightness. - There are no abnormal right ear findings in office today to explain the right ear fullness. 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 - Follow up as needed. I advised calling the office if symptoms change or worsen. The patient will contact my office if there are any additional questions or concerns: . Non-emergent messages received through [employer] may take up to 2 business days for a response. documented in this encounter [facility] 05-18-2024 Miscellaneous Notes PLEASE SIGN AND SEND to new pharmacy documented in this encounter [facility] 05-18-2024 Telephone encounter Note PLEASE SIGN AND SEND [facility] new pharmacy [facility] 03-27-2024 Miscellaneous Notes Pt called in stating she spoke with pharmacy and to do a script for 700 strips. documented in this encounter [facility] 03-27-2024 Telephone encounter Note Pt called in stating she spoke with pharmacy and to do a script for 700 strips. [facility] 03-26-2024 History of Presen t illness Narrative Images from the original note were not included. REASON FOR VISIT: Marcia Mario returns today for follow-up of her diabetes. DIABETES HISTORY: Type of Diabetes: Type 1 Diabetes Mellitus Duration of Diabetes: since 1980 INTERVAL HISTORY: Last visit 11/04/23, HgA1c was 6.0%, today 6.3%. Ready to upgrade pump as warranty is out but not interested in sensor She is on pravastatin 80mg daily. She thinks she tried atorvastain in the past, but didn't tolerate due to myalgias. Recent labwork was not fasting. Has hypothyroidism taking 75 mcg levothyroxine daily. [...] : yes Current Diabetic medications: Medtronic 630G, not using sensor. Used medtronic enlite sensor in the past but did not feel it was accurate Prior Diabetic medications: various insulins Diet: carb counting Insulin pump settings: per download Blood glucose summary: Unable to download pump today due to technical issues Hypoglycemia: Awareness: good Frequency: infrequent Glucagon available: no Medic alert ID: no Past Medical History: Diagnosis Date Dental disorder chipped lower left molar Depression Diabetes mellitus type 1 ([facility]) 07/1980 Hyperlipidemia Hypothyroid Neck swelling 01/2024 enlarged lymph node on right Visual impairment Glasses Past Surgical History: Procedure Laterality Date BREAST BIOPSY Bilateral CAPSULAR RELEASE SHOULDER Left EXCISION OF RIGHT NECK MASS Right 02/07/2024 Performed by Stacy Brink MD at [facility] KNEE ARTHROSCOPY Right LASIK Bilateral TOOTH EXTRACTION 12/19/2023 Current Outpatient Medications: ascorbic acid, vitamin C, [...] mouth in the morning., Disp: , Rfl: ibuprofen (MOTRIN) 600 mg tablet, Take 1 tablet (600 mg total) by mouth every 6 (six) hours as needed for pain., Disp: 30 tablet, Rfl: 0 insulin aspart U-100 (NovoLOG U-100 Insulin aspart) 100 unit/mL injection, INJECT 60 UNITS DAILY VIA INSULIN PUMP DIRECTED, Disp: 60 mL, Rfl: 3 levothyroxine (SYNTHROID, LEVOTHROID) 75 MCG tablet, TAKE 1 TABLET ONCE DAILY INTHE MORNING ON AN EMPTY STOMACH, Disp: 90 tablet, Rfl: 3 pedi multivit no.12 w-fluoride ([id number] A ORAL), See Admin Instructions., Disp: , Rfl: pravastatin (PRAVACHOL) 40 mg tablet, TAKE 1 TABLET TWICE A DAY (Patient taking differently: Take 2 tablets (80 mg total) by mouth in the morning.), Disp: 180 tablet, Rfl: 3 sertraline (ZOLOFT) 50 mg tablet, Take 1 tablet (50 mg total) by mouth in the morning., Disp: , Rfl: ACCU-CHEK GUIDE TEST STRIPS strip, Check glucose 7 times daily-compatible strips for Medtronic 780G pump, Disp: 630 strip, Rfl: 3 Allergies, social history and family history were reviewed and updated in [facility]. REVIEW OF SYSTEMS: 12 systems were reviewed and were negative except for what has been mentioned above PHYSICAL EXAM: Wt Readings from Last 3 Encounters: 03/26/24 66.2 kg (145 lb 14.4 oz) 02/17/24 65.8 kg (145 lb) 02/07/24 66.3 kg (146 lb 2.6 oz) Body mass index is 22.85 kg/m . Vitals: 03/26/24 1447 BP: 130/68 Pulse: 77 Weight: 66.2 kg (145 lb 14.4 oz) General appearance: Well appearing female in [...] sensation normal Filament test present LABS: CBC: Lab Results Component Value Date HGB 14.7 01/30/2024 HCT 43.9 01/30/2024 CMP: Lab Results Component Value Date SODIUM 138 01/30/2024 K 4.2 01/30/2024 CL 102 01/30/2024 CO2 32 01/30/2024 ANIONGAP 4 (L) 01/30/2024 BUN 19 01/30/2024 CREATININE 0.90 01/30/2024 GLU 201 (H) 02/07/2024 CALCIUM 9.5 01/30/2024 LIPID: Reviewed labs from Feb 2024 scanned in chart, reviewed with patient ASSESSMENT: Marcia Mario has well controlled Type 1 Diabetes Mellitus without complications. Blood sugars are in good controlled, no changes to her pump settings today. Will check lipids fasting and repeat BMP Plan:1. Type 1 diabetes mellitus without complication ([facility]) - POCT Hemoglobin A1c - ACCU-CHEK GUIDE TEST STRIPS strip; Check glucose 7 times daily-compatible strips for Medtronic 780G pump Dispense: 630 strip; Refill: 3 - Basic Metabolic Panel; Future 2. Mixed hyperlipidemia - Lipid profile; Future Return to clinic: 3-4 months documented in this encounter [facility] 03-23-2024 Miscellaneous Notes Pt states script was never received- ok to sign and send documented in this encounter [facility] 03-23-2024 Telephone encounter Note Pt states script was never received- ok to sign and send [facility] 03-10-2024 Miscellaneous Notes Ok to sign and resend with updated qty documented in this encounter [facility] 03-10-2024 Telephone encounter Note Ok to sign and resend with updated qty [facility] 02-28-2024 Miscellaneous Notes error documented in this encounter [facility] 02-28-2024 Telephone encounter Note error [facility] 02-17-2024 History of Presen t illness Narrative Images from the original note were not included. [facility] [address] [place] [facility] [id number] SUBJECTIVE: Patient ID (1960): Marcia Mario is [...] left molar Depression Diabetes mellitus type 1 (CMS-HCC) 07/1980 Hyperlipidemia Hypothyroid Neck swelling 01/2024 enlarged lymph node on right Visual impairment Glasses Past Surgical History: Procedure Laterality Date BREAST BIOPSY Bilateral CAPSULAR RELEASE SHOULDER Left EXCISION OF RIGHT NECK MASS Right 02/07/2024 Performed by Stacy Brink MD at [facility] KNEE ARTHROSCOPY Right LASIK Bilateral TOOTH EXTRACTION [...] Check glucose 7 times daily-compatible strips for [employer] 780G pump 700 strip 3 calcium carbonate-vitamin [...] 90 tablet 3 pedi multivit no.12 w-fluoride ([id number]-[id number] A ORAL) See Admin Instructions. pravastatin (PRAVACHOL) [...] this chart were generated using voice recognition [employer]ia dictation software. Although every effort was made to ensure the accuracy of this automated seat cover cutter, some errors in seat cover cutter may have occurred. MECCA Weller 02/17/24 1326 documented in this encounter [facility] 02-14-2024 Miscellaneous Notes Needs renewal on test strips, sent today back to [facility] documented in this encounter [facility] 02-14-2024 Telephone encounter Note Needs renewal on test strips, sent today back to [facility] 02-14-2024 Miscellaneous Notes Called pt with dexascan reports, mailed copy to pt documented in this encounter [facility] 02-14-2024 Telephone encounter Note Called pt with dexascan reports, mailed copy to pt [facility] Work Phone: 02-11-2024 Evaluation note Diagnosis Onset Date Resolution Dizziness acute February 11, 2024 11:38am Eustachian tube dysfunction acute February 10 11:38am Bronchitis acute March 03, 2024 9:30am [facility] Work Phone: [phone] Miscellaneous Notes* Telephone Encounter - Zita Billings - 02/04/2024 11:22 AM EDT Ok to sign and send [facility] Telephone encounter Note* Telephone Encounter - Zita Billings - 02/04/2024 11:22 AM EDT Ok to sign and send [facility]10-11-2024 Miscellaneous Notes* Telephone Encounter - Kimo Salcedo [...] to inform their office documented in this [facility]10-11-2024 Telephone encounter Note* Telephone Encounter - Kimo Salcedo - 01/31/2024 12:07 PM EDT LM that they received surgical clearance for patient but could not read what was written regarding pump. It says temp basal of something. Asking clarification. Looking at it, it might say temp basal of 70%, Is this correct [facility]10-11-2024 Telephone encounter Note* Telephone Encounter - Mayuri Salazar MD - 01/31/2024 12:07 PM EDT Yes, use 70% temporary basal. Thanks [facility]10-11-2024 Telephone encounter Note* Telephone Encounter - Kimo Salcedo - 01/31/2024 12:07 PM EDT Detailed message left to inform their office [facility]10-10-2024 History and physical note* Leonora Angeles APRN-BUSINESS SYSTEMS ANALYST - 01/30/2024 12:15 PM EDT Images from the original note were not included. PRE-ADMISSION TESTING HISTORY AND PHYSICAL EXAM DATE: 01/31/24 PCP: ANTONIO GONZALEZ MD CHIEF COMPLAINT: neck swelling HISTORY OF PRESENT ILLNESS: Marcia Mario, a 64 y.o. White or female, presents to [facility] for a pre- surgical H&P. Thepatient [...] left molar Depression Diabetes mellitus type 1 ([facility]) 07/1980 Hyperlipidemia Hypothyroid Neck swelling 01/2024 enlarged [...] tablet, Rfl: 3 pedi multivit no.12 w-fluoride ([id number] A ORAL), See Admin Instructions., Disp: , [...] Loera 01/30/24 1319 MECCA Loera 01/31/24 1416 [facility]10-10-2024 History and physical note* Leonora Epperson MECCA Angeles - 01/30/2024 12:15 PM EDT Images from the original note were not included. PRE-ADMISSION TESTING HISTORY AND PHYSICAL EXAM DATE: 01/31/24 PCP: ANTONIO GONZALEZ MD CHIEF COMPLAINT: neck swelling HISTORY OF PRESENT ILLNESS: Marcia Mario, a 64 y.o. White or female, presents to [facility] for a pre- surgical H&P. Thepatient [...] left molar Depression Diabetes mellitus type 1 ([facility]) 07/1980 Hyperlipidemia Hypothyroid Neck swelling 01/2024 enlarged [...] tablet, Rfl: 3 pedi multivit no.12 w-fluoride ([id number] A ORAL), See Admin Instructions., Disp: , [...] MECCA Loera 01/31/24 1416 documented in this encounterFirelands [facility] CampusBrightDoor Systems [facility] [id number] Instructions* Patient Instructions* Rossy Pool RN - 01/30/2024 12:15 PM EDT Your surgery/procedure is scheduled at [facility] on 02-07-2024. Arrival Time: You will be contacted with an arrival time. [facility] Address: [address] [place] [address], [id number] Park in the Emergency Center Parking lot. Report to the front loader residential driver in the Emergency/Surgery Registration lobby of the hospital. Notify your SURGEON if you develop any illness such as a cold, cough, fever, sore throat, vomiting or are hospitalized between now and your surgery. Please call Pre-Admission Clinic at [phone] if you have any questions prior to surgery. For questions the morning of surgery, call the Pre-op Department at [phone]. Medication Instructions (Do not stop your medications [...] weekly, hold 1 week prior to surgery: Gelyro . Blood thinners: Please contact your prescribing [...] would like to schedule therapy at a [facility] facility, please call [phone] ([phone]). Do not use lotions, creams, powders, perfume, make up, cologne or after-shaves day of surgery. Remove ALL jewelry including wedding rings, body piercings, hair extensions that contain metal, nail malaysian, make-up, and contact lens. You may brush your teeth the morning of surgery, but do not swallow the water. Wear your dentures and partial plates to the hospital (no adhesive). Shower the night the before. If applicable, use the CHG (chlorhexidine gluconate) soap or wipes. Please be advised, [facility] has transitioned to a cashless [...] RIGHTS AND RESPONSIBILITIES As a patient at [facility], you have the right to: Receive medical care and be informed of who is taking care of you Be treated with dignity and respect Have a family member/labor service representative of choice and your physician notified of your admission Receive information and actively participate in decisions about your care and treatment Refuse care, treatment and services Decide who may provide your support and speak for you Access worship and spiritual services Participate in ethical issues [...] of hospital charges and payment methods Patient/patient labor service representative responsibilities are to: Provide information about health status to facilitate care, treatment and services Follow the treatment, plan, keep appointments and speak up when you do not understand the plan Respect the rights of other patients and healthcare personnel Follow organizational rules and regulations that support quality care and a safe environment Fulfill financial obligations as promptly as possible [facility] Miscellaneous Notes* Telephone Encounter - Zen Hatfield - 01/29/2024 9:39 AM EDT PATIENT NOTIFIED WITH SURGERY TIME OF 10:45 . TOLD TO ARRIVE 2 HOURS PRIOR. documented in [facility] Telephone encounter Note* Telephone Encounter - Zen Hatfield - 01/29/2024 9:39 AM EDT PATIENT NOTIFIED WITH SURGERY TIME OF 10:45 . TOLD TO ARRIVE 2 HOURS PRIOR. [facility]09-05-2024 History of Present illness Narrative* Stacy Brink MD - 12/26/2023 11:45 AM EDT Images from the original note were not included. [facility] [address] [place] [facility] [id number] SUBJECTIVE: Patient ID: Marcia Mario is a 63 y.o. female presents today for Chief Complaint Patient presents with aural fullness Earache HPI: Marcia Mario is a 63 y.o. female seen to follow-up to discuss pathology report of the FNA biopsy of right lymph node found on previous imaging. She was last seen on 08/22/23 and a referral was sent to Dr. Ryan for the biopsy. Patient underwent US neck and MRI Brain/IAC on 07/26/2023. Today, she notes no changes in symptoms since last visit. She states she recently had a cracked tooth on the right extracted in the beginning of September 2023. Marcia was started on antibiotics after this. Patient notes she follows with MECCA Mar for diabetes. HISTORY: Past Medical History: Diagnosis Date Allergic 1970 Penicillin - Rash Depression Diabetes mellitus ([facility]) 07/1980 Type 1 Disease of thyroid gland Hyperlipidemia Past Surgical History: Procedure Laterality Date BREAST BIOPSY EYE SURGERY KNEE ARTHROSCOPY LASIK Bilateral SHOULDER ARTHROSCOPY TOOTH EXTRACTION 12/19/2023 Family History Problem Relation [...] on file Food Insecurity: No Food Insecurity (11/04/2023) Hunger Screening Food Insecurity - Worry: Never [...] mg(1,500mg) -400 units per tablet 1 tablet insulin aspart U-100 (NovoLOG U-100 Insulin aspart) 100 unit/mL injection INJECT 60 UNITS DAILY VIAINSULIN PUMP DIRECTED 60 mL 3 levothyroxine (SYNTHROID, LEVOTHROID) 75 MCG tablet TAKE 1 TABLET ONCE DAILY INTHE MORNING ON AN EMPTY STOMACH 90 tablet 3 pedi multivit no.12 w-fluoride ([id number]-[id number]-RJFGX A ORAL) See Admin Instructions. pravastatin (PRAVACHOL) 40 mg tablet TAKE 1 TABLET TWICE A DAY 180 tablet 3 CONTOUR NEXT TEST STRIPS strip Checks 7 times/day. Glucometer communicates with her insulin pump. DX: E11.9 700 strip 3 No current facility-administered medications for this visit. REVIEW OF SYSTEMS: Review of Systems Constitutional: Negative for chills and fever. Eyes: Negative for visual disturbance. Respiratory: Negative for cough and shortness of breath. Cardiovascular: Negative for chest pain and palpitations. Gastrointestinal: Negative for nausea and vomiting. Endocrine: Negative for cold intolerance and heat intolerance. Genitourinary: Negative for difficulty urinating. Musculoskeletal: Negative for gait problem and neck stiffness. Skin: Negative for rash. Allergic/Immunologic: Negative for food allergies. Neurological: Negative for seizures. Hematological: Does not bruise/bleed easily. Psychiatric/Behavioral: Negative for confusion. Data Reviewed: 11/14/2023 Neck, Right, Fine Needle Aspiration, Lymph Node: PHYSICAL EXAMINATION: Temp 36.8 C (98.2 F) Ht 170.2 cm (5' 7 ) Wt 67.1 kg (148 lb) BMI 23.18 kg/m Constitutional: General Appearance: Healthy, alert, cooperative, and in no distress Ability to Communicate: Normal ability to communicate and Voice normal Head/Face: Inspection of Head/Face: Normocephalic without obvious abnormality, Atraumatic appearance, and Sinuses non-tender Facial Nerve: Facial nerve symmetrical and intact Salivary Glands: Parotid Gland: Normal, Submandibular Gland: Normal, and Sublingual Gland: Normal Eyes: No gross abnormalities, EOMI, and No Nystagmus Ears: External Ear: Normal bilateral Nose: External Nose: Normal Oral Cavity: Normal lips, Normal teeth, Normal gums, Normal floor of mouth, Normal oral mucosa, andNormal anterior tongue Oropharynx: Normal mucosa, Normal soft palate, Normal hard palate, Normal uvula, Normal tonsils, Normal Vallecula, and Healing dental extraction site on the right, Mild surrounding edema around this site Neck: Neck supple, No adenopathy, Thyroid normal in size without nodules or tenderness, No palpableneck masses, Carotids normal, and Mildly enlarged level 2 lymph node on right Respiratory: No stridor, Normal respiratory effort and No use of accessory muscles Cardiovascular: Regular rate and Regular rhythm Neurologic: Patient is alert and oriented x3 with normal affect and grossly normal cranial nerves ASSESSMENT/PLAN: Marcia was seen today for aural fullness and earache. Diagnoses and all orders for this visit: Lymphadenopathy, cervical Today's examination findings were discussed with the patient/patient's parent or guardian. Recommendations for treatment were provided including the following: - Discussed pathology report of the FNA biopsy of right lymph node found on previous imaging. I informed patient based on the FNA biopsy, I am unable to determine the specific results and make specific treatment recommendations at this time. I informed her I need to evaluate the lymph node further.Therefore, I advised scheduling an excision of right lymph node for definitive biopsy. Patient is in agreement. The procedure was discussed in office today. Risks, side effects, benefits, and alternatives were discussed. Informed patient this will be performed at either [facility] or [facility]. Since she is diabetic, we will need to get clearance from her awning hanger helper. Patient may call Zen at [phone] to schedule surgery. The patient will contact my office if there are any additional questions or concerns: . Non-emergent messages received through [employer] may take up to 2 business days for a response. Scribe Statement: Scribed for and in the presence of Stacy Brink MD by Liat Valentin (scribe). Liat Valentin 12/26/2023 12:58 PM Provider Statement: I Stacy Brink MD personally performed the services described in the documentation as described by the above named candiibe in my presence. It is both accurate and complete at the time of final signature. Dr. Stacy Brink 12/26/2023 7:42 AM Counseling: Preparing to see the patient (e.g., review [...] this chart were generated using voice recognition [employer] dictation software. Although every effort was made to ensure the accuracy of this automated seat cover cutter, some errors in seat cover cutter may have occurred. Gabriella Yu MA 12/26/23 1148 Liat Valentin CNA 12/26/23 1324 Liat Valentin CNA 12/26/23 1434 [facility] in [facility] Instructions* Patient Instructions* Liat Valentin CNA - 12/26/2023 11:45 AM EDT Today's examination findings were discussed with the patient/patient's parent or guardian. Recommendations for treatment were provided including the following: - Discussed pathology report of the FNA biopsy of right lymph node found on previous imaging. I informed patient based on biopsy, I am unable to determine the specific results and make any recommendations at this time. I informed her I need to evaluate the lymph node further. Therefore, I advised scheduling an excision of right lymph node. Patient is in agreement. The procedure was discussed in office today. Risks, side effects, benefits, and alternatives were discussed. Informed patient this will be performed at either [facility] or [facility]. Since she is diabetic, we will need to get clearance from her awning hanger helper. Patient may call Zen at [phone] to schedule surgery. The patient will contact my office if there are any additional questions or concerns: . Non-emergent messages received through [employer] may take up to 2 business days for a response. documented in this encounterGreen [facility]07-[facility]24 Miscellaneous Notes* Telephone Encounter - Anh Berrios CMA - 11/07/2023 9:49 AM EDT Patient received her new Medtronic pump and would like to receive training on it. Please review pended order and sign if agreeable. documented in this encounterGreen [facility] Hospital07-18-[facility]24 Telephone encounter Note* Telephone Encounter - Anh Berrios CMA - 11/07/2023 9:49 AM EDT Patient received her new Medtronic pump and would like to receive training on it. Please review pended order and sign if agreeable. [facility]07-15-2024 Miscellaneous Notes* Telephone Encounter - MECCA Chapman - 11/04/2023 9:55 AM EDT Upgrade to medtronic 780, she does NOT want a sensor * Telephone Encounter - Bessie Davis - 11/04/2023 9:55 AM EDT Referral faxed to [employer]. documented in this encounterGreen Cross Hospital07-15-2024 Telephone encounter Note* Telephone Encounter - MECCA Chapman - 11/04/2023 9:55 AM EDT Upgrade to medtronic 780, she does NOT want a sensor [facility]07-15-2024 Telephone encounter Note* Telephone Encounter - Bessie Davis - 11/04/2023 9:55 AM EDT Referral faxed to [employer]. [facility]07-15-2024 History of Present illness Narrative* MECCA Chapman - 11/04/2023 9:30 AM EDT REASON FOR VISIT: Marcia Mario returns today for follow-up of her diabetes. DIABETES HISTORY: Type of Diabetes: Type 1 Diabetes Mellitus Duration of Diabetes: since 1980 INTERVAL HISTORY: Last visit 03/04/23, HgA1c was 6.3%, today 6.0%. Has noticed over time some mild ear pain on the right, saw ENT, US demonstrated enlarged submandibular lymph node that can be palpated and she is having biopsy next week. Ready to upgrade pump as warranty is out but not interested in sensor She is planning on retiring later this year but not medicare eligible yet Has hypothyroidism taking 75 mcg levothyroxine daily. [...] : yes Current Diabetic medications: Medtronic 630G, not using sensor. Used medtronic enlite sensor in thepast but did not feel it was accurate Prior Diabetic medications: various insulins Diet: carb counting Insulin pump settings: per download Blood glucose summary: Unable to download pump today due to technical issues Hypoglycemia: Awareness: good Frequency: infrequent Glucagon available: no Medic alert ID: no Past Medical History: Diagnosis Date Allergic 1970 Penicillin - Rash Depression Diabetes mellitus ([facility]) 07/1980 Type 1 Disease of thyroid gland Hyperlipidemia Past Surgical History: Procedure Laterality Date BREAST BIOPSY EYE SURGERY KNEE ARTHROSCOPY LASIK Bilateral SHOULDER ARTHROSCOPY Current Outpatient Medications: ascorbic acid, vitamin C, (ascorbic acid) 250 mg tablet,chewable, Chew and swallow., Disp: , Rfl: aspirin 81 mg capsule, 1 tablet, Disp: , Rfl: calcium carbonate-vitamin D3 (CALCIUM 600 + D,3,) 600 mg(1,500mg) -400 units per tablet, 1 tablet, Disp: , Rfl: insulin aspart U-100 (NovoLOG U-100 Insulin aspart) 100 unit/mL injection, INJECT 60 UNITS DAILY VIA INSULIN PUMP DIRECTED, Disp: 60 mL, Rfl: 3 levothyroxine (SYNTHROID, LEVOTHROID) 75 MCG tablet, TAKE 1 TABLET ONCE DAILY INTHE MORNING ON AN EMPTY STOMACH, Disp: 90 tablet, Rfl: 3 pedi multivit no.12 w-fluoride ([id number] A ORAL), See Admin Instructions., Disp: , Rfl: pravastatin (PRAVACHOL) 40 mg tablet, TAKE 1 TABLET TWICE A DAY, Disp: 180 tablet, Rfl: 3 CONTOUR NEXT TEST STRIPS strip, Checks 7 times/day. Glucometer communicates with her insulin pump. DX: E11.9, Disp: 700 strip, Rfl: 3 Allergies, social history and family history were reviewed and updated in [facility]. REVIEW OF SYSTEMS: 12 systems were reviewed and were negative except for what has been mentioned above PHYSICAL EXAM: Wt Readings from Last 3 Encounters: 11/04/23 67.1 kg (147 lb 14.4 oz) 08/22/23 67.6 kg (149 lb) 07/11/23 67.4 kg (148 lb 9.6 oz) Body mass index is 23.16 kg/m . Vitals: 11/04/23 0932 BP: 133/77 Pulse: 71 Weight: 67.1 kg (147 lb 14.4 oz) General appearance: Well appearing female in [...] Plan:1. Type 1 diabetes mellitus without complication ([facility]) - POCT Hemoglobin A1c - CONTOUR NEXT TEST STRIPS strip; Checks 7 times/day. Glucometer communicates with her insulin pump. DX: E11.9 Dispense: 700 strip; Refill: 3 - Comprehensive metabolic panel; Future - Lipid profile; Future - Microalbumin - Albumin: Creatinine Urine Ratio; Future 2. Osteopenia, unspecified location - AMB Dexa bone density, 1+ sites, axial skeleton, including vertebral fracture assessment; Future 3. 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 Return to clinic: 3-4 months MECCA Chapman 11/04/23 1021 documented in this encounterFirelands Regional Medical Center South CampusBrightDoor Systems [facility] [id number] Miscellaneous Notes* Telephone Encounter - Justina Tenorio - 10/09/2023 2:47 PM EDT Pt called and had been referred on aug 22 2023 to To Specialty To Provider To Location/Place of Service To Department Pathology, Anatomic & Clinical Aditya Stroud MD Pt says that that Dr is NOT in her insurance network. May someone please be referred for her that IS her insurance is [employer] POS (on file) * Telephone Encounter - Yamilka Almonte CNA - 10/09/2023 2:47 PM EDT I asked the patient to call and ask her insurance company for a pathologist that is in network for her insurance. documented in this encounterFirelands Regional Medical Center South CampusTiscali [facility]06-19-2024 Telephone encounter Note* Telephone Encounter - Justina Tenorio - 10/09/2023 2:47 PM EDT Pt called and had been referred on aug 22 2023 to To Specialty To Provider To Location/Place of Service To Department Pathology, Anatomic & Clinical Aditya Stroud MD Pt says that that Dr is NOT in her insurance network. May someone please be referred for her that IS her insurance is [employer] POS (on file) [facility]US[facility] [employer][phone] Telephone encounter Note* Telephone Encounter - Yamilka Almonte CNA - 10/09/2023 2:47 PM EDT I asked the patient to call and ask her insurance company for a pathologist that is in network for her insurance. [facility] [id number] History of Present illness Narrative* Stacy Brink MD - 08/22/2023 2:45 PM EDT Images from the original note were not included. [facility] [address] [place] [address] SUBJECTIVE: Patient ID: Marcia Mario is a 63 y.o. female presents today for Chief Complaint Patient presents with Ear Fullness HPI: Marcia Mario is a 63 y.o. female seen to follow-up of right ear fullness and neck swelling. Patient underwent US neck and MRI Brain/IAC on 07/26/2023. Patient notes no changes in symptoms sincelast visit. She continues to experience right ear fullness and pressure. Denies any ear fluid. Patient underwent CT neck on 08/17/23, but report has not been sent from [facility]. HISTORY: Past Medical History: Diagnosis Date Allergic 1970 Penicillin - Rash Depression Diabetes mellitus ([facility]) 07/1980 Type 1 Disease of thyroid gland [...] 90 tablet 3 pedi multivit no.12 w-fluoride (ZCQWQANSFOXXI-GOPJLXBZ-VAXYR A ORAL) See Admin Instructions. pravastatin (PRAVACHOL) 40 mg tablet TAKE 1 TABLET TWICE A DAY 180 tablet 3 No current facility-administered medications for this visit. REVIEW OF SYSTEMS: Review of Systems Constitutional: Negative for chills and fever. HENT: Positive for hearing loss (fullness) and tinnitus (left). Negative for ear discharge and ear pain. Respiratory: Negative for cough and shortness of breath. Data Reviewed: PHYSICAL EXAMINATION: Temp 36.5 C (97.7 F) Ht 170.2 cm (5' 7 ) Wt 67.6 kg (149 lb) BMI 23.34 kg/m Constitutional: General Appearance: Healthy, alert, cooperative, and in no distress Ability to Communicate: Normal ability to communicate and Voice normal Head/Face: Inspection of Head/Face: Normocephalic without obvious abnormality, Atraumatic appearance, and Sinuses non-tender Facial Nerve: Facial nerve symmetrical and intact Salivary Glands: Parotid Gland: Normal, Submandibular Gland: Abnormal bilateral and ptotic, right greater than left, and Sublingual Gland: Normal Eyes: No gross abnormalities, EOMI, and No Nystagmus Ears: External Ear: Normal bilateral External Auditory Canal: Normal bilateral Tympanic Membranes: Normal bilateral Middle Ear: Normal bilateral Hearing: Normal bilateral Nose: External Nose: Normal Septum: Midline septum Mucosa/Turbinates: Normal inferior turbinate and Normal mucosa Oral Cavity: Normal lips, Normal teeth, Normal gums, Normal floor of mouth, Normal oral mucosa, andNormal anterior tongue Oropharynx: Normal mucosa, Normal soft palate, Normal hard palate, Normal uvula, Tonsil hypertrophyright: 2+ and tonsil stone superior*, Tonsil hypertrophy left: 2+, and Normal Vallecula TMJ: No pain, crepitus, or trismus right and left Neck: Neck supple, No adenopathy, Thyroid normal in size without nodules or tenderness, No palpableneck masses, and Carotids normal Respiratory: No stridor, Normal respiratory effort and No use of accessory muscles Cardiovascular: Regular rate and Regular rhythm Neurologic: Patient is alert and oriented x3 with normal affect and grossly normal cranial nerves ASSESSMENT/PLAN: Marcia was seen today for ear fullness. Diagnoses and all orders for this visit: Neck swelling Ear fullness, right Otalgia, right Sensorineural hearing loss (SNHL) of both ears Tonsillith Today's examination findings were discussed with the patient/patient's parent or guardian. Recommendations for treatment were provided including the following: - Ultrasound neck and MRI brain performed on 07/26/23. Findings were reviewed with the patient today. - I will obtain and review CT images that were performed on 08/17/23. - Recommend patient undergo a FNA biopsy of right lymph node found on previous imaging. Referral toDr. Ryan was given. - Follow up after FNA biopsy. The patient will contact my office if there are any additional questions or concerns: . Non-emergent messages received through [employer] may take up to 2 business days for a response. Scribe Statement: Scribed for and in the presence of Stacy Brink MD by Soraida Hernandez ([email or web address]). Soraida Hernandez 08/22/2023 3:34 PM Provider Statement: I Stacy Brink MD personally performed the services described in the documentation as described by the above named scribe in my presence. It is both accurate and complete at the time of final signature. Dr. Stacy Brink 08/22/2023 11:17 AM Counseling: The following elements of medical decision making were considered during this visit: Reviewed and summarized previous records. The patient was counseled regarding prognosis, risks and benefits of treatment options, impressions, importance of compliance with treatment and risk factor reductions. Thepatient verbalized understanding and agreement to the plan. Total time spent was 20 minutes: Preparing to see the patient (e.g., review [...] this chart were generated using voice recognition [employer] dictation software. Although every effort was made to ensure the accuracy of this automated seat cover cutter, some errors in seat cover cutter may have occurred. documented in this encounterGreen [facility] Hospital05-02-[facility]24 Instructions* Patient Instructions* Soraida Hernandez - 08/22/2023 2:45 PM EDT Today's examination findings were discussed with the patient/patient's parent or guardian. Recommendations for treatment were provided including the following: - Ultrasound neck and MRI brain performed on 07/26/23. Findings were reviewed with the patient today. - I will obtain and review CT images that were performed on 08/17/23. - Recommend patient undergo a FNA biopsy of right lymph node found on imaging. Referral to Dr. Ryan was given. - Follow up after FNA biopsy. The patient will contact my office if there are any additional questions or concerns: . Non-emergent messages received through [employer] may take up to 2 business days for a response. documented in this encounterGreen Cross Hospital04-22-2024 Miscellaneous Notes* Telephone Encounter - Aga Anderson - 08/12/2023 3:21 PM EDT [facility] called 08/11. Please fax CT order to [phone], they need to do a prior authorization. Patient see Dr. Brink. * Telephone Encounter - Estephanie Urias MA - 08/12/2023 3:21 PM EDT Completed. Estephanie Urias MA documented in this encounterGreen Cross Hospital04-22-2024 Telephone encounter Note* Telephone Encounter - Aga Anderson - 08/12/2023 3:21 PM EDT [facility] called 08/11. Please fax CT order to [phone], they need to do a prior authorization. Patient see Dr. Brink. [facility]04-22-2024 Telephone encounter Note* Telephone Encounter - Estephanie Urias MA - 08/12/2023 3:21 PM EDT Completed. Estephanie Urias MA [facility]04-19-2024 History of Present illness Narrative* Stacy Brink MD - 08/09/2023 2:48 PM EDT Placing order for ct of the neck owing to mass felt on exam and abnormal ultrasound obtained after that exam. Please send patient the order. I ask that she obtain the imaging in a [facility] facility. documented in this encounterGreen Cross Hospital04-05-2024 History of Present illness Narrative* MECCA Weller - 07/26/2023 8:54 AM EDT Labs ordered. MECCA Weller 07/26/23 0855 documented in this encounterGreen Cross Hospital04-05-2024 Miscellaneous Notes* Telephone Encounter - Aga Anderson - 07/26/2023 8:48 AM EDT [facility] called 07/26/23, they need order for creatinine lab work for the patient. Please fax to [phone]. Pt sees Dr. Brink. * Telephone Encounter - MECCA Weller - 07/26/2023 8:48 AM EDT [address]inine ordered [address]. Can someone please fax this over to [facility]! * Telephone Encounter - Estephanie Urias MA - 07/26/2023 8:48 AM EDT Lab order faxed to number provided. Estephanie Urias MA documented in this encounterGreen Cross Hospital04-05-2024 Telephone encounter Note* Telephone Encounter - Aga Anderson - 07/26/2023 8:48 AM EDT [facility] called 07/26/23, they need order for creatinine lab work for the patient. Please fax to [phone]. Pt sees Dr. Brink. [facility]04-05-2024 Telephone encounter Note* Telephone Encounter - MECCA Weller - 07/26/2023 8:48 AM EDT Creatinine ordered place. Can someone please fax this over to [facility]! [facility] Work Phone: [phone] Telephone encounter Note* Telephone Encounter - Estephanie Urias MA - 07/26/2023 8:48 AM EDT Lab order faxed to number provided. Estephanie Urias MA [facility]04-02-2024 Miscellaneous Notes* Telephone Encounter - Rosa Harden - 07/23/2023 4:33 PM EDT Kalee with [facility] scheduling dept called. She needs office notes faxed to pre cert the MRI. Please fax to [phone]. Phone number [phone] if any questions. Pt also needs an order forCreatinine because the MRI is ordered with and w/o contrast * Telephone Encounter - Yamilka Almonte CNA - 07/23/2023 4:33 PM EDT Faxed office note to [facility] documented in this encounterGreen Cross Hospital04-02-2024 Telephone encounter Note* Telephone Encounter - Rosa Harden - 07/23/2023 4:33 PM EDT Kalee with [facility] scheduling dept called. She needs office notes faxed to pre cert the MRI. Please fax to [phone]. Phone number [phone] if any questions. Pt also needs an order forCreatinine because the MRI is ordered with and w/o contrast [facility]04-02-2024 Telephone encounter Note* Telephone Encounter - Yamilka Almonte CNA - 07/23/2023 4:33 PM EDT Faxed office note to [facility]03-21-2024 History of Present illness Narrative* Stacy Brink MD - 07/11/2023 3:00 PM EDT Images from the original note were not included. [facility] [address] [place] [facility] [address] SUBJECTIVE: Patient ID: Marcia Mario is a [...] 1970 Penicillin - Rash Depression Diabetes mellitus ([facility]) 07/1980 Type 1 Disease of thyroid gland [...] 90 tablet 3 pedi multivit no.12 w-fluoride (YIPMMLQRJMFOW-GPYKJROD-KQBAG A ORAL) See Admin Instructions. pravastatin (PRAVACHOL) [...] [facility] [place], [place] - MR brain IAC with and [...] or concerns: . Non-emergent messages received through [employer] may take up to 2 business days [...] this chart were generated using voice recognition M*Modal dictation software. Although every effort was made to ensure the accuracy of this automated seat cover cutter, some errors in seat cover cutter may have occurred. documented in this encounterWhite River Junction Va Medical CenterCoridon03-21-2024 Instructions* Patient Instructions* Soraida Hernandez - 07/11/2023 [...] or concerns: . Non-emergent messages received through [employer] may take up to 2 business days for a response. documented in this encounterWhite River Junction Va Medical CenterMissy's Candy [id number] History of Present illness Narrative* Criss Singh, AUD - 07/11/2023 2:00 PM EDT AUDIOLOGIC EVALUATION [...] Asymmetry noted: No Reliability: good Speech Audiometry: SRT/DIRECTOR BIOSTATISTICS in good agreement WRS: Right Ear: Excellent (100%) Left Ear: Excellent (100%) RECOMMENDATIONS: Follow up with Dr. Stacy Brink Retest Malena Pino, LUDWIN-A Well Control Instructor documented in this encounterWhite River Junction Va Medical CenterMissy's Candy [id number] History of Present illness Narrative* Mayuri Salazar [...] tablet, Rfl: 3 pedi multivit no.12 w-fluoride (NPUMSMJCGPMOW-XBSRTQEI-KJYRQ A ORAL), See Admin Instructions., Disp: , [...] Plan:1. Type 1 diabetes mellitus without complication ([facility]) - POCT Hemoglobin A1c - insulin aspart U-100 (NovoLOG U-100 Insulin aspart) 100 unit/mL injection; INJECT 60 UNITS DAILY VIA INSULIN PUMP DIRECTED Dispense: 60 mL; Refill: 3 2. Carol Ann's disease 3. Mixed hyperlipidemia Return to clinic: 3-4 months documented in this [facility] CenterBrightDoor Systems [facility] [id number] Evaluation note* Encounter Date Diagnosis Assessment Notes Treatment Notes Treatment Clinical Notes Mar, Right otitis media with effusion (ICD-10 - H65.91) Continue flonase. Will reach out to [facility] - Dr. Brink or Dr. Doll for an appt. Mar, Enlarged lymph node (ICD-10 - R59.9) Present decreased in size, per Marcia. States same area increases and resolves in size through the years. [employer] Other 11-22-2023 Evaluation note* Encounter Date Diagnosis [...] resolved follow up with PCP is recommended. [employer] Other 11-15-2023 Evaluation + Plan note Diagnostic Tests Pending * PAP [id number]/06/23 [facility]10-09-2023 Evaluation note* Encounter Date Diagnosis Assessment Notes [...] verbalizes understanding of teaching points and instructions. [place] [employer] Other 11-11-2022 Evaluation + Plan note Diagnostic Tests Pending * PAP [id number]/02/22 [facility]03-31-2022 NotePROCEDURE: XR ANKLE RT MIN 3 [...] by: JAYLIN LINDQUIST Date: 2021-07-20 16:18[facility]03-31-2022 NotePROCEDURE: XR ANKLE RT MIN 3 [...] by: JAYLIN LINDQUIST Date: 2021-07-20 16:18[facility] Future Appointments Appointment Date:01/23/2024 09:30:00 AM Scheduled Provider: Location:.BD Appointment Type:BD Bone Density (FT) Future Scheduled Tests Radiology* BD Bone Density DEXA 01/23/24 [facility] Evaluation noteNo [facility] [employer] Other Evaluation note* Diagnosis Onset Date Resolution Status Dizziness acute Eustachian tube dysfunction [facility] Work Phone: Evaluation note* Diagnosis Neck mass- Primary Swelling, mass, or lump in head and neck Ear fullness, right Tonsillar hypertrophy Hypertrophy of tonsils alone Nasal dryness Other diseases of nasal cavity and sinuses [facility]* Diagnosis Neck mass- Primary Swelling, mass, or lump in head and neck documented in this encounter [facility]* Diagnosis Neck swelling- Primary Swelling, mass, or lump in head and neck Ear fullness, right Otalgia, right Sensorineural hearing loss (SNHL) of both ears Tonsillith Lymphadenopathy, cervical documented in this encounter [facility]* Diagnosis Type 1 diabetes mellitus without complication ([facility])- Primary Type I (juvenile type) diabetes mellitus without mention of complication, not stated as uncontrolled Osteopenia, unspecified location 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 documented in [facility] encounter [facility]* Diagnosis Type 1 diabetes mellitus without complication ([facility] Primary Type I (juvenile type) diabetes mellitus without mention of complication, not stated as uncontrolled documented [facility] encounter [facility]* Diagnosis Type 1 diabetes mellitus without complication ([facility])- Primary Type I (juvenile type) diabetes mellitus without mention of complication, not stated as uncontrolled Carol Ann's disease Chronic lymphocytic thyroiditis Mixed hyperlipidemia documented in this encounter [facility]* Diagnosis Sensorineural hearing loss (SNHL) of both ears- Primary Ear pain, right documented in [facility] encounter [facility]* Diagnosis Ear fullness, right- Primary Otalgia, right Sensorineural hearing loss (SNHL) of both ears Neck swelling Swelling, mass, or lump in head and neck documented in this encounter [facility]* Diagnosis Ear fullness, right- Primary documented in this encounter [facility]* Diagnosis Type 1 diabetes mellitus without complication ([facility]) Type I (juvenile type) diabetes mellitus without mention of complication, not stated as uncontrolled documented in this encounter [facility]* Diagnosis Lymphadenopathy, cervical- Primary Neck swelling Swelling, mass, or lump in head and neck Lymphadenopathy, cervical Neck mass Swelling, mass, or lump in head and neck Neck swelling Swelling, mass, or lump in head and neck Lymphadenopathy, cervical Neck mass Swelling, mass, or lump in head and neck documented in this encounter [facility]* Diagnosis Neck swelling Swelling, mass, or lump in head and neck Lymphadenopathy, cervical Neck mass Swelling, mass, or lump in head and neck Preop testing- Primary Unspecified pre-operative examination Type 1 diabetes mellitus without complication ([facility]) Type I (juvenile type) diabetes mellitus without mention of complication, not stated as uncontrolled Neck swelling Swelling, mass, or lump in head and neck Lymphadenopathy, cervical Neck mass Swelling, mass, or lump in head and neck documented in this encounter [facility]* Diagnosis Neck swelling Swelling, mass, or lump in head and neck Lymphadenopathy, cervical Neck mass Swelling, mass, or lump in head and neck Type 1 diabetes mellitus without complication ([facility])- Primary Type I (juvenile type) diabetes mellitus without mention of complication, not stated as uncontrolled Neck swelling Swelling, mass, or lump in head and neck Lymphadenopathy, cervical Neck mass Swelling, mass, or lump in head and neck documented in this encounter [facility]* Diagnosis Type 1 diabetes mellitus without complication ([facility]) Type I (juvenile type) diabetes mellitus without mention of complication, not stated as uncontrolled documented in this encounter [facility]* Diagnosis Neck mass- Primary Swelling, mass, or lump in head and neck Ear fullness, right documented in this encounter [facility]* Diagnosis Type 1 diabetes mellitus without complication ([facility]-HCC) Type I (juvenile type) diabetes mellitus without mention of complication, not stated as uncontrolled documented in this encounter [facility]* Diagnosis Type 1 diabetes mellitus without complication ([facility] Primary Type I (juvenile type) diabetes mellitus without mention of complication, not stated as uncontrolled Mixed hyperlipidemia documented in this encounter [facility] general Narrative - Reported* Type Description Date Medical History Type 1 diabetes armando itus with other circulatory complications Medical History Hyperlipidemia Surgical History arthroscopic knee surgery 2001 Surgical History shoulder release 2014 Hospitalization History see above surgical histo ry Hospitalization History diabeties [employer] Other Hospital course Narrative No data available for this section [facility] No data available for this section [facility] CenterInstructionsNot on filedocumented in this encounter [facility] [...] note No data available for this section [facility] CenterReason for referral (narrative)* Consultation (Routine) - Pending Review Specialty Diagnoses / Procedures Referred By Contac t Referred To Contact Pathology, Anatomic & Clinical Diagnoses Lymphadenopathy, cervical Stacy Brink MD [address] [place] [address] Aditya Stroud MD [address] [facility] [facility] [address] [place] [address] Referral ID Status Reason Start Date Expiration Date V isits Requested Visits Authorized [id number] Pending Review 08/22/2023 08/21/2024 1 1 RoostReason for referral (narrative)* Consultation (Routine) - Pending Review Specialty Diagnoses / Procedures Referred By Judy agrawal Referred To Contact Endocrinology, Diabetes & Metabolism Diagnoses Type 1 diabetes mellitus without complication ([facility]) Rogelio Rebolledo APRN-BUSINESS SYSTEMS ANALYST [address] [facility] [address] [place] [address] [facility] [address] [address] [place] [address] Referral ID Status Reason Start Date Expiration Date Visits Requested Visits Authorized [id number] Pending Review Specialty Services Required 11/07/2023 11/06/2024 1 1 Roost Summary Purpose Family History Relationship Condition Age at Onset Recorded Date/T rita father Unknown mother Heart disease Unknown Diabetes mellitus Unknown Advance Directives Advance Directive Response Recorded Date/ Time Advance Directives No February 11, 2024 11:35am Advance Directive Response Recorded Date/ Time Advance Directives No February 11, 2024 10:35am Reason for Referral Specialty Diagnoses / Procedures Referred By Judy agrawal Referred To Contact Diagnoses Preop testing Procedures ECG 12 lead Jose Matos MD [address] [place] [address] Referral ID Status Reason Start Date Expiration Date V isits Requested Visits Authorized [id number] Pending Review 01/30/2024 01/29/2025 1 1 Specialty Diagnoses / Procedures Referred By Contac t Referred To Contact Radiology Diagnoses Otalgia, right Ear fullness, right Procedures MR brain IAC with and without contrast Stacy Brink MD [address] [place] [address] Referral ID Status Reason Start Date Expiration Date V isits Requested Visits Authorized [id number] Pending Review 07/11/2023 07/10/2024 1 1 Specialty Diagnoses / Procedures Referred By Contac t Referred To Contact Radiology Diagnoses Neck mass Procedures CT neck soft tissue with contrast Stacy Brink MD [address] [place] [address] Referral ID Status Reason Start Date Expiration Date V isits Requested Visits Authorized [id number] Pending Review 08/09/2023 08/08/[address] Brink or [address] Zavala er w [facility] - 3 months of R middle ear effusion Diagnosis 1 Right otitis media w ith effusion (H65.91) Referral Organization [facility] [employer] too Referring Provider First Name Antonio Referring Provider Last Name Lisa Referring Provider Specialty [facility] Referred Organization [facility] Referred Address [address],[place], [place],[address] Referred Provider Specialty Ear, Nose an d Throat Referral Priority Routine Reason *FU 03/22 evaluate Diagnosis 1 Right otitis media w ith effusion (H65.91) Referral Organization [facility] too Referring Provider First Name Rosa Referring Provider Last Name Ary Referring Provider Specialty Nurse Pract itioner Referred Organization [facility] Referred Provider Ekta Cash Referred Address ,[place], [place],[address] Referred Provider Specialty Ear, Nose an d [...] section and content) DATE CREATED AUTHOR 10/16/2017 [facility] DATE CREATED AUTHOR AUTHOR'S ORGANIZ ATION 03/03/2020 [facility] DATE CREATED AUTHOR AUTHOR'S ORGANIZ ATION 03/07/2022 [facility] DATE CREATED AUTHOR AUTHOR'S ORGANIZ ATION 05/03/2024 [facility] Patient Care team informatio n (unrecognized section and content) Team Status: Active Member Role Status Dates [...] End: February 11, 2024 Rosa Mcallister APRN DISPOSAL OPERATOR-C Attending Provider Active Start: February 11, 2024 End: February 11, 2024 Team Status: Inactive Member Role Status Dates Antonio Gonzalez MD Primary Care Provider Active Start: March 03, 2024 End: March 03, 2024 Rosa Mcallister APRN DISPOSAL OPERATOR-C Attending Provider Active Start: February End: March 03, 2024 Histology Teacher Relationship Specialty Start Date End Date Antonio Gonzalez MD [address] [place], [place] [id number] PCP - General 07/10/23 Histology Teacher Relationship Specialty Start Date End Date Antonio Gonzalez MD [address] [place] [address] PCP - General 07/10/23 Histology Teacher Relationship Specialty Start Date End Date nAtonio Gonzalez MD [address] [place] [address] [id number] PCP - General 07/10/23 Histology Teacher Relationship Specialty Start Date End Date Antonio Gonzalez MD [address] [place] [address] [id number] PCP - General 07/10/23 Histology Teacher Relationship Specialty Start Date End Date Antonio Gonzalez MD [address] [place] [place] [address] 19442 PCP - General 07/10/23 Histology Teacher Relationship Specialty Start Date End Date Antonio Gonzalez MD [address] [place] [place] [address] 07366 PCP - General 07/10/23 Histology Teacher Relationship Specialty Start Date End Date Antonio Gonzalez MD [address] [place] [place] [address] [id number] PCP - General 07/10/23 Histology Teacher Relationship Specialty Start Date End Date Antonio Gonzalez MD [address] [place] [place] [address] [id number] PCP - General 07/10/23 Histology Teacher Relationship Specialty Start Date End Date Antonio Gonzalez MD [address] [place] [place] [address] 55255 PCP - General 07/10/23 Histology Teacher Relationship Specialty Start Date End Date Antonio Gonzalez MD [address] [place] [place] [address] 15219 PCP - General 07/10/23 Histology Teacher Relationship Specialty Start Date End Date Antonio Gonzalez MD [address] [place] [address] PCP - General 07/10/23 Histology Teacher Relationship Specialty [place] [address] [place] [address] PCP - General 07/10/23 Histology Teacher Relationship Specialty [place] [address] [place] [address] 94[address] PCP - General 07/10/23 Histology Teacher Relationship Specialty [place] [address] [place] [address] 616[address] PCP - General 07/10/23 Histology Teacher Relationship Specialty [place] [address] [place] [address] 42986 PCP - General 07/10/23 Histology Teacher Relationship Specialty [place] [address] [place] [address] 60342 PCP - General 07/10/23 Histology Teacher Relationship Specialty Start Date End Date Antonio Gonzalez MD [address] [place] [address] PCP - General 07/10/23 Histology Teacher Relationship Specialty Start Date End Date Antonio Gonzalez MD [address] [place] [address] PCP - General 07/10/23 Histology Teacher Relationship Specialty Start Date End Date Antonio Gonzalez MD [address] [place] [address] PCP - General 07/10/23 Histology Teacher Relationship Specialty Start Date End Date Antonio Gonzalez MD [address] [place] [address] PCP - General 07/10/23 REASON FOR VISIT (unrecogniz ed section and content) Reason Comments Med Refill Reason Onset Date Comments Med Refill 05/18/2024 Reason Comments Follow-up Reason Onset Date Comments Order for CT scan needs faxed 08/12/2023 Reason Comments Ear Fullness Reason Onset Date Comments referral question 10/09/2023 Reason Comments Diabetes Reason Comments Diabetes Mellitus Reason Comments Ear Problem Reason Comments Otitis Media Specialty Diagnoses / Procedures Referred By Contac t Referred To Contact Otolaryngology Diagnoses Right otitis media with effusion Antonio Gonzalez MD [address] [place] [address] [facility] Prom[facility] [address] [place] [address], [address] [place] [phone] Referral ID Status Reason Start Date Expiration Date Visits Requested Visits Authorized [id number] Pending Review Specialty Services Required 05/06/2023 05/05/2024 1 1 Reason Onset Date Comments Need order for creatinine lab work 07/26/2023 Reason Comments aural fullness Earache Reason Onset Date Comments Med Refill 02/04/2024 Reason Comments Post-op Right neck lymph nos e excision Reason Onset Date Comments Med Refill 02/28/2024 Reason Onset Date Comments Med Refill 03/10/2024 Reason Onset Date Comments Med Refill 03/23/2024 Reason Onset Date Comments Med Refill 03/27/2024 Reason Onset Date Comments Med Refill 06/09/2024 Goals (unrecognized section and content) Goals may [...] BE BASED ON THE PRIMARY CLINICAL RECORDS. [facility]. provides no warranty or guarantee of the accuracy or completeness of information in this document.
[2024-07-09 08:30] LABS: Anion Gap 9.1; BUN Creatinine Ratio 16.5; Calcium 9.3 mg/dL (8.5-10.1); Carbon Dioxide 31.2 mmol/L (21.0-32.0); Chloride 107 mmol/L (98-107); Chol HDL Ratio 2.2; Cholesterol 189 mg/dL (<=200); Estimated GFR (African America >60 (>=60 mL/min/1.73m^2); Estimated GFR (Non-African Ame >60 (>=60 mL/min/1.73m^2); Glucose 76 mg/dL (74-106); HDL Cholesterol 84 mg/dL (40-60); Potassium 4.3 mmol/L (3.5-5.1); Sodium 143 mmol/L (136-145); Triglycerides 43 mg/dL (<=150); VLDL CHOLESTEROL 8.6 mg/dL
== END 2024-07-09 07:48 | disposition home or self-care (01) ==
LOC: LAB 07:47
PROVIDERS: PCP Family Medicine; Visit Provider Internal Medicine
DX: E78.2 Mixed hyperlipidemia (principal); E10.9 Type 1 diabetes mellitus without complications
CPT/HCPCS: 36415; 80048; 80061

== ENCOUNTER 2025-02-22 08:32 | Outpatient (OUT) | payer MEDICARE, SELFPAY ==
--- OUTSIDE RECORDS SUMMARY | 2025-02-09 09:17 | XMS_ITS | Continuity of Care Document ---
Author Organization [facility] Address [address] [id number] Phone Care Team Providers Care Budget Coordinator Name Role Phone Rebecca Serrano MD Primary Care Provider Rebecca Serrano MD Attending Provider [phone] Care Teams Patient Care Team Team Status: Active Member Role/Relationship Status Dates Rebecca Serrano MD Primary Care Provider Active Patient Care Team Team Status: Inactive Member Role/Relationship Status Dates Rebecca Serrano MD Primary Care Provider Active Start: February 09, 2025 End: February 09, 2025Rebecca Serrano MDAttending ProviderActiveStart: February 09, 2025 End: February 09, 2025 Chief Complaint and Reason for Visit Chief Complaint Admit Date Pain in joints February 09, 2025 1 :41pm Reason for Visit Admit Date Trigger finger, right middle finger Octo 2024 1:41pm Trigger thumb of right hand January 1:41pm Reason for Referral Type Reason(s) Provider Provider Contact Information P [facility] Address Start Date Trigger middle finger of right hand Trigger finger of right rdcdeD49.331 - Trigger finger, right middle finger,M65.311 - Trigger thumb, right thumbFPG [facility] Phone: [phone] [employer] [facility] [address]Krdufgw 2024 Allergies, Adverse Reactions, Alerts Allergen Type Severity Reaction Last Updated Verified Status penicillin G Allergy Unknown rash February 09, 2025 1:50pm Y es Active sulfamethoxazole Allergy Unknown Rash February 09, 2025 1:50 pm Yes Active Social History Smoking Status Status Start Date End Date Date of Observa tion Never smoked tobacco (finding) March 03, 2024 9:37am Observation Status Observation Response Date of Response Legal Sex Female (finding) [facility] 1959 Family History Relationship Condition Age at Onset Recorded Date/T rita father Unknown motherHeart diseaseUnknownDiabetes mellitusUnknown Problems Active Problems Problem Diagnosis/Recorded Date Onset Date Stat us Trigger finger, right middle finger February 09, 2025 2:09pm Unknown Active Eustachian tube dysfunction February 11, 2024 12:09pm Unknown Active Acute maxillary sinusitis, unspecified February 11, 2024 11:43am June 11, 2016 Active Trigger thumb of right hand February 09, 2025 2:09pm Unknown Active Inactive/Resolved Problems Problem Diagnosis/Recorded Date Onset Date Stat us Dizziness February 11, 2024 12:09pm Unknown R esolved Bronchitis March 03, 2024 10:52am Unknown Resolved Medications Medication Status Dose Units Route Directions Qty Days Refills S tart Date Stop Date End Date Reason(s) Instructions Adherence Azithromycin 250 mg tablet Discontinued 0 WDhuban377Bveyftoq 12th, 2024 1:00amMay 2024 2:24pmBronchitis Bronchitis, not specified as acute or chronicTake 2 on day 1 and then take 1 for the next 4 days (days 2-5)Multivitamin (Daily Multi-Vitamin) yunmjtKdweuv4PBNKM DailyOct2024 12:00amComplies with drug therapyAspirin 81 mg tablet Uvfzay76CKHVGiqtmQxabcfi 21st, 2025 12:00amComplies with drug therapyFluticasone Propionate (Flonase Allergy Relief) 50 mcg/actuation spray,suspensionActive1 SPRAYINTRANASALTwice daily as neededFebruary 09, 2025 1:51pmDysfunction of eustachian tube Dizziness Unspecified Eustachian tube disorder, unspecified ear Dizziness and giddinessadminister into each nostrilUnknownMeloxicam 15 mg tablet Pobjwz23JEIDBwrzj705Kcadcog 21st, 2025 12:00amComplies with drug therapyInsulin Aspart U-100 (Novolog U-100 Insulin Aspart) 100 unit/mL solutionActiveSUBCUT February 11, 2024 12:00amComplies with drug therapyAcetaminophen 325 mg tablet Paijjp611BTXPqq neededOct2023 12:00amComplies with drug therapy Pravastatin 40 mg knqahkJlqaag71SEDKJugtsJyiptdn 2023 12:00amComplies with drug therapySertraline 50 mg fltfsyTjngte64OJPSQmfhfRufwnod 2023 12:00am Complies with drug therapyLevothyroxine 75 mcg zecxfuQvmxkq19NWLMKQiykxDuiqqol 2023 12:00amComplies with drug therapyFluticasone Propionate (Flonase Allergy Relief) 50 mcg/actuation spray,roylkvuxigJvawszkedhmu1KBAGFKSYHNEQVMN Twice hnibu366JpkikzqFebruary 11, 2024 12:00amOct2024 1:52pmDysfunction of eustachian tube Dizziness Unspecified Eustachian tube disorder, unspecified ear Dizziness and giddinessadminister into each nostrilMeclizine 25 mg tablet Lybwhhfqogod64LFONBrjoj times daily as needed for pvoruwjxv04039Ieocari 22nd, 2024 12:00amMay 2024 2:25pmDizziness Dizziness and giddinessInsulin Lispro 100 unit/mL gkmaorvyAxyepz6aqenwon scale doseSUBCUTUse as DirectedOry 2024 12:00amComplies with drug therapy Azithromycin 250 mg uysqivBiopvfergmqa3NL.MJPPWEL74Trc 2024 12:00Oct2024 1:51pmFor 250 mg dose pack: take 500 mg today (day 1), then 250 mg for 4 days (days 2-5) POBenzonatate 200 mg rurfwzeSmqvrokgldzz819JLAJ3-2 TIMES PER DAY as needed for jhltk591Kji 2024 12:00Oct2024 1:51pm Immunizations Immunization Event Date Not Given Reason Dose Number Manager Latin Lot Number Reason(s) Given Vaccine Information Statement (VIS) Detail Administration Location Tetanus, Diphtheria adult, 5 Lf pres free abs Oc tober 2012 Tet[facility]heria [facility] Vital Signs Vital Reading Result Reference Range Collection Date/Time Height 67 [in_i] February 09, 2025 1:63tbYqlvah57.03 kgOct2024 1:48pmHeart Rate71 /pkz37-924ZcgunobFebruary 09, 2025 1:48pmBP Ihndrlpl351 mm[Hg]100-140February 09, 2025 1:48pmBP Pzcsexvoo51 mm[Hg]60-100Oct2024 1:48pmBMI (Body Mass Index)23.5 kg/t4Tperxnz 2024 1:48pm Advance Directives Advance Directive Response Recorded Date/ Time Advance Directives No February 11, 2024 11:35am Insurance Providers Guarantor Marcia Mario Address [address] [place], [place] [id number] Info.Home Phone: Coverage Status Update:2025 Payer Group Member ID Coverage Type Subscriber Relationship to Subscriber Effective Date Expiration Date Tremaine HOOKS/NATALIA [id number] L Roth Id: [id number] [address] [place], [place] [address] Home Phone: SelfMedicare [id number] L Roth Id: [id number] [address] [place] [phone] Home Phone: SelfAARP Medicare Advantage PFFS [id number] L Roth Id: [id number] [address] [place], [place] [address] Home Phone: Self[employer] [id number] L Roth Id: [id number] [address] [place] [phone] Home Phone: [employer] Id: [id number] L Roth Id: [id number] [address] [place], [place] [phone] Home Phone: Self Encounters Encounter Location(s) Arrival/Admit Date Discharge/Departure Date Discharge/Departure Disposition Provider(s) Departed Physician/ Provider Office Visit -[facility] February 09, 2025 1:41pm February 09, 2025 2:16pm Discharged to home care or self care (routine discharge) Rebecca Serrano MD Recent Diagnosis Onset Date Admit Date Trigger finger, right middle finger Unknown February 09, 2025 1:41pm Trigger thumb of right hand Unknown 5 1:41pm Assessments Diagnosis Onset Date Resolution Status Admit Date Trigger finger, right middle finger acuteOctober 2024 1:41pmTrigger thumb of right handacuteOctober 2024 1:41pm Plan of Treatment Future Tests Future scheduled test information is unavailable Pending Tests Pending diagnostic test information is unavailable Future Visits Future appointment information is unavailable Future Procedures Future procedure information is unavailable Future Medications Future medication information is unavailable Patient Instructions Patient instructions are unavailable Hospital Discharge Instructions Ambulatory Orders* Referral to Orthopedic Surgery Location: None Selected
--- NOTE | 2025-02-22 | XR_ITS ---
The [address] [address] Patient Name: DENISE TRAMMELL MRN: [id number] date: 1960 Sex: F Assigned Patient Location: [facility] Current Patient Location: [facility] Accession/Order Number: [id number] Exam Date: 02/22/2025 10:30 Report Date: 02/22/2025 11:02 At the request of: MERA CRUZ DO Procedure: XR hand RT min 3V RIGHT HAND - 3 views CLINICAL DATA: Right hand pain with trigger finger at the first and third digits. COMPARISON: None AP, lateral and oblique views were obtained. There is no acute fracture or dislocation. No disproportionate joint space narrowing is visualized however there is minimal hypertrophy at the interphalangeal joints as well as the first carpal metacarpal joint. There is no focal soft tissue swelling. XR/XR hand RT min 3V IMPRESSION: MINOR DEGENERATIVE CHANGES NO ACUTE BONY FINDINGS. Impression dictated by: Mayuri Muñoz M.D. 02/22/2025 11:02 AM Dictation Location: [place] [address] Electronically authenticated by: [id number] Y Date: 02/22/2025 11:02
--- OUTSIDE RECORDS SUMMARY | 2025-02-22 08:35 | XMS_ITS | Clinical Summary ---
Author Organization [employer] Address [id number] [address] [place] [address] Care Team Providers Care Security Advisor Name Role Phone Rebecca Serrano MD Primary Care Provider [phone] Allergies Active AllergyReactionsCriticalityNoted NfdeFzcncvxjNauybhpdbvqPtolQfb09/17/2022 Sulfamethoxazole-TrimethoprimOther (See Comments)07/27/2024 Medications MedicationSigDispense QuantityRefillsLast FilledStart DateEnd DateStatus pedi multivit no.12 w-fluoride (BSSJCOGTWZJUM-UFRVNZBS-JRYJR A ORAL) See Admin Instructions.Active calcium carbonate-vitamin D3 (CALCIUM 600 + D,3,) 600 mg(1,500mg) -400 units per tablet Take 2 tablets by mouth in the morning.Active aspirin 81 mg capsule Indications:myocardial infarction preventionTake 1 tablet by mouth Daily at 0630 Indications: treatment to prevent a heart attack.Active ascorbic acid, vitamin C, (ascorbic acid) 250 mg tablet,chewable Chew 1 tablet and swallow in the morning.Active sertraline (ZOLOFT) 50 mg tablet Take 1 tablet (50 mg total) by mouth in the morning.Active ibuprofen (MOTRIN) 600 mg tablet Take 1 tablet (600 mg total) by mouth every 6 (six) hours as needed for pain. 30 tablet 4Active levothyroxine (SYNTHROID, LEVOTHROID) 75 MCG tablet Take 1 tablet (75 mcg total) by mouth in the morning. 90 tablet 5Active pravastatin (PRAVACHOL) 80 mg tablet Take 1 tablet (80 mg total) by mouth in the morning. STOP 40 mg script. 90 tablet 5Active insulin lispro (HumaLOG U-100 Insulin) 100 unit/mL injection Indications:Type 1 diabetes mellitus without complicationPer insulin pump, max 60 units per day 54 mL 5Active ACCU-CHEK GUIDE TEST STRIPS strip Indications:Type 1 diabetes mellitus without complicationCheck glucose 6 times daily-compatible strips for Medtronic 780G pump. For 90 day supply 600 strip 5Active Active Problems ProblemNoted DateDiagnosed DateNeck /06/2024Lymphadenopathy, cervical 12/27/2023Neck mass12/27/2023iabetes mellitus type Hyperlipidemia Hypothyroid Family History Medical HistoryRelationNameCommentsHeart diseaseFatherHowardArthritisMother BerniceHeart diseaseMotherBerniceAnesthesia problemsNeg HxRelationNameStatus CommentsFatherHowardDeceasedMotherBerniceDeceased Social History Tobacco UseTypesPacks/DayYears UsedDateSmoking Tobacco: NeverSmokeless Tobacco: Never Tobacco Cessation:Counseling Given: Not Answered Alcohol UseStandard Drinks/WeekCommentsNever0 (1 standard drink = 0.6 oz pure alcohol)ChildcareAnswerDate DcggsxuhZurbquxmlThpfouo62/01/2020EmploymentAnswer Date LhvzvhiiOsqwrkickpBpnluag70/01/2020Hunger ScreeningAnswerDate Recorded Within the past 12 months we worried whether our food would run out before we got money to buy more.Never True11/04/2024Within the past 12 months the food we bought just didn't last and we didn't have money to get more.Never True 11/04/2024Purpose - LifeAnswerDate RecordedPurpose and direction in lifeUnknown 1CommentsNoSex and Gender InformationValueDate RecordedSex Assigned at BirthNot on fileLegal HsqQxhobz03/01/2020 10:12 AM EDTGender IdentityNot on fileSexual OrientationNot on file Last Filed Vital Signs Vital SignReadingTime TakenCommentsBlood Wioupgcv503/6407 2:18 PM EDT Wafox3996 2:18 PM ONTZwewynypccb96.3 ??C (97.3 ??F)05/21/2024 10:58 AM ESTRespiratory Ycfk2650 12:50 PM EDTOxygen Wwqtdfcklp17%02/07/2024 12:50 PM EDTInhaled Oxygen Concentration--Mjswkr94.7 kg (147 lb 1.6 oz)11/04/2024 2:18 PM XZSUiaqwq102.2 cm (5' 7.01 )05/21/2024 10:58 AM ESTBody Mass Index23.03 05/21/2024 10:58 AM EST Plan of Treatment DateTypeDepartmentCare Team (Latest Contact Info)Msnimtirina21/17/2025 9:45 AM ESTOffice Visit [facility] of [facility] [address] [phone] Evi Anguiano, STEM SIZER-DOUBLE ENDING 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 [address] [address] Health MaintenanceDue DateLast DoneCommentsDepression Plmnxkuhw98/08/1972 DTaP,Tdap and Td Vaccines (1 - Tdap)01/27/1979Zoster (Shingles) Vaccine (1 of 2) 01/27/2010RSV ( or age 60+ yrs) (1 - Risk 60-74 years 1-dose series) 2020Diabetic Ophthalmology Exam/OVID-19 Vaccine ( season)/04/2023, 05/06/2023, 03/10/2021, Additional history existsInfluenza Kgxrvre72/04/2023, 01/18/2023, 02/09/2022, Additional history existsFall Risk Rvgrpicgw76/Statin Use: Diabetic Diabetic Foot Exam/10/2024, 03/26/2024, 11/04/2023, Additional history existsAdult BMI Xhwzvxciu12 Tobacco Zytciclph16/2025 Medical Devices Not on file Insurance Care Teams Team MemberRelationshipSpecialtyStart DateEnd Date Rebecca Serrano MD [address] [place] [address] PCP - General07/10/23
--- OUTSIDE RECORDS SUMMARY | 2025-02-22 08:35 | XMS_ITS | Clinical Summary ---
Author Organization [facility] Address [address] [place] [address] Care Team Providers Care Supervisor Pressing Department Name Role Phone Rebecca Serrano MD Primary Care Provider [phone] Social History Tobacco UseTypesPacks/DayYears UsedDateSmoking Tobacco: Never Assessed CommentsUnknownSex and Gender InformationValueDate RecordedSex Assigned at Not on fileLegal XkaEszniv25/15/2023 7:23 PM EDTGender IdentityNot on fileSexual OrientationNot on file Last Filed Vital Signs Vital SignReadingTime TakenCommentsBlood Coptvjnd512/5709 12:00 PM EDT Pulse--Temperature--Respiratory Rate--Oxygen Saturation--Inhaled Oxygen Concentration--Buqlpt78.7 kg (136 lb)01/06/2018 12:00 PM IMIDvexzd689.2 cm (5' 7 )01/06/2018 12:00 PM EDTBody Mass Index21. 12:00 PM EDT Plan of Treatment Not on file Insurance Care Teams Team MemberRelationshipSpecialtyStart DateEnd Date [facility]errano [facility]hn[facility]28/[facility]
--- OUTSIDE RECORDS SUMMARY | 2025-02-22 08:43 | XMS_ITS | CCD ---
Author Organization [facility] Care Team Providers Care Dumper [employer] Name Role Phone CHARU CASTELLANOS Unavailable Unavailable CHARU CASTELLANOS Unavailable Unavailable SELF, REFERRED Unavailable Unavailable SELF, REFERRED Unavailable Unavailable ANTONIO GONZALEZ Primary Care Physician MISC, DR BARCLAY Admitting Unavailable MISC, DR BARCLAY Attending Unavailable LISA, DR ANTONIO Haddad Primary Care Unavailable GONZALEZ, DR ANTONIO Haddad Consulting Unavailable HIGHLANDERADRIANNA Admitting Unavailable HIGHLANDER, ADRIANNA Mcallister Attending Unavailable GONZALEZ, DR ANTONIO Haddad Primary Care Unavailable ZIEBER, DR JAYLIN Charles Consulting Unavailable HIGHLADRIANNA COLLIER Consulting Unavailable MISC, DR BARCLAY Admitting Unavailable MISC, DR BARCLAY Attending Unavailable GONZALEZ, DR ANTONIO Haddad Primary Care Unavailable MISC, DR BARCLAY Consulting Unavailable GONZALEZ, DR ANTONIO Haddad Consulting Unavailable Antonio Gonzalez Unavailable Rosa Mcallister Unavailable Antonio Gonzalez MD Primary Care Provider [phone] Ron, Judit J Admitting Unavailable Ron, Judit [...] J Referring Unavailable Unavailable Primary Care Provider Unavailsalvador e Antonio Gonzalez MD Primary Care Provider Antonio Gonzalez MD Primary Care Provider [phone] Antonio Gonzalez MD Attending Provider Allergies Allergy ClassificationReported Allergen(s)Allergy TypeDate of OnsetReaction(s) Facility (11 sources)Penicillin; Translations: [penicillin]Drug Fmziaof22-23-2906Yzfaoxil of skin (disorder)[facility] (9 sources)Penicillin GDrug Zhzwkqo76-78-4698zbrvTrymtmkkuOhio State Health System (4 sources)Sulfamethoxazole / TrimethoprimDrug AllergyOur [facility] Other (4 sources)Penicillin G Benzathine & ProcDrug allergyOur Lady of Fatima Hospital [facility] Other (4 sources)patient allergy list reviewed by nurse or physiciaPropensity to adverse ehrcdasxj24-46-5775Vcqrmql:[facility] Other (4 sources)Allergies ReconciledPropensity to adverse xdzqjirpz61-36-8117Vdunusr [place] [facility] Other (4 sources)Substance with penicillin structure and antibacterial mechanism of action (substance)Drug allergyOur Lady of Fatima Hospital [facility] Other (4 sources)SulfamethoxazoleDrug Nqyxfzm22-22-7146ComlWxksneckhOhioHealth [facility] (20 sources)PenicillinsPropensity to adverse reactions to qjal22-27-4163Roxn [facility] (2 sources)PenicillinsPropensity to adverse reactions to pjmq11-65-9053YjduUNC Health Lenoir (2 sources)Sulfamethoxazole / TrimethoprimDrug Vbfbnwt69-54-6885Nwyto (See Comments)[facility] Medications Current Medications MedicationDrug Class(es)DatesSig (Normalized)Sig (Original)acetaminophen 325 mg oral tablet (7 sources)Start: 39-61-4685Wtkflbsposgut 325 mg tablet Active 325 MG PO as needed February 11, 2024 12:00am Complies with drug therapyStart: 02-07-2024 End: 18-73-5167erhu 2 tablets by mouth every six hours as needed for pain acetaminophen (TYLENOL) 325 mg tablet Take 2 tablets (650 mg total) by mouth every 6 (six) hours asneeded for pain for up to 10 days. 30 tablet 02/07/2024 02/17/2024 Activeascorbic acid 250 mg chewable tablet (20 sources)Vitamin Cascorbic acid, vitamin C, (ascorbic acid) 250 mg tablet,chewable Chew 1 tablet and swallow in the morning. Activeaspirin 81 mg oral tablet (20 sources)Platelet Aggregation Inhibitor, Nonsteroidal Anti-inflammatory Drug Start: 77-96-4255ahoh 1 tablet by mouth once dailyAspirin 81 mg tablet Active 81 MG PO Daily February 09, 2025 12:00am Complies with drug therapyStart: 06-74-1898fmsu 1 tablet by mouth once dailyaspirin 81 mg oral tablet 81 mg = 1 tab(s), Oral, Daily, tab(s), Refills(s) 0 Start Date: 08/16/10 Status: Ordered aspirin 81 mg capsule 1 tablet Activeaspirin 81 mg capsule 1 tablet 0 Active Calcium (9 sources)Phosphate Binder, CalciumStart: 51-46-7007Ttttqzu 600 D Tab Oral, Daily, Refill(s) 0 Start Date: 08/16/10 Status: Orderedcalcium carbonate 1500 mg / cholecalciferol 0.01 mg oral tablet (20 sources)Vitamin Dtake 2 tablets by mouth once in the morningcalcium carbonate-vitamin D3 (CALCIUM 600 + D,3,) 600 mg(1,500mg) -400 units per tablet Take 2 tablets by mouth in the morning. Activecalcium carbonate-vitamin D3 (CALCIUM 600 + D,3,) 600 mg(1,500mg) -400 units per tablet 1 tablet Active doxycycline monohydrate 100 mg oral capsule (1 source)Tetracycline-class DrugStart: 45-77-7418avlu 1 capsule by mouth every twelve hoursDoxycycline Monohydrate 100 MG 1 capsule Orally Twice a day for 10 days Feb, Activeethinyl estradiol 0.0025 mg / norethindrone acetate 0.5 mg oral tablet (9 sources)EstrogenStart: 86-18-5275vyez 1 tablet by mouth once dailyfemhrt 0.5 mg/2.5 mcg oral tablet 1 tab(s), Oral, Daily, tab(s), Refill(s) 0 Start Date: 08/16/10 Status: Orderedfluticasone propionate 0.05 mg/actuat metered dose nasal spray (10 sources)CorticosteroidStart: 02-11-2024 End: 27-07-0368deqf 1 spray(s) nasal route twice daily as neededFlonase Sensimist 27.5 MCG/SPRAY 2 sprays (1 spray in each nostril) Nasally Once a day for 30 days ActiveFlonase Sensimist 27.5 MCG/SPRAY 2 sprays (1 spray in each nostril) Nasally Once a day for 30 days Activeibuprofen 600 mg oral tablet (16 sources)Nonsteroidal Anti-inflammatory DrugStart: 27-90-0452exof 1 tablet by mouth every six hours as needed for painibuprofen (MOTRIN) 600 mg tablet Take 1 tablet (600 mg total) by mouth every 6 (six) hours as needed for pain. 30 tablet 02/07/2024 Activeinsulin aspart, human 100 unt/ml injectable solution (20 sources)Insulin AnalogStart: 29-11-6318Devoqwk Aspart U-100 (Novolog U-100 Insulin Aspart) 100 unit/mL solution Active SUBCUT February 11, 2024 12:00am Complies with drug therapyStart: 08-15-2022 End: 59-25-7583zoitxai aspart U-100 (NovoLOG U-100 Insulin aspart) 100 unit/mL injection Indications: Type 1 diabetes mellitus without complication ([facility]) INJECT 60 UNITS DAILY VIA INSULIN PUMP DIRECTED 60 mL3 07/27/2024 Active Insulin Infusion Pump (5 sources)Insulin Infusion Pump Activeinsulin lispro 100 unt/ml injectable solution (11 sources)Insulin AnalogStart: 88-12-2642Wtsqfsq Lispro 100 unit/mL solution Active 1 sliding scale dose SUBCUT Use as Directed September 10, 2024 12:00am Complies with drug therapyStart: 37-44-9844llxtzah lispro (HumaLOG U-100 Insulin) 100 unit/mL injection Indications: Type 1 diabetes mellitus without complication ([facility]) Per insulin pump, max 60 units per day 54 mL 3 07/28/2024 ActiveStart: 29-48-6987Wsbnojk SubCutaneous, mL, Refills(s) 0 Start Date: 08/16/10 Status: OrderedInsulin Lispro 100 unit/mL solution (1 source)Start: 91-42-8475Ndzutsy Lispro 100 unit/mL solution Active 1 sliding scale dose SUBCUT Use as Directed September 10, 2024 12:00amlevothyroxine sodium 0.075 mg oral tablet (20 sources)l-ThyroxineStart: 02-25-2023 End: 04-69-5432ozmy 1 tablet by mouth once dailyLevothyroxine 75 mcg tablet Active 75 MCG PO Daily February 11, 2024 12:00am Complies with drug therapytake 1 tablet by mouth every twenty-four hoursLevothyroxine Sodium 75 MCG 1 tablet once a day Activemeloxicam 15 mg oral tablet (1 source)Nonsteroidal Anti-inflammatory DrugStart: 06-00-4825ivof 1 tablet by mouth once dailyMeloxicam 15 mg tablet Active 15 MG PO Daily 14 0 February 09, 2025 12:00am Complies with drug therapyMultiple Vitamins Tab (9 sources)Start: 56-02-4945frsi 1 tablet by mouth once dailyMultiple Vitamins Tab 1 tab(s), Oral, Daily, tab(s), Refill(s) 0 Start Date: 08/16/10 Status: OrderedMultivitamin (Daily Multi-Vitamin) tablet (1 source)Start: 32-46-7555auwc 1 tablet by mouth once dailyMultivitamin (Daily Multi-Vitamin) tablet Active 1 TAB PO Daily February 09, 2025 12:00am Complies with drug therapyMultivitamin preparation (5 sources)Multivitamin Orally Activepedi multivit no.12 w-fluoride (NRAGMWQFJJLQW-LOSAFBUP-XCXHH A ORAL) (20 sources)pedi multivit no.12 w-fluoride (EGKIERQANMVNE-SOPGWOWA-BHXMS A ORAL) See Admin Instructions. Activepedi multivit no.12 w-fluoride (SDIAPYWBFZPAT-ARAKCBJV-ZDXGJ A ORAL) See Admin Instructions. 0 Active pravastatin sodium 80 mg oral tablet (20 sources)HMG-CoA Reductase InhibitorStart: 70-59-9604hoho 1 tablet by mouth in the morningpravastatin (PRAVACHOL) 80 mg tablet Take 1 tablet (80 mg total) by mouth in the morning. STOP 40 mg script. 90 tablet 3 06/09/2024 ActiveStart: 04-16-2024 End: 96-60-4628occd 2 tablets by mouth in the morningpravastatin (PRAVACHOL) 40 mg tablet Take 2 tablets (80 mg total) by mouth in the morning. 180 tablet 3 05/18/2024 11/04/2024 Discontinued (Duplicate Listing)Start: 05-11-2022 End: 40-33-7924prwfjzgjlkh (PRAVACHOL) 40 mg tablet TAKE 1 TABLET TWICE A DAY 180 tablet 3 04/29/2023 ActiveStart: 53-14-3257sbpi 1 tablet by mouth once daily Pravastatin 40 mg tablet Active 40 MG PO Daily February 11, 2024 12:00am Complies with drug therapytake 1 tablet by mouth every twenty-four hours Pravastatin Sodium 80 MG 1 tablet Orally Once a day Activesertraline 50 mg oral tablet (20 sources)Serotonin Reuptake InhibitorStart: 26-89-4683xbiu 1 tablet by mouth once dailySertraline 50 mg tablet Active 50 MG PO Daily February 11, 2024 12:00am Complies with drug therapyStart: 25-82-1160Qomxyx 100 mg oral capsule Daily, Refills(s) 0 Start Date: 08/16/10 Status: OrderedVitamin D (9 sources)Start: 68-34-4533qcpu 1 mL by mouth once dailyVitamin D Oral, Daily, mL, Refills(s) 0 Start Date: 08/16/10 Status: Ordered Completed/Discontinued Medications MedicationDrug Class(es)DatesSig (Normalized)Sig (Original)azithromycin 250 mg oral tablet (6 sources)Macrolide AntimicrobialStart: 09-10-2024 End: 64-47-8007Yxgsmkcfnvfs 250 mg tablet Discontinued 0 PO .COMPLEX 6 0 September 10, 2024 12:00am February 09:51pm For 250 mg dose pack: take 500 mg today (day 1), then 250 mg for 4 days (days 2-5) POStart: 03-03-2024 End: 45-94-2521Kjjrpcqihuhq 250 mg tablet Discontinued 0 PO daily 6 5 0 March 03, 2024 1:00am September 10, 2024 2:24pm Bronchitis Bronchitis, not specified as acute or chronic Take 2 on day 1 and then take 1 for the next 4 days (days 2-5) Start: 86-81-7032Roizvdcplxyf 250 MG as directed Orally 2 tabs po today, then 1 tab daily x 4 more days for 5 Jan, Activebenzonatate 200 mg oral capsule (2 sources)Non-narcotic AntitussiveStart: 09-10-2024 End: 94-96-3416Tlrogjqpbdh 200 mg capsule Discontinued 200 MG PO 2-3 TIMES PER DAY as needed for cough 20 September 10, 2024 12:00am February 09, 2025 1:51pm meclizine hydrochloride 25 mg oral tablet (4 sources)AntiemeticStart: 02-11-2024 End: 00-94-3087ifaj 1 tablet by mouth three times daily as needed for dizziness Meclizine 25 mg tablet Discontinued 25 MG PO Three times daily as needed for dizziness 30 10 February 11, 2024 12:00am September 10, 2024 2:25pm Dizziness Dizziness and giddiness Problems Active Problems Problem ClassificationProblemDateDocumented DateEpisodic/ChronicAcquired foot deformities (4 sources)Acquired deformity of right foot; Translations: [Other acquired deformities of right foot]EpisodicAcute and chronic tonsillitis (2 sources)Hypertrophy of tonsils; Translations: [Hypertrophy of tonsils] 40-47-1905FfobvfkHpbnptb disorders (9 sources)Rhlrgby13-69-1453AdxbmnzFpwxdwe obstructive pulmonary disease and bronchiectasis (4 sources)Bronchitis; Translations: [Bronchitis, not specified as acute or chronic]32-87-5591PbquolsvZefefcmcez associated with dizziness or vertigo (10 sources)Benign paroxysmal positional vertigo; Translations: [Benign paroxysmal vertigo, bilateral]75-44-8749RlorjmxaNxkcumld mellitus with complications (4 sources)Hyperglycemia due to type 1 diabetes mellitus; Translations: [Type 1 diabetes mellitus with hyperglycemia]ChronicDiabetes mellitus without complication (20 sources)Type 1 diabetes mellitus; Translations: [Type 1 diabetes mellitus without complications]Onset: 101423-95-4756XrxsmaaJchdbevki of lipid metabolism (20 sources)Hypercholesterolemia; Translations: [Familial hypercholesterolemia] Onset: 387989-98-1256RxatpvcScdcfbmvc of unspecified nature or uncertain behavior (4 sources)Neoplastic disease of uncertain behavior; Translations: [Neoplasm of unspecified behavior of bone, soft tissue, and skin]EpisodicOther connective tissue disease (4 sources)Pain in right foot; Translations: [Pain in right foot]EpisodicOther connective tissue disease (3 sources)Triggering of digit; Translations: [Trigger finger, right middle finger]EpisodicOther connective tissue disease (3 sources)Trigger thumb of right hand; Translations: [Trigger thumb, right thumb]EpisodicOther ear and sense organ disorders (3 sources)Sensorineural hearing loss, bilateral; Translations: [Sensorineural hearing loss, bilateral]95-38-4738JjbhvboTtoai ear and sense organ disorders (5 sources)Ear sensations - finding; Translations: [Other specified disorders of right ear]55-04-8844IypxuwyuVyoob non-traumatic joint disorders (8 sources)Arthralgia of the ankle and/or foot; Translations: [Pain in joint, ankle and foot]Onset: 75-05-6171AsaofzrbBipui non-traumatic joint disorders (4 sources)Shoulder joint pain; Translations: [Pain in right shoulder]Episodic Other upper respiratory disease (1 source)Nasal mucosa dry; Translations: [Other specified disorders of nose and nasal sinuses]76-78-6694GliejgioSukzn upper respiratory infections (4 sources)Chronic sinusitis; Translations: [Chronic sinusitis, unspecified] ChronicOtitis media and related conditions (13 sources)Unspecified nonsuppurative otitis media, right ear; Translations: [Acute secretory otitis media]Onset: 49-63-8305TlvqeckaJuoiycuj codes; unclassified (4 sources)Requires influenza virus vaccination; Translations: [Need for prophylactic vaccination and inoculation, Influenza]EpisodicResidual codes; unclassified (4 sources)Tobacco user; Translations: [Tobacco use]EpisodicSpondylosis; intervertebral disc disorders; other back problems (4 sources)Cervical spondylosis without myelopathy; Translations: [Spondylosis without myelopathy or radiculopathy, cervical region]ChronicSpondylosis; intervertebral disc disorders; other back problems (8 sources)Cervical radiculopathy; Translations: [Radiculopathy, cervical region]Onset: 79-92-9867YkcplinvUylxvje and strains (4 sources)Strain of muscle(s) and tendon(s) of peroneal muscle group at lower leg level, right leg, subsequent encounter; Translations: [Strain of muscle(s) and tendon(s) of peroneal muscle group at lower leg level, right leg, subsequent encounter]EpisodicThyroid disorders (20 sources)Hypothyroidism, unspecified; Translations: [Hypothyroidism]Onset: 53-09-9282TnunxdwQeahqezixvdm (2 sources)Unknown / UNK(Unknown)Onset: 51-78-2590Shrdlzsbrrbq (1 source)M65.331 - Trigger finger, right middle finger,M65.311 - Trigger thumb, right thumb Past or Other Problems Problem ClassificationProblemDateDocumented DateEpisodic/ChronicBacterial infection; unspecified site (4 sources)Bacterial infectious disease; Translations: [Bacterial infection, unspecified, in conditions classified elsewhere and of unspecified site]Onset: 13-50-8045TtvplcacBqbnpqytpanxx (20 sources)Enlarged lymph nodes, unspecified; Translations: [Cervical lymphadenopathy]Onset: 73-88-0990EkildaasUudwy bone disease and musculoskeletal deformities (1 source)Osteopenia; Translations: [Other specified disorders of bone density and structure, unspecified site]76-52-0407JfzsjexwQygjq connective tissue disease (1 source)Pain in right foot; Translations: [PAIN IN RIGHT FOOT]Onset: 49-36-4986VzhnbuowSjrak ear and sense organ disorders (4 sources)Tinnitus; Translations: [Unspecified tinnitus]Onset: 11-12-2017 EpisodicOther ear and sense organ disorders (4 sources)Infective otitis externa; Translations: [Other infective otitis externa, right ear]Onset: 15-26-3515DxekyortVwfvb ear and sense organ disorders (3 sources)Otalgia, right ear; Translations: [Otalgia, unspecified]08-22-2023 EpisodicOther nervous system disorders (4 sources)Paresthesia; Translations: [Paresthesia of skin]Onset: 03-29-2014 EpisodicOther non-traumatic joint disorders (4 sources)Pain in right ankle and joints of right foot; Translations: [PAIN IN RIGHT ANKLE]Onset: 14-91-6241UjjybjbrNktxm skin disorders (20 sources)Neck swelling; Translations: [Localized swelling, mass and lump, neck]Onset: 189933-89-3003GqdsnsueZsgye skin disorders (20 sources)Mass of neck; Translations: [Localized swelling, mass and lump, neck]Onset: 847015-05-4892QiamwvluNjrhz upper respiratory infections (13 sources)Acute pharyngitis; Translations: [Acute pharyngitis, unspecified] Onset: 744472-34-7815Wgjyviqi Results Test NameValueInterpretationReference RangeFacilityPOCT Hemoglobin A1con 09-53-0064JvJ2s (Bld) [Mass fraction]6.4 %4 - 7 %[facility]PhiladelphiaPOCT Hemoglobin A1con 59-47-9858ZzL4a (Bld) [Mass fraction]6.4 %4 - 7 %[facility] CenterCholesterol in LDL Calc [Mass/Vol]on 40-04-5409Blufeftbsaj in LDL [Mass/Vol]Cholesterol in LDL [Mass/volume] in Serum or Plasma by calculationKnox Community HospitalComment on above:<100 mg/dl NBYVJLW122-980 mg/dl NEAR OR ABOVE RTCYCHP232- 159 mg/dl BORDERLINE NYBD444-225 mg/dl HIGH>190 mg/dl VERY HIGHCholesterol in VLDL Calc [Mass/Vol]on 84-79-6678Lxifrsrpwlo in VLDL [Mass/Vol]Cholesterol in VLDL [Mass/volume] in Serum or Plasma by calculationKnox Community HospitalEstimated glomerular filtration rate (GFR) non- Americanon 46-54-3131VAL/1.73 sq M.predicted among non-blacks MDRD (S/P/Bld) [Vol rate/Area]Estimated glomerular filtration rate (GFR) non->=60 mL/min/1.73m 2FParkwood HospitalLaboratory - Chemistry and Chemistry - challengeon 34-87-6476Leauvgm [Mass/Vol]9.3 mg/dL8.5-10.1FParkwood HospitalChloride [Moles/Vol]107 mmol/B99-867TpmrjoavvKnox Community HospitalCholesterol [Mass/Vol]189 mg/dL<=200Kn[facility] Community HospitalCholesterol in HDL [Mass/Vol]84 mg/hSIrzt31-85LrezqjbylKnox Community HospitalComment on above:> or =60 mg/dl - LOW CARDIOVASCULAR RISK<40 mg/dl - HIGH CARDIOVASCULAR RISKCO2 [Moles/Vol]31.2 mmol/L21.0-32.0Knox Community HospitalCreatinine [Mass/Vol]0.91 mg/dL0.55-1.02[facility] GFR/1.73 sq M.predicted MDRD (S/P/Bld) [Vol rate/Area]mL/min/{1.73_m2}>=60 mL/min/1.73m 2FParkwood HospitalGlucose [Mass/Vol]76 mg/vP84-288 [facility] HospitalPotassium [Moles/Vol]4.3 mmol/L3.5-5.1FKindred Hospital Limaodium [Moles/Vol]143 mmol/U479-347VsdylikmzKnox Community HospitalTriglyceride [Mass/Vol]43 mg/dL<=150Kn[facility] Community HospitalUrea nitrogen [Mass/Vol]15.0 mg/dL7.0-18.0Knox Community HospitalUrea nitrogen/Creatinine [Mass ratio]16.5 mg/mgThe MetroHealth Systemerum or plasma anion gap determinationon 60-40-8257Zpknu gap [Moles/Vol] Serum or plasma anion gap determinationThe MetroHealth Systemerum or plasma total cholesterol/high density lipoprotein (HDL) cholesterol mass cristina 21-91-1698Welggtnhfzt.total/Cholesterol in HDL [Mass ratio]Serum or plasma total cholesterol/high density lipoprotein (HDL) cholesterol mass [facility] SystemComment on above:3.3 - 4.4 LOW RISK4.4 - 7.1 AVERAGE RISK7.1 - 11.0 MODERATE RISK>11.0 HIGH RISKMA Mamm Screen w/CAD if perf and 3D Bilon 67-48-9530YQ Mamm Screen w/CAD if perf and 3D BilExam Date/Time: 04/17/2024 14:48 EST Reason for Exam: [...] very important to your health. The current [employer] and National Comprehensive Cancer [...] Brandon Medrano M.D. Transcribed by: MAHIN Technologist: [facility] Assessment: BI-RADS Category 2-Benign finding Recommendation: Normal interval follow-upNormalOhio Valley Surgical HospitalPOMI Hemoglobin A1con 29-71-5814QvB6t (Bld) [Mass fraction]6.3 %4 - 7 %[facility] SystemInfluenza virus B Ag [Presence] in Upper respiratory specimen by Rapid immunoassayon 21-82-9311UMPEX Ag IA.rapid Ql (Nph) Influenza virus B Ag [Presence] in Upper respiratory specimen by Rapid immunoassayKnox Community HospitalNo Panel Informationon 03-03-2024 Influenza Type A (Rapid)NegativeKnox Community HospitalPO SARS CoV-2 AntigenNegativeKnox Community HospitalECG 12 leadon 01-31-2024 TRACEMASTERVUEMercy Health [facility] SystemBasic Metabolic Panelon 01-72-1320Kamez gap [Moles/Vol]4 mmol/LLow5 - 15 mmol/[facility] UnionoMedbrookwood baptist [facility] Health SystemCalcium [Mass/Vol]9.5 mg/dL8.5 - 10.5 mg/dLMercy Health Kings Mills Hospital SystemChloride [Moles/Vol]102 mmol/L98 - 109 mmol/LProMedica Health SystemCO2 [Moles/Vol]32 mmol/L22 - 32 mmol/LProMedica Health SystemCreatinine [Mass/Vol]0.90 mg/dL0.40 - 1.00 mg/dLMercy Health Kings Mills Hospital SystemComment on above:METHOD TRACEABLE TO [facility] STANDARDeGFR (CKD-EPI)non-race vvcwznnqe88- [facility] Obici HospitalComment on above: Reported eGFR is based on the CKD-EPI 2020 equation that does not use a race coefficient. Glucose [Mass/Vol]119 mg/kKHuzy65 - 99 mg/dLCleveland Clinic South Pointe Hospital Interpretation and review of laboratory resultsAbMaria Fareri [facility] Potassium [Moles/Vol]4.2 mmol/L3.5 - 5.0 mmol/LPrProtestant Deaconess Hospitalodium [Moles/Vol]138 mmol/L134 - 146 mmol/[facility] SystemUrea nitrogen [Mass/Vol]19 mg/dL5 - 27 mg/dLGeisinger Medical Center Hemoglobin A1con 72-70-4470Ojjuxcs glucose Estimated from glycated hemoglobin (Bld) [Mass/Vol]137 mg/dLCleveland Clinic South Pointe HospitalHbA1c (Bld) [Mass fraction]6.4 % High4.4 - 5.6 %[facility] HospitalComment on above:NOTE ADA Guidelines Result HgbA1c Normal : less than 5.7 % Prediabetes : 5.7 % to 6.4 % Diabetes : > 6.4 % Use with caution in patients with abnormal hemoglobin variants as the half-life of red blood cells and in vivo glycation rates are affected. Interpretation and review of laboratory resultsAbMarshfield Medical Center Rice LakeHemoglobin and hematocrit, bloodon 96-76-3416Dclkaplkka (Bld) [Volume fraction]43.9 %35 - 47 %[facility] HospitalHemoglobin (Bld) [Mass/Vol]14.7 g/dL11.7 - 15.5 g/dLGeisinger Medical CenterBD Bone Density DEXAon 34-68-1695NO Bone Density DEXAExam Date/Time: 01/23/2024 09:36 EDT Reason for Exam: [...] REPORT Dictated: 01/27/2024 2:44 pm Willy Curtis MD Signed (Electronic Signature): 01/27/2024 2:44 pm Signed by: Willy Curtis MD Transcribed by: MAHIN Technologist: [facility] Breast [facility] Lt Completeon 27-85-9988LH Breast Unilateral Lt CompleteExam Date/Time: 01/21/2024 08:34 EDT Reason for Exam: [...] BI-RADS Category 2-Benign finding Recommendation: Normal interval follow-upMercy Health St. Anne HospitalPOCT Hemoglobin A1con 29-42-3699OrA0o (Bld) [Mass fraction]6.0 g/dL4 - 7 g/dL [facility] HospitalMedica Health SystemCT Neck W contrast IVOrdered By: Yamilka Almonte on 33-04-2662Cstkpgpgs Study observation (narrative)[facility] HospitalCT Neck W contrast IVOrdered By: Yamilka Almonte on 08-17-2023 [facility] HospitalPhysician Orderon 94-72-3853Puaisawqg Order [id number]#1.00TIFFMercy Health St. Anne HospitalConsent for Treatmenton 39-97-2109Vsnobxw for Treatment [id number]#1.00TIFFMercy Health St. Anne HospitalUS Breast Unilateral Lt Completeon 86-93-3072NT Breast Unilateral Lt CompleteExam Date/Time: 08/01/2023 09:21 EDT Reason for Exam: [...] Brandon Medrano M.D. Transcribed by: MAHIN Technologist: [facility] BabiesjojoOhio Valley Surgical HospitalPOMI Hemoglobin A1con 56-46-0357GJM Target < 8YeMercy Health West HospitalHbA1c (Bld) [Mass fraction]6.3 g/dL4 - 7 g/dLGeisinger Medical Center FREE T4on 01-13-4563Bxue T4 [Mass/Vol]0.94 ng/dLNormal0.76-1.46The [facility] HospitalComment on above:Performed By: #### FT4 #### [facility] [address] [place] [address] Dr. Sarah Allred 54-79-6197OCD8.398 uIU/mLNormal0.358-3.740The [place] [facility] HospitalComment on above:Performed By: #### TSH #### [place] [facility] [address] [place] [address] Dr. Sarah Condon T4on 35-68-5477Kpky T4 [Mass/Vol]0.66 ng/dLCritically low 0.76-1.46The [facility] HospitalComment on above:Performed By: #### FT4 #### [facility] [address] [address] [address] Sarah MortensenID PROFILEon [id number]-HDL RATIO NORMSCleveland Clinic FoundationComment on above:Result Comment: 3.3 - 4.4 LOW RISK 4.4 - 7.1 AVERAGE RISK 7.1 - 11.0 MODERATE RISK >11.0 HIGH RISKPerformed By: #### LIPID, CMP, TSH #### [facility] [address] [address] [address] Sarah HickmanCholesterol [Mass/Vol]197 mg/dLNormal<=200[facility] Comment on above:Performed By: #### LIPID, CMP, TSH #### [facility] [address] [place] [address] Dr. Sarah HickmanCholesterol in HDL [Mass/Vol]78 mg/dLCritically sdni44-51BfwCleveland Clinic Medina HospitalComment on above:Performed By: #### LIPID, CMP, TSH #### [facility] [address] [place] [address] Dr. Sarah HickamnCholesterol in LDL [Mass/Vol]108.4 mg/dLOhioHealth Grove City Methodist HospitalComment on above:Performed By: #### LIPID, CMP, TSH #### [facility] [address] [place] [address] Dr. Sarah Kelleyestershantal.total/Cholesterol in HDL [Mass ratio]2.5 {ratio} NormalCleveland Clinic Medina HospitalComment on above:Performed By: #### LIPID, CMP, TSH #### [facility] [address] [place] [address] Dr. Sarah HickmanHDL NORMAL> or = 60 mg/dl - LOW CARDIOVASCULAR RISK <40 mg/dl - HIGH CARDIOVASCULAR RISKOhioHealth Grove City Methodist HospitalComment on above:Performed By: #### LIPID, CMP, TSH #### [facility] [address] [place] [address] Dr. Sarah HickmanLDL CALC NORMALSEE [facility]illicothe HospitalComment on above:Result Comment: <100 mg/dl OPTIMAL 100 - 129 mg/dl NEAR OR ABOVE OPTIMAL 130 - 159 mg/dl BORDERLINE HIGH 160 - 189 mg/dl HIGH >190 mg/dl VERY HIGH Performed By: #### LIPID, CMP, TSH #### [facility] [address] [address] [address] Sarah HickmanTriglyceride [Mass/Vol]53 mg/dLNormal<=150[facility] Comment on above:Performed By: #### LIPID, CMP, TSH #### [facility] [address] [address] [address] Sarah HickmanVLDL CALC10.6 mg/dLNormalThe [facility] HospitalComment on above: Performed By: #### LIPID, CMP, TSH #### [facility] [address] [place] [address] Dr. Sarah Messina, RAND URon 42-60-2561zDPY4.4 mg/LNormal<=30.0The [facility] HospitalComment on above:Performed By: #### MALBR #### [facility] [address] [place] [address] Dr. Sarah HickmanPROF 14(COMP METB)on 70-87-3471Axdpwft [Mass/Vol]3.9 g/dLNormal 3.4-5.0The [facility] HospitalComment on above:Performed By: #### LIPID, CMP, TSH #### [facility] [address] [place] [address] Dr. Sarah HickmanAlbumin/Globulin [Mass ratio]1.1 {ratio}NormalThe [facility] HospitalComment on above:Performed By: #### LIPID, CMP, TSH #### [facility] [address] [place] [address] Dr. Sarah TopeteP [Catalytic activity/Vol]45 U/LCritically ver77-450Xsa [facility] HospitalComment on above:Performed By: #### LIPID, CMP, TSH #### [facility] [address] [place] [address] Dr. Sarah Lawler [Catalytic activity/Vol]39 U/AUaifng35-64Auw [facility] HospitalComment on above:Performed By: #### LIPID, CMP, TSH #### [facility] [address] [address] [address] Sarah HickmanAnion gap [Moles/Vol]10.6 mmol/LNormalC[facility] Clinic [facility] Comment on above:Performed By: #### LIPID, CMP, TSH #### [facility] [address] [address] [address] Sarah HickmanAST [Catalytic activity/Vol]26 U/CUqxbzy60-33Bxk [facility] HospitalComment on above:Performed By: #### LIPID, CMP, TSH #### [facility] [address] [address] [address] Sarah HickmanBilirubin [Mass/Vol]0.5 mg/dLNormal0.2-1.0[facility] Comment on above:Performed By: #### LIPID, CMP, TSH #### [facility] [address] [address] [address] Sarah HickmanCalcium [Mass/Vol]8.9 mg/dLNormal8.5-10.1[facility] Comment on above:Performed By: #### LIPID, CMP, TSH #### [facility] [address] [address] [address] Sarah HickmanChloride [Moles/Vol]105 mmol/HZkoqbo78-090Wag [facility] Comment on above:Performed By: #### LIPID, CMP, TSH #### [facility] [address] [address] [address] Sarah HickmanCO2 [Moles/Vol]29.4 mmol/ZFmnlds28.0-32.0[facility] Comment on above:Performed By: #### LIPID, CMP, TSH #### [facility] [address] [address] [address] Sarah HickmanCreatinine [Mass/Vol]0.97 mg/dLNormal0.55-1.02The [facility] HospitalComment on above:Performed By: #### LIPID, CMP, TSH #### [facility] [address] [address] [address] Sarah AltamiranoGFR-AF MONEGASQUE>60Normal>=60The [facility]opi HospitalComment on above:Performed By: #### LIPID, CMP, TSH #### [facility] [address] [address] [address] Sarah AltamiranoGFR-NON AF LHZIDRRO90 mL/min/1.81z7Ctpqjeswlx low>=60The [facility] HospitalComment on above:Performed By: #### LIPID, CMP, TSH #### [facility] [address] [address] [address] Sarah HickmanGlobulin (S) [Mass/Vol]3.6 g/dLNormalThe [facility] HospitalComment on above:Performed By: #### LIPID, CMP, TSH #### [facility] [address] [place] [address] Dr. Sarah HickmanGlucose [Mass/Vol]140 mg/dLCritically skjc47-028Kud [facility] HospitalComment on above:Performed By: #### LIPID, CMP, TSH #### [facility] [address] [place] [address] Dr. Sarah HickmanPotassium [Moles/Vol]4.0 mmol/LNormal3.5-5.1[facility] Comment on above:Performed By: #### LIPID, CMP, TSH #### [facility] [address] [place] [address] Dr. Sarah HickmanProtein [Mass/Vol]7.5 g/dLNormal6.4-8.2[facility] Comment on above:Performed By: #### LIPID, CMP, TSH #### [facility] [address] [place] [address] Dr. Sarah HickmanSodium [Moles/Vol]141 mmol/ZCrwzdp739-688ErzC[facility] Clinic [facility] Comment on above:Performed By: #### LIPID, CMP, TSH #### [facility] [address] [place] [address] Dr. Sarah HickmanUrea nitrogen [Mass/Vol]15.0 mg/dLNormal7.0-18.0The [facility] HospitalComment on above:Performed By: #### LIPID, CMP, TSH #### [facility] [address] [place], [place] [address] Dr. Sarah Rodriguez nitrogen/Creatinine [Mass ratio]15.5 mg/mgNormalThe [facility] HospitalComment on above:Performed By: #### LIPID, CMP, TSH #### [facility] [address] [place] [address] Dr. Sarah Allred 03-53-7096SDW4.247 uIU/mLCritically high0.358-3.740[facility] HospitalComment on above:Performed By: #### LIPID, CMP, TSH #### [facility] [address] [address] [address] Sarah Herrera MICROALBUMINon 22-84-5445Mebzkdlfdi (U) [Mass/Vol]36.5 mg/dL NormalS[facility] Diabetes [facility] CenterComment on above:Order Comment: THE MICROALBUMIN IS < 6.0 THEREFORE THE MICROALBUMIN/CREATININE RATIO IS UNDETECTA BLE.Performed By: #### 800 #### [facility] Unless Otherwise Noted [address] [address] / [facility] #[id number]/CLIA # [id number]<6.4Wryddt5.0-30.0[facility] Diabetes [facility] Medical CenterComment on above:Order Comment: THE MICROALBUMIN IS < 6.0 THEREFORE THE MICROALBUMIN/CREATININE RATIO IS UNDETECTABLE.Performed By: #### 800 #### [facility] Unless Otherwise Noted [address] [address] / [facility] #4724/CLIA # [id number] A/C Ratio-99.0 mg/gLow0.0-30.0[facility] Diabetes [facility] CenterComment on above:Order Comment: THE MICROALBUMIN IS < 6.0 THEREFORE THE MICROALBUMIN/CREATININE RATIO IS UNDETECTABLE.Performed By: #### 800 #### [facility] Unless Otherwise Noted [address] [address] / [facility] #[id number]/TEOFILO # [id number] Vital Signs Date TimeVital SignValuePerforming TvuvwnxzjShjzomms25-32-7407 13:48-0400Body xpgkyx905.18 cmAntonio Gonzalez MD Work Phone: [phone]63[facility]10-21-2025 13:48-0400 Body mass index (BMI) [Ratio]23.5 kg/s1JhfajzAntonio Gonzalez MD Work Phone: [phone]10-21-2025 13:48-0400 Body fquwdm99.03 kgAntonio Gonzalez MD Work Phone: [phone]10-21-2025 13:48-0400 Diastolic blood ulnsnvbn89 mm[Hg]Antonio Gonzalez MD Work Phone: [phone])[phone]10-21-2025 13:48-0400 Heart rate71 /Diana Gonzalez MD Work Phone: [phone])[address]10-21-2025 13:48-0400 Systolic blood wqmkmsih379 mm[Hg]Antonio Gonzalez MD Work Phone: [phone]07-16-2025 14:18-0400 Body mass index (BMI) [Ratio]23.03 kg/i3HxttdMayuri Salazar MD Work Phone: [facility]07-16-2025 14:18-0400Body hazagc23.72 kgMayuri Salazar MD Work Phone: 1(406)357-[address] [place], [place] [address]07-16-2025 14:18-0400Diastolic blood hnwiomul40 mm[Hg]Mayuri Salazar MD Work Phone: 8(883)534-[address] [place], [place] 306[address]07-16-2025 14:18-0400Heart rate 74 /Rukhsana Salazar MD Work Phone: 1(681)103-[address] [place], [place] [address]07-16-2025 14:18-0400Systolic blood cxdvwuvg440 mm[Hg]Mayuri Salazar MD Work Phone: 1(419)537-[address] [place], [place] [address]05-22-2025 14:20-0400Body .18 cm[facility]05-22-2025 14:20-0400Body mass index (BMI) [Ratio]23 kg/a6LozsdcprnKn[facility] Hospital05-22-2025 14:20-0400Body httijozmadz82.1 [degF][facility]05-22-2025 14:20-0400Body .67 kgKn[facility]05-22-2025 14:20-0400Diastolic blood keawaxmz55 mm[Hg][facility] 09-10-2024 14:20-0400Heart rate71 /minKn[facility] Hospital 09-10-2024 14:20-0400Systolic blood stzyfjpj054 mm[Hg][facility]04-07-2025 10:13-0400Body mass index (BMI) [Ratio]22.96 kg/s2Livnkbp Fyffe [employer] BOILER-DIRECT MAIL MARKETER Work Phone: 1(334)091-[address] [place], [place] 306[address]04-07-2025 10:130400Body khvvyi50.5 kgNatalie Fyffe LIME BOILER-DIRECT MAIL MARKETER Work Phone: 1(940)486-[address] [place], [place] [address]04-07-2025 10:13-0400Diastolic blood jgpbdwgy82 mm[Hg]Evi Cottoenthal LIME BOILER-DIRECT MAIL MARKETER Work Phone: 1(120)127-[address] [place], [place] 306[address]04-07-2025 10:130400Heart rate 89 /minNatalicas Fyffe LIME BOILER-DIRECT MAIL MARKETER Work Phone: 1(112)497-[address] [place], [place] [address]04-07-2025 10:13-0400Systolic blood mm[Hg]Evi Cottoenthal LIME BOILER-DIRECT MAIL MARKETER Work Phone: 1(315)904-[address] [place], [place] [address]01-30-2025 10:58-0500Body .2 cmSarya Brink MD Work Phone: [facility]01-30-2025 10:58-0500Body mass index (BMI) [Ratio]23.21 kg/o1RneadqhyfStacy Brink MD Work Phone: [facility]01-30-2025 10:58-0500Body fwuesjuvlgc80.3 [degF]Stacy Brink MD Work Phone: [facility]01-30-2025 10:58-0500Body ynpiil13.22 kgStacy Brink MD Work Phone: [facility]12-05-2024 14:47-0500Body mass index (BMI) [Ratio]22.85 kg/m5LasvmMayuri Salazar MD Work Phone: 1(325)352-[address] [place], [place] [address]12-05-2024 14:47-0500Body mgwiek88.18 kgMayuri Salazar MD Work Phone: 1(850)882-[address] [place], [place] [address]12-05-2024 14:47-0500Diastolic blood jfjqotxi21 mm[Hg]Mayuri Salazar MD Work Phone: 1(412)565-[address] [place], [place] [address]12-05-2024 14:47-0500Heart rate 77 /Rukhsana Salazar MD Work Phone: 1(270)981-[address] [place], [place] [address]12-05-2024 14:47-0500Systolic blood tsejyxhh332 mm[Hg]Mayuri Salazar MD Work Phone: 1(755)616-[address] [place], [place] [address]11-12-2024 09:33-0500Body ljpltu935.18 cm[facility]11-12-2024 09:33-0500Body mass index (BMI) [Ratio]22.7 kg/u9QywkxjpnfKnox Community Hospital11-12-2024 09:33-0500Body ymmhymsiqic09.4 [degF][facility]11-12-2024 09:33-0500Body yvaloo62.94 kgKn[facility]11-12-2024 09:33-0500Diastolic blood xegfrwly08 mm[Hg][facility] 03-03-2024 09:33-0500Heart rate86 /minKn[facility] 03-03-2024 09:33-3315XoC8% (BldA) [Mass fraction]94 %[facility]11-12-2024 09:33-0500Systolic blood xmezkrvf194 mm[Hg][facility]10-28-2024 13:05-0400Body aixknb841.2 cmCaijailyn Gilmore LIME BOILER-DIRECT MAIL MARKETER Work Phone: [facility]10-28-2024 13:05-0400Body mass index (BMI) [Ratio]22.71 kg/f2Bktmxdyforrest Gilmore L[employer] BOILER-DIRECT MAIL MARKETER Work Phone: [facility]10-28-2024 13:05-0400Body .77 kgCaforrest Gilmore LIME BOILER-DIRECT MAIL MARKETER Work Phone: [facility]10-22-2024 11:45-0400Body .18 cm[facility]10-22-2024 11:45-0400Body mass index (BMI) [Ratio]23 kg/s8QjryecozeKnox Community Hospital10-22-2024 11:45-0400Body ibatxcuuwtg80.2 [degF][facility]10-22-2024 11:45-0400Body xvuesl10.67 kgKn[facility]10-22-2024 11:45-0400Diastolic blood whvuqtun27 mm[Hg][facility] 02-11-2024 11:45-0400Heart rate72 /minKn[facility] 02-11-2024 11:45-2031YaW6% (BldA) [Mass fraction]97 %[facility]10-22-2024 11:45-0400Systolic blood sptvfcaf034 mm[Hg][facility]10-10-2024 13:11-0400Diastolic blood vmiyhfsw51 mm[Hg][facility]10-10-2024 13:11-0400Systolic blood dgdzcajm837 mm[Hg] [facility] [address] [place], [place] [address]10-10-2024 12:46-0400Body gxexzhpggtd39.01 [degF] [address]10-10-2024 12:46-0400Heart rate69 /minMetro 2 [facility]10-10-2024 12:46-0400Respiratory rate18 /minMetro 2 [facility]10-10-2024 12:46-5396YjI4% (BldA) [Mass fraction]94 % [facility] [address] [place], [place] [address]10-10-2024 12:39-0400Body spkjsa983.2 cmMetro 2 [facility]10-10-2024 12:39-0400Body mass index (BMI) [Ratio]23.07 kg/v0Oxguw [address] [place], [place] 300[address]10-10-2024 12:39-0400Body hhobtg34.[address] [place], [place] 300[address]09-05-2024 11:45-0400Body equxzm859.2 Dagmar Brink MD Work Phone: [facility]09-05-2024 11:45-0400Body mass index (BMI) [Ratio]23.18 kg/l7YwuiylnaxStacy Brink MD Work Phone: [facility]09-05-2024 11:45-0400Body aqsaodoesks05.2 [degF]Stacy Brink MD Work Phone: [facility]09-05-2024 11:45-0400Body poerms10.13 kgStacy Brink MD Work Phone: [facility]07-15-2024 09:32-0400Body mass index (BMI) [Ratio]23.16 kg/o5Cewvt Briana L[employer] BOILER-DIRECT MAIL MARKETER Work Phone: [facility]07-15-2024 09:32-0400Body .09 kgKarol Briana LIME BOILER-DIRECT MAIL MARKETER Work Phone: [facility]07-15-2024 09:32-0400Diastolic blood fdxrfyfd59 mm[Hg]Rogelio Briana FRANZN-DIRECT MAIL MARKETER Work Phone: [facility]07-15-2024 09:32-0400Heart rate 71 /minKarol Briana LIME BOILER-DIRECT MAIL MARKETER Work Phone: [facility]07-15-2024 09:32-0400Systolic blood uqqoxxir145 mm[Hg]Rogelio Rebolledo APRN-DIRECT MAIL MARKETER Work Phone: [facility]05-02-2024 14:56-0400Body grkhla959.2 Dagmar Brink MD Work Phone: [facility]05-02-2024 14:56-0400Body mass index (BMI) [Ratio]23.34 kg/i1SyqpooyjvStacy Brink MD Work Phone: [facility]05-02-2024 14:56-0400Body guiphyhjffx60.7 [degF]Stacy Brink MD Work Phone: [facility]05-02-2024 14:56-0400Body zqoplc02.59 kgStacy Brink MD Work Phone: [facility]03-21-2024 14:52-0400Body ecwohw305.2 Dagmar Brink MD Work Phone: [facility]03-21-2024 14:52-0400Body mass index (BMI) [Ratio]23.27 kg/a7JaqygkthuStacy Brink MD Work Phone: [facility]03-21-2024 14:52-0400Body htfokmpcbfw10.7 [degF]Stacy Brink MD Work Phone: [facility]03-21-2024 14:52-0400Body abcijj12.41 Nallely Brink MD Work Phone: [facility]03-19-2024 12:02-0400Body mass index (BMI) [Ratio]23.1 kg/s0PimgxMayuri Salazar MD Work Phone: [facility]03-19-2024 12:02-0400Body jvjyic17.91 Gina Salazar MD Work Phone: 1([phone] [place], [place] [address]03-19-2024 12:02-0400Diastolic blood qorawkaz77 mm[Hg]Mayuri Salazar MD Work Phone: [facility]03-19-2024 12:02-0400Heart rate 70 /minMayuri Salazar MD Work Phone: [facility]03-19-2024 12:02-0400Systolic blood kywkkazl847 mm[Hg]Mayuri Salazar MD Work Phone: 1([phone] [place], [place] [address]12-19-2023 13:00-0500Body hzfmmy021.18 cmAshtynjoaquim Lisa Other [employer] Other 12-19-2023 13:00-0500Body mass index (BMI) [Ratio] 23.18 kg/w7AezheyAntonio Gonzalez Other [employer] Other 12-19-2023 13:00-0500Body idmcmw40.13 kgAshtynjoaquim Lisa Other [employer] Other 12-19-2023 13:00-0500Diastolic blood axykdkjm89 mm[Hg] Antonio Gonzalez Other [employer] Other 12-19-2023 13:00-0500Systolic blood ghmofjrk749 mm[Hg] Antonio Gonzalez Other [employer] Other 11-22-2023 13:00-0500Body flihei810.18 cmRosa Jarquinacher Other [employer] Other 11-22-2023 13:00-0500Body mass index (BMI) [Ratio] 23.05 kg/h8NromhsgsRosa Pinorbacher Other [employer] Other 11-22-2023 13:00-0500Body mtfnwiumvwc81.4 [degF] Rosa Pinoarben Other [employer] Other 11-22-2023 13:00-0500Body wkjira62.77 kgRosa Pinojohndavidaraceli Other [employer] Other 11-22-2023 13:00-0500Diastolic blood zmxrgdwi40 mm[Hg] Rosa Ary Other [employer] Other 11-22-2023 13:00-5830YuG6% (BldA) [Mass fraction]97 % Rosa Pinoarben Other [employer] Other 11-22-2023 13:00-0500Systolic blood ijzdhywc810 mm[Hg] Rosa Ary Other [employer] Other 10-09-2023 11:15-0400Body .18 cmAntonio Gonzalez Other [employer] Other 10-09-2023 11:15-0400Body mass index (BMI) [Ratio] 23.02 kg/h0JgqrrvAntonio Gonzalez Other [employer] Other 10-09-2023 11:15-0400Body .68 kgAntonio Gonzalez Other [employer] Other 10-09-2023 11:15-0400Diastolic blood wzzidvub31 mm[Hg] Antonio Gonzalez Other [employer] Other 10-09-2023 11:15-0400Systolic blood zvokwadc090 mm[Hg] Antonio Gonzalez Other [email or web address] Other Encounters Encounter DateEncounter TypeCare ProviderFacilityStart: 02-09-2025 End: 99-99-7840olcgarfqubAywjsz E Braun MD Work Phone: [facility]: 02-09-2025 End: 35-97-2379Ffofxmq encounter procedureAntonio Gonzalez MD-[facility] Work Phone: Start: 11-04-2024 End: 75-85-9846Umwkfm outpatient visit 25 minutesMayuri Salazar MD Work Phone: [facility] on above:Type 1 diabetes mellitus without complication (CMS-HCC) (Primary Dx); Mixed hyperlipidemia; 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Start: 09-10-2024 End: 59-71-1777ywgmlwvgfxQqjahovqrLima City Hospital Work Phone: Start: 09-10-2024 End: 10-52-0346Eytlsou encounter procedureFirlewisgale hospital [facility] Work Phone: Start: 07-27-2024 End: 70-24-3912Jhaaoo outpatient visit 25 minutesEvi Anguaino APRN-[facility] Work Phone: [facility] on above:Type 1 diabetes mellitus without complication (CMS-HCC) (Primary Dx); Mixed hyperlipidemia; 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Start: 17-60-3918Yyu-patient / Non-visitFirlewisgale hospital [facility] Work Phone: Start: 06-09-2024 End: 86-69-8679MspvpiVslwdCecy Salazar MD Work Phone: [facility]art: 06-08-2024 End: 38-02-7160Avcecynhk encounterAmanda Carson LPNProMedica Adult Endocrinology, A Department of [facility]ertart: 05-21-2024 End: 35-31-0323Fqqvpi outpatient visit 10 minutesStwil Brink MD Work Phone: [facility], Nose and ThroatComment on above:Neck mass (Primary Dx); Ear fullness, right; Tonsillar hypertrophy; Nasal drynessStart: 05-18-2024 End: 69-25-3815TgiavlShqeuCecy Salazar MD Work Phone: [facility]art: 04-17-2024 End: 34-01-3179qxshsbjmcnQodvga J Lampacility:FTFREMONT MEMORIAL HOSPITALtart: 04-17-2024 End: 35-17-8630Yetzlas encounter procedureJudit Velasquez [facility] Start: 04-16-2024 End: 27-99-0019GqklhqTwyyyRaleigh Salazar MD Work Phone: [facility] [place] - Diabetes Start: 03-27-2024 End: 98-57-3029GqxeqbMnmloRaleigh Salazar MD Work Phone: [facility] Adult EndocrinologyComment on above:Type 1 diabetes mellitus without complication ([facility]-HCC)Start: 03-26-2024 End: 89-65-2910Eenoct outpatient visit 25 minutesMayuri Salazar MD Work Phone: [facility] Adult EndocrinologyComment on above:Type 1 diabetes mellitus without complication (CMS-HCC) (Primary Dx); Mixed hyperlipidemiaStart: 03-23-2024 End: 72-57-4308VuixeeMjdynRaleigh Salazar MD Work Phone: [facility] Adult EndocrinologyComment on above:Type 1 diabetes mellitus without complication ([facility]-HCC)Start: 03-10-2024 End: 27-65-5789FhcdnmDsxaiNirali Rebolledo APRN-DIRECT MAIL MARKETER Work Phone: [facility] Physicians Adult EndocrinologyComment on above:Type 1 diabetes mellitus without complication ([facility]-HCC)Start: 03-03-2024 End: 48-30-3096aethjqbaydOcmjeqwigTogus VA Medical Center Work Phone: Start: 03-03-2024 End: 33-31-4397Nnarwpk encounter procedureFirelands Physician Group-[facility] Work Phone: Start: 02-28-2024 End: 23-37-8701GsyhyqOvrouq Brown [facility]ITALroMedbrook[facility] Phys[facility] Adult Endocr[facility] Start: 02-20-2024 End: 22-92-8071DxlpwbVqlawRaleigh Salazar MD Work Phone: [facility] Physicians Adult EndocrinologyStart: 02-17-2024 End: 52-48-4589Upmxrvu encounter procedureCaforrest Gilmore LIME BOILER-DIRECT MAIL MARKETER Work Phone: [facility] Ear, Nose and ThroatComment on above:Neck mass (Primary Dx); Ear fullness, rightStart: 02-14-2024 End: 19-59-7684Wzpagogsy encounterRogelio Rebolledo LIME BOILER-DIRECT MAIL MARKETER Work Phone: [facility]port[facility]f Physicians Adult EndocrinologyStart: 02-11-2024 End: 08-13-6258qjberyoprcZiteynyviTogus VA Medical Center Work Phone: Start: 02-11-2024 End: 21-55-8149Vxewjrp encounter procedureFirelands Physician Group-[facility] Work Phone: Start: 34-82-7411Qnz-patient / Non-visitFirelands Physician Group-[facility] Work Phone: Start: 93-49-8391Jbk-patient / Non-visitFirelands Physician Group-[facility] Work Phone: Start: 78-80-3143Abf-patient / Non-visitFirelands Physician Group-[facility] Work Phone: Start: 02-04-2024 End: 15-87-7846PmkggpQuhgtRaleigh Salazar MD Work Phone: [facility] Adult EndocrinologyComment on above:Type 1 diabetes mellitus without complication ([facility]-HCC) (Primary Dx)Start: 01-31-2024 End: 20-01-7417Jplgqcoej encounterMayuri Salazar MD Work Phone: [facility] Physicians Adult EndocrinologyStart: 01-30-2024 End: 24-87-5764Womttcj encounter procedureMetro [facility] Provider [address] [place] [address] [facility] on above:Preop testing (Primary Dx); Type 1 diabetes mellitus without complication (CMS-HCC)Start: 01-30-2024 End: 34-79-2648Tuxwhxb encounter statusMetro [address] [place], [place] [address]tart: 01-29-2024 End: 73-72-5047Azrkbalbd [facility] Start: 01-23-2024 End: 51-49-1710rgigtyyovlATFJD A ZSARNAYFacility:FTMCStart: 01-21-2024 End: 90-78-4591tykssbfuwuXbndja J LampeFacility:FTMCStart: 01-21-2024 End: 22-57-6182Cunhgsl encounter Tina Velasquez [facility] Start: 12-26-2023 End: 79-83-3613Fppaouf encounter Jane Brink MD Work Phone: [facility] Physicians Ear, Nose and ThroatComment on above:Lymphadenopathy, cervical (Primary Dx)Start: 11-07-2023 End: 66-52-9433Xaaavocvd encounterAnh Berrios CMAMount St. 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; Carol Ann's diseaseStart: 10-09-2023 End: 82-15-9657Uifhjmhrt encounterSarya Brink MD Work Phone: [facility] Physicians Ear, Nose and ThroatComment on above:referral questionStart: 09-05-2023 End: 17-68-4901Xexqjm Jaylin Brink MD Work Phone: [facility] Physicians Ear, Nose and ThroatStart: 08-22-2023 End: 16-93-7246Clzxkip encounter procedureSarya Brink MD Work Phone: [facility] Physicians Ear, Nose and ThroatComment on above:Neck swelling (Primary Dx); Ear fullness, right; Otalgia, right; Sensorineural hearing loss (SNHL) of both ears; Tonsillith; Lymphadenopathy, cervicalStart: 08-12-2023 End: 07-30-9409Kdxsztrcf encounterSarya Brink MD Work Phone: [facility] - ENTComment on above:Order for CT scan needs faxedStart: 08-09-2023 End: 93-12-1062Vjpxiv Jaylin Brink MD Work Phone: [facility] - ENTComment on above:Neck mass (Primary Dx)Start: 08-01-2023 End: 71-25-1721ajglfckzgxKpzzpo J LampeFacility:FTMCStart: 08-01-2023 End: 36-37-9043Tkqdmbm encounter procedureJudit Velasquez [facility] Start: 47-77-4861LhdjbpQsrmxRaleigh Salazar MD Work Phone: [facility] [place] - Diabetes Comment on above:Type 1 diabetes mellitus without complication ([facility])Start: 58-25-2948Agnqeg RalphAinsley Gilmore MECCA Work Phone: [facility] - ENTComment on above:Ear fullness, right (Primary Dx)Need order for creatinine lab workStart: 07-23-2023 Telephone encounterSarya Brink MD Work Phone: [facility] - ENTStart: 07-11-2023 End: 72-40-2626Bdsfgtr encounter procedureSarya Brink MD Work Phone: [facility] Physicians Ear, Nose and ThroatComment on above:Ear fullness, right (Primary Dx); Otalgia, right; Sensorineural hearing loss (SNHL) of both ears; Neck swellingStart: 07-11-2023 End: 32-57-1359Jpioqjbe SupportAlison Francisco ORLANDO Work Phone: [facility] Physicians Ear, Nose and ThroatComment on above:Sensorineural hearing loss (SNHL) of both ears (Primary Dx); Ear pain, rightStart: 07-09-2023 End: 93-55-0912Ngjvje outpatient visit 25 minutesMayuri Salazar MD Work Phone: [facility] Physicians Adult EndocrinologyComment on above:Type 1 diabetes mellitus without complication ([facility]) (Primary Dx); Carol Ann's disease; Mixed hyperlipidemiaStart: 05-01-2023 End: 43-18-6419ajcgtpzjemKpoxnk Lisa Other Nort [email or web address] Other Start: 07-49-6171Ifcirdfpu encounterMarcicristobal Hackett [facility] ClinicStart: 04-30-2023 End: 94-30-7912Zrcrlch encounter procedureTermin Velasquez [facility] Start: 28-95-4589WogpofAfstrRaleigh Salazar MD Work Phone: [facility] Diabetes [place] - Diabetes Start: 04-26-2023 End: 67-43-1503lnymperqxmMejebn Braun Other [facility] [email or web address] Other Start: 54-84-4034Yznmykymy encounterAntonio Hackett [facility] ClinicStart: 04-11-2023 End: 15-49-4042Ygjkjoy encounter procedureTerescristobal Velasquez [facility] Start: 04-09-2023 End: 56-86-7984wyikwgldlyJijsig Braun Other [facility] [email or web address] Other Start: 56-02-8946Mnwtrn outpatient visit 15 minutes Antonio LisaOhioHealth [facility] ClinicStart: 03-13-2023 End: 29-08-1281knpdktwqwpUtaxwhfz Rohrbacher Other [facility] [email or web address] Other Start: 05-89-4536Tzqbyl outpatient visit 15 minutes Rosa Pedraza [facility]tart: 03-06-2023 End: 64-46-8494Qdx Drop offTermin Velasquez [facility] Start: 2023 End: 58-37-8490cmsnkylrovQervfw Braun Other [place] [email or web address] Other Start: 69-34-4959Vbzofd outpatient visit 15 minutes Antonio LisaOhioHealth [facility] Center ClinicStart: 04-10-2022 End: 45-86-0921Gixrytj encounter procedureTermin Christensen Ron [facility] Start: 03-02-2022 End: 47-96-3638bcqibtcfkoRB DOCTOR MISCFacility:L1Nqtfj: 03-02-2022 End: 01-32-2293Pub Drop offTermin Christensen Ron [facility] Start: 10-28-2021 End: 21-88-9962wysgqymmwuUA DOCTOR MISCFacility:U3Vxiuf: 07-20-2021 End: 72-96-7297zsbmrcgqdzMUZIW D HIGHLANDERFacility:J0Pthms: 01-12-2016 End: 09-66-4029RferiqzojzDHHUB H SOHNFacility:[facility] Procedures DateProcedureProcedure DetailPerforming ClinicianStart: 75-05-6986Tbcycqszas glycosylated f7aRbnlfMayuri Salazar MD Work Phone: start: 24-25-7631Hnoniwadfm glycosylated o6xBbedonb Araceli Anguiano LIME BOILER-DIRECT MAIL MARKETER Work Phone: start: 26-46-1817Quzzcnkexc glycosylated y1lQkhpyMayuri Slaazar MD Work Phone: start: 84-88-6765Qqpqa metabolic panel calcium total Jose Matos MD Work Phone: start: 57-84-9515Lcr routine ecg w/least 12 lds trcg only w/o i&rGregioana Matos MD Work Phone: start: 93-55-3355Qyqubsnvbc glycosylated e5aUnnsl A Briana LIME BOILER-DIRECT MAIL MARKETER Work Phone: start: 17-69-2575Dq soft tissue neck w/contrast materialScanning Provider ExternalStart: 44-18-9904Rngoygcnxg glycosylated a1c Mayuri Salazar MD Work Phone: start: 57-69-6586Zckevguf retinal eye examMayuri Salazar MD Work Phone: breast biopsy 1Teresa Ron comment on above:leftbursa sac 2Teresa Ron comment on above:right kneeknee arthroscopy 3Tjesus Velasquez comment on above:rightViral screeningJennifer Rohrbacher Other Plan of Treatment DateCare ActivityDetailAuthorStart: 92-47-9938Clmmd BMI ScreeningAdult BMI ScreeningProOhiohealth Grove City Methodist Hospitalca Health SystemStart: 74-61-4384Wruvsrc ScreeningTobacco ScreeningProMedica Health SystemStart: 41-89-2763Mrdex BMI ScreeningAdult BMI ScreeningProOhiohealth Grove City Methodist Hospitalca Health SystemStart: 05-29-2184Ebxcdbnv foot examination Diabetic Foot ExamProMercer County Community Hospital SystemStart: 85-68-7461Ledppip Screening Tobacco ScreeningACMC Healthcare System Glenbeighca [facility] SystemStart: 19-10-0207Guvnazg Screening Tobacco ScreeningACMC Healthcare System Glenbeighca Health SystemStart: 41-50-2541Rtidl BMI Screening Adult BMI ScreeningProOhiohealth Grove City Methodist Hospitalca Health SystemStart: 84-42-5200Zgwmvep Screening Tobacco ScreeningACMC Healthcare System Glenbeighca Health SystemStart: 30-15-1703Apjuz BMI Screening Adult BMI ScreeningProOhiohealth Grove City Methodist Hospitalca Health SystemStart: 94-67-2228Drecjcyr foot examinationDiabetic Foot ExamProMercer County Community Hospital SystemStart: 90-31-5428Rqmewyc ScreeningTobacco ScreeningMercy Health [facility] Hospital SystemStart: 03-08-2025 End: 89-19-6668Aoowjuc encounter oruiqskvq92/17/2025 9:45 AM EST Office Visit [facility], A [facility] [address] [address] Evi Anguiano, LIME BOILER-DIRECT MAIL MARKETER [address] [facility], [address] [address] [facility] Adult Endocrinology, A Department of [facility] Centertart: 86-54-9560Fmcao BMI ScreeningAdult BMI ScreeningProOhiohealth Grove City Methodist Hospitalca [facility] [place] SystemStart: 05-15-2464Ciqrdry ScreeningTobacco ScreeningACMC Healthcare System Glenbeighca [facility] [place] SystemStart: 81-69-7337Wjqat BMI ScreeningAdult BMI ScreeningACMC Healthcare System Glenbeighca [facility] [place] SystemStart: 01-35-3262Rkqcjgf ScreeningTobacco ScreeningACMC Healthcare System Glenbeighca Health System Start: 02-52-4443Omwft BMI ScreeningAdult BMI ScreeningACMC Healthcare System Glenbeighca [facility] System Start: 88-71-7325Wkxomqz ScreeningTobacco ScreeningACMC Healthcare System Glenbeighca [facility] [place] SystemStart: 09-15-3359Wiuodzy ScreeningTobacco ScreeningACMC Healthcare System Glen[facility]ighca [facility] [place] SystemStart: 85-95-4158Zuwlk BMI ScreeningAdult BMI ScreeningACMC Healthcare System Glenbeighca [facility] SystemStart: 37-91-5664Mecuzknie vaccinationInfluenza VaccineACMC Healthcare System Glenbeighca [facility] [place] SystemStart: 11-04-2024 End: 32-92-6224Zrtyezt encounter kexqiahpw41/16/2025 2:15 PM EDT Office Visit [facility] Adult Endocrinology, A Department of [facility] [address] [phone] Mayuri Salazar MD [address] [address] [facility] Adult Endocrinology, A Department of [facility] Start: 10-80-9831Jjpfw BMI ScreeningAdult BMI ScreeningCleveland Clinic [facility] Start: 68-14-3470Kxgayogt foot examinationDiabetic Foot ExamMercy Health Kings Mills Hospital SystemStart: 03-70-8702Lvxukgi ScreeningTobacco ScreeningACMC Healthcare System Glen[facility]ighca [facility] Start: 70-55-3356Hqjutpu ScreeningTobacco ScreeningACMC Healthcare System Glen[facility]ighca [facility] [place] SystemStart: 84-30-5326Koevc BMI ScreeningAdult BMI ScreeningACMC Healthcare System Glenbeighca [facility] [place] SystemStart: 07-27-2024 End: 41-00-1486Uobmyne encounter procedureProMedica Adult Endocrinology, A Department of [facility] Centertart: 35-15-3935Ucpqtfv ScreeningTobacco ScreeningACMC Healthcare System Glen[facility]ighca [facility] [place] SystemStart: 76-75-8045Ihjcy BMI ScreeningAdult BMI ScreeningACMC Healthcare System Glenbeighca [facility] [place] SystemStart: 69-92-0935Wxmprqp ScreeningTobacco ScreeningProMercer County Community Hospital SystemStart: 93-00-7770Shzwz BMI ScreeningAdult BMI ScreeningProMercer County Community Hospital SystemStart: 94-05-3638Xgmmvgyr foot examination Diabetic Foot ExamProMercer County Community Hospital SystemStart: 83-98-1767Rfzgttw Screening Tobacco ScreeningProMercer County Community Hospital SystemStart: 05-21-2024 End: 78-44-9670Exmgmuo encounter /30/2025 10:45 AM EST Office Visit [facility] [address] [facility] [address] [place] [address] Stacy Brink MD [address] [address] [facility] Ear, Nose and ThroatStart: 03-26-2024 End: 37-31-2130Zprjsrj encounter fplgrteen04/05/2024 2:45 PM EST Office Visit [facility] [address] [place] [address] Mayuri Salazar MD [address] [place] [address] [facility] Adult EndocrinologyStart: 03-25-2024 End: 98-04-9628Rzrpwhm encounter ojlvetqci90/04/2024 1:15 PM EST Office Visit [facility] [address] [facility] [address] [place] [address] Mirna Perry, DO [address] [facility] [address] [place] [address] [facility] Ear, Nose and ThroatStart: 03-16-2024 End: 55-47-0889Ewuqnigzv to same day surgery euxljq7903/16/2024 11:45 AM EST - 03/16/2024 1:45 PM EST Surgery [facility] Division of [facility] - Surgery [address] [place] [address] Stacy Brink MD [address] [facility] [address] [place] [address] EXCISION LYMPHNODE HEAD NECK [99928 (CPT )][facility] SurgeryComment on above:EXCISION LYMPH NODE HEAD NECK [57299 (CPT )]Start: 03-16-2024 End: 20-28-3331Yf/exc lymph node open superficialEXCISION LYMPH NODE HEAD NECK Neck swelling Lymphadenopathy, cervical Neck mass 03/16/2024 11:45 AMESTFLOWER SURGERYStart: 97-70-5844Wzrlthgwwt hospital visit by faowpguzo11/25/2024 11:45 AM EST Hospital Encounter [facility] Surgery [address] [place] [address] Stacy Brink MD [address] [facility] [address] [place] [address] [facility] of [facility] SurgeryStart: 19-46-0811Iazrr BMI ScreeningAdult BMI ScreeningProMercer County Community Hospital SystemStart: 13-91-4837Mapqqpew foot examinationDiabetic Foot ExamProMercer County Community Hospital SystemStart: 84-95-5262Pmzwuqk ScreeningTobacco ScreeningProMercer County Community Hospital SystemStart: 03-02-2024 End: 37-19-5262Oxiovgx encounter ayzojsrjs06/11/2024 1:30 PM EST Procedure visit [facility] On [address] [address]LwaAamgbl [facility] On [facility] Start: 02-18-2024 End: 90-34-0026Ogoaugs encounter plpyogrlf75/29/2024 2:15 PM EDT Office Visit [facility] - ENT [address] [place] [address], [address] [place] [address] Dimitry Boyle, PA-C [address] [facility] [address] [place] [address] [facility] - ENTStart: 02-17-2024 End: 82-70-0590Vnlunty encounter puxbdadpl04/28/2024 1:15 PM EDT Office Visit [facility] [address] [facility] [place] [address] Ainsley Gilmore, LIME BOILER-DIRECT MAIL MARKETER [address] [facility], [address] [place] [address] [facility] Physicians Ear, Nose and ThroatStart: 02-07-2024 End: 99-76-1801Yikxmgwvm to same day surgery gopqod1802/07/2024 10:45 AM EDT - 02/07/2024 12:45 PM EDT Surgery [facility] of [facility] - Surgery [address] [facility] [place] [address] [place] [address] [place] [address] [place] [address] EXCISION LYMPH NODE HEAD NECK [13345 (CPT )][facility] of [facility] - SurgeryComment on above:EXCISION LYMPH NODE HEAD NECK [93345 (CPT )]Start: 02-07-2024 End: 96-24-0543Fc/exc lymph node open superficialEXCISION LYMPH NODE HEAD NECK Neck swelling Lymphadenopathy, cervical Neck mass 02/07/2024 10:45 AMEDTFLOWER SURGERYStart: 35-02-8898Zkbklgrldl hospital visit by toxqgecew78/18/2024 10:45 AM EDT Hospital Encounter [facility] - Surgery [address] [place] [address] Stacy Brink MD [address] [facility] [address] [place] [address] [facility] Division [facility] SurgeryStart: 02-07-2024 End: 12-36-6436Zupkiwcua to same day surgery fikmqv7202/07/2024 9:15 AM EDT - 02/07/2024 11:15 AM EDT Surgery [facility] Division [facility] Surgery [address] [place] [address] [place] [address] [place] [address] [place] [address] EXCISION LYMPHNODE HEAD NECK [88127 (CPT )][facility] - SurgeryComment on above:EXCISION LYMPH NODE HEAD NECK [01257 (CPT )]Start: 02-07-2024 End: 80-85-4219Ls/exc lymph node open superficialEXCISION LYMPH NODE HEAD NECK Neck swelling Lymphadenopathy, cervical Neck mass 02/07/2024 9:15 AM EDTFLOWER SURGERYStart: 34-89-7885Fozdjgvhnn hospital visit by mohgieuie78/18/2024 9:15 AM EDT Hospital Encounter [facility] Surgery [address] [place] [address] [place] [address] [place] [address] [place] [address] [facility] Division [facility] SurgeryStart: 09-68-9701RHkF,Tdap and Td Vaccines (3 - Td or Tdap)DTaP,Tdap and Td Vaccines (3 - Td or Tdap)[facility] SystemStart: 01-30-2024 End: 45-52-7945Arxajwm encounter dazvkkxyo95/10/2024 12:15 PM EDT Procedure visit [facility] On [address] [address]QspYousyx [facility] Springstart: 99-77-4632WAHIJ-19 Vaccine ( season)COVID-19 Vaccine ( season)[facility] SystemStart: 91-41-9999Oowsbduvy vaccination Influenza VaccineMercy Health Kings Mills Hospital SystemStart: 11-04-2023 End: 04-44-7113CVI Dexa bone density, 1+ sites, axial skeleton, including vertebral fracture assessmentAMB Dexa bone density, 1+ sites, axial skeleton, including vertebral fracture assessment Imaging Routine Osteopenia, unspecified location Expected: 11/04/2023, Expires: 11/03/2024[facility] Work Phone: comment on above:Expected: 11/04/2023, Expires: 11/03/2024Start: 11-04-2023 End: 72-42-4989Lvritna encounter fkwnhodch98/15/2024 9:30 AM EDT Office Visit [facility] [address] [phone] Rogelio Rebolledo, LIME BOILER-DIRECT MAIL MARKETER [address] [address] [facility] Adult EndocrinologyStart: 08-22-2023 End: 71-97-2079Zxfbmgj encounter duvmsbpxm38/02/2024 2:45 PM EDT Office Visit [facility] [address] [facility] [address] [place] [address] [place] [address] [place] [address] [facility] Ear, Nose and ThroatStart: 08-09-2023 End: 20-87-0622FH Neck W contrast IVCT neck soft tissue with contrast Imaging Routine Neck mass Expected: 08/09/2023, Expires: 08/08/2024[facility] Work Phone: Comment on above:Expected: 08/09/2023, Expires: 08/08/2024Start: 10-12-7344Gkphmqmx screeningDiabetic Ophthalmology Exam [facility] SystemStart: 07-11-2023 End: 41-64-9656Ymjjtvzm SupportProMedica Physicians Ear, Nose and ThroatStart: 07-11-2023 End: 49-99-0446CA Brain and Internal auditory canal WO and W contrast IVMR brain IAC with and without contrast Imaging Routine Otalgia, right Ear fullness, right Expected:07/11/2023, Expires: 07/10/2024[facility] Work Phone: Comment on above:Expected: 07/11/2023, Expires: 07/10/2024Start: 07-11-2023 End: 95-67-7295VD Head and neck soft tissueUltrasound soft tissue head neck Imaging Routine Neck swelling Expected: 07/11/2023, Expires: 07/10/2024ProMercer County Community Hospital SystemComment on above:Expected: 07/11/2023, Expires: 07/10/2024Start: 07-09-2023 End: 34-50-3727Rgqciek encounter ieymzoyxb92/19/2024 11:45 AM EDT Office Visit [facility] [address] [address] Mayuri Salazar MD [address] [address] [facility] Adult EndocrinologyStart: 13-85-1609CGCTR-19 Vaccine ( season)COVID-19 Vaccine ( season)[facility] SystemStart: 01-27-2010 Administration of varicella zoster vaccineZoster (Shingles) Vaccine (1 of 2) [facility] SystemStart: 65-65-6394Eaafpeptm for malignant neoplasm of cervixPap SmearMercy Health Kings Mills Hospital SystemStart: 78-27-9919JGgL,Tdap and Td Vaccines (1 - Tdap)DTaP,Tdap and Td Vaccines (1 - Tdap)[facility] SystemStart: 20-51-1201Owfbkoecfm ScreeningDepression ScreeningProMedica Nutzvieh24 SystemStart: 32-40-2540Cbmitz Use: DiabeticStatin Use: DiabeticProOhiohealth Grove City Methodist HospitalConcur [place] SystemStart: 11-37-6061Jszln screening for proteinUrine MicroalbuminACMC Healthcare System GlenbeighConcur [place] [facility] End: 44-19-9935Aefay metabolic 1999 panel - Serum or PlasmaBasic Metabolic Panel Lab Routine Type 1 diabetes mellitus without complication ([facility]) 1 Occurren chaparro starting 03/26/2024 until 03/26/2025ProJohn [facility] Hospital Nutzvieh24 SystemComment on above: 1 Occurrences starting 03/26/2024 until 03/26/2025 End: 54-87-1866Gnobldqyvpvju metabolic 1999 panel - Serum or PlasmaComprehensive metabolic panel Lab Routine Type 1 diabetes mellitus without complication ([facility]) 1Occurrences starting 11/04/2023 until 11/03/2024[facility] [employer] Comment on above:1 Occurrences starting 11/04/2023 until 11/03/2024 End: 81-05-1637Nkmaxxhrsu includes GFR, serumCreatinine includes GFR, serum Lab Routine Ear fullness, right 1 Occurrences starting 07/26/2023 until 07/25/2024 [facility] Work Phone: Comment on above:1 Occurrences starting 07/26/2023 until 07/25/2024 End: 67-84-0963Blufx 1995 panel - Serum or PlasmaLipid profile Lab Routine Type 1 diabetes mellitus without complication ([facility]) 1 Occurrences starting 11/04/2023 until 11/03/2024[facility] HospitalRegBinder SystemComment on above:1 Occurrences starting 11/04/2023 until 11/03/2024 End: 37-40-3356Warxa 1995 panel - Serum or PlasmaLipid profile Lab Routine Mixed hyperlipidemia 1 Occurrences starting 03/26/2024 until 03/26/2025[facility] Work Phone: comment on above:1 Occurrences starting 03/26/2024 until 03/26/2025 End: 58-62-5351Nonumsnjrzqm - Albumin: Creatinine Urine RatioMicroalbumin - Albumin: Creatinine Urine Ratio Lab Routine Type 1 diabetes mellitus without complication ([facility]) 1 Occurrences starting 11/04/2023 until 11/03/2024 [facility]MOr[facility]ville [facility] SystemComment on above:1 Occurrences starting 11/04/2023 until 11/03/2024 End: 86-20-5924Kzgfpsedvbx [Units/volume] in Serum or PlasmaTSH Lab Routine 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 1 Occurrences starting 11/04/2023 until 11/03/2024[facility] HospitalComment on above:1 Occurrences starting 11/04/2023 until 11/03/2024 End: 90-04-2742Tmvpgifob (T4) free [Mass/volume] in Serum or PlasmaT4, free Lab Routine 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 1 Occurrences starting 11/04/2023 until 11/03/2024[facility] HospitalComment on above:1 Occurrences starting 11/04/2023 until 11/03/2024 Immunizations Immunization DateImmunizationNotesCare OlhlfkpwOmtnxshh26-34-5945mgfupypxs virus vaccine, unspecified formulationEvi WING Work Phone: [phone] [place], [place] [address]Lizvnp64-92-3387rjmcycufy virus vaccine, unspecified formulationSarya Brink MD Work Phone: [facility]10-16-2014tetanus and diphtheria toxoids, adsorbed, preservative free, for adult use (5 Lf of tetanus toxoid and 2 Lf of diphtheria toxoid)Rosa Mcallister Other [facility]10-23-2013tetanus and diphtheria toxoids, adsorbed, preservative free, for adult use (5 Lf of tetanus toxoid and 2 Lf of diphtheria toxoid)Rosa Mcallister Other [facility] Payers DatePayer CategoryPayerPolicy [id number] [facility] System Care - PPOANTHEM Member Subscriber Plan / Payer (Effective 2024-Present) Name: Marcia Mario Relation to Subscriber: Self Name: Marcia Mario Payer ID: [id number] ([employer]) Type: Not on file Address: [address] [place] [id number] Managed Care - POSAETNA Member Subscriber Plan / Payer (Effective 2021- Present) Name: Marcia Mario Relation to Subscriber: Self Name: aMrcia Mario Payer ID: [id number] ([facility]) Type: Not on file Address: [address] [place] [id number] InsuranceAETNA AETNA POS [id number] 2021-Present [phone] [address] [place] [id number]. [id number] 2..[id number] 2..1.098761.3.57[id number] 2..1.590589.3.57[id number] 2..1.798508.3.57[id number] 2..1.079609.3.57[id number] 2..1.431686.3.57[id number] 2.16.840.1.868017.3.579.2.39639-90-6006Nccouqk Health [id number] Health [id number] Health InsuranceAetna Insurance [id number] [id number] Social History DateTypeDetailFacilityTobacco smoking statusWayne Hospitaltart: 06-02-2020 End: 11-06-3074Nll Assigned At BirthFemalSelect Medical Specialty Hospital - [facility]-Fairhilltart: 04-09-2023 End: 10-14-1469Pwpvrwm smoking status NHISNever smoked tobacco (finding) [facility]: 70-63-8752Pyl Assigned At BirthFeMercy Hospitaltart: 09-21-2019 End: 10-03-2798FawTzizpg (finding)[facility]: 70-50-6531Xwuiptl use and exposureSmokeless tobacco non-userMercy Health Kings Mills Hospital SystemStart: 03-26-2024 End: 19-49-2365Nwtahxoqb beverage intakeLifetime non-drinker (finding)[facility] SystemHelveta [facility]: 06-02-2020 End: 75-87-3962Dvnqjms of Social functionProJohn Paul Jones Hospital Health SystemChildcareUnknown [facility] Nutzvieh24 [facility] Hospitaltart: 48-53-2777Spo assigned at birthNot on file [facility] Nutzvieh24 System Medical Equipment Procedure CodeEquipment CodeEquipment Original TextEquipment IdentifierDates Check glucose 7 times daily-compatible strips for Medtronic 780G pump. For 90 day [id number]: 03-27-2024 End: strip by other route as needed for high blood sugar. Checks 7 times/day. Glucometer communicates with her insulin pump. DX: [id number] Start: 11-21-2022 End: 28-44-5795Lggtjv 7 times/day. Glucometer communicates with her insulin pump. DX: [id number]: 11-04-2023 End: 17-43-2390Ryows glucose 7 times daily-compatible strips for Medtronic 780G [id number]: 02-04-2024 End: 07-84-6076Rpkrc glucose 7 times daily-compatible strips for Medtronic 780G [id number]: 02-14-2024 End: 62-84-6748Kxhln glucose 7 times daily-compatible strips for Medtronic 780G [id number]: 03-10-2024 End: 52-93-8893Ggfld glucose 7 times daily-compatible strips for Medtronic 780G [id number]: 03-23-2024 End: 61-66-3972Qvtdu glucose 7 times daily-compatible strips for Medtronic 780G [id number]: 03-26-2024 End: 76-09-5045Wlpix glucose 7 times daily-compatible strips for Medtronic 780G pump. For 90 day [id number]: 20-70-5585Lqxay glucose 6 times daily- compatible strips for Medtronic 780G pump. For 90 day [id number]: 07-28-2024 Clinical Notes 07-20-2021 to 11-04-2024 Note Date & NjlpJxwzMqraijdl65-57-2467 History of Present illness Narrative* Mayuri Salazar MD - 11/04/2024 2:15 PM EDT Images from the original note were not included. REASON FOR VISIT: Marcia Mario returns today for follow-up of her diabetes. DIABETES HISTORY: Type of Diabetes: Type 1 Diabetes Mellitus Duration of Diabetes: since 1980 INTERVAL HISTORY: Last visit 08/06/24, HgA1c was 6.4%, today 6.4%. Occasional highs/lows. No changes to diet/activity.No vision changes, neuropathy or nocturia. She is on pravastatin 80mg daily. She is tolerating. Has hypothyroidism taking 75 mcg levothyroxine daily. Weight stable, no palpitations/tremors/sweats/anxiety. She denies any symptoms related to her thyroid. Has osteopenia last BMD 06/27/21 in our office demonstrated osteopenia, taking calcium daily DIABETES COMPLICATIONS/SURVEILLANCE: Retinopathy: no Last eye exam: July 2023, no retinopathy Nephropathy: no Peripheral neuropathy: no History of amputations: no Autonomic neuropathy: no Macrovascular disease: CAD: no PVD: no Stroke: no Hypertension: no Dyslipidemia: yes Tobacco use: no ASA prophylaxis: yes Sleep apnea: no Immunizations current : yes Current Diabetic medications: Medtronic 630G, not using sensor. Used medtronic enlite sensor in thepast but did not feel it was accurate. Blood sugars are stable during the day. No significant hypoglycemia. Prior Diabetic medications: various insulins Diet: carb counting Insulin pump settings: per download Blood glucose summary: Unable to download pump today Hypoglycemia: Awareness: good Frequency: infrequent Glucagon available: no Medic alert ID: no Past Medical History: Diagnosis Date Dental disorder chipped lower left molar Depression Diabetes mellitus type 1 ([facility]) 07/1980 Hyperlipidemia Hypothyroid Neck swelling 01/2024 enlarged lymph node on right Visual impairment Glasses Past Surgical History: Procedure Laterality Date BREAST BIOPSY Bilateral CAPSULAR RELEASE SHOULDER Left EXCISION OF RIGHT NECK MASS Right 02/07/2024 Performed by Stacy Brink MD at [facility] KNEE ARTHROSCOPY Right LASIK Bilateral TOOTH EXTRACTION 12/19/2023 Current Outpatient Medications: ACCU-CHEK GUIDE TEST STRIPS strip, Check glucose 6 times daily-compatible strips for Medtronic 780Gpump. For 90 day supply, Disp: 600 strip, Rfl: 3 ascorbic acid, vitamin C, (ascorbic acid) [...] pain., Disp: 30 tablet, Rfl: 0 insulin lispro (HumaLOG U-100 Insulin) 100 unit/mL injection, Per insulin pump, max 60 units per day, Disp: 54 mL, Rfl: 3 levothyroxine (SYNTHROID, LEVOTHROID) 75 MCG tablet, Take 1 tablet (75 mcg total) by mouth in the morning., Disp: 90 tablet, Rfl: 3 pedi multivit no.12 w-fluoride ([id number] A ORAL), See Admin Instructions., Disp: , Rfl: pravastatin (PRAVACHOL) 80 mg tablet, Take 1 tablet (80 mg total) by mouth in the morning. STOP 40 mg script., Disp: 90 tablet, Rfl: 3 sertraline (ZOLOFT) 50 mg tablet, Take 1 tablet (50 mg total) by mouth in the morning., Disp: , Rfl: Allergies, social history and family history were reviewed and updated in [facility]. REVIEW OF SYSTEMS: 12 systems were reviewed and were negative except for what has been mentioned above PHYSICAL EXAM: Wt Readings from Last 3 Encounters: 11/04/24 66.7 kg (147 lb 1.6 oz) 07/27/24 66.5 kg (146 lb 9.6 oz) 05/21/24 67.2 kg (148 lb 3.2 oz) Body mass index is 23.03 kg/m . Vitals: 11/04/24 1418 BP: 138/64 Pulse: 74 Weight: 66.7 kg (147 lb 1.6 oz) Physical Exam Constitutional: Appearance: Normal appearance. HENT: Mouth/Throat: Mouth: Mucous membranes are moist. Eyes: Extraocular Movements: Extraocular movements intact. Conjunctiva/sclera: Conjunctivae normal. Cardiovascular: Rate and Rhythm: Normal rate and regular rhythm. Pulses: Normal pulses. Heart sounds: Normal heart sounds. Pulmonary: Effort: Pulmonary effort is normal. Breath sounds: Normal breath sounds. Musculoskeletal: Cervical back: Normal range of motion and neck supple. Right lower leg: No edema. Left lower leg: No edema. Right foot: No deformity. Left foot: No deformity. Feet: Right foot: Protective Sensation: 5 sites tested. 5 sites sensed. Skin integrity: Skin integrity normal. Toenail Condition: Right toenails are normal. Left foot: Protective Sensation: 5 sites tested. 5 sites sensed. Skin integrity: Skin integrity normal. Toenail Condition: Left toenails are normal. Comments: Vibratory sensation intact Skin: General: Skin is warm. Findings: No rash. Neurological: General: No focal deficit present. Mental Status: She is alert and oriented to person, place, and time. Psychiatric: Mood and Affect: Mood normal. LABS: CBC: Lab Results Component Value Date [...] controlled Type 1 Diabetes Mellitus without complications. She has good control, no changes to her pump settings today. Clinically and biochemically euthyroid. Continue current dose of levothyroxine Plan:1. Type 1 diabetes mellitus without complication ([facility]) - POCT Hemoglobin A1c 2. Mixed hyperlipidemia 3. 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 REASON FOR VISIT: Marcia Mario returns today for follow-up of her diabetes. DIABETES HISTORY: Type of Diabetes: Type 1 Diabetes Mellitus Duration of Diabetes: since 1980 INTERVAL HISTORY: Last visit 03/26/24, HgA1c was 6.3%, today 6.4%. Upgraded pump in October 2023. She is on pravastatin 80mg daily. She thinks she tried atorvastain in the past, but didn't toleratedue to myalgias. Recent labwork was not fasting. [...] glucose summary: Unable to download pump today Hypoglycemia: Awareness: good Frequency: infrequent Glucagon available: no Medic alert ID: no Past Medical History: Diagnosis Date Dental disorder chipped lower left molar Depression Diabetes mellitus type 1 ([facility]) 07/1980 Hyperlipidemia Hypothyroid Neck swelling 01/2024 enlarged lymph node on right Visual impairment Glasses Past Surgical History: Procedure Laterality Date BREAST BIOPSY Bilateral CAPSULAR RELEASE SHOULDER Left EXCISION OF RIGHT NECK MASS Right 02/07/2024 Performed by Stacy Brink MD at [facility] KNEE ARTHROSCOPY Right LASIK Bilateral TOOTH EXTRACTION [...] for pain., Disp: 30 tablet, Rfl: 0 levothyroxine (SYNTHROID, LEVOTHROID) 75 MCG tablet, Take 1 tablet (75 mcg total) by mouth in the morning., Disp: 90 tablet, Rfl: 3 pedi multivit no.12 w-fluoride ([id number] A ORAL), See Admin Instructions., Disp: , Rfl: pravastatin (PRAVACHOL) 80 mg tablet, Take 1 tablet (80 mg total) by mouth in the morning. STOP 40 mg script., Disp: 90 tablet, Rfl: 3 sertraline (ZOLOFT) 50 mg tablet, Take 1 tablet (50 mg total) by mouth in the morning., Disp: , Rfl: ACCU-CHEK GUIDE TEST STRIPS strip, Check glucose 7 times daily-compatible strips for [employer] 780Gpump. For 90 day supply, Disp: 700 strip, Rfl: 3 insulin aspart U-100 (NovoLOG U-100 Insulin aspart) 100 unit/mL injection, INJECT 60 UNITS DAILY VIA INSULIN PUMP DIRECTED, Disp: 60 mL, Rfl: 3 pravastatin (PRAVACHOL) 40 mg tablet, Take 2 tablets (80 mg total) by mouth in the morning. (Patient not taking: Reported on 07/27/2024), Disp: 180 tablet, Rfl: 3 Allergies, social history and family history were reviewed and updated in [facility]. REVIEW OF SYSTEMS: 12 systems were reviewed and were negative except for what has been mentioned above PHYSICAL EXAM: Wt Readings from Last 3 Encounters: 07/27/24 66.5 kg (146 lb 9.6 oz) 05/21/24 67.2 kg (148 lb 3.2 oz) 03/26/24 66.2 kg (145 lb 14.4 oz) Body mass index is 22.96 kg/m . Vitals: 07/27/24 1013 BP: 113/74 Pulse: 89 Weight: 66.5 kg (146 lb 9.6 oz) General appearance: Well appearing female in [...] controlled Type 1 Diabetes Mellitus without complications. She has good control, no changes to her pump settings today. Due for updated lipid and cmp Clinically and biochemically euthyroid. Continue current dose of levothyroxine Plan:1. Type 1 diabetes mellitus without complication ([facility]) - POCT Hemoglobin A1c - insulin aspart U-100 (NovoLOG U-100 Insulin aspart) 100 unit/mL injection; INJECT 60 UNITS DAILY VIA INSULIN PUMP DIRECTED Dispense: 60 mL; Refill: 3 - ACCU-CHEK GUIDE TEST STRIPS strip; Check glucose 7 times daily-compatible strips for Medtronic 780G pump. For 90 day supply Dispense: 700 strip; Refill: 3 2. Mixed hyperlipidemia 3. 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 Return to clinic: 3-4 months MECCA Arevalo 07/27/24 1115 documented in this encounterC[facility]02-[facility] Miscellaneous Notes* Telephone Encounter - Zita Billings - 06/09/2024 1:12 PM EST PLEASE SIGN AND SEND documented in this encounterC[facility]02-18-2025 Telephone encounter Note* Telephone Encounter - Zita Billings - 06/09/2024 1:12 PM EST PLEASE SIGN AND SEND [facility]02-17-2025 Miscellaneous Notes* Telephone Encounter - Krista Byrd LPN - 06/08/2024 10:23 AM EST Pravastatin isnt covered for 2 pills daily * Telephone Encounter - Mayuri Salazar MD - 06/08/2024 10:23 AM EST Okay to send prescription for pravastatin 80 mg daily * Telephone Encounter - Zita Billings - 06/08/2024 10:23 AM EST New script pended documented in this encounterC[facility]02-17-2025 Telephone encounter Note* Telephone Encounter - Krista Byrd LPN - 06/08/2024 10:23 AM EST Pravastatin isnt covered for 2 pills daily [facility]02-17-2025 Telephone encounter Note* Telephone Encounter - Mayuri Salazar MD - 06/08/2024 10:23 AM EST Okay to send prescription for pravastatin 80 mg daily [facility]02-17-2025 Telephone encounter Note* Telephone Encounter - Zita Billings - 06/08/2024 10:23 AM EST New script pended [facility]01-30-[facility] History of Present illness Narrative* Stacy Brink MD - 05/21/2024 10:45 AM EST [facility] [address] [place] [address] SUBJECTIVE: Patient ID: Marcia Mario is a [...] left molar Depression Diabetes mellitus type 1 ([facility]) 07/1980 Hyperlipidemia Hypothyroid Neck swelling 01/2024 enlarged lymph node on right Visual impairment Glasses Past Surgical History: Procedure Laterality Date BREAST BIOPSY Bilateral CAPSULAR RELEASE SHOULDER Left EXCISION OF RIGHT NECK MASS Right 02/07/2024 Performed by Stacy Brink MD at [facility] KNEE ARTHROSCOPY Right LASIK Bilateral TOOTH EXTRACTION [...] Medtronic 780G pump. For 90 day supply 700 [...] 90 tablet 3 pedi multivit no.12 w-fluoride ([id number] A ORAL) See Admin Instructions. pravastatin (PRAVACHOL) [...] Normal hard palate, Normal uvula, Tonsil hypertrophyright: 1+, Tonsil hypertrophy left: 1+, and Normal Vallecula TMJ: No pain, crepitus, or trismus right and left Neck: Neck supple, No adenopathy, Thyroid normal in size without nodules or tenderness, No palpableneck masses, Carotids normal, and Well-healing right neck [...] or concerns: . Non-emergent messages received through The Local may take up to 2 business days for a response. Scribe Statement: Scribed for and in the presence of Stacy Brink MD by Liat Valentin (scribe). Liat Valentin 05/21/2024 11:36 AM. Provider Statement: I Stacy M Cuba, MD personally performed the services described in the documentation as described by the above named scribe in my presence. It is both accurate and complete at the time of final signature. Dr. Stacy Brink 05/21/2024 12:59 PM Electronically signed by Stacy Brink MD Please note that parts of this chart were generated using voice recognition [employer] Mav[employer] dictation software. Although every effort was made to ensure the accuracy of this automated pot puller, some errors in pot puller may have occurred. Liat Valentin CNA 05/21/24 1143 Liat Valentin CNA 05/21/24 1144 Liat Valentin CNA 05/21/24 1247 documented in this encounterACMC Healthcare System GlenbeighSera [facility]gn[facility] Beaum[facility] [id number] Instructions* Patient Instructions* Liat Valentin CNA - 05/21/2024 10:45 AM [...] or concerns: . Non-emergent messages received through The Local may take up to 2 business days for a response. documented in this encounterACMC Healthcare System GlenbeighSera Prognostics Beaumont [id number] Miscellaneous Notes* Telephone Encounter - Zita Billings - 05/18/2024 9:39 AM EST PLEASE SIGN AND SEND to new pharmacy documented in this encounterC[facility]01-27-[facility]25 Telephone encounter Note* Telephone Encounter - Zita Billings - 05/18/2024 9:39 AM EST PLEASE SIGN AND SEND to new pharmacy [facility] Nutzvieh24 [id number] Miscellaneous Notes* Telephone Encounter - Zita Jung - 03/27/2024 9:44 AM EST Pt called in stating she spoke with pharmacy and to do a script for 700 strips. documented in this encounterC[facility]12-06-2024 Telephone encounter Note* Telephone Encounter - Zita Billings - 03/27/2024 9:44 AM EST Pt called in stating she spoke with pharmacy and to do a script for 700 strips. [facility] SystemHelveta [id number] History of Present illness Narrative* Mayuri Salazar MD - 03/26/2024 2:45 PM EST Images from the original note were not [...] tried atorvastain in the past, but didn't toleratedue to myalgias. Recent labwork was not fasting. [...] left molar Depression Diabetes mellitus type 1 ([facility]) 07/1980 Hyperlipidemia Hypothyroid Neck swelling 01/2024 enlarged lymph node on right Visual impairment Glasses Past Surgical History: Procedure Laterality Date BREAST BIOPSY Bilateral CAPSULAR RELEASE SHOULDER Left EXCISION OF RIGHT NECK MASS Right 02/07/2024 Performed by Stacy Brink MD at [facility] SURGERY KNEE ARTHROSCOPY Right LASIK Bilateral TOOTH [...] tablet, Rfl: 3 pedi multivit no.12 w-fluoride ([id number] A ORAL), See Admin Instructions., Disp: , [...] glucose 7 times daily-compatible strips for Medtronic 780Gpump, Disp: 630 strip, Rfl: 3 Allergies, social [...] Plan:1. Type 1 diabetes mellitus without complication ([facility]) - POCT Hemoglobin A1c - ACCU-CHEK GUIDE TEST STRIPS strip; Check glucose 7 times daily-compatible strips for Medtronic 780G pump Dispense: 630 strip; Refill: 3 - Basic Metabolic Panel; Future 2. Mixed hyperlipidemia - Lipid profile; Future Return to clinic: 3-4 months documented in this [facility]12-02-2024 Miscellaneous Notes* Telephone Encounter - Zita Billings - 03/23/2024 10:23 AM EST Pt states script was never received- ok to sign and send documented in this [facility]12-02-2024 Telephone encounter Note* Telephone Encounter - Zita Billings - 03/23/2024 10:23 AM EST Pt states script was never received- ok to sign and send [facility]11-19-2024 Miscellaneous Notes* Telephone Encounter - Zita Billings - 03/10/2024 4:29 PM EST Ok to sign and resend with updated qty documented in this [facility]11-19-2024 Telephone encounter Note* Telephone Encounter - Zita Billings - 03/10/2024 4:29 PM EST Ok to sign and resend with updated qty [facility]11-08-2024 Miscellaneous Notes* Telephone Encounter - Krista Byrd LPN - 02/28/2024 3:22 PM EST error documented in this encounterC[facility]11-08-2024 Telephone encounter Note* Telephone Encounter - Krista Byrd LPN - 02/28/2024 3:22 PM EST error [facility]10-28-2024 History of Present illness Narrative* MECCA Weller - 02/17/2024 1:15 PM EDT Images from the original note were not included. [facility] [place] [id number] SUBJECTIVE: Patient ID (1960): Marcia Mario is [...] left molar Depression Diabetes mellitus type 1 ([facility]) 07/1980 Hyperlipidemia Hypothyroid Neck swelling 01/2024 enlarged lymph node on right Visual impairment Glasses Past Surgical History: Procedure Laterality Date BREAST BIOPSY Bilateral CAPSULAR RELEASE SHOULDER Left EXCISION OF RIGHT NECK MASS Right 02/07/2024 Performed by Stacy Brink MD at [facility] KNEE ARTHROSCOPY Right LASIK Bilateral TOOTH EXTRACTION [...] total) by mouth every 6 (six) hours asneeded for pain for up to 10 days. [...] times daily-compatible strips for Medtronic 780G pump 700 strip 3 calcium carbonate-vitamin [...] 90 tablet 3 pedi multivit no.12 w-fluoride ([id number]-PUIYB A ORAL) See Admin Instructions. pravastatin (PRAVACHOL) [...] per day to help loosen scar bands. Usesunscreen over the next 6-12 months while in [...] and benefits of treatment options, impressions, importance ofcompliance with treatment and risk factor reductions. The patient verbalized understanding and agreement to the plan. Please note that parts of this chart were generated using voice recognition [employer] Mavrix dictation software. Although every effort was made to ensure the accuracy of this automated pot puller, some errors in pot puller may have occurred. MECCA Weller 02/17/24 1326 documented in this [facility]10-25-2024 Miscellaneous Notes* Telephone Encounter - MECCA Chapman - 02/14/2024 4:21 PM EDT Needs renewal on test strips, sent today back to [facility] documented in this [facility]10-25-2024 Telephone encounter Note* Telephone Encounter - MECCA Chapman - 02/14/2024 4:21 PM EDT Needs renewal on test strips, sent today back to [facility]10-25-2024 Miscellaneous Notes* Telephone Encounter - MECCA Chapman - 02/14/2024 1:40 PM EDT Called pt with dexascan reports, mailed copy to pt documented in this [facility]10-25-2024 Telephone encounter Note* Telephone Encounter - MECCA Chapman - 02/14/2024 1:40 PM EDT Called pt with dexascan reports, mailed copy to pt [facility] Work Phone: [phone]) 821-308710-22-2024 Evaluation note* Diagnosis Onset Date Resolution Status Admit Date Dizziness acuteOctober 2023 11:38amEustachian tube dysfunctionacuteOctober 2023 11:38amBronchitisacuteNovember 2023 9:30am [facility] Work Phone: 1(361) 643-449710-15-2024 Miscellaneous Notes* Telephone Encounter - Zita Billings - 02/04/2024 11:22 AM EDT Ok to sign and send documented in this encounterC[facility]10-15-2024 Telephone encounter Note* Telephone Encounter - Zita Billings - 02/04/2024 11:22 AM EDT Ok to sign and send [facility]10-11-2024 Miscellaneous Notes* Telephone Encounter - Kimo [...] to inform their office documented in this encounterC[facility]10-11-2024 Telephone encounter Note* Telephone Encounter - Kimo Salcedo - 01/31/2024 12:07 PM EDT LM that they received surgical clearance for patient but could not read what was written regarding pump. It says temp basal of something. Asking clarification. Looking at it, it might say temp basal of 70%, Is this correct [facility]10-11-2024 Telephone encounter Note* Telephone Encounter - Mayuri Salazar MD - 01/31/2024 12:07 PM EDT Yes, use 70% temporary basal. Thanks [facility]10-11-2024 Telephone encounter Note* Telephone Encounter - Kimo Salcedo - 01/31/2024 12:07 PM EDT Detailed message left to inform their office [facility]10-10-2024 History and physical note* Leonora Angeles, LIME BOILER-DIRECT MAIL MARKETER - 01/30/2024 12:15 PM EDT Images from the original note were not included. PRE-ADMISSION TESTING HISTORY AND PHYSICAL EXAM DATE: 01/31/24 PCP: ANTONIO GONZALEZ MD CHIEF COMPLAINT: neck swelling HISTORY OF PRESENT ILLNESS: Marcia Mario, a 64 y.o. White or female, presents to [facility] for a pre- surgical H&P. Thepatient has [...] left molar Depression Diabetes mellitus type 1 ([facility]) 07/1980 Hyperlipidemia Hypothyroid Neck swelling 01/2024 enlarged [...] tablet, Rfl: 3 pedi multivit no.12 w-fluoride ([id number]-RNTHAWYK-NBUVD A ORAL), See Admin Instructions., Disp: , [...] Loera 01/30/24 1319 MECCA Loera 01/31/24 1416 [facility]10-10-20[facility] History and physical note* MECCA Loera - 01/30/2024 12:15 PM EDT Images from the original note were not included. PRE-ADMISSION TESTING HISTORY AND PHYSICAL EXAM DATE: 01/31/24 PCP: ANTONIO GONZALEZ MD CHIEF COMPLAINT: neck swelling HISTORY OF PRESENT ILLNESS: Marcia Mario, a 64 y.o. White or female, presents to [facility] for a pre- surgical H&P. Thepatient has [...] left molar Depression Diabetes mellitus type 1 ([facility]) 07/1980 Hyperlipidemia Hypothyroid Neck swelling 01/2024 enlarged [...] tablet, Rfl: 3 pedi multivit no.12 w-fluoride ([id number]-[id number]-JIKST A ORAL), See Admin Instructions., Disp: , [...] MECCA Loera 01/31/24 1416 documented in this encounterACMC Healthcare System GlenbeighNeoSystems10-10-2024 Instructions* Patient Instructions* Rossy Pool RN - 01/30/2024 12:15 PM EDT Your surgery/procedure is scheduled at [facility] on 02-07-2024. Arrival Time: You will be contacted with an arrival time. [facility] Address: [address] [place] [address], [facility], [address] Park in the Emergency Center Parking lot. Report to the front desk auxiliary in the Emergency/Surgery Registration lobby of the hospital. Notify your SURGEON if you develop any illness such as a cold, cough, fever, sore throat, vomiting or are hospitalized between now and your surgery. Please call Pre-Admission Clinic at [phone] if you have any questions prior to surgery. For questions the morning of surgery, call the Pre-op Department at [phone]. Medication Instructions (Do not stop your medications [...] would like to schedule therapy at a [facility] facility, please call [phone] ([phone]). Do not use lotions, creams, powders, perfume, make up, cologne or after-shaves day of surgery. Remove ALL jewelry including wedding rings, body piercings, hair extensions that contain metal, nail czech, make-up, and contact lens. You may brush your teeth the morning of surgery, but do not swallow the water. Wear your dentures and partial plates to the hospital (no adhesive). Shower the night the before. If applicable, use the CHG (chlorhexidine gluconate) soap or wipes. Please be advised, [facility] has transitioned to a cashless payment system. [...] RIGHTS AND RESPONSIBILITIES As a patient at [facility], you have the right to: Receive medical care and be informed of who is taking care of you Be treated with dignity and respect Have a family member/electroplating sales representative of choice and your physician notified of your admission Receive information and actively participate in decisions about your care and treatment Refuse care, treatment and services Decide who may provide your support and speak for you Access zoroastrian and spiritual services Participate in ethical issues [...] of hospital charges and payment methods Patient/patient electroplating sales representative responsibilities are to: Provide information [...] as promptly as possible documented in this encounterCleveland [facility]10-09-2024 Miscellaneous Notes* Telephone Encounter - Zen Hatfield - 01/29/2024 9:39 AM EDT PATIENT NOTIFIED WITH SURGERY TIME OF 10:45 . TOLD TO ARRIVE 2 HOURS PRIOR. documented in this encounterCleveland Clinic South Pointe [facility]10-09-2024 Telephone encounter Note* Telephone Encounter - Zen Alysia - 01/29/2024 9:39 AM EDT PATIENT NOTIFIED WITH SURGERY TIME OF 10:45 . TOLD TO ARRIVE 2 HOURS PRIOR. [facility]09-05-2024 History of Present illness Narrative* Stacy Brink MD - 12/26/2023 11:45 AM EDT Images from the original note were not included. [facility] [facility] [address] [place] [phone] SUBJECTIVE: Patient ID: Marcia Mario is a [...] 1970 Penicillin - Rash Depression Diabetes mellitus ([facility]) 07/1980 Type 1 Disease of thyroid [...] 90 tablet 3 pedi multivit no.12 w-fluoride (ZCCLTKREDGDKI-EDMFVCLS-MUDFL A ORAL) See Admin Instructions. pravastatin (PRAVACHOL) [...] patient this will be performed at either [facility]. Since she is diabetic, we will need to get clearance from her medical services assistant. Patient may call Zen at [phone] to schedule surgery. The patient will contact my office if there are any additional questions or concerns: . Non-emergent messages received through The Local may take up to 2 business days [...] to ensure the accuracy of this automated pot puller, some errors in pot puller may have occurred. Gabriella Yu MA 12/26/23 1148 Liat Valentin CNA 12/26/23 1324 Liat Valentin CNA 12/26/23 1434 documented in this encounterACMC Healthcare System GlenbeighConcur [place] [id number] Instructions* Patient Instructions* Liat Valentin CNA - [...] patient this will be performed at either [facility] or [facility]. Since she is diabetic, we will need to get clearance from her medical services assistant. Patient may call Zen at [phone] to schedule surgery. The patient will contact my office if there are any additional questions or concerns: . Non-emergent messages received through The Local may take up to 2 business days for a response. documented in this encounterACMC Healthcare System GlenbeighConcur Japan [id number] Miscellaneous Notes* Telephone Encounter - Anh Berrios CMA - 11/07/2023 9:49 AM EDT Patient received her new Medtronic pump and would like to receive training on it. Please review pended order and sign if agreeable. documented in this encounterNortheastern Vermont Regional HospitalRegBinder [id number] Telephone encounter Note* Telephone Encounter - Anh Berrios CMA - 11/07/2023 9:49 AM EDT Patient received her new Medtronic pump and would like to receive training on it. Please review pended order and sign if agreeable. [facility] Nut[employer]24 [id number] Miscellaneous Notes* Telephone Encounter - MECCA Chapman - 11/04/2023 9:55 AM EDT Upgrade to medtronic 780, she does NOT want a sensor * Telephone Encounter - Bessie Davis - 11/04/2023 9:55 AM EDT Referral faxed to [employer]. documented in this encounterCleveland Clinic South Pointe Hospital07-15-2024 Telephone encounter Note* Telephone Encounter - MECCA Chapman - 11/04/2023 9:55 AM EDT Upgrade to medtronic 780, she does NOT want a sensor [facility]07-15-2024 Telephone encounter Note* Telephone Encounter - Bessie Davis - 11/04/2023 9:55 AM EDT Referral faxed to [employer]. [facility]07-15-[facility] History of Present illness Narrative* MECCA Chapman [...] 1970 Penicillin - Rash Depression Diabetes mellitus ([facility]) 07/1980 Type 1 Disease of thyroid [...] tablet, Rfl: 3 pedi multivit no.12 w-fluoride (ZFXVRBSPUXKZB-[id number]-EVZPD A ORAL), See Admin Instructions., Disp: , [...] Plan:1. Type 1 diabetes mellitus without complication ([facility]) - POCT Hemoglobin A1c - CONTOUR NEXT [...] MECCA Chapman 11/04/23 1021 documented in this encounterCleveland Clinic South Pointe Hospital06-19-2024 Miscellaneous Notes* Telephone Encounter - Justina Tenorio [...] network for her insurance. documented in this encounterCleveland Clinic South Pointe Hospital06-19-2024 Telephone encounter Note* Telephone Encounter - Justina [...] her insurance is [employer] (on file) [facility]06-19-[facility]24 Telephone encounter Note* Telephone Encounter - Yamilka Almonte CNA - 10/09/2023 2:47 PM EDT I asked the patient to call and ask her insurance company for a pathologist that is in network for her insurance. [facility]05-02-2024 History of Present illness Narrative* Stacy Brink MD - 08/22/2023 2:45 PM EDT Images from the original note were not included. [facility] [address] [address] [address] [facility] [phone] SUBJECTIVE: Patient ID: Marcia Mario is a [...] but report has not been sent from [facility]. HISTORY: Past Medical History: Diagnosis Date Allergic 1970 Penicillin - Rash Depression Diabetes mellitus ([facility]) 07/1980 Type 1 Disease of thyroid [...] 90 tablet 3 pedi multivit no.12 w-fluoride (CURBFNSAKRLRH-TBCVOLOQ-HZPCT A ORAL) See Admin Instructions. pravastatin (PRAVACHOL) [...] or concerns: . Non-emergent messages received through The Local may take up to 2 business days [...] this chart were generated using voice recognition [employer] dictation software. Although every effort was made to ensure the accuracy of this automated pot puller, some errors in pot puller may have occurred. documented in this encounterCleveland Clinic South Pointe Hospital05-02-2024 Instructions* Patient Instructions* Soraida Hernandez - [...] or concerns: . Non-emergent messages received through The Local may take up to 2 business days for a response. documented in this encounterCleveland Clinic South Pointe Hospital04-22-2024 Miscellaneous Notes* Telephone Encounter - Aga Anderson - 08/12/2023 3:21 PM EDT [facility] called 08/11. Please fax CT order to [phone], they need to do a prior authorization. Patient see Dr. Brink. * Telephone Encounter - Estephanie Urias MA - 08/12/2023 3:21 PM EDT Completed. Estephanie Urias MA documented in this encounterCleveland Clinic South Pointe Hospital04-22-2024 Telephone encounter Note* Telephone Encounter - Aga Anderson - 08/12/2023 3:21 PM EDT [facility] called 08/11. Please fax CT order to [phone], they need to do a prior authorization. Patient see Dr. Brink. [facility]04-22-2024 Telephone encounter Note* Telephone Encounter - Estephanie Urias MA - 08/12/2023 3:21 PM EDT Completed. Estephanie Urias MA [facility]04-19-2024 History of Present illness Narrative* Stacy Brink MD - 08/09/2023 2:48 PM EDT Placing order for ct of the neck owing to mass felt on exam and abnormal ultrasound obtained after that exam. Please send patient the order. I ask that she obtain the imaging in a [facility] facility. documented in this encounterCleveland Clinic [facility] Hospital04-05-2024 History of Present illness Narrative* MECCA Weller - 07/26/2023 8:54 AM EDT Labs ordered. MECCA Weller 07/26/23 0855 documented in this encounterCleveland Clinic South Pointe Hospital04-05-2024 Miscellaneous Notes* Telephone Encounter - Aga Anderson - 07/26/2023 8:48 AM EDT [facility] called 07/26/23, they need order for creatinine lab work for the patient. Please fax to [phone]. Pt sees Dr. Brink. * Telephone Encounter - MECCA Weller - 07/26/2023 8:48 [address] ED[address] ordered [address]. Can someone please fax this over to [facility]! * Telephone Encounter - Estephanie Urias MA - 07/26/2023 8:48 AM EDT Lab order faxed to number provided. Estephanie Urias MA documented in this encounterCleveland Clinic South Pointe Hospital04-05-2024 Telephone encounter Note* Telephone Encounter - Aga Anderson - 07/26/2023 8:48 AM EDT [facility] called 07/26/23, they need order for creatinine lab work for the patient. Please fax to [phone]. Pt sees Dr. Brink. [facility]04-05-20[facility] Telephone encounter Note* Telephone Encounter - MECCA Weller - 07/26/2023 8:48 AM EDT Creatinine ordered place. Can someone please fax this over to [facility]! [facility] [employer] System Work Phone: [phone] Telephone encounter Note* Telephone Encounter - Estephanie Urias MA - 07/26/2023 8:48 AM EDT Lab order faxed to number provided. Estephanie Urias MA [facility]04-02-2024 Miscellaneous Notes* Telephone Encounter - Rosa Harden - 07/23/2023 4:33 PM EDT [facility] with [facility] scheduling dept called. She needs office notes faxed to pre cert the MRI. Please fax to [phone]. Phone number [phone] if any questions. Pt also needs an order forCreatinine because the MRI is ordered with and w/o contrast * Telephone Encounter - Yamilka Almonte CNA - 07/23/2023 4:33 PM EDT Faxed office note to [facility] documented in this encounterCleveland Clinic South Pointe Hospital04-02-2024 Telephone encounter Note* Telephone Encounter - Rosa Harden - 07/23/2023 4:33 PM EDT Kalee with [facility] scheduling dept called. She needs office notes faxed to pre cert the MRI. Please fax to [phone]. Phone number [phone] if any questions. Pt also needs an order forCreatinine because the MRI is ordered with and w/o contrast [facility]04-02-2024 Telephone encounter Note* Telephone Encounter - Yamilka Almonte CNA - 07/23/2023 4:33 PM EDT Faxed office note to [facility]03-21-2024 History of Present illness Narrative* Stacy Brink MD - 07/11/2023 3:00 PM EDT Images from the original note were not included. [facility] [address] [facility] [address] [place] [phone] SUBJECTIVE: Patient ID: Marcia Mario is a [...] 1970 Penicillin - Rash Depression Diabetes mellitus ([facility]) 07/1980 Type 1 Disease of thyroid [...] 90 tablet 3 pedi multivit no.12 w-fluoride ([id number]-[id number]-CXKHA A ORAL) See Admin Instructions. pravastatin (PRAVACHOL) [...] [facility] [place], [place] - MR brain IAC with and [...] or concerns: . Non-emergent messages received through The Local may take up to 2 business days [...] the time of final signature. Dr. Stacy Brnik 07/11/2023 12:31 PM Counseling: The following elements [...] this chart were generated using voice recognition M*Eneedo dictation software. Although every effort was made to ensure the accuracy of this automated pot puller, some errors in pot puller may have occurred. documented in this encounterCleveland Clinic South Pointe Hospital03-21-2024 Instructions* Patient Instructions* Soraida Hernandez - 07/11/2023 [...] or concerns: . Non-emergent messages received through The Local may take up to 2 business days for a response. documented in this encounterCleveland Clinic South Pointe Hospital03-21-2024 History of Present illness Narrative* Criss Francisco, JOHANNY - 07/11/2023 2:00 PM EDT AUDIOLOGIC EVALUATION [...] Asymmetry noted: No Reliability: good Speech Audiometry: SRT/CANNONEER in good agreement WRS: Right Ear: Excellent (100%) Left Ear: Excellent (100%) RECOMMENDATIONS: Follow up with Malena Talbert, [facility] [employer] Worker documented in this encounterCleveland Clinic South Pointe Hospital03-19-2024 History of Present illness Narrative* Mayuri Salazar [...] tablet, Rfl: 3 pedi multivit no.12 w-fluoride (JRAHUXEVVYVNK-GHTJXTIR-UIROZ A ORAL), See Admin Instructions., Disp: , [...] Plan:1. Type 1 diabetes mellitus without complication ([facility]) - POCT Hemoglobin A1c - insulin aspart U-100 (NovoLOG U-100 Insulin aspart) 100 unit/mL injection; INJECT 60 UNITS DAILY VIA INSULIN PUMP DIRECTED Dispense: 60 mL; Refill: 3 2. Carol Ann's disease 3. Mixed hyperlipidemia Return to clinic: 3-4 months documented in this encounterCleveland Clinic South Pointe Hospital12-19-2023 Evaluation note* Encounter Date Diagnosis Assessment Notes Treatment Notes Treatment Clinical Notes Mar, Right otitis media with effusion (ICD-10 - H65.91) Continue flonase. Will reach out to [facility] - Dr. Brink or Dr. Doll for an appt. Mar,Enlarged lymph node (ICD-10 - R59.9)Present decreased in size, per Marcia. States same area increases and resolves in size through the years. [employer] Other 11-22-2023 Evaluation note* Encounter Date Diagnosis [...] or persist. Immediate eval in ER if warnings/s. ALso noted that will refer to ENT due to continued pain and duration of symptoms without relief from treatment. Pt agrees with plan of care and verbalizes understanding of teaching points and instructions. Feb,Enlarged lymph node (ICD-10 - R59.9)Lymph nodes help our bodies fight germs and infections. Many things can cause lymph nodes to swell,including infections. In most cases, swollen lymph nodes are not serious. Increase fluid intake andmonitor for other signs of infection including increased swelling, pain, redness, red streaking or a fever. It may take a few weeks for the swelling to go down. If the swelling is not resolved followup with PCP is recommended. [employer] Other 11-15-2023 Evaluation + Plan note Diagnostic Tests Pending * PAP [id number] 03/06/23 [facility]10-09-2023 Evaluation note* Encounter Date Diagnosis Assessment [...] or persist. Immediate eval in ER if warnings/s. Pt agrees with plan of care and verbalizes understanding of teaching points and instructions. [employer] Other 11-11-2022 Evaluation + Plan note Diagnostic Tests Pending * PAP [id number] 03/02/22 [facility]03-31-2022 NotePROCEDURE: XR ANKLE RT MIN [...] Electronically authenticated by: JAYLIN LINDQUIST Date: 2021-07-20 16:18[facility]03-31-2022 NotePROCEDURE: XR ANKLE RT MIN 3 [...] Electronically authenticated by: JAYLIN LINDQUIST Date: 2021-07-20 16:18[facility]Evaluation + [facility] note Future Appointments Appointment Date:01/23/2024 09:30:00 AM Scheduled Provider: Location:. Appointment Type:BD Bone Density (FT) Future Scheduled Tests Radiology* BD Bone Density DEXA 01/23/24 [facility] Evaluation noteNo [facility] [email or web address] Other Evaluation note* Diagnosis Onset Date Resolution Status Dizziness acuteEustachian tube dysfunctionThe [facility] Work Phone: Evaluation note* Diagnosis Neck mass- Primary Swelling, mass, or lump in head and neck Ear fullness, right Tonsillar hypertrophy Hypertrophy of tonsils alone Nasal dryness Other diseases of nasal cavity and sinuses documented in this encounter [facility]* Diagnosis Neck mass- Primary Swelling, mass, or lump in head and neck documented in this encounter [facility]* Diagnosis Neck swelling- Primary Swelling, mass, or lump in head and neck Ear fullness, right Otalgia, right Sensorineural hearing loss (SNHL) of both ears Tonsillith Lymphadenopathy, cervical documented in this encounter [facility]Evaluation [facility]* Diagnosis Type 1 diabetes mellitus without complication ([facility])- Primary Type I (juvenile type) diabetes mellitus without mention of complication, not stated as uncontrolled Osteopenia, unspecified location 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 documented in this encounter [facility]* Diagnosis Type 1 diabetes mellitus without complication ([facility])- Primary Type I (juvenile type) diabetes mellitus without mention of complication, not stated as uncontrolled documented in this encounter [facility]Evaluation note* Diagnosis Type 1 diabetes mellitus without complication ([facility])- Primary Type I (juvenile type) diabetes mellitus without mention of complication, not stated as uncontrolled Carol Ann's disease Chronic lymphocytic thyroiditis Mixed hyperlipidemia documented in this encounter [facility]Evaluation note* Diagnosis Sensorineural hearing loss (SNHL) of both ears- Primary Ear pain, right documented in this encounter [facility]* Diagnosis Ear fullness, right- Primary Otalgia, right Sensorineural hearing loss (SNHL) of both ears Neck swelling Swelling, mass, or lump in head and neck documented in this encounter [facility]* Diagnosis Ear fullness, right- Primary documented in this encounter [facility] note* Diagnosis Type 1 diabetes mellitus without complication ([facility]) Type I (juvenile type) diabetes mellitus without mention of complication, not stated as uncontrolled documented in this encounter [facility]Evaluation [facility]* Diagnosis Lymphadenopathy, cervical- Primary Neck swelling Swelling, mass, or lump in head and neck Lymphadenopathy, cervical Neck mass Swelling, mass, or lump in head and neck Neck swelling Swelling, mass, or lump in head and neck Lymphadenopathy, cervical Neck mass Swelling, mass, or lump in head and neck documented in this encounter [facility]* Diagnosis Neck swelling Swelling, mass, or lump in head and neck Lymphadenopathy, cervical Neck mass Swelling, mass, or lump in head and neck Preop testing- Primary Unspecified pre-operative examination Type 1 diabetes mellitus without complication ([facility]) Type I (juvenile type) diabetes mellitus without mention of complication, not stated as uncontrolled Neck swelling Swelling, mass, or lump in head and neck Lymphadenopathy, cervical Neck mass Swelling, mass, or lump in head and neck documented in this encounter [facility]* Diagnosis Neck swelling Swelling, [...] and neck documented in this encounter [facility] note* Diagnosis Type 1 diabetes mellitus without complication (CMS-HCC) Type I (juvenile type) diabetes mellitus without mention of complication, not stated as uncontrolled [facility]* Diagnosis Neck mass- Primary Swelling, mass, or lump in head and neck Ear fullness, right documented in this encounter [facility]* Diagnosis Type 1 diabetes mellitus without complication (CMS-HCC) Type I (juvenile type) diabetes mellitus without mention of complication, not stated as uncontrolled documented in this encounter [facility]* Diagnosis Type 1 diabetes mellitus without complication (CMS-HCC)- Primary Type I (juvenile type) diabetes mellitus without mention of complication, not stated as uncontrolled Mixed hyperlipidemia documented in this encounter [facility]* Diagnosis Type 1 diabetes mellitus without complication (CMS-HCC)- Primary Type I (juvenile type) diabetes mellitus without mention of complication, not stated as uncontrolled Mixed hyperlipidemia 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 documented in this encounter [facility] SystemEvaluation noteNo assessment information available [facility] Work Phone: Evaluation note* Diagnosis Type 1 diabetes mellitus without complication (CMS-HCC)- Primary Type I (juvenile type) diabetes mellitus without mention of complication, not stated as uncontrolled Mixed hyperlipidemia 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 documented in this encounter [facility]Evaluation note* Diagnosis Onset Date Resolution Status Admit Date Trigger finger, right middle finger acuteOctober 2024 1:41pmTrigger thumb of right handacuteOctober 2024 1:41pm [facility] Work Phone: History general Narrative - Reported* Type Description Date Medical History Type 1 diabetes mellitus with ot her circulatory complications Medical HistoryHyperlipidemiaSurgical Historyarthroscopic knee [id number] Surgical Historyshoulder [id number] Historysee above surgical historyHospitalization Historydiabeties Qeexo [facility] Monogram Other Hospital course Narrative No data available for this section [facility] No data available for this section [facility] Discharge instructionsAmbulatory Orders* Referral to Orthopedic Surgery Location: None Selected [facility] Work Phone: InstructionsNot on filedocumented in this encounter [facility] [...] note No data available for this section [facility] CenterReason for referral (narrative)* Consultation (Routine) - Pending ReviewSpecialtyDiagnoses / ProceduresReferred By Contact Referred To ContactPathology, Anatomic & Clinical Diagnoses Lymphadenopathy, cervical CubaStacy MD [address] [address] Aditya Stroud MD [address] [place] [address] [address] [place] [address] Referral IDStatusReasonStart DateExpiration DateVisits RequestedVisits [id number] Review/ [facility] HospitalReason for referral (narrative)* Consultation (Routine) - Pending ReviewSpecialtyDiagnoses / ProceduresReferred By ContactReferred To ContactEndocrinology, Diabetes & Metabolism Diagnoses Type 1 diabetes mellitus without complication ([facility]) Rogelio Rebolledo APRN-CNP [address] [address] [facility] [address] [facility] [address] [place] [address] Referral IDStatusReasonStdocena DateExpiration DateVisits RequestedVisits [id number] Review Specialty Services Required / [facility] Summary Purpose Family History Relationship Condition Age at Onset Recorded Date/T rita father Unknown motherHeart diseaseUnknownDiabetes mellitusUnknown Advance Directives Advance Directive Response Recorded Date/ Time Advance Directives No February 11, 2024 11:35am Advance Directive Response Recorded Date/ Time Advance Directives No February 11, 2024 10:35am Reason for Referral SpecialtyDiagnoses / ProceduresReferred By ContactReferred To Contact Diagnoses Preop testing Procedures ECG 12 lead Jose Matos MD [address] [place] [address] Referral IDStatusReasonStart DateExpiration DateVisits RequestedVisits [id number] / ProceduresReferred By ContactReferred To ContactRadiology Diagnoses Otalgia, right Ear fullness, right Procedures MR brain IAC with and without contrast Stacy Brink MD [address] [facility] [address] [place] [address] Referral IDStatusRePick[facility] DateExpiration DateVisits RequestedVisits [id number] Review/[id number] / ProceduresReferred By ContactReferred To ContactRadiology Diagnoses Neck mass Procedures CT neck soft tissue with contrast Stacy Brink MD [address] [facility] [address] [place] [address] Referral IDStatusRePickens [facility] DateExpiration DateVisits RequestedVisits [id number] Review/ Reason Dr. Brink or Dr. Zavala er w [facility] - 3 months of R middle ear effusion Diagnosis 1 Right otitis media w ith effusion (H65.91) Referral Organization [facility] Referring Provider First Name Antonio Referring Provider Last Name Lisa Referring Provider Specialty Family [facility] Referred Organization [facility] Referred Address [address] [facility],[place], [place],[address] Referred Provider Specialty Ear, Nose an d Throat Referral Priority Routine Reason *FU 03/22 evaluate Diagnosis 1 Right otitis media w ith effusion (H65.91) Referral Organization [facility] Referring Provider First Name Rosa Referring Provider Last Name Ary Referring Provider Specialty Nurse Pract itioner Referred Organization [facility] Referred Provider Ekta Cash Referred Address ,[place], [place],[address] Referred Provider Specialty Ear, Nose an d Throat Referral Priority Routine General Notes Delma Clark 05:53:09 PM >received today, notes locked, ins attached, referral faxed Chief Complaint and Reason for Visit Chief Complaint Amb Documentation Amb Documentation Amb Documentation Dizziness, ear pain/fullnessReason for VisitDizziness Eustachian tube dysfunction Chief Complaint Admit Date Amb Documentation February 10, 2024 1 1:46am Amb Documentation February 10, 2024 1 :11pm Amb Documentation February 10, 2024 2 :51pm Dizziness, ear pain/fullness January 11:38am chest congestion, bodyaches February 9:30am Reason for Visit Admit Date Dizziness February 11, 2024 1 1:38am Eustachian tube dysfunction January 11:38am Bronchitis March 03, 2024 9:30am Chief Complaint Admit Date Cough/Lightheaded/Dizzy September 10, 2024 1 :58pm Chief Complaint Admit Date Pain in joints February 09, 2025 1 :41pm Reason for Visit Admit Date Trigger finger, right middle finger Octo 2024 1:41pm Trigger thumb of right hand January 1:41pm Additional Source Comments INFORMATION SOURCE (unrecogn ized section and content) DATE CREATED AUTHOR 10/16/2017 [facility] DATE CREATED AUTHOR AUTHOR'S ORGANIZ ATION 03/03/2020 [facility] DATE CREATED AUTHOR AUTHOR'S ORGANIZ ATION 03/07/2022 [facility] DATE CREATED AUTHOR AUTHOR'S ORGANIZ ATION 05/03/2024 [facility] Patient Care team informatio n (unrecognized section and content) Team Status: Active Member Role Status Dates Antonio Gonzalez MD Primary Care Provider Active Team Status: Active Member Role Status Dates Antonio Gonzalez MD Primary Care Provider Active Start: February 10, 2024 Rylie Garcia CMAAttending ProviderActiveStart: February 10, 2024 Team Status: Inactive Member Role Status Dates Antonio Gonzalez MD Primary Care Provider Active Start: February 11, 2024 End: February 11, 2024Rosa Mcallister APRN [employer]-CAttending ProviderActive Start: February 11, 2024 End: February 11, 2024 Team Status: Inactive Member Role Status Dates Antonio Gonzalez MD Primary Care Provider Active Start: March 03, 2024 End: March 03, 2024Rosa Mcallister APRN [employer]-CAttending ProviderActive Start: March 03, 2024 End: March 03, 2024Team MemberRelationshipSpecialtyStart DateEnd Date Antonio Gonzalez MD [address] [place] [address] PCP - General3/20/24Team MemberRelationshipSpecialtyStart DateEnd Date Antonio Gonzalez MD [address] [place] [address], [place] [address] PCP - General3/2024Team MemberRelationshipSpecialtyStart DateEnd Date Antonio Gonzalez MD [address] [place] [address], [place] [address] PCP - General3/2024Team MemberRelationshipSpecialtyStart DateEnd Date Antonio Gonzalez MD [address] [place] [address] PCP - General3/24Team MemberRelationshipSpecialtyStart DateEnd Date Antonio Gonzalez MD [address] [place] [address] PCP - General3/24Team MemberRelationshipSpecialtyStart DateEnd Date Antonio Gonzalez MD [address] [place] [id number] PCP - General3/2024Team MemberRelationshipSpecialtyStart DateEnd Date Antonio Gonzalez MD [address] [place] [address] [place] [address] PCP - General3/2024Team MemberRelationshipSpecialtyStart DateEnd Date Antonio Gonzalez MD [address] [place] [address] [place] [address] PCP - General3/2024Team MemberRelationshipSpecialtyStart DateEnd Date Antonio Gonzalez MD [address] [place] [address] PCP - General3/2024Team MemberRelationshipSpecialtyStart DateEnd Date Antonio Gonzalez MD [address] [place] [address] PCP - General3/24Team MemberRelationshipSpecialtyStart DateEnd Date Antonio Gonzalez MD [address] [place] [address] PCP - General3Team MemberRelationshipSpecialtyStart DateEnd Date Antonio Gonzalez MD [address] [place] [address] PCP - General3/2024Team MemberRelationshipSpecialtyStart DateEnd Date Antonio Gonzalez MD [address] [place] [address] PCP - General324Team MemberRelationshipSpecialtyStart DateEnd Date Antonio Gonzalez MD [address] [place] [address] PCP - General3/2024Team MemberRelationshipSpecialtyStart DateEnd Date Antonio Gonzalez MD [address] [place] [address] PCP - General3/2024Team MemberRelationshipSpecialtyStart DateEnd Date Antonio Gonzalez MD [address] [place] [address] PCP - General3/20/24Team MemberRelationshipSpecialtyStart DateEnd Date Antonio Gonzalez MD [address] [place] [address] PCP - General07/10/23Team MemberRelationshipSpecialtyStart DateEnd Date Antonio Gonzalez MD [address] [place] [address] PCP - General07/10/23Team MemberRelationshipSpecialtyStart DateEnd Date Antonio Gonzalez MD [address] [place] [address] PCP - General07/10/23Team MemberRelationshipSpecialtyStart DateEnd Date Antonio Gonzalez MD [address] [place] [address] PCP - General07/10/23Team MemberRelationshipSpecialtyStart DateEnd Date Antonio Gonzalez MD [address] [place] [phone] PCP - General07/10/23 Team Status: Active Member Role Status Dates Antonio Gonzalez MD Primary Care Provider Active Start: July 09, 2024 Markell Mancilla ProviderActiveStart: July 09, 2024 Team Status: Inactive Member Role Status Dates Antonio Gonzalez MD Primary Care Provide r, Attending Provider Active Start: September 10, 2024 End: September 10, 2024 Team Status: Active Member Role/Relationship Status Dates Antonio Gonzalez MD Primary Care Provider Active Team Status: Inactive Member Role/Relationship Status Dates Antonio Gonzalez MD Primary Care Provider Active Start: February 09, 2025 End: February 09, 2025Markell Isaac ProviderActiveStart: February 09, 2025 End: February 09, 2025 REASON FOR VISIT (unrecogniz ed section and content) ReasonCommentsMed RefillReasonOnset DateCommentsMed Iqcswt9105/18/2024Reason CommentsFollow-upReasonOnset DateCommentsOrder for CT scan needs faxed08/12/2023 ReasonCommentsEar FullnessReasonOnset DateCommentsreferral zzjnkatv59/19/2024 ReasonCommentsDiabetesReasonCommentsDiabetes MellitusReasonCommentsEar Problem ReasonCommentsOtitis MediaSpecialtyDiagnoses / ProceduresReferred By Contact Referred To ContactOtolaryngology Diagnoses Right otitis media with effusion Antonio Gonzalez MD [address] [place] [address] [facility] [address] [place] [address], [address] [place] [address] Referral IDStatusReasonStart DateExpiration DateVisits RequestedVisits [id number] Review Specialty Services Required /[id number] DateCommentsNeed order for creatinine lab work 4ReasonCommentsaural fullnessEaracheReasonOnset DateCommentsMed Refill 4ReasonCommentsPost-opRight neck lymph nose excisionReasonOnset Date CommentsMed [id number] DateCommentsMed Myxgqi434Reason Onset DateCommentsMed Dvabgf434ReasonOnset DateCommentsMed Refill 4ReasonOnset DateCommentsMed Zbgdmv2206/09/2024ReasonCommentsDiabetes Goals (unrecognized section and content) Goals may [...] BE BASED ON THE PRIMARY CLINICAL RECORDS. [facility]. provides no warranty or guarantee of the accuracy or completeness of information in this document.
== END 2025-02-22 08:33 | disposition home or self-care (01) ==
LOC: RAD 08:32
PROVIDERS: PCP Family Medicine; Visit Provider Orthopaedic Surgery Orthopaedic Trauma
DX: M79.641 Pain in right hand (principal)
CPT/HCPCS: 73130